=== PATIENT | male | born 1945 | race Hispanic/Latino ===

== ENCOUNTER → 2017-11-27 | Outpatient (CLI) | payer MEDICARE, BC ==
[~2017-11-27] MED LIST: CHOLECALCIFEROL PO; FIBER CHOICE C1.5 GM PO; VITAMIN B PO; Z.0.AMARYL4 MG; Z.0.ASPIR 8181 MG; Z.0.AVODART0.5 MG; Z.0.CELEBREX200 MG; Z.0.GLUCOPHAGE850 MG; Z.0.LOVAZA1 GM; Z.0.PROTONIX40 MG; Z.0.SIMVASTATIN10 MG; Z.0.SINGULAIR10 MG; Z.2.LOSARTAN-HCTZ1 E; [UNRECOGNIZED DRUG - OTHER]
--- NOTE | 2017-11-27 13:44 | Diagnostic Imaging Report ---
PROCEDURE:X-RAY RIGHT KNEE, ONE OR TWO VIEWS COMPARISON:None. INDICATIONS:RIGHT KNEE PAIN FOR A FEW DAYS FINDINGS: The bones are well-mineralized. There are no fractures, subluxations, lytic or blastic lesions. There is prominence of the tibial spines and a tiny osteophytic spur arising from the lateral tibial plateau. There is mild narrowing of the patellofemoral compartment. Small joint effusion is present. CONCLUSION: Mild degenerative changes of the knee with small joint effusion. Dictated by: Yousif Perea M.D. on 11/27/2017 at 13:46 Electronically approved by: Yousif Perea M.D. on 11/27/2017 at 13:46
== END ==
LOC: RAD 13:00
PROVIDERS: ATTEND Family Medicine
DX: M25.561 Pain in right knee (principal)

== ENCOUNTER → 2018-04-26 | Outpatient (CLI) | payer MEDICARE, BC ==
--- NOTE | 2018-04-26 20:01 | Diagnostic Imaging Report ---
Solid-phase gastric emptying study Reason for examination: Peterson's esophagus; dyspepsia. Food was found in stomach during EGD with 12 hours fasting. The protocol used for this study is based on the Consensus Recommendations for Gastric Scintigraphy by the [place] [employer] and the Society of Nuclear Medicine. Clinical information: The patient is diabetic; blood glucose this morning is 96 mg/dL. The patient has not had prior gastrointestinal surgery other than cholecystectomy in 2016. The patient is not on any medications expected to affect gastric motility. The patient has been fasting for at least 6 hours prior to this exam. Radiopharmaceutical: Tc-99m sulfur colloid 1 mCi Report: The radiopharmaceutical was added to 1/2 cup egg whites that were then prepared and served with 2 pieces of white bread toasted, 30 grams of jam and 4 ounces of water. The patient took the meal orally without difficulty. Images were obtained of the abdomen in the anterior and posterior projections at 10 minutes post the meal and at 1, 2, 3, and 4 hours. Uptake was determined from the geometric mean of the anterior and posterior counts and the counts were corrected for decay of the radiolabel. The percent gastric retention of the labeled meal at: 1 hour was 76% (normal 30-90%) 2 hours was 36% (normal <60%) 3 hours was 17% (normal <30%) 4 hours was 4% (normal <10%) Impression: Normal gastric emptying pattern. The findings do not support the clinical diagnosis of gastroparesis. Signed by: Dr. Marta Brasher M.D. on 04/26/2018 7:57 PM
== END ==
LOC: NM 08:11
PROVIDERS: ATTEND Internal Medicine
DX: R49.8 Other voice and resonance disorders (principal); K30 Functional dyspepsia
CPT/HCPCS: 78264; A9541

== ENCOUNTER 2018-08-18 09:08 | Emergency (ER) | payer MEDICARE, OTHER ==
[~2018-08-18] VITALS: Ht 177.8 cm; Wt 102.1 kg
--- OUTSIDE RECORDS SUMMARY | 2018-08-18 09:11 | XMS REPORT | Summary of Care ---
Author Organization Unknown Address Unknown Phone Unavailable Encounter Dates Location Diagnoses Discharge Providers Disposition 10/17/2013 [facility] Outpatient Imaging - Home Kanika Gonzaleze - [place] 10/17/2013 [address] [place], [place] [address] Reason for Visit 715.90 - OSTEOARTHROS NO Problem List Condition Effective Dates Status Health Status Informant Diabetes Active mellitus(Confirmed) Diarrhea(Confirmed) Active Enlarged Active prostate(Confirmed) GERD - Active Gastro-esophageal reflux disease(Confirmed) HTN - Active Hypertension(Confirm ed) Hyperlipidemia(Confi Active rmed) Allergies, Adverse Reactions, Alerts Status Substance Reaction Severity Active Cardizem Medications No data available for this section Medications Administered During Your Visit No data available for this section Immunizations No data available for this section
--- OUTSIDE RECORDS SUMMARY | 2018-08-18 09:11 | XMS REPORT | Continuity of Care Document ---
Author Author Angeline perrin Organization Interface Address Unknown Phone Unavailable Problems Problem Status Onset Date Classification Date Reported Comments Source DX: R74.0=NONSPECIFIC ELEVATION OF LEVEL Active 05/28/2018 [facility] CHOU'S DISEASE Active 05/23/2018 [facility] Other spondylosis with myelopathy, cervical region 09/15/2017 12/07/2017 [facility] CERVICAL SPONDYLOSIS, HNP, CERVICAL STEN [facility] OSTEO[facility]ROS NO Active 10/09/2013 [facility] [place] Concussion with loss of consciousness <=30 min Resolved 07/17/2005 Problem 12/31/2017 MARYAM Ma, [facility] Cervical spondylosis Active Problem 12/31/2017 [facility] [place], [facility] DDD , cervical(<span ID="[id number]">Confirmed</span>) Active Problem 12/31/2017 [facility] [place] Diabetes mellitus Active Problem 12/31/2017 [facility] [place], [facility] [place] Diabetic neuropathy Active Problem 12/31/2017 [facility] [place] Diarrhea Active Problem 12/31/2017 [facility] [place], [facility] [place] Diverticulosis Active Problem 12/31/2017 [facility] [place], [facility] Enlarged prostate Active Problem 12/31/2017 [facility] [place], [facility] [place] Gastric ulcer Resolved Problem 12/31/2017 [facility] [place] GERD - Gastro-esophageal reflux disease Active Problem 12/31/2017 [facility] [place], [facility] [place] [facility] [facility] [facility] [place] (<span ID="[id number]">Confirmed</span>)<sup>1</sup> Active Problem 12/31/2017 BILATERAL MARYAM Ma, [facility] HNP (<span ID="[id number]">Confirmed</span>) Active Problem 12/31/2017 MARYAM [facility] HTN - Hypertension Active Problem 12/31/2017 MARYAM [place], [facility] [place] Hyperlipidemia Active Problem 12/31/2017 MARYAM [place], [facility] [place] IBS (<span ID="[id number]">Confirmed</span>) Active Problem 12/31/2017 MARYAM Ma, [facility] JAMARCUS (<span ID="[id number]">Confirmed</span>) Active [facility]/31/2017 [facility] OA (<span ID="[id number]">Confirmed</span>) Active Problem 12/31/2017 MARYAM Ma, [facility] Paresthesias<sup>2</sup> Active Problem 12/31/2017 BILATERAL FINGERS MARYAM Ma, [facility] Radiculitis Active Problem 12/31/2017 MARYAM Ma, [facility] Cervical stenosis of spine Active Problem 12/31/2017 [facility] Traumatic iritis<sup>3</sup> Active Problem 12/31/2017 LEFT EYE MARYAM Ma, [facility] Vertigo Active Problem 12/31/2017 [facility] Cervical disc disorder at C5-C6 level with myelopathy 12/07/2017 [facility] Type 2 diabetes mellitus with diabetic neuropathy, unspecified 12/07/2017 [facility] Acute posthemorrhagic anemia 12/07/2017 [facility] Spinal stenosis, cervical region 12/07/2017 [facility] Hyperlipidemia, unspecified 12/07/2017 [facility] Obstructive sleep apnea (pediatric) 12/07/2017 [facility] FDC use of oral hypoglycemic drugs 12/07/2017 [facility] Gastro-esophageal reflux disease without esophagitis 12/07/2017 [facility] Essential hypertension 12/07/2017 [facility] Irritable bowel syndrome without diarrhea 12/07/2017 [facility] Elevated white blood cell count, unspecified 12/07/2017 [facility] Diabetes mellitus Active Problem 12/07/2017 [facility] [place] Diarrhea Active Problem 12/07/2017 [facility] [place], [facility] Enlarged prostate Active Problem 12/07/2017 [facility] [place] GERD - Gastro-esophageal reflux disease Active Problem 12/07/2017 [facility] [place], [facility] HTN - Hypertension Active Problem 12/07/2017 [facility] [place], [facility] Hyperlipidemia Active Problem 12/07/[address] 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.4)- Active [facility] IRRITABLE BOWEL SYNDROME WITHOUT DIARRHE Active [facility] Medications Medication Details Route Status Patient Instructions Ordering Provider Order Date Source Diazepam 10 MG Oral Tablet [Valium] 10 mg=1 tab, PO, Bedtime, PRN Anxiety, X 7 day, # 30 tab, 0 Refill(s), given to patient No Longer Active 09/01/2017 [facility] tramadol hydrochloride 50 MG Oral Tablet 50 mg=1 tab, PO, Q8H, PRN Pain, X 14 day, # 50 tab, 0 Refill(s) No Longer Active 09/01/2017 [facility] Docusate Sodium 100 MG Oral Capsule 100 mg=1 cap, PO, BID, # 28 cap, 0 Refill(s), Pharmacy: [facility] [id number] Active 08/31/2017 [facility] POLYETHYLENE GLYCOL 3350 142 MG/ML Oral Solution [Miralax] 17 gm, PO, Daily, X 15 day, # 255 gm, 0 Refill(s), Pharmacy: [facility] [place] [id number] No Longer Active 08/31/2017 [facility] Dexamethasone 4 mg, 1 tab, Route: PO, Drug form: TAB, QID, Dosing Weight 102.528, kg, Start date: 08/31/17 17:00:00 LENS POLISHER, Duration: 30 day, Stop date: 09/30/17 13:00:00 CDTNotes: Give with food. (Same As: Decadron) Inactive 08/31/2017 [facility] Cozaar 100 mg, 1 tab, Route: PO, Drug form: TAB, Daily, Start date: 08/31/17 9:00:00 LENS POLISHER, Duration: 30 day, Stop date: 09/29/17 9:00:00 CDTNotes: (Same as: Cozaar) Inactive 08/31/2017 [facility] Januvia 100 mg, 2 tab, Route: PO, Drug form: TAB, Daily, Dosing Weight 102.528, kg, Start date: 08/31/17 9:00:00 LENS POLISHER, Duration: 30 day, Stop date: 09/29/17 9:00:00 CDTNotes: Same as Januvia Inactive 08/31/2017 [facility] hydrochlorothiazide 25 mg oral tablet 12.5 mg, 0.5 tab, Route: PO, Drug form: TAB, Daily, Start date: 08/31/17 9:00:00 LENS POLISHER, Duration: 30 day, Stop date: 09/29/17 9:00:00 CDTNotes: (Same as: Hydrodiuril) With food. Inactive 08/31/2017 [facility] Hydrochlorothiazide 12.5 MG / Losartan Potassium 100 MG Oral Tablet 1 tab, Route: PO, Drug Form: TAB, Dosing Weight 102.528, kg, Daily, Start date: 08/31/17 9:00:00 LENS POLISHER, Duration: 30 day, Stop date: 09/29/17 9:00:00 CDT No Longer Active 08/31/2017 [facility] glimepiride 1 mg, 0.5 tab, Route: PO, Drug form: TAB, Breakfast, Dosing Weight 102.528, kg, Start date: 08/31/17 8:00:00 LENS POLISHER, Duration: 30 day, Stop date: 09/29/17 8:00:00 CDTNotes: Non-Formulary (Same as: Amaryl) Inactive 08/31/2017 [facility] Tums 500 mg, 1 tab, Route: CHEW, Drug form: CHEWTAB, TID, Dosing Weight 102.528, kg, PRN Indigestion, Start date: 08/31/17 3:08:00 LENS POLISHER, Duration: 30 day, Stop date: 09/30/17 3:07:00 CDTNotes: (Same As: Tums) Calcium Carbonate 500 ol=079 mg elemental calcium Dose= mg calcium carbonate ( mg elemental calcium) Inactive 08/31/2017 [facility] Benzocaine 15 MG / Menthol 3.6 MG Lozenge [Cepacol Sore Throat Pain Relief 15/3.6] 1 lozenge, Route: MUCOUS MEM, Drug Form: YAHAIRA, Dosing Weight 102.528, kg, Q2H, PRN Sore Throat, Start date: 08/30/17 23:18:00 LENS POLISHER, Duration: 30 day, Stop date: 09/29/17 23:17:00 CDTNotes: Cepacol lozenges Dispense 1 box=16 lozenges (Same As: Cepacol Lozenges) No Longer Active 08/31/2017 [facility] Simvastatin 20 mg, 1 tab, Route: PO, Drug form: TAB, Bedtime, Dosing Weight 102.528, kg, Start date: 08/30/17 21:00:00 LENS POLISHER, Duration: 30 day, Stop date: 09/28/17 21:00:00 CDTNotes: (Same as: Zocor) No Longer Active 08/31/2017 [facility] Dexamethasone 4 mg, 1 mL, Route: IV, Drug form: INJ, Q6H, Dosing Weight 102.528, kg, Start date: 08/30/17 18:00:00 LENS POLISHER, Duration: 4 doses or times, Stop date: 08/31/17 12:00:00 CSTNotes: Concentration: 4mg/ml No Longer Active 08/31/2017 [facility] Hydralazine Hydrochloride 50 MG Oral Tablet 50 mg, 2 tab, Route: PO, Drug form: TAB, BID, Dosing Weight 102.528, kg, Start date: 08/30/17 17:00:00 LENS POLISHER, Duration: 30 day, Stop date: 09/29/17 9:00:00 CDTNotes: (Same as: Apresoline) May interfere w/enteral feedings Take With Food. No Longer Active 08/30/2017 [facility] gabapentin 600 MG Oral Tablet 600 mg, 2 cap, Route: PO, Drug form: CAP, BID, Dosing Weight 102.528, kg, Start date: 08/30/17 17:00:00 LENS POLISHER, Duration: 30 day, Stop date: 09/29/17 9:00:00 CDTNotes: (Same as: Neurontin) No Longer Active 08/30/2017 [facility] Pepcid 20 mg, 1 tab, Route: PO, Drug form: TAB, BID, Dosing Weight 102.528, kg, Start date: 08/30/17 17:00:00 LENS POLISHER, Duration: 30 day, Stop date: 09/29/17 9:00:00 CDTNotes: (Same as: Pepcid) Inactive 08/30/2017 [facility] Docusate Sodium 100 MG Oral Capsule 100 mg, 1 cap, Route: PO, Drug form: CAP, BID, Dosing Weight 102.528, kg, Start date: 08/30/17 17:00:00 LENS POLISHER, Duration: 30 day, Stop date: 09/29/17 9:00:00 CDTNotes: (Same as: Colace) (Do Not Crush) No Longer Active 08/30/2017 [facility] Protonix 40 mg, 1 tab, Route: PO, Drug form: ECTAB, Before Dinner, Dosing Weight 102.528, kg, Start date: 08/30/17 16:30:00 LENS POLISHER, Duration: 30 day, Stop date: 09/28/17 16:30:00 CDTNotes: Tablet should not be chewed or crushed. (Same as: Protonix) No Longer Active 08/30/2017 [facility] Cefazolin 2 gm, 100 mL, Route: IVPB, Drug form: INJ, Q8H, Dosing Weight 102.528, kg, Start date: 08/30/17 16:00:00 LENS POLISHER, Duration: 3 doses or times, Stop date: 08/31/17 8:00:00 LENS POLISHER, ABX Indication: Surgical Pro phylaxisNotes: Same as: Ancef No Longer Active 08/30/2017 [facility] Dilaudid 0.5 mg, 0.25 mL, Route: IVP, Drug form: INJ, Q5Min, Dosing Weight 102.528, kg, PRN Pain Score 7-10, Start date: 08/30/17 14:08:00 LENS POLISHER, Duration: 3 doses or times, Stop date: 08/31/17 0:00:00 CSTNotes: Same as Dilaudid No Longer Active 08/30/2017 [facility] Robaxin 500 mg, 5 mL, Route: IV, Drug form: INJ, ONCE, Dosing Weight 102.528, kg, Start date: 08/30/17 13:56:00 LENS POLISHER, Stop date: 08/30/17 13:56:00 CSTNotes: (Same as:Robaxin) Inactive 08/30/2017 [facility] Labetalol 10 mg, 2 mL, Route: IV, Drug form: INJ, ONCE, Dosing Weight 102.528, kg, Start date: 08/30/17 13:21:00 LENS POLISHER, Stop date: 08/30/17 13:21:00 LENS POLISHER Inactive 08/30/2017 [facility] Naloxone 0.04 mg, 0.1 mL, Route: IVP, Drug form: INJ, Q2MIN, Dosing Weight 102.528, kg, PRN Narcotic Reversal, Start date: 08/30/17 12:58:00 LENS POLISHER, Duration: 30 day, Stop date: 09/29/17 13:57:00 CDTNotes: Same as Narcan No Longer Active 08/30/2017 [facility] Hydromorphone 15 mg, 30 mL, Route: IV, Initial Loading Dose: 0.4mg, PLANT PACKER Dose: 0.2 mg, PLANT PACKER Lockout: 10 minutes, Continuous Basal Rate: 0 mg, 4 Hour Limit (In MG): 6, Drug Form: INJ, Continuous, Start date: 08/30/17 12 :58:00 LENS POLISHER, Duration: 30 day, Stop date: 09/29/17...Notes: (Same as: Dilaudid) conc=0.5 mg/ml Hydromorphone PLANT PACKER Dose: ;Delay: ;Basal: No Longer Active 08/30/2017 [facility] Saline Flush 0.9% 10 ml, Route: IVP, Drug Form: INJ, Dosing Weight 102.528, kg, PRN, PRN Line Flush, Start date: 08/30/17 12:58:00 LENS POLISHER, Duration: 30 day, Stop date: 09/29/17 13:57:00 CDTNotes: Same as: BD Posiflush Sterile No Longer Active 08/30/2017 [facility] NS + KCL 20mEq/L 1000ml (Premix) 1,000 mL 1,000 mL, Rate: 75 ml/hr, Infuse over: 13.3 hr, Route: IV, Dosing Weight 102.528 kg, Total Volume: 1,000, Start date: 08/30/17 12:58:00 LENS POLISHER, Duration: 30 day, Stop date: 09/29/17 12:57:00 CDT, 2.27, [id number]: PREMIX IV - Do Not Alter WASTE: F/P - Sink; E - Municipal Trash Bin No Longer Active 08/30/2017 [facility] Acetaminophen 325 MG / Hydrocodone Bitartrate 10 MG Oral Tablet 1 tab, Route: PO, Drug Form: TAB, Dosing Weight 102.528, kg, Q4H, PRN Pain Score 4-6, Start date: 08/30/17 12:58:00 LENS POLISHER, Duration: 30 day, Stop date: 09/29/17 12:57:00 CDTNotes: Do not exceed 4gm/day of acetaminophen. (Same as: [place] 325/10) No Longer Active 08/30/2017 [facility] Morphine 2 mg, 0.2 mL, Route: IVP, Drug form: INJ, Q3H, Dosing Weight 102.528, kg, PRN Pain Score 6-10, Start date: 08/30/17 12:58:00 LENS POLISHER, Duration: 30 day, Stop date: 09/29/17 12:57:00 CDTNotes: (Same as:MORPhine Sulfate) No Longer Active 08/30/2017 [facility] Diphenhydramine 25 mg, 1 cap, Route: PO, Drug form: CAP, Bedtime, Dosing Weight 102.528, kg, PRN Insomnia, Start date: 08/30/17 12:58:00 LENS POLISHER, Duration: 30 day, Stop date: 09/29/17 12:57:00 CDTNotes: (Same as: Remedios chandler) No Longer Active 08/30/2017 [facility] Ondansetron 4 mg, 2 mL, Route: IVP, Drug form: INJ, Q6H, Dosing Weight 102.528, kg, PRN Nausea & Vomiting, Start date: 08/30/17 12:58:00 LENS POLISHER, Duration: 30 day, Stop date: 09/29/17 12:57:00 CDTNotes: (Same as: Andrea) MEDICATION WASTE Product Size: 4 mg Product Wasted: ___ mg No Longer Active 08/30/2017 [facility] Acetaminophen 650 mg, 2 tab, Route: PO, Drug form: TAB, Q4H, Dosing Weight 102.528, kg, PRN Pain 1-3/Temp > 100.4 F, Start date: 08/30/17 12:58:00 LENS POLISHER, Duration: 30 day, Stop date: 09/29/17 12:57:00 CDTNotes: Do not exceed 4 gm/day. (Same as: Tylenol) No Longer Active 08/30/2017 [facility] Trazodone 25 mg, 0.5 tab, Route: PO, Drug form: TAB, Bedtime, Dosing Weight 102.528, kg, PRN Sleep, Start date: 08/30/17 12:58:00 LENS POLISHER, Duration: 30 day, Stop date: 09/29/17 12:57:00 CDT, ..Notes: (Same As: Desyrel) No Longer Active 08/30/2017 [facility] Insulin Lispro 2 unit, 0.02 mL, Route: SUB-Q, Drug form: SOLN, Bedtime, Dosing Weight 102.528, kg, PRN Blood Glucose Results, Start date: 08/30/17 11:52:00 LENS POLISHER, Duration: 30 day, Stop date: 09/29/17 11:51:00 CDTNotes: (Same as: Humalog ) Roll in palms of hands gently; Do not shake `vigorously. "Single Patient Use Only " WASTE: F/P - Black; E - Municipal Trash Bin Stable for 28 days at room temperature. Expires in days from Date No Longer Active 08/30/2017 [facility] Glucagon 1 mg, Route: IM, Drug form: PDR/INJ, PRN, Dosing Weight 102.528, kg, PRN Blood Glucose Results, Start date: 08/30/17 11:52:00 LENS POLISHER, Duration: 30 day, Stop date: 09/29/17 12:51:00 CDT No Longer Active 08/30/2017 [facility] Dextrose 50% Syringe 25 gm, 50 mL, Route: IVP, Drug Form: INJ, Dosing Weight 102.528, kg, PRN, PRN Blood Glucose Results, Start date: 08/30/17 11:52:00 LENS POLISHER, Duration: 30 day, Stop date: 09/29/17 12:51:00 CDT No Longer Active 08/30/2017 [facility] Hydromorphone 0.5 mg, 0.25 mL, Route: IVP, Drug form: INJ, Q5Min, Dosing Weight 102.528, kg, PRN Pain Score 7-10, Start date: 08/30/17 7:48:00 LENS POLISHER, Duration: 4 doses or times, Stop date: 08/30/17 14:00:00 CSTNotes: Same as Dilaudid Inactive 08/30/2017 [facility] Morphine 2 mg, 0.2 mL, Route: IVP, Drug form: INJ, Q5Min, Dosing Weight 102.528, kg, PRN Pain Score 4-6, Start date: 08/30/17 7:48:00 LENS POLISHER, Duration: 5 doses or times, Stop date: 08/30/17 14:00:00 CSTNotes: (Same as:MORPhine Sulfate) Inactive 08/30/2017 [facility] Flumazenil 0.2 mg, 2 mL, Route: IVP, Drug form: INJ, PRN, Dosing Weight 102.528, kg, PRN Benzodiazepine Reversal, Initial dose, Start date: 08/30/17 7:48:00 LENS POLISHER, Stop date: 08/30/17 14:00:00 CSTNotes: (Same as: Romazicon) Inactive 08/30/2017 [facility] Naloxone 0.4 mg, 1 mL, Route: IVP, Drug form: INJ, Q2MIN, Dosing Weight 102.528, kg, PRN Narcotic Reversal, Start date: 08/30/17 7:48:00 LENS POLISHER, Duration: 8 doses or times, Stop date: Limited # of timesNotes: Same as Narcan Inactive 08/30/2017 [facility] Ondansetron 4 mg, 2 mL, Route: IVP, Drug form: INJ, ONCE, Dosing Weight 102.528, kg, PRN Nausea & Vomiting, Start date: 08/30/17 7:48:00 CSTNotes: (Same as: Zofran) MEDICATION WASTE Product Size: 4 mg Product Wasted: ___ mg Inactive 08/30/2017 [facility] Meperidine 12.5 mg, 0.5 mL, Route: IVP, Drug form: INJ, Q30Min, Dosing Weight 102.528, kg, PRN Other -See Comment, For shivering, Start date: 08/30/17 7:48:00 LENS POLISHER, Duration: 2 doses or times, Stop date: 08/30/17 1 4:00:00 CSTNotes: (Same as: Demerol) "Use Precaution in Elderly, Seizure disorders, and Renal impairment" Inactive 08/30/2017 [facility] Ancef 2 gm, 100 mL, Route: IVPB, Drug form: INJ, ONCE, Dosing Weight 102.528, kg, Start date: 08/30/17 6:28:00 LENS POLISHER, Stop date: 08/30/17 6:28:00 LENS POLISHER, Surgical Prophylaxis Only; For patients Notes: Same as: Ancef Inactive 08/30/2017 [facility] gabapentin 600 MG Oral Tablet 600 mg=1 tab, PO, BID, 0 Refill(s) Active 08/26/2017 [facility] Vitamin D3 1000 intl units oral capsule 1,000 IntlUnit=1 cap, PO, Daily, # 75 cap, 0 Refill(s) No Longer Active 08/26/2017 [facility] Hydrochlorothiazide 12.5 MG / Losartan Potassium 100 MG Oral Tablet 1 tab, PO, Daily, HOLD AM DOS, # 90 tab, 0 Refill(s) Active 08/26/2017 [facility] Hydralazine Hydrochloride 50 MG Oral Tablet 50 mg=1 tab, PO, BID, TAKE AM DOS, 0 Refill(s) Active 08/26/2017 [facility] Vitamin B12 1000 mcg oral tablet 1,000 microgram=1 tab, PO, Daily, # 100 tab, 0 Refill(s) No Longer Active 08/26/2017 [facility] sitagliptin 100 MG Oral Tablet [Januvia] 100 mg=1 tab, PO, Daily, # 90 tab, 1 Refill(s) Active 08/26/2017 [facility] [place]-3 Acid Ethyl Esters (DETENTION) 1000 MG Oral Capsule [Lovaza] 4,000 mg=4 cap, PO, Daily, 0 Refill(s) No Longer Active 08/26/2017 [facility] glimepiride 1 mg oral tablet 1 mg=1 tab, PO, Breakfast, # 90 tab, 0 Refill(s) Active 08/26/2017 [facility] omeprazole 40 mg oral delayed release capsule 40 mg=1 cap, PO, Daily, TAKE AM DOS, # 90 cap, 0 Refill(s) Active 08/26/2017 [facility] Allergies, Adverse Reactions, Alerts Substance Category Reaction Severity Reaction type Status Date Reported Comments Source Margie Assertion HIVES Drug allergy Active MARYAM Ma Immunizations Immunization Date Given Site Status Last Updated Comments Source Hx tetanus toxoid vaccine<sup>1</sup> 08/26/2017 completed [facility] Admin Note: STATES REC'D A TETANUS VACCINE WITHIN THE LAST 10YRS. MARYAM [place] Hx pneumococcal vaccine<sup>2</sup> 08/26/2017 completed [facility] Admin Note: STATES REC'D A PNEUMONIA VACCINE WITHIN THE LAST 5YRS. [facility] [place] Hx influenza vaccine-unspecified 06/25/2017 completed [facility] Results Order Name Results Value Reference Range Date Interpretation Comments Source Abdomen complete US Abdomen complete US Patient Name: DESIRE REYES : 1945; Age: 72 years Male MR: [id number] Study: Abdomen complete US 06/04/2018 7:00 AM LENS POLISHER Clinical Indication: - abnormal liver enzymes. COMPARISON: None TECHNIQUE: Grayscale and limited color sonographic evaluation of the abdomen was performed with standard technique. FINDINGS: LIVER: The visualized liver shows normal contour, size, and morphology. There is increased parenchymal echotexture. Left lobe liver cyst measures 1.3 cm. Right lobe liver cyst measures 1.9 cm. BILE DUCTS: The intrahepatic and extrahepatic bile ducts are not dilated. The common bile duct measures mm. The distal common bile duct is not well seen. GALLBLADDER: There are no gallstones, gallbladder sludge, pericholecystic fluid or wall thickening. PANCREAS: The pancreas body body is normal. The head and tail are obscured by bowel gas. SPLEEN: 10.0 x 3.7 x 4.0 cm. KIDNEY: The right kidney measures 12.1 x 5.3 x 5.5 cm. The renal cortical thickness measures 1.4 cm. The left kidney measures 11.2 x 5.1 x 5.3 cm. The renal cortical thickness measures 1.6 cm. There is normal renal contour and morphology, with normal parenchymal echotexture. There is no hydronephrosis. Right renal cyst measures 1.6 x 1.5 cm with low-level internal echoes. Left renal cyst measures 2.8 x 3.2 x 2.9 cm. AORTA AND INFERIOR VENA CAVA: Visualized portions appear normal. ASCITES: There is no abdominal ascites. IMPRESSION: 1. Hepatocellular disease most likely due to fatty infiltration. 2. Bilateral renal cysts and complex cysts. SL: [id number] 06/04/2018 - - Read by: Jaguar Quintero MD Dictated Date/time: 06/04/18 08:02 Electronically Signed by: Jaguar Quintero MD 06/04/18 08:05 FINAL REPORT [place] Knee 4+ views unilateral DX Knee 4+ views unilateral DX Exam: Right Knee 4+ views unilateral DX Clinical Indication: M25.561 Pain in right knee - pain and swelling. Comparison: 10/17/2013. FINDINGS: The AP, oblique, sunrise and lateral views of the right knee show normal alignment. No fractures or dislocations. There is mild degenerative arthritis. Hoffa's fat pad region is unremarkable. There is a small joint effusion. There are no joint bodies. There are no radiopaque foreign bodies. There is no knee region soft tissue swelling. If there is further concern, recommend follow-up radiographs or MRI for complete assessment. IMPRESSION: 1. 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 SL: [id number] 12/28/2017 - - Read by: Chirag Morales DO Dictated Date/time: 12/28/17 14:04 Electronically Signed by: Chirag Morales DO 12/28/17 14:07 FINAL REPORT [facility] [place] ELECTROLYTES AGAP 13.1 meq/L 10.0 - 20.0 08/31/2017 [facility] ELECTROLYTES eGFR 63 mL/min/1.73m2 08/31/2017 Result Comment: The eGFR is calculated using the CKD-EPI formula. In most young, healthy individuals the eGFR will be >90 mL/min/1.73m2. The eGFR declines with age. An eGFR of 60-89 may be normal in some populations, particularly the elderly, for whom the CKD-EPI formula has not been extensively validated. Use of the eGFR is not recommended in the following populations: Individuals with unstable creatinine concentrations, including patients and those with serious co-morbid conditions. Patients with extremes in muscle mass or diet. The data above are obtained from the National Kidney Disease Education Program (NKDEP) which additionally recommends that when the eGFR is used in patients with extremes of body mass index for purposes of drug dosing, the eGFR should be multiplied by the estimated BMI. [facility] ELECTROLYTES Creatinine Lvl 1.16 mg/dL 0.50 - 1.40 08/31/2017 [facility] ELECTROLYTES Sodium Lvl 137 meq/L 135 - 145 08/31/2017 [facility] ELECTROLYTES Potassium Lvl 4.1 meq/L 3.5 - 5.1 08/31/2017 [facility] ELECTROLYTES Calcium Lvl 7.7 mg/dL 8.5 - 10.5 08/31/2017 [facility] ELECTROLYTES Glucose Lvl 165 mg/dL 70 - 99 08/31/2017 [facility] ELECTROLYTES BUN 17 mg/dL 7 - 22 08/31/2017 [facility] ELECTROLYTES CO2 26 meq/L 24 - 32 08/31/2017 [facility] ELECTROLYTES Chloride Lvl 102 meq/L 95 - 109 08/31/2017 [facility] HEMATOLOGY Monocytes # 0.5 K/CMM 0.0 - 0.8 08/31/2017 [facility] HEMATOLOGY Lymphocytes # 0.7 K/CMM 1.0 - 5.5 08/31/2017 [facility] HEMATOLOGY Segs-Bands # 10.0 K/CMM 1.5 - 8.1 08/31/2017 [facility] HEMATOLOGY Basophils 0.1 % 0.0 - 1.0 08/31/2017 [facility] HEMATOLOGY Monocytes 4.1 % 2.0 - 12.0 08/31/2017 [facility] HEMATOLOGY Lymphocytes 6.3 % 20.0 - 40.0 08/31/2017 [facility] HEMATOLOGY Segs 89.5 % 45.0 - 75.0 08/31/2017 [facility] HEMATOLOGY MCHC 32.9 g/dL 32.0 - 36.0 08/31/2017 [facility] HEMATOLOGY MPV 9.3 fL 7.4 - 10.4 08/31/2017 [facility] HEMATOLOGY Platelet 138 K/CMM 133 - 450 08/31/2017 [facility] HEMATOLOGY RDW 14.9 % 11.5 - 14.5 08/31/2017 [facility] HEMATOLOGY MCH 26.0 pg 27.0 - 31.0 08/31/2017 [facility] HEMATOLOGY RBC 5.09 M/CMM 4.70 - 6.10 08/31/2017 [facility] HEMATOLOGY MCV 79.1 fL 80.0 - 94.0 08/31/2017 [facility] HEMATOLOGY Hct 40.3 % 42.0 - 54.0 08/31/2017 [facility] HEMATOLOGY Hgb 13.3 g/dL 14.0 - 18.0 08/31/2017 [facility] HEMATOLOGY WBC 11.2 K/CMM 3.7 - 10.4 08/31/2017 [facility] Spine cervical 2 or 3 view DX Spine cervical 2 or 3 view DX EXAM: XR CERVICAL SPINE 2 VIEWS DATE: 08/31/2017 8:00 AM LENS POLISHER INDICATION: - POST OP COMPARISON: Radiograph dated August 10, 2017 TECHNIQUE: AP and lateral views of the cervical spine FINDINGS: Status post anterior fusion of C5, C6 and C7 with hardware in good position. Alignment and vertebral body heights are normal. Remaining disc spaces are unremarkable. No prevertebral or paraspinous soft tissue abnormality is identified. IMPRESSION: Anterior fusion hardware 5 through C7 good alignment without complications. 08/31/2017 - - Read by: Eliot Hudson MD Dictated Date/time: 08/31/17 10:23 Electronically Signed by: Eliot Hudson MD 08/31/17 10:24 FINAL REPORT [facility] URINE AND STOOL UA Blood Trace *ABN* (08/28/17 9:30 AM) Negative 08/28/2017 [facility] URINE AND STOOL UA Urobilinogen 0.2 EU/dL 0.1 - 1.0 08/28/2017 [facility] URINE AND STOOL UA Nitrite Negative (08/28/17 9:30 AM) Negative 08/28/2017 [facility] URINE AND STOOL UA Ketones Negative *NA* (08/28/17 9:30 AM) Negative 08/28/2017 [facility] URINE AND STOOL UA Bili Negative *NA* (08/28/17 9:30 AM) Negative 08/28/2017 [facility] URINE AND STOOL UA Bacteria Occasional /HPF None Seen /HPF 08/28/2017 [facility] URINE AND STOOL UA RBC 0-2 /HPF 0 - 2 08/28/2017 [facility] URINE AND STOOL UA WBC 0-2 /HPF None Seen /HPF 08/28/2017 [facility] URINE AND STOOL UA Sq Epi Occasional /LPF Few /LPF 08/28/2017 [facility] URINE AND STOOL UA Glucose Negative (08/28/17 9:30 AM) Negative 08/28/2017 [facility] URINE AND STOOL UA Protein Negative (08/28/17 9:30 AM) Negative 08/28/2017 [facility] URINE AND STOOL UA Leuk Est Negative (08/28/17 9:30 AM) Negative 08/28/2017 [facility] URINE AND STOOL UA Spec Grav <=1.005
*NA*
(08/28/17 9:30 AM) <=1.030 08/28/2017 [facility] URINE AND STOOL UA pH 6.5 5.0 - 8.0 08/28/2017 [facility] URINE AND STOOL UA Turbidity Clear (08/28/17 9:30 AM) Clear 08/28/2017 [facility] URINE AND STOOL UA Color Yellow *NA* (08/28/17 9:30 AM) Yellow 08/28/2017 [facility] BLOOD BANK RESULTS Antibody Scrn Negative (08/28/17 9:10 AM) 08/28/2017 [facility] BLOOD BANK RESULTS ABO/Rh O POS 08/28/2017 [facility] ELECTROLYTES AGAP 12.8 meq/L 10.0 - 20.0 08/28/2017 [facility] ELECTROLYTES eGFR 64 mL/min/1.73m2 08/28/2017 Result Comment: The eGFR is calculated using the CKD-EPI formula. In most young, healthy individuals the eGFR will be >90 mL/min/1.73m2. The eGFR declines with age. An eGFR of 60-89 may be normal in some populations, particularly the elderly, for whom the CKD-EPI formula has not been extensively validated. Use of the eGFR is not recommended in the following populations: Individuals with unstable creatinine concentrations, including patients and those with serious co-morbid conditions. Patients with extremes in muscle mass or diet. The data above are obtained from the National Kidney Disease Education Program (NKDEP) which additionally recommends that when the eGFR is used in patients with extremes of body mass index for purposes of drug dosing, the eGFR should be multiplied by the estimated BMI. [facility] ELECTROLYTES Calcium Lvl 8.4 mg/dL 8.5 - 10.5 08/28/2017 [facility] ELECTROLYTES BUN 18 mg/dL 7 - 22 08/28/2017 [facility] ELECTROLYTES Creatinine Lvl 1.14 mg/dL 0.50 - 1.40 08/28/2017 [facility] ELECTROLYTES Glucose Lvl 118 mg/dL 70 - 99 08/28/2017 [facility] ELECTROLYTES CO2 29 meq/L 24 - 32 08/28/2017 [facility] ELECTROLYTES Chloride Lvl 101 meq/L 95 - 109 08/28/2017 [facility] ELECTROLYTES Sodium Lvl 139 meq/L 135 - 145 08/28/2017 [facility] ELECTROLYTES Potassium Lvl 3.8 meq/L 3.5 - 5.1 08/28/2017 [facility] HEMATOLOGY PROTIME 13.1 s 12.0 - 14.7 08/28/2017 [facility] HEMATOLOGY aPTT 27.2 s 22.9 - 35.8 08/28/2017 [facility] HEMATOLOGY INR 0.99 0.85 - 1.17 08/28/2017 [facility] HEMATOLOGY RBC 5.75 M/CMM 4.70 - 6.10 08/28/2017 [facility] HEMATOLOGY Hgb 15.2 g/dL 14.0 - 18.0 08/28/2017 [facility] HEMATOLOGY MCH 26.4 pg 27.0 - 31.0 08/28/2017 [facility] HEMATOLOGY MCV 79.7 fL 80.0 - 94.0 08/28/2017 [facility] HEMATOLOGY MCHC 33.1 g/dL 32.0 - 36.0 08/28/2017 [facility] HEMATOLOGY Hct 45.8 % 42.0 - 54.0 08/28/2017 [facility] HEMATOLOGY Platelet 145 K/CMM 133 - 450 08/28/2017 [facility] HEMATOLOGY RDW 14.8 % 11.5 - 14.5 08/28/2017 [facility] HEMATOLOGY MPV 9.6 fL 7.4 - 10.4 08/28/2017 [facility] HEMATOLOGY WBC 6.5 K/CMM 3.7 - 10.4 08/28/2017 [facility] HEMATOLOGY Monocytes 8.0 % 2.0 - 12.0 08/28/2017 [facility] HEMATOLOGY Segs-Bands # 4.0 K/CMM 1.5 - 8.1 08/28/2017 [facility] HEMATOLOGY Eosinophils 3.1 % 0.0 - 4.0 08/28/2017 [facility] HEMATOLOGY Lymphocytes 26.9 % 20.0 - 40.0 08/28/2017 [facility] HEMATOLOGY Eosinophils # 0.2 K/CMM 0.0 - 0.5 08/28/2017 [facility] HEMATOLOGY Lymphocytes # 1.7 K/CMM 1.0 - 5.5 08/28/2017 [facility] HEMATOLOGY Basophils # 0.1 K/CMM 0.0 - 0.2 08/28/2017 [facility] HEMATOLOGY Basophils 0.9 % 0.0 - 1.0 08/28/2017 [facility] HEMATOLOGY Monocytes # 0.5 K/CMM 0.0 - 0.8 08/28/2017 [facility] HEMATOLOGY Segs 61.1 % 45.0 - 75.0 08/28/2017 [facility] SPECIAL CHEMISTRY Hgb A1C 6.3 % <=5.6 % 08/28/2017 [facility] Hand AP lateral oblique Bilateral Hand AP lateral oblique Bilateral Exam: Right and left hand x-rays, 3 views each Reason for Exam: Polyarthropathy Comparison Exam: None Discussion: Right: No acute bony abnormalities seen within the right hand. Joint spaces are preserved. No suspicious osteoblastic or osteolytic lesions. Left: No acute bony abnormalities seen within the right hand. Joint spaces are preserved. No suspicious osteoblastic or osteolytic lesions. Impression: 1. Unremarkable x-rays of the right and left hands. 10/17/2013 - - Read by: Timmy Ac Dictated Date/time: 10/17/13 08:34 Electronically Signed by: Timmy Ac MD 10/17/13 08:37 FINAL REPORT [facility] Foot 3 views Bilateral Foot 3 views Bilateral Exam: Right and left foot x-rays, 3 views each Reason for Exam: Polyarthropathy Comparison Exam: None Discussion: Right: No acute bony abnormalities. Joint spaces are preserved. No suspicious osteoblastic or osteolytic lesions. Left: No acute bony abnormalities. Joint spaces are preserved. No suspicious osteoblastic or osteolytic lesions. Impression: 1. Unremarkable x-rays of the right and left feet. 10/17/2013 - - Read by: Timmy Ac Dictated Date/time: 10/17/13 08:38 Electronically Signed by: Timmy Ac MD 10/17/13 08:43 FINAL REPORT NIKA [facility] Knee 1-2 Views Bilateral Knee 1-2 Views Bilateral Exam: Right and left knee x-rays, 2 views each Reason for Exam: Polyarthropathy Comparison Exam: None Discussion: Right: No acute bony abnormalities. Joint spaces are preserved. No suspicious osteoblastic or osteolytic lesions. Left: No acute bony abnormalities. Mild joint space narrowing seen within the medial compartment. No suspicious osteoblastic or osteolytic lesions. Impression: 1. Mild joint space narrowing seen within the medial compartment of the left knee. 10/17/2013 - - Read by: Timmy Ac Dictated Date/time: 10/17/13 08:43 Electronically Signed by: Timmy Ac MD 10/17/13 08:45 FINAL REPORT NIK[facility] Spine lumbar 2 or 3 views Spine lumbar 2 or 3 views Exam: Lumbar Spine X-ray, 3 views Reason for Exam: Polyarthropathy Comparison Exam: None Discussion: 5 non rib-bearing lumbar vertebral bodies are seen. Vertebral body heights are maintained. No spondylolisthesis or scoliosis. 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 No suspicious osteoblastic or osteolytic lesions. Note that a lumbar spine x-ray cannot rule out ligamentous injuries or spinal cord abnormalities. No dilated loops of bowel within the visualized portions of the abdomen and pelvis. Impression: 1. 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 10/17/2013 - - Read by: Timmy Ac Dictated Date/time: 10/17/13 08:32 Electronically Signed by: Timmy Ac MD 10/17/13 08:33 FINAL REPORT NIKA [facility] Spine cervical 2 or 3 views Spine cervical 2 or 3 views Exam: Cervical spine x-ray, 2 views Reason for Exam: Polyarthropathy Comparison Exam: None Discussion: On lateral view, the cervical spine is seen from the C1 vertebral body level down through the C7/T1 junction. Vertebral body heights are maintained. Degenerative disc disease seen within the lower cervical spine. Mild grade 1 retrolisthesis is seen of C5 on C6. No suspicious osteoblastic or osteolytic lesions. Prevertebral soft tissue is within normal limits. Lateral masses of C1 and dens of C2 are intact. Please note that a cervical spine x-ray cannot rule out ligamentous injuries or spinal cord abnormalities. Visualized portions of the lung apices are unremarkable. Impression: 1. Degenerative disc disease seen within the lower cervical spine. Mild grade 1 retrolisthesis is seen of C5 on C6. 10/17/2013 - - Read by: Timmy Ac Dictated Date/time: 10/17/13 08:27 Electronically Signed by: Timmy Ac MD 10/17/13 08:32 FINAL REPORT [facility] Vital Signs Vital Sign Value Date Comments Source Temperature Oral (F) 98.6 F 08/31/2017 [facility] Heart Rate 67 08/31/2017 [facility] Systolic (mm Hg) 124 08/31/2017 [facility] Diastolic (mm Hg) 52 08/31/2017 [facility] Respitory Rate 17 08/31/2017 [facility] Systolic (mm Hg) 105 08/31/2017 [facility] Diastolic (mm Hg) 54 08/31/2017 [facility] Respitory Rate 17 08/31/2017 [facility] Heart Rate 65 08/31/2017 [facility] Temperature Oral (F) 98.5 F 08/31/2017 [facility] Heart Rate 72 08/31/2017 [facility] Respitory Rate 18 08/31/2017 [facility] Systolic (mm Hg) 134 08/31/2017 [facility] Diastolic (mm Hg) 60 08/31/2017 [facility] Temperature Oral (F) 98.3 F 08/31/2017 [facility] BMI Calculated 32.43 08/30/2017 [facility] Weight 102.528 08/30/2017 [facility] Height 177.8 cm 08/25/2017 [facility] Encounters Location Location Details Encounter Type Encounter Number Reason For Visit Attending Provider ADM Date DC Date Status Source [facility] [place] [facility] [id number] _[id number] Kanika Gonzalez 10/17/2013 [facility] [id number] Ruiz Edward 08/30/2017 09/01/2017 [facility] Outpatient Imaging [place] [facility] [id number] Ancelmo Montoya 12/28/2017 12/29/2017 [facility] [place] Procedures Procedure Code Date Perfomer Comments Source Cholecystectomy [id number] 07/17/2015 M[facility] [place] Cholecystectomy [id number] 07/17/2015 [facility] Eye repair [id number] 07/17/2013 [facility] Eye repair [id number] 07/17/2013 [id number] - Carpal tunnel release [id number] 07/17/1989 [facility] [place] [facility] - Carpal tunnel release [id number] 07/17/1989 [facility] Varicose vein operation [id number] 07/17/1979 [facility] [place] Varicose vein operation [id number] 07/17/1979 [facility]
--- OUTSIDE RECORDS SUMMARY | 2018-08-18 09:12 | XMS REPORT | Summary of Care ---
Author Author [facility] Organization [facility] Address Unknown Phone Unavailable Encounter ALISON Rich(ADAM) [id number] Date(s): 08/30/17 - 08/31/17 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) - Gastro-esophageal reflux disease without esophagitis (Final) - Essential (primary) hypertension (Final) - Irritable bowel syndrome without diarrhea (Final) - Elevated white blood cell count, unspecified (Final) - Discharge Disposition: Home or Self Care Attending Physician: Ruiz Edward MD Admitting Physician: Ruiz Edward MD Referring Physician: Ruiz Edward MD Vital Signs 1 2 3 Most recent to oldest [Reference Range]: 177.8 cm (08/25/17 4:31 PM) Height 98.6 DegF (08/31/17 3:30 PM) 98.5 DegF (08/31/17 7:16 AM) 98.3 DegF (08/31/17 3:13 AM) Temperature Oral [96.4-99.1 DegF] 124/52 mmHg (08/31/17 3:30 PM) 105/54 mmHg (08/31/17 11:28 AM) 134/60 mmHg (08/31/17 7:16 AM) Blood Pressure [90-140/60-90 mmHg] 17 BRMIN (08/31/17 3:30 PM) 17 BRMIN (08/31/17 11:28 AM) 18 BRMIN (08/31/17 7:16 AM) Respiratory Rate [14-20 BRMIN] 67 bpm (08/31/17 3:30 PM) 65 bpm (08/31/17 11:28 AM) 72 bpm (08/31/17 7:16 AM) Peripheral Pulse Rate [60-100 bpm] 102.528 kg (08/30/17 6:20 AM) Weight 32.43 m2 (08/30/17 6:20 AM) Body Mass Index Problem List Condition Effective Dates Status Health Status Informant Cervical Active spondylosis(Confirme d) Concussion with loss < 2006 Resolved of consciousness <=30 min(Confirmed) DDD (degenerative Active disc disease), cervical(Confirmed) Diabetes Active mellitus(Confirmed) Diabetic Active neuropathy(Confirmed ) Diarrhea(Confirmed) Active Diverticulosis(Confi Active rmed) Enlarged Active prostate(Confirmed) Gastric Resolved ulcer(Confirmed) GERD - Active Gastro-esophageal reflux disease(Confirmed) [place] (hard of Active hearing)(Confirmed)1 HNP (herniated Active nucleus pulposus)(Confirmed) HTN - Active Hypertension(Confirm ed) Hyperlipidemia(Confi Active rmed) IBS (irritable bowel Active syndrome)(Confirmed) JAMARCUS (obstructive Active sleep apnea)(Confirmed) OA Active (osteoarthritis)(Con firmed) Paresthesias(Confirm Active ed)2 Radiculitis(Confirme Active d) Cervical stenosis of Active spine(Confirmed) Traumatic Active iritis(Confirmed)3 Vertigo(Confirmed) Active 1BILATERAL 2BILATERAL FINGERS 3LEFT EYE Allergies, Adverse Reactions, Alerts Substance Reaction Severity Status Cardizem HIVES Active Medications acetaminophen 650 mg, 2 tab, Route: PO, Drug form: TAB, Q4H, Dosing Weight 102.528, kg, PRN Pa in 1-3/Temp > 100.4 F, Start date: 08/30/17 12:58:00 QUARRYING SPECIALIST, Duration: 30 day, Stop date: 09/29/17 12:57:00 CDT Notes: Do not exceed 4 gm/day. (Same as: Tylenol) Start Date: 08/30/17 Stop Date: 08/31/17 Status: Discontinued acetaminophen-hydrocodone 325 mg-10 mg oral tablet 1 tab, Route: PO, Drug Form: TAB, Dosing Weight 102.528, kg, Q4H, PRN Pain Score 4-6, Start date: 08/30/17 12:58:00 QUARRYING SPECIALIST, Duration: 30 day, Stop date: 09/29/17 1 2:57:00 CDT Notes: Do not exceed 4gm/day of acetaminophen. (Same as: [place] 325/10) Start Date: 08/30/17 Stop Date: 08/31/17 Status: Discontinued Ancef 2 gm, 100 mL, Route: IVPB, Drug form: INJ, ONCE, Dosing Weight 102.528, kg, Star t date: 08/30/17 6:28:00 QUARRYING SPECIALIST, Stop date: 08/30/17 6:28:00 QUARRYING SPECIALIST, Surgical Prophyla xis Only; For patients < 120 kg, ABX Indication: Surgical Prophylaxis Notes: Same as: Ancef Start Date: 08/30/17 Stop Date: 08/30/17 Status: Completed ANES flumazenil 0.2 mg, 2 mL, Route: IVP, Drug form: INJ, PRN, Dosing Weight 102.528, kg, PRN Be nzodiazepine Reversal, Initial dose, Start date: 08/30/17 7:48:00 QUARRYING SPECIALIST, Stop date : 08/30/17 14:00:00 QUARRYING SPECIALIST Notes: (Same as: Romazicon) Start Date: 08/30/17 Stop Date: 08/30/17 Status: Completed ANES HYDROmorphone 0.5 mg, 0.25 mL, Route: IVP, Drug form: INJ, Q5Min, Dosing Weight 102.528, kg, P RN Pain Score 7-10, Start date: 08/30/17 7:48:00 QUARRYING SPECIALIST, Duration: 4 doses or times , Stop date: 08/30/17 14:00:00 QUARRYING SPECIALIST Notes: Same as Dilaudid Start Date: 08/30/17 Stop Date: 08/30/17 Status: Completed ANES meperidine 12.5 mg, 0.5 mL, Route: IVP, Drug form: INJ, Q30Min, Dosing Weight 102.528, kg, PRN Other -See Comment, For shivering, Start date: 08/30/17 7:48:00 QUARRYING SPECIALIST, Duratio n: 2 doses or times, Stop date: 08/30/17 14:00:00 QUARRYING SPECIALIST Notes: (Same as: Demerol) "Use Precaution in Elderly, Seizure disorders, and Re nal impairment" Start Date: 08/30/17 Stop Date: 08/30/17 Status: Completed ANES morphine Sulfate 2 mg, 0.2 mL, Route: IVP, Drug form: INJ, Q5Min, Dosing Weight 102.528, kg, PRN Pain Score 4-6, Start date: 08/30/17 7:48:00 QUARRYING SPECIALIST, Duration: 5 doses or times, St op date: 08/30/17 14:00:00 QUARRYING SPECIALIST Notes: (Same as:MORPhine Sulfate) Start Date: 08/30/17 Stop Date: 08/30/17 Status: Completed ANES naloxone 0.4 mg, 1 mL, Route: IVP, Drug form: INJ, Q2MIN, Dosing Weight 102.528, kg, PRN Narcotic Reversal, Start date: 08/30/17 7:48:00 QUARRYING SPECIALIST, Duration: 8 doses or times, Stop date: Limited # of times Notes: Same as Narcan Start Date: 08/30/17 Stop Date: 08/30/17 Status: Discontinued ANES ondansetron 4 mg, 2 mL, Route: IVP, Drug form: INJ, ONCE, Dosing Weight 102.528, kg, PRN [place]ito sea & Vomiting, Start date: 08/30/17 7:48:00 QUARRYING SPECIALIST Notes: (Same as: Andrea) MEDICATION WASTE Product Size: 4 mgProduct Was iram: ___ mg Start Date: 08/30/17 Stop Date: 08/30/17 Status: Discontinued ceFAZolin (SCIP) 2 gm, 100 mL, Route: IVPB, Drug form: INJ, Q8H, Dosing Weight 102.528, kg, Start date: 08/30/17 16:00:00 QUARRYING SPECIALIST, Duration: 3 doses or times, Stop date: 08/31/17 8: 00:00 QUARRYING SPECIALIST, ABX Indication: Surgical Prophylaxis Notes: Same as: Ancef Start Date: 08/30/17 Stop Date: 08/31/17 Status: Completed Cepacol Sore Throat Valdivia Sugar Free 15 mg-3.6 mg mucous membrane lozenge 1 lozenge, Route: MUCOUS MEM, Drug Form: YAHAIRA, Dosing Weight 102.528, kg, Q2H, [place] N Sore Throat, Start date: 08/30/17 23:18:00 QUARRYING SPECIALIST, Duration: 30 day, Stop date: 0 09/29/17 23:17:00 CDT Notes: Cepacol lozengesDispense 1 box=16 lozenges (Same As: Cepacol Lozenges) Start Date: 08/30/17 Stop Date: 08/31/17 Status: Discontinued Cozaar 100 mg, 1 tab, Route: PO, Drug form: TAB, Daily, Start date: 08/31/17 9:00:00 CS T, Duration: 30 day, Stop date: 09/29/17 9:00:00 CDT Notes: (Same as: Cozaar) Start Date: 08/31/17 Stop Date: 08/31/17 Status: Discontinued dexamethasone 4 mg, 1 mL, Route: IV, Drug form: INJ, Q6H, Dosing Weight 102.528, kg, Start be e: 08/30/17 18:00:00 QUARRYING SPECIALIST, Duration: 4 doses or times, Stop date: 08/31/17 12:00: 00 QUARRYING SPECIALIST Notes: Concentration: 4mg/ml Start Date: 08/30/17 Stop Date: 08/31/17 Status: Completed dexamethasone 4 mg, 1 tab, Route: PO, Drug form: TAB, QID, Dosing Weight 102.528, kg, Start da te: 08/31/17 17:00:00 QUARRYING SPECIALIST, Duration: 30 day, Stop date: 09/30/17 13:00:00 CDT Notes: Give with food.(Same As: Decadron) Start Date: 08/31/17 Stop Date: 08/31/17 Status: Discontinued Dextrose 50% Syringe 25 gm, 50 mL, Route: IVP, Drug Form: INJ, Dosing Weight 102.528, kg, PRN, PRN Bl ood Glucose Results, Start date: 08/30/17 11:52:00 QUARRYING SPECIALIST, Duration: 30 day, Stop d ate: 09/29/17 12:51:00 CDT Start Date: 08/30/17 Stop Date: 08/31/17 Status: Discontinued Dextrose 50% Syringe 12.5 gm, 25 mL, Route: IVP, Drug Form: INJ, Dosing Weight 102.528, kg, PRN, PRN Blood Glucose Results, Start date: 08/30/17 11:52:00 QUARRYING SPECIALIST, Duration: 30 day, Stop date: 09/29/17 12:51:00 CDT Start Date: 08/30/17 Stop Date: 08/31/17 Status: Discontinued Dilaudid 0.5 mg, 0.25 mL, Route: IVP, Drug form: INJ, Q5Min, Dosing Weight 102.528, kg, P RN Pain Score 7-10, Start date: 08/30/17 14:08:00 QUARRYING SPECIALIST, Duration: 3 doses or time s, Stop date: 08/31/17 0:00:00 QUARRYING SPECIALIST Notes: Same as Dilaudid Start Date: 08/30/17 Stop Date: 08/31/17 Status: Completed diphenhydrAMINE 25 mg, 1 cap, Route: PO, Drug form: CAP, Bedtime, Dosing Weight 102.528, kg, PRN Insomnia, Start date: 08/30/17 12:58:00 QUARRYING SPECIALIST, Duration: 30 day, Stop date: 09/29 12:57:00 CDT Notes: (Same as: Benadryl) Start Date: 08/30/17 Stop Date: 08/31/17 Status: Discontinued docusate sodium 100 mg oral capsule 100 mg=1 cap, PO, BID, # 28 cap, 0 Refill(s), Pharmacy: [facility] [id number] Start Date: 08/31/17 Stop Date: 09/14/17 Status: Ordered docusate sodium 100 mg oral capsule 100 mg, 1 cap, Route: PO, Drug form: CAP, BID, Dosing Weight 102.528, kg, Start date: 08/30/17 17:00:00 QUARRYING SPECIALIST, Duration: 30 day, Stop date: 09/29/17 9:00:00 CDT Notes: (Same as: Colace) (Do Not Crush) Start Date: 08/30/17 Stop Date: 08/31/17 Status: Discontinued gabapentin 600 mg oral tablet 600 mg, 2 cap, Route: PO, Drug form: CAP, BID, Dosing Weight 102.528, kg, Start date: 08/30/17 17:00:00 QUARRYING SPECIALIST, Duration: 30 day, Stop date: 09/29/17 9:00:00 CDT Notes: (Same as: Neurontin) Start Date: 08/30/17 Stop Date: 08/31/17 Status: Discontinued gabapentin 600 mg oral tablet 600 mg=1 tab, PO, BID, 0 Refill(s) Start Date: 08/25/17 Status: Ordered glimepiride 1 mg, 0.5 tab, Route: PO, Drug form: TAB, Breakfast, Dosing Weight 102.528, kg, Start date: 08/31/17 8:00:00 QUARRYING SPECIALIST, Duration: 30 day, Stop date: 09/29/17 8:00:00 CDT Notes: Non-Formulary(Same as: Amaryl) Start Date: 08/31/17 Stop Date: 08/31/17 Status: Discontinued glimepiride 1 mg oral tablet 1 mg=1 tab, PO, Breakfast, # 90 tab, 0 Refill(s) Start Date: 08/25/17 Status: Ordered glucagon 1 mg, Route: IM, Drug form: PDR/INJ, PRN, Dosing Weight 102.528, kg, PRN Blood G lucose Results, Start date: 08/30/17 11:52:00 QUARRYING SPECIALIST, Duration: 30 day, Stop date: 09/29/17 12:51:00 CDT Start Date: 08/30/17 Stop Date: 08/31/17 Status: Discontinued hydrALAZINE 50 mg oral tablet 50 mg, 2 tab, Route: PO, Drug form: TAB, BID, Dosing Weight 102.528, kg, Start d ate: 08/30/17 17:00:00 QUARRYING SPECIALIST, Duration: 30 day, Stop date: 09/29/17 9:00:00 CDT Notes: (Same as: Apresoline) May interfere w/enteral feedings Take With Food. Start Date: 08/30/17 Stop Date: 08/31/17 Status: Discontinued hydrALAZINE 50 mg oral tablet 50 mg=1 tab, PO, BID, TAKE AM DOS, 0 Refill(s) Start Date: 08/25/17 Status: Ordered hydrochlorothiazide 25 mg oral tablet 12.5 mg, 0.5 tab, Route: PO, Drug form: TAB, Daily, Start date: 08/31/17 9:00:00 QUARRYING SPECIALIST, Duration: 30 day, Stop date: 09/29/17 9:00:00 CDT Notes: (Same as: Hydrodiuril) With food. Start Date: 08/31/17 Stop Date: 08/31/17 Status: Discontinued hydrochlorothiazide-losartan 12.5 mg-100 mg oral tablet 1 tab, PO, Daily, HOLD AM DOS, # 90 tab, 0 Refill(s) Start Date: 08/25/17 Status: Ordered hydrochlorothiazide-losartan 12.5 mg-100 mg oral tablet 1 tab, Route: PO, Drug Form: TAB, Dosing Weight 102.528, kg, Daily, Start date: 08/31/17 9:00:00 QUARRYING SPECIALIST, Duration: 30 day, Stop date: 09/29/17 9:00:00 CDT Start Date: 08/31/17 Stop Date: 08/30/17 Status: Deleted HYDROmorphone 0.5mg/mL LEGAL ADVISER (15mg/30 mL) 15 mg 15 mg, 30 mL, Route: IV, Initial Loading Dose: 0.4mg, LEGAL ADVISER Dose: 0.2 mg, LEGAL ADVISER Lock out: 10 minutes, Continuous Basal Rate: 0 mg, 4 Hour Limit (In MG): 6, Drug Form : INJ, Continuous, Start date: 08/30/17 12:58:00 QUARRYING SPECIALIST, Duration: 30 day, Stop be e: 09/29/17... Notes: (Same as: Dilaudid) conc=0.5 mg/mlHydromorphone LEGAL ADVISER Dose: ;Delay: ;Basal: Start Date: 08/30/17 Stop Date: 08/31/17 Status: Discontinued insulin lispro 2 unit, 0.02 mL, Route: SUB-Q, Drug form: SOLN, Bedtime, Dosing Weight 102.528, kg, PRN Blood Glucose Results, Start date: 08/30/17 11:52:00 QUARRYING SPECIALIST, Duration: 30 d ay, Stop date: 09/29/17 11:51:00 CDT Notes: (Same as: Humalog ) Roll in palms of hands gently; Do not shake `vigorou sly. "Single Patient Use Only " WASTE: F/P - Black; E - [facility] [address] able for 28 days at room temperature.Expires in days from Da te Start Date: 08/30/17 Stop Date: 08/31/17 Status: Discontinued insulin lispro 1 unit, 0.01 mL, Route: SUB-Q, Drug form: SOLN, Bedtime, Dosing Weight 102.528, kg, PRN Blood Glucose Results, Start date: 08/30/17 11:52:00 QUARRYING SPECIALIST, Duration: 30 d ay, Stop date: 09/29/17 11:51:00 CDT Notes: (Same as: Humalog ) Roll in palms of hands gently; Do not shake `vigorou sly. "Single Patient Use Only " WASTE: F/P - Black; E - [facility] [address] able for 28 days at room temperature.Expires in days from Da te Start Date: 08/30/17 Stop Date: 08/31/17 Status: Discontinued insulin lispro 4 unit, 0.04 mL, Route: SUB-Q, Drug form: SOLN, Bedtime, Dosing Weight 102.528, kg, PRN Blood Glucose Results, Start date: 08/30/17 11:52:00 QUARRYING SPECIALIST, Duration: 30 d ay, Stop date: 09/29/17 11:51:00 CDT Notes: (Same as: Humalog ) Roll in palms of hands gently; Do not shake `vigorou sly. "Single Patient Use Only " WASTE: F/P - Black; E - [facility] [address] [address] able for 28 days at room temperature.Expires in days from Da te Start Date: 08/30/17 Stop Date: 08/31/17 Status: Discontinued insulin lispro 3 unit, 0.03 mL, Route: SUB-Q, Drug form: SOLN, Bedtime, Dosing Weight 102.528, kg, PRN Blood Glucose Results, Start date: 08/30/17 11:52:00 QUARRYING SPECIALIST, Duration: 30 d ay, Stop date: 09/29/17 11:51:00 CDT Notes: (Same as: Humalog ) Roll in palms of hands gently; Do not shake `vigorou sly. "Single Patient Use Only " WASTE: F/P - Black; E - [facility] [address] able for 28 days at room temperature.Expires in days from Da te Start Date: 08/30/17 Stop Date: 08/31/17 Status: Discontinued insulin lispro 1 unit, 0.01 mL, Route: SUB-Q, Drug form: SOLN, TID-Before Meals, Dosing Weight 102.528, kg, PRN Blood Glucose Results, Start date: 08/30/17 11:52:00 QUARRYING SPECIALIST, Durat ion: 30 day, Stop date: 09/29/17 11:51:00 CDT Notes: (Same as: Humalog ) Roll in palms of hands gently; Do not shake `vigorou sly. "Single Patient Use Only " WASTE: F/P - Black; E - [facility] [address] [address] able for 28 days at room temperature.Expires in days from Da te Start Date: 08/30/17 Stop Date: 08/31/17 Status: Discontinued insulin lispro 5 unit, 0.05 mL, Route: SUB-Q, Drug form: SOLN, TID-Before Meals, Dosing Weight 102.528, kg, PRN Blood Glucose Results, Start date: 08/30/17 11:52:00 QUARRYING SPECIALIST, Durat ion: 30 day, Stop date: 09/29/17 11:51:00 CDT Notes: (Same as: Humalog ) Roll in palms of hands gently; Do not shake `vigorou sly. "Single Patient Use Only " WASTE: F/P - Black; E - [facility] [address] [address] able for 28 days at room temperature.Expires in days from Da te Start Date: 08/30/17 Stop Date: 08/31/17 Status: Discontinued insulin lispro 4 unit, 0.04 mL, Route: SUB-Q, Drug form: SOLN, TID-Before Meals, Dosing Weight 102.528, kg, PRN Blood Glucose Results, Start date: 08/30/17 11:52:00 QUARRYING SPECIALIST, Durat ion: 30 day, Stop date: 09/29/17 11:51:00 CDT Notes: (Same as: Humalog ) Roll in palms of hands gently; Do not shake `vigorou sly. "Single Patient Use Only " WASTE: F/P - Black; E - [facility] [address] able for 28 days at room temperature.Expires in days from Da te Start Date: 08/30/17 Stop Date: 08/31/17 Status: Discontinued insulin lispro 3 unit, 0.03 mL, Route: SUB-Q, Drug form: SOLN, TID-Before Meals, Dosing Weight 102.528, kg, PRN Blood Glucose Results, Start date: 08/30/17 11:52:00 QUARRYING SPECIALIST, Durat ion: 30 day, Stop date: 09/29/17 11:51:00 CDT Notes: (Same as: Humalog ) Roll in palms of hands gently; Do not shake `vigorou sly. "Single Patient Use Only " WASTE: F/P - Black; E - [facility] [address] able for 28 days at room temperature.Expires in days from Da te Start Date: 08/30/17 Stop Date: 08/31/17 Status: Discontinued insulin lispro 2 unit, 0.02 mL, Route: SUB-Q, Drug form: SOLN, TID-Before Meals, Dosing Weight 102.528, kg, PRN Blood Glucose Results, Start date: 08/30/17 11:52:00 QUARRYING SPECIALIST, Durat ion: 30 day, Stop date: 09/29/17 11:51:00 CDT Notes: (Same as: Humalog ) Roll in palms of hands gently; Do not shake `vigorou sly. "Single Patient Use Only " WASTE: F/P - Black; E - [facility] [address] able for 28 days at room temperature.Expires in days from Da te Start Date: 08/30/17 Stop Date: 08/31/17 Status: Discontinued Januvia 100 mg, 2 tab, Route: PO, Drug form: TAB, Daily, Dosing Weight 102.528, kg, Star t date: 08/31/17 9:00:00 QUARRYING SPECIALIST, Duration: 30 day, Stop date: 09/29/17 9:00:00 CDT Notes: Same as Januvia Start Date: 08/31/17 Stop Date: 08/31/17 Status: Discontinued Januvia 100 mg oral tablet 100 mg=1 tab, PO, Daily, # 90 tab, 1 Refill(s) Start Date: 08/25/17 Status: Ordered labetalol 10 mg, 2 mL, Route: IV, Drug form: INJ, ONCE, Dosing Weight 102.528, kg, Start d ate: 08/30/17 13:21:00 QUARRYING SPECIALIST, Stop date: 08/30/17 13:21:00 QUARRYING SPECIALIST Start Date: 08/30/17 Stop Date: 08/30/17 Status: Completed Lovaza oral capsule 4,000 mg=4 cap, PO, Daily, 0 Refill(s) Start Date: 08/25/17 Stop Date: 08/31/17 Status: Discontinued MiraLax oral powder for reconstitution 17 gm, PO, Daily, X 15 day, # 255 gm, 0 Refill(s), Pharmacy: [facility] [id number] Start Date: 08/31/17 Stop Date: 09/15/17 Status: Completed morphine Sulfate 2 mg, 0.2 mL, Route: IVP, Drug form: INJ, Q3H, Dosing Weight 102.528, kg, PRN Pa in Score 6-10, Start date: 08/30/17 12:58:00 QUARRYING SPECIALIST, Duration: 30 day, Stop date: 0 09/29/17 12:57:00 CDT Notes: (Same as:MORPhine Sulfate) Start Date: 08/30/17 Stop Date: 08/31/17 Status: Discontinued naloxone 0.04 mg, 0.1 mL, Route: IVP, Drug form: INJ, Q2MIN, Dosing Weight 102.528, kg, P RN Narcotic Reversal, Start date: 08/30/17 12:58:00 QUARRYING SPECIALIST, Duration: 30 day, Stop date: 09/29/17 13:57:00 CDT Notes: Same as Narcan Start Date: 08/30/17 Stop Date: 08/31/17 Status: Discontinued NS + KCL 20mEq/L 1000ml (Premix) 1,000 mL 1,000 mL, Rate: 75 ml/hr, Infuse over: 13.3 hr, Route: IV, Dosing Weight 102.528 kg, Total Volume: 1,000, Start date: 08/30/17 12:58:00 QUARRYING SPECIALIST, Duration: 30 day, S top date: 09/29/17 12:57:00 CDT, 2.27, m2 Notes: PREMIX IV - Do Not AlterWASTE: F/P - Sink; E - [employer] Trash Bin Start Date: 08/30/17 Stop Date: 08/31/17 Status: Discontinued omeprazole 40 mg oral delayed release capsule 40 mg=1 cap, PO, Daily, TAKE AM DOS, # 90 cap, 0 Refill(s) Start Date: 08/25/17 Status: Ordered ondansetron 4 mg, 2 mL, Route: IVP, Drug form: INJ, Q6H, Dosing Weight 102.528, kg, PRN Naus ea & Vomiting, Start date: 08/30/17 12:58:00 QUARRYING SPECIALIST, Duration: 30 day, Stop date: 09/29/17 12:57:00 CDT Notes: (Same as: Zofran) MEDICATION WASTE Product Size: 4 mgProduct Was iram: ___ mg Start Date: 08/30/17 Stop Date: 08/31/17 Status: Discontinued ondansetron 4 mg, 2 mL, Route: IVP, Drug form: INJ, Q8H, Dosing Weight 102.528, kg, PRN Naus ea & Vomiting, Start date: 08/30/17 12:58:00 QUARRYING SPECIALIST, Duration: 30 day, Stop date: 09/29/17 12:57:00 CDT, .. Notes: (Same as: Zofran) MEDICATION WASTE Product Size: 4 mgProduct Was iram: ___ mg Start Date: 08/30/17 Stop Date: 08/31/17 Status: Discontinued Pepcid 20 mg, 1 tab, Route: PO, Drug form: TAB, BID, Dosing Weight 102.528, kg, Start d ate: 08/30/17 17:00:00 QUARRYING SPECIALIST, Duration: 30 day, Stop date: 09/29/17 9:00:00 CDT Notes: (Same as: Pepcid) Start Date: 08/30/17 Stop Date: 08/30/17 Status: Discontinued Protonix 40 mg, 1 tab, Route: PO, Drug form: ECTAB, Before Dinner, Dosing Weight 102.528, kg, Start date: 08/30/17 16:30:00 QUARRYING SPECIALIST, Duration: 30 day, Stop date: 09/28/17 16 :30:00 CDT Notes: Tablet should not be chewed or crushed.(Same as: Protonix) Start Date: 08/30/17 Stop Date: 08/31/17 Status: Discontinued Robaxin 500 mg, 5 mL, Route: IV, Drug form: INJ, ONCE, Dosing Weight 102.528, kg, Start date: 08/30/17 13:56:00 QUARRYING SPECIALIST, Stop date: 08/30/17 13:56:00 QUARRYING SPECIALIST Notes: (Same as:Robaxin) Start Date: 08/30/17 Stop Date: 08/30/17 Status: Completed Saline Flush 0.9% 10 ml, Route: IVP, Drug Form: INJ, Dosing Weight 102.528, kg, PRN, PRN Line Flus h, Start date: 08/30/17 12:58:00 QUARRYING SPECIALIST, Duration: 30 day, Stop date: 09/29/17 13:5 7:00 CDT Notes: Same as: BD Posiflush Sterile Start Date: 08/30/17 Stop Date: 08/31/17 Status: Discontinued simvastatin 20 mg, 1 tab, Route: PO, Drug form: TAB, Bedtime, Dosing Weight 102.528, kg, Sta rt date: 08/30/17 21:00:00 QUARRYING SPECIALIST, Duration: 30 day, Stop date: 09/28/17 21:00:00 C DT Notes: (Same as: Zocor) Start Date: 08/30/17 Stop Date: 08/31/17 Status: Discontinued tramadol 50 mg oral tablet 50 mg=1 tab, PO, Q8H, PRN Pain, X 14 day, # 50 tab, 0 Refill(s) Start Date: 08/31/17 Stop Date: 09/14/17 Status: Completed trazodone 25 mg, 0.5 tab, Route: PO, Drug form: TAB, Bedtime, Dosing Weight 102.528, kg, P RN Sleep, Start date: 08/30/17 12:58:00 QUARRYING SPECIALIST, Duration: 30 day, Stop date: 12:57:00 CDT, .. Notes: (Same As: Jaylyn) Start Date: 08/30/17 Stop Date: 08/31/17 Status: Discontinued Tums 500 mg, 1 tab, Route: CHEW, Drug form: CHEWTAB, TID, Dosing Weight 102.528, kg, PRN Indigestion, Start date: 08/31/17 3:08:00 QUARRYING SPECIALIST, Duration: 30 day, Stop date: 09/30/17 3:07:00 CDT Notes: (Same As: Tums)Calcium Carbonate 500 em=099 mg elemental calcium Dose=_ mg calcium carbonate ( mg elemental calcium) Start Date: 08/31/17 Stop Date: 08/31/17 Status: Discontinued Valium 10 mg oral tablet 10 mg=1 tab, PO, Bedtime, PRN Anxiety, X 7 day, # 30 tab, 0 Refill(s), given to patient Start Date: 08/31/17 Stop Date: 09/07/17 Status: Completed Vitamin B12 1000 mcg oral tablet 1,000 microgram=1 tab, PO, Daily, # 100 tab, 0 Refill(s) Start Date: 08/25/17 Stop Date: 08/31/17 Status: Discontinued Vitamin D3 1000 intl units oral capsule 1,000 IntlUnit=1 cap, PO, Daily, # 75 cap, 0 Refill(s) Start Date: 08/25/17 Stop Date: 08/31/17 Status: Discontinued Results BLOOD BANK RESULTS Most recent to 1 2 oldest [Reference Range]: ABO/Rh O POS *Unknown* (08/28/17 9:10 AM) Antibody Scrn Negative (08/28/17 9:10 AM) ELECTROLYTES Most recent to 1 2 oldest [Reference Range]: Sodium Lvl [135-145 137 mEq/L 139 mEq/L mEq/L] (08/31/17 4:38 AM) (08/28/17 9:10 AM) Potassium Lvl 4.1 mEq/L 3.8 mEq/L [3.5-5.1 mEq/L] (08/31/17 4:38 AM) (08/28/17 9:10 AM) Chloride Lvl [95-109 102 mEq/L 101 mEq/L mEq/L] (08/31/17 4:38 AM) (08/28/17 9:10 AM) CO2 [24-32 mEq/L] 26 mEq/L 29 mEq/L (08/31/17 4:38 AM) (08/28/17 9:10 AM) AGAP [10.0-20.0 13.1 mEq/L 12.8 mEq/L mEq/L] (08/31/17 4:38 AM) (08/28/17 9:10 AM) CHEM PANEL Most recent to 1 2 oldest [Reference Range]: Creatinine Lvl 1.16 mg/dL 1.14 mg/dL [0.50-1.40 mg/dL] (08/31/17 4:38 AM) (08/28/17 9:10 AM) eGFR 63 mL/min/1.73m2 1 64 mL/min/1.73m2 2 *NA* *NA* (08/31/17 4:38 AM) (08/28/17 9:10 AM) BUN [7-22 mg/dL] 17 mg/dL 18 mg/dL (08/31/17 4:38 AM) (08/28/17 9:10 AM) Glucose Lvl [70-99 165 mg/dL 118 mg/dL mg/dL] *HI* *HI* (08/31/17 4:38 AM) (08/28/17 9:10 AM) Calcium Lvl 7.7 mg/dL 8.4 mg/dL [8.5-10.5 mg/dL] *LOW* *LOW* (08/31/17 4:38 AM) (08/28/17 9:10 AM) 1Result Comment: The eGFR is calculated using the [...] from the [employer] ( NKDEP) which additionally recommends that when the eGFR is used in patients with extremes of body mass index for purposes of drug dosing, the eGFR should be mul tiplied by the estimated BMI. 2Result Comment: The eGFR is calculated using the [...] from the National Kidney Disease Education Program ( NKDEP) which additionally recommends that when the eGFR is used in patients with extremes of body mass index for purposes of drug dosing, the eGFR should be mul tiplied by the estimated BMI. SPECIAL CHEMISTRY Most recent to 1 2 oldest [Reference Range]: Hgb A1C [<=5.6 %] 6.3 % *HI* (08/28/17 9:10 AM) URINE AND STOOL Most recent to 1 2 oldest [Reference Range]: UA Turbidity [Clear] Clear (08/28/17 9:30 AM) UA Color [Yellow] Yellow *NA* (08/28/17 9:30 AM) UA pH [5.0-8.0] 6.5 (08/28/17 9:30 AM) UA Spec Grav <=1.005 [<=1.030] *NA* (08/28/17 9:30 AM) UA Glucose Negative [Negative] (08/28/17 9:30 AM) UA Blood [Negative] Trace *ABN* (08/28/17 9:30 AM) UA Ketones Negative [Negative] *NA* (08/28/17 9:30 AM) UA Protein Negative [Negative] (08/28/17 9:30 AM) UA Urobilinogen 0.2 EU/dL [0.1-1.0 EU/dL] (08/28/17 9:30 AM) UA Bili [Negative] Negative *NA* (08/28/17 9:30 AM) UA Leuk Est Negative [Negative] (08/28/17 9:30 AM) UA Nitrite Negative [Negative] (08/28/17 9:30 AM) UA WBC [None Seen 0-2 /HPF /HPF] (08/28/17 9:30 AM) UA RBC [0-2 /HPF] 0-2 /HPF (08/28/17 9:30 AM) UA Bacteria [None Occasional /HPF Seen /HPF] (08/28/17 9:30 AM) UA Sq Epi [Few /LPF] Occasional /LPF (08/28/17 9:30 AM) HEMATOLOGY Most recent to 1 2 oldest [Reference Range]: WBC [3.7-10.4 K/CMM] 11.2 K/CMM 6.5 K/CMM *HI* (08/28/17 9:10 AM) (08/31/17 4:38 AM) RBC [4.70-6.10 5.09 M/CMM 5.75 M/CMM M/CMM] (08/31/17 4:38 AM) (08/28/17 9:10 AM) Hgb [14.0-18.0 g/dL] 13.3 g/dL 15.2 g/dL *LOW* (08/28/17 9:10 AM) (08/31/17 4:38 AM) Hct [42.0-54.0 %] 40.3 % 45.8 % *LOW* (08/28/17 9:10 AM) (08/31/17 4:38 AM) MCV [80.0-94.0 fL] 79.1 fL 79.7 fL *LOW* *LOW* (08/31/17 4:38 AM) (08/28/17 9:10 AM) MCH [27.0-31.0 pg] 26.0 pg 26.4 pg *LOW* *LOW* (08/31/17 4:38 AM) (08/28/17 9:10 AM) MCHC [32.0-36.0 32.9 g/dL 33.1 g/dL g/dL] (08/31/17 4:38 AM) (08/28/17 9:10 AM) RDW [11.5-14.5 %] 14.9 % 14.8 % *HI* *HI* (08/31/17 4:38 AM) (08/28/17 9:10 AM) MPV [7.4-10.4 fL] 9.3 fL 9.6 fL (08/31/17 4:38 AM) (08/28/17 9:10 AM) Platelet [133-450 138 K/CMM 145 K/CMM K/CMM] (08/31/17 4:38 AM) (08/28/17 9:10 AM) Segs [45.0-75.0 %] 89.5 % 61.1 % *HI* (08/28/17 9:10 AM) (08/31/17 4:38 AM) Lymphocytes 6.3 % 26.9 % [20.0-40.0 %] *LOW* (08/28/17 9:10 AM) (08/31/17 4:38 AM) Monocytes [2.0-12.0 4.1 % 8.0 % %] (08/31/17 4:38 AM) (08/28/17 9:10 AM) Eosinophils [0.0-4.0 3.1 % %] (08/28/17 9:10 AM) Basophils [0.0-1.0 0.1 % 0.9 % %] (08/31/17 4:38 AM) (08/28/17 9:10 AM) Segs-Bands # 10.0 K/CMM 4.0 K/CMM [1.5-8.1 K/CMM] *HI* (08/28/17 9:10 AM) (08/31/17 4:38 AM) Lymphocytes # 0.7 K/CMM 1.7 K/CMM [1.0-5.5 K/CMM] *LOW* (08/28/17 9:10 AM) (08/31/17 4:38 AM) Monocytes # [0.0-0.8 0.5 K/CMM 0.5 K/CMM K/CMM] (08/31/17 4:38 AM) (08/28/17 9:10 AM) Eosinophils # 0.2 K/CMM [0.0-0.5 K/CMM] (08/28/17 9:10 AM) Basophils # [0.0-0.2 0.1 K/CMM K/CMM] (08/28/17 9:10 AM) PT [12.0-14.7 13.1 seconds seconds] (08/28/17 9:10 AM) INR [0.85-1.17] 0.99 (08/28/17 9:10 AM) PTT [22.9-35.8 27.2 seconds seconds] (08/28/17 9:10 AM) Immunizations Given and Recorded Vaccine Date Status Refusal Reason Hx tetanus toxoid vaccine1 08/25/17 Given Hx pneumococcal vaccine2 08/25/17 Given Hx influenza vaccine-unspecified 06/24/17 Given 1Admin Note: STATES REC'D A TETANUS VACCINE WITHIN THE LAST 10YRS. 2Admin Note: STATES REC'D A PNEUMONIA VACCINE WITHIN THE LAST 5YRS. Procedures Procedure Date Related Diagnosis Body Site Status Cholecystectomy 2015 Completed Eye repair 2013 Completed Excision of cyst 2005 Completed CTR - Carpal tunnel release 1989 Completed Varicose vein operation 1979 Completed Social History Social History Type Response Substance Abuse Use: None. Exercise Exercise frequency: 1-2 times/week. Exercise type: Walking, ALSO DOES YARDWORK. Alcohol Past Smoking Status Current some day smoker; Type: Cigars; Exposure to Tobacco Smoke None; Cigarette Smoking Last 365 Days No; Reg Smoking Cessation Counseling No; Number of years: 52; Other Tobacco Frequency STATES SMOKES 1-2 CIGARS/QWK; entered on: 08/30/17 Assessment and Plan Extracted from: Title: Progress Note Author: Abhijit Lowry Date: 08/31/17 1.Cervical spinal stenosis Postop day #1status postC5 through C6, and [id number] general anesthesia Management as per primary team Continue withPT/OT Continue pain and bowel regimen SCDs for DVT prophylaxis 2.Diabetes mellitus type 2 - with neuropathy Hemoglobin A1c6.3 Continue home doses of glimepiride and Januviaalong with insulin sliding scale coverage Also maintained on gabapentin for neuropathy 3.JAMARCUS (obstructive sleep apnea) Continue home CPAPmachineusewhile in the hospital 4.HTN - Hypertension Controlled Continue hydralazine and hydrochlorothiazide/losartan 5.GERD - Gastro-esophageal reflux disease Complained of some dyspepsia overnight and was given tums Maintained on PPI 6.Hyperlipidemia Continue simvastatin 7.IBS (irritable bowel syndrome) Not routinely maintained any medications Continue supportive care 8.Acute blood loss anemia secondary to recent repair hgb 15-->13.3 remains asymptomatic monitor for now and transfuse if <7 9.Leukocytosis likely reactive to recent surgery and acute blood loss, and less likely infectious etiology monitor off abx for now SCDs home once cleared by surgical team MHUT is consult. If any questions, please call [phone] Extracted from: Title: Consult Note Author: Bozena Chew DO Date: 08/28/17 1.Preop examination -Type of surgery:C5-6, C6-7 and possible C4-5anterior cervical discectomy and fusion, intermediate risk -Surgery specific medical issues:Diabetes mellitustype 2, hypertension -Physical exam concerns:Heart murmur -Patient is able to complete greater than 4 METs without cardiovascular symptoms(stairs) -Baseline EKG reveals sinus rhythm with first-degree AV block, no ST or T-wave abnormalities and no Q waves were noted -Outpatient fleet director:Dr. Terrance Ortega -Revised cardiac index score is 0 thus putting the patient on a 0.4% risk of major perioperative cardiac event -Patient is considered a low perioperative cardiovascular risk for this intermediate risk procedure and may proceed with no further preoperative workup -The risks and benefitsof surgery were discussed with the patient 2.Cervical spinal stenosis Patient undergo C5-C6, C6-7 and possible C4-5 anterior cervical discectomy and fusionby Dr. Solorio August 30, 2017 3.Diabetes mellitus Patient is to continueglimepiride and Januvia, he was instructed to hold these on the morning of surgery, the hemoglobin A1c is---- 4.Diabetic neuropathy Continue with gabapentin 600 mg twice daily 5.GERD - Gastro-esophageal reflux disease Continue with omeprazole, the patient also takes Carafate he was instructed to hold this on the morning of surgery 6.HTN - Hypertension Blood pressure is controlled continue with hydralazine and hydrochlorothiazide losartan, hold the hydrochlorothiazide losartan on the morning of surgery 7.Hyperlipidemia Continue his simvastatin 8.JAMARCUS (obstructive sleep apnea) Patient was encouraged to bring his CPAP machine with him on the day of surgery 9.Heart murmur Patient noted to have a2 out of 6 diastolic murmurbest heard over the right sternal border on exam, of note he was seen to have mild aortic regurgitation on the echocardiogramwith a sclerotic aortic valve, he does not report chest pain or orthopnea, he does suffer from chronic dizziness, this should be monitored by his fleet director as an outpatient [facility] is a enterprise resource planning consultant, please call [phone] with questions or concerns.
--- OUTSIDE RECORDS SUMMARY | 2018-08-18 09:12 | XMS REPORT ---
[facility] Address Unknown Phone Unavailable Care Team Providers Care Burner Tender Name Role Phone ESPERANZA SCRUGGS Unavailable Unavailable Tonya WATT Unavailable Unavailable Problems This patient has no known problems. Allergies, Adverse Reactions, Alerts This patient has no known allergies or adverse reactions. Medications This patient has no known medications. Results Test Description Test Time Test Comments Text Results Atomic Results Result Comments GASTRIC EMPTYING 2018-04-26 19:55:00 [place] [address] Patient Name: DESIRE REYES MR #: [id number] : 1945 Age/Sex: 72/M Req #: [id number] [facility] Physician: Ordered by: ESPERANZA SCRUGGS MD Report #: [id number] Location: [place] Room/Bed: Procedure: [id number] NM/GASTRIC EMPTYING Exam Date: 04/26/18 Exam Time: 0831 REPORT STATUS: Signed Solid-phase gastric emptying study Reason for examination: Peterson's esophagus; dyspepsia. Food was found in stomach during EGD with 12 hours fasting. The protocol used for this study is based on the Consensus Recommendations for Gastric Scintigraphy by the [place] [employer]gastro[employer] Society and the Society of Nuclear Medicine. Clinical information: The patient is diabetic; blood glucose this morning is 96 mg/dL. The patient has not had prior gastrointestinal surgery other than cholecystectomy in 2016. The patient is not on any medications expected to affect gastric motility. The patient has been fasting for at least 6 hours prior to this exam. Radiopharmaceutical: Tc-99m sulfur colloid 1 mCi Report: The radiopharmaceutical was added to 1/2 cup egg whites that were then prepared and served with 2 pieces of white bread toasted, 30 grams of jam and 4 ounces of water. The patient took the meal orally without difficulty. Images were obtained of the abdomen in the anterior and posterior projections at 10 minutes post the meal and at 1, 2, 3, and 4 hours. Uptake was determined from the geometric mean of the anterior and posterior counts and the counts were corrected for decay of the radiolabel. The percent gastric retention of the labeled meal at: 1 hour was 76% (normal 30-90%) 2 hours was 36% (normal <60%) 3 hours was 17% (normal <30%) 4 hours was 4% (normal <10%) Impression: Normal gastric emptying pattern. The findings do not support the clinical diagnosis of gastroparesis. Signed by: Dr. Marta Brasher M.D. on 04/26/2018 7:57 PM Dictated By: MARTA BRASHER MD 56 Transcribed By: GLO on 04/26/181956 COPY TO: ESPERANZA SCRUGGS MD KNEE RIGHT 1-2 VIEWS [place] [address] Patient Name: DESIRE REYES MR #: [id number] : 1945 Age/Sex: 72/M Req #: [id number] [facility] Physician: Ordered by: ARTHUR WATT MD Report #: [id number] Location: RAD Room/Bed: Procedure: [id number] DX/KNEE RIGHT 1-2 VIEWS Exam Date: 11/27/17 Exam Time: 1320 REPORT STATUS: Signed PROCEDURE: X-RAY RIGHT KNEE, ONE OR TWO VIEWS COMPARISON: None. INDICATIONS: RIGHT KNEE PAIN FOR A FEW DAYS FINDINGS: The bones are well-mineralized. There are no fractures, subluxations, lytic or blastic lesions. There is prominence of the tibial spines and a tiny osteophytic spur arising from the lateral tibial plateau. There is mild narrowing of the patellofemoral compartment. Small joint effusion is present. CONCLUSION: Mild degenerative changes of the knee with small joint effusion. Dictated by: Joni Perea M.D. on 11/27/2017 at 13:46 Electronically approved by: Joni Perea M.D. on 11/27/2017 at 13:46 Dictated By: JONI PEREA MD [id number] Transcribed By: SHANTELL on 11/27/17 1346 COPY TO: ARTHUR WATT MD
--- OUTSIDE RECORDS SUMMARY | 2018-08-18 09:12 | XMS REPORT | Summary of Care ---
Author Author [facility] [place] Address Unknown Phone Unavailable Encounter ALISON Rich(ADAM) [id number] Date(s): 12/28/17 - 12/28/17 [facility] [place] [address] [place], [place] [address]- [phone] Discharge Disposition: Home or Self Care Attending Physician: Ancelmo Montoya MD Vital Signs No data available for this section Problem List Condition Effective Dates Status Health Status Informant Cervical Active spondylosis(Confirme d) Concussion with loss < 2006 Resolved of consciousness <=30 min(Confirmed) DDD (degenerative Active disc disease), cervical(Confirmed) Diabetes Active mellitus(Confirmed) Diabetic Active neuropathy(Confirmed ) Diarrhea(Confirmed) Active Diverticulosis(Confi Active rmed) Enlarged Active prostate(Confirmed) Gastric Resolved ulcer(Confirmed) GERD - Active Gastro-esophageal reflux disease(Confirmed) [place] (hard of Active hearing)(Confirmed)1 HNP (herniated Active [...] Reaction Severity Status Cardizem HIVES Active Medications No data available for this section Results No data available for this section Immunizations Given and Recorded Vaccine Date Status [...] CIGARS/QWK; entered on: 08/30/17 Assessment and Plan No data available for this section
== END 2018-08-18 09:39 | disposition home or self-care (01) ==
LOC: FSED 09:08
DX: K08.89 Other specified disorders of teeth and supporting structures (principal)
CPT/HCPCS: 99282

== ENCOUNTER → 2019-01-28 | Outpatient (CLI) | payer MEDICARE, OTHER ==
[~2019-01-28] MED LIST changes: +AUGMENTIN 875-1 EACH PO; +HYDRALAZINE HCL25 MG PO; +IOPAMIDOL 370 MG/ML 200 ML INFUS..BTL INJ ONE; +PROBIOTIC & AC1 EACH PO; +SODIUM CHLORIDE 0.9% 50ML 50 ML ONE; -Z.0.SIMVASTATIN10 MG; +Z.0.SIMVASTATIN10 MG PO
[2019-01-28 15:42] LABS: BLOOD UREA NITROGEN 19 mg/dL (7-26); BUN/CREATININE RATIO 19 (6-25); CREATININE, SERUM 1.01 mg/dL (0.72-1.25); EST GLOMERULAR FILTRATION RATE > 60 ML/MIN (60-)
--- NOTE | 2019-01-28 16:44 | Diagnostic Imaging Report ---
EXAM: CT Chest WITH intravenous contrast 01/28/2019 3:12 PM INDICATION: Shortness of breath COMPARISON: None TECHNIQUE: Chest was scanned utilizing a multidetector helical scanner from the lung apex through the level of the adrenal glands following administration of IV contrast. Coronal and sagittal reformations were obtained. Routine protocol was performed. IV CONTRAST: 100mL Isovue 370 RADIATION DOSE: Total DLP: 575.63 mGy*cm. Dose modulation, iterative reconstruction, and/or weight based adjustment of the mA/kV was utilized to reduce the radiation dose to as low as reasonably achievable. COMPLICATIONS: None FINDINGS: LINES/ TUBES: None. LUNGS AND AIRWAYS: The central airways are patent. At the bilateral dependent lower lobes, there are multifocal areas of consolidative and groundglass opacity and peripheral tree-in-bud nodularity. No pulmonary edema. PLEURA: No pleural effusion. No pneumothorax. HEART AND MEDIASTINUM: The thyroid gland is normal. No mediastinal, hilar or axillary lymphadenopathy. The heart is normal in size.. There is no pericardial effusion. Atherosclerotic calcifications involve the coronary arteries and thoracic aorta. UPPER ABDOMEN: Limited images of the upper abdomen demonstrate multiple hepatic simple cysts, the largest of which measures up to 2.4 cm (series 2 image 104). No abnormality of the partially visualized spleen, pancreas, or adrenal glands. Bilateral renal cysts, subcentimeter on the left and measuring up to 1.4 cm on the right. Replaced right hepatic artery from the superior mesenteric artery. BONES: No acute fracture. Degenerative changes of the visualized spine. Partially visualized anterior cervical fusion hardware. SOFT TISSUES: Unremarkable. IMPRESSION: Bilateral dependent lower lobe multifocal consolidative and groundglass opacities and tree-in-bud nodularity most likely representing aspiration pneumonia. Coronary artery atherosclerosis. Signed by: William Mccoy MD on 01/28/2019 4:41 PM
== END ==
LOC: CT 15:02
PROVIDERS: ATTEND Family Medicine
DX: J98.01 Acute bronchospasm (principal)
CPT/HCPCS: 36415; 71260; 82565; 84520; Q9967

== ENCOUNTER 2019-01-29 10:38 | Inpatient (IN) | payer MEDICARE, OTHER ==
[~2019-01-29] VITALS: Ht 177.8 cm; Wt 93.4 kg
[~2019-01-29 10:38] MED LIST changes: -AUGMENTIN 875-1 EACH PO; -HYDRALAZINE HCL25 MG PO; -IOPAMIDOL 370 MG/ML 200 ML INFUS..BTL INJ ONE; -PROBIOTIC & AC1 EACH PO; -SODIUM CHLORIDE 0.9% 50ML 50 ML ONE
--- OUTSIDE RECORDS SUMMARY | 2019-02-01 12:16 | XMS REPORT | Summary of Care ---
Author Author [facility] Organization [facility] Address Unknown Phone Unavailable Encounter ALISON Rich(ADAM) [id number] Date(s): 06/04/18 - 06/04/18 [facility] [address] [place] [address]- Encounter Diagnosis Abnormal levels of other serum enzymes (Final) - 06/08/18 Nonspecific elevation of levels of transaminase and lactic acid dehydrogenase [L DH] (Final) - Irritable bowel syndrome without diarrhea (Final) - Fatty (change of) liver, not elsewhere classified (Final) - Type 2 diabetes mellitus without complications (Final) - Essential (primary) hypertension (Final) - Other specified diseases of liver (Final) - Cyst of kidney, acquired (Final) - Liver disease, unspecified (Final) - Dietary counseling and surveillance (Final) - Family history of malignant neoplasm of digestive organs (Final) - Discharge Disposition: Home or Self Care Attending Physician: Ellis Ortega MD Referring Physician: Ellis Ortega MD Vital Signs No data available for this section Problem List Condition Effective Dates Status Health Status Informant Cervical Active spondylosis(Confirme d) Concussion with loss < 2006 Resolved of consciousness <=30 min(Confirmed) DDD (degenerative Active disc disease), cervical(Confirmed) Diabetes Active mellitus(Confirmed) Diabetic Active neuropathy(Confirmed ) Diarrhea(Confirmed) Active Diverticulosis(Confi Active rmed) Enlarged Active prostate(Confirmed) Gastric Resolved ulcer(Confirmed) GERD - Active Gastro-esophageal reflux disease(Confirmed) [place] (hard of Active hearing)(Confirmed)1 HNP (herniated Active [...]
--- OUTSIDE RECORDS SUMMARY | 2019-02-01 12:16 | XMS REPORT | Summary of Care ---
Author Author [facility] Organization [facility] Address Unknown Phone Unavailable Encounter ALISON Rich(ADAM) [id number] Date(s): 07/23/18 - 08/21/18 [facility] [address] [place] [address]- [phone] Discharge Disposition: Home or Self Care Attending [...] ulcer(Confirmed) GERD - Active Gastro-esophageal reflux disease(Confirmed) [place] (hard of Active hearing)(Confirmed)1 HNP (herniated Active [...]
[2019-02-01 12:29] VITALS: BP 127/59
--- NOTE | 2019-02-01 12:30 | NUR ---
Pt was a direct admit from Dr. Sy's office at this time. Pt is being admitted for aspiration pneumonia. Pt is aox4 and able to verbalize needs. Pt is able to ambulate and skin is intact. Peripheral IV started on left forearm and all ordered labs drawn at this time. Pt denies SOB and is O2 97% on room air. Family is at the bedside. Pt denies any pain at this time.
[2019-02-01 12:41] VITALS: BP 127/59
[2019-02-01] MEDS ORDERED: DEXTROSE 50% SYRINGE 50 ML IV PRN (12:45)
--- NOTE | 2019-02-01 13:30 | NUR ---
Notified Dr. Sy of pt arrival and received orders to restart home medications.
[2019-02-01] MEDS: ALBUTEROL/IPRATROPIUM 3 ML NEB NEB SCH ×2 (13:48→19:35)
[2019-02-01] MEDS: METHYLPREDNISOLONE SOD SUCC 40 MG/ML VIAL 1ML IV SCH ×2 (13:51→17:51)
[2019-02-01] MEDS: SODIUM CHLORIDE 0.9% 1000ML 1,000 ML IV SCH (13:51)
[2019-02-01] MEDS: PIPER-TAZ 3.375 GM 50 ML IV SCH ×2 (13:52→17:51)
[2019-02-01 13:55] LABS: BASOPHILS % 0.4 % (0.0-1.0); EOSINOPHILS # (AUTO) 0.1 (0.0-0.4); EOSINOPHILS % 1.3 % (0.0-6.0); HEMATOCRIT 37.4 % (38.2-49.6); HEMOGLOBIN 12.5 g/dL (14.0-18.0); LYMPHOCYTES # (AUTO) 1.8 (1.0-3.2); LYMPHOCYTES % 18.5 % (18.0-39.1); MEAN CORPUSCULAR HEMOGLOBIN 28.2 pg (28-32); MEAN CORPUSCULAR HGB CONC 33.4 g/dL (31-35); MEAN CORPUSCULAR VOLUME 84.4 fL (81-99); MONOCYTES # (AUTO) 0.6 (0.2-0.8); MONOCYTES % 6.7 % (4.4-11.3); NEUTROPHILS # (AUTO) 6.9 (2.1-6.9); NEUTROPHILS % 72.5 % (38.7-80.0); PLATELET COUNT 259 x10e3/uL (140-360); RED BLOOD COUNT 4.43 x10e6/uL (4.3-5.7); RED CELL DISTRIBUTION WIDTH 13.4 % (11.7-14.4)
[2019-02-01] MEDS ORDERED: ACETAMINOPHEN 325 MG TAB PO PRN (14:00)
[2019-02-01] MEDS ORDERED: HYDRALAZINE HCL25 MG PO (14:07)
[2019-02-01] MEDS ORDERED: PROBIOTIC & AC1 EACH PO (14:07)
[2019-02-01 14:19] LABS: ALANINE AMINOTRANSFERASE 29 IU/L (0-55); ALBUMIN 3.1 g/dL (3.5-5.0); ALBUMIN/GLOBULIN RATIO 0.7 (0.8-2.0); ALKALINE PHOSPHATASE 59 IU/L (40-150); ANION GAP 11.7 mmol/L (8-16); BLOOD UREA NITROGEN 14 mg/dL (7-26); BUN/CREATININE RATIO 16 (6-25); CALCIUM 9.3 mg/dL (8.4-10.2); CARBON DIOXIDE 28 mmol/L (22-29); CHLORIDE 102 mmol/L (98-107); CREATININE, SERUM 0.86 mg/dL (0.72-1.25); EST GLOMERULAR FILTRATION RATE > 60 ML/MIN (60-); GLUCOSE 124 mg/dL (74-118); POTASSIUM 3.7 mmol/L (3.5-5.1); SODIUM 138 mmol/L (136-145)
[2019-02-01 16:04] VITALS: BP 121/56
[2019-02-01] MEDS ORDERED: HYDRALAZINE HCL 25 MG TAB PO SCH (17:00)
[2019-02-01] MEDS: INSULIN LISPRO 100 UNIT/1 ML 3ML VIAL SQ SCH ×2 (17:44→21:00)
[2019-02-01] MEDS: HYDRALAZINE HCL 25 MG TAB PO SCH (18:08)
--- NOTE | 2019-02-01 19:34 | History and Physical ---
REASON FOR ADMISSION: The patient is a 73-year-old gentleman with a history of chronic cough and has been treated repeatedly as an outpatient for bronchitis, comes in for possible pneumonia. HISTORY OF PRESENT ILLNESS: Mr. Caden Shaw with multiple treatments as an outpatient for bronchitis and with fever and also with chronic cough, which is relentless. The patient had an x-ray, which showed questionable patchy infiltrates in the lower extremities. A CT scan was done at the hospital here, was found to have questionable aspiration pneumonia with consolidative features in the lower bilateral lung wynn. The patient admitted for albuterol and Atrovent treatments, also for steroid and for antibiotic treatments. PAST MEDICAL HISTORY: History of hypertension, history of hyperlipidemia, history of reflux esophagitis, history of chronic low back pain and also history of lower extremity venous stasis. MEDICATIONS: 1. Hydralazine 50 mg twice a day. 2. Takes probiotics every day. 3. Losartan-hydrochlorothiazide 50/12.5 daily. 4. Pantoprazole 40 mg daily. 5. Simvastatin 10 mg daily. 6. Also takes vitamin D. 7. Also Januvia for blood sugars. SOCIAL HISTORY: No EtOH. No IV drug abuse. Lives by himself. REVIEW OF SYSTEMS: Negative for chest pain. No shortness of breath. Positive for cough. Positive for congestion. Positive for dyspnea on exertion. No orthopnea. No PND. The patient has chronic cough, which is relentless and continues. ALLERGIES: THE PATIENT IS ALLERGIC TO DILTIAZEM. PHYSICAL EXAMINATION: VITAL SIGNS: Temperature is 98.8, and T-max is 99 at 12:29. The patient's respirations of 20, blood pressure is 121/56, pulse oximetry of 97%. HEENT: Normocephalic, atraumatic. Pupils are reactive to light and accommodation. CVS: S1, S2 normal. ABDOMEN: Nontender, nondistended. EXTREMITIES: No clubbing, no cyanosis, no edema. LUNGS: Rhonchi in bilateral lower lung wynn. LABORATORY VALUES: Initial white count is 9.4 thousand, hemoglobin 12.5, hematocrit 37.4. Chemistries; 138 sodium, potassium is 3.7, chloride of 102, BUN of 15, creatinine 0.86, CO2 was 28, glucose 124, and albumin and globulin normal. IMAGING STUDIES: Chest CT report shows bilateral dependent lower lobe multifocal consolidation and ground-glass opacities and tree-in-bud nodularities, most likely worsening aspiration pneumonia. PLAN: Start the patient on Zosyn 3.275 mg q.6 hours. Blood cultures have been ordered. Sputum cultures and C and S have been ordered. The patient has been on fluids. Sliding scale for diabetes has been done. The patient is also put on Solu-Medrol 40 mg q.6 hours, albuterol, Atrovent treatments q.6 hours and also O2 by protocol. The patient has also been started on Robitussin with codeine for cough. Restart all his home medications for hyperlipidemia, hypertension, and diabetes. Also, the patient will be put on DVT prophylaxis with heparin. Further recommendation per clinical course. We will continue to monitor the patient. MD OSCAR Madrigal/ZAHRAL /[id number]
--- NOTE | 2019-02-01 19:40 | NUR ---
RECEIVED PT SITTING ON THE BED RESPIRATIONS ARE EVEN AND UNLABORED.C/O OF COUGH .CALL LIGHT WITH IN REACH
[2019-02-01 20:00] VITALS: BP 115/58
[2019-02-01 20:14] VITALS: BP 121/56
[2019-02-01] MEDS: SIMVASTATIN 20 MG TAB PO SCH (20:25)
[2019-02-01] MEDS: LACTOBACILLUS ACIDOPHILUS CAPSULE PO SCH (20:25)
[2019-02-01] MEDS: GUAIFENESIN/CODEINE 10 ML CUP PO PRN (21:00)
[2019-02-01] MEDS: INSULIN GLARGINE 100 UNITS/ML VIAL SQ SCH (21:00)
[2019-02-01] MEDS: HEPARIN SOD (PORCINE) 5,000 UNIT/ML VIAL SC SCH (21:00)
[2019-02-02] VITALS (8 sets, daily range): BP systolic 126–144; BP diastolic 56–65
[2019-02-02] MEDS: METHYLPREDNISOLONE SOD SUCC 40 MG/ML VIAL 1ML IV SCH ×5 (00:12→23:20)
[2019-02-02] MEDS: PIPER-TAZ 3.375 GM 50 ML IV SCH ×5 (00:18→23:20)
[2019-02-02] MEDS: ALBUTEROL/IPRATROPIUM 3 ML NEB NEB SCH ×5 (00:47→19:40)
[2019-02-02 05:34] LABS: BASOPHILS % 0.1 % (0.0-1.0); HEMATOCRIT 36.6 % (38.2-49.6); HEMOGLOBIN 12.1 g/dL (14.0-18.0); LYMPHOCYTES # (AUTO) 0.7 (1.0-3.2); LYMPHOCYTES % 7.9 % (18.0-39.1); MEAN CORPUSCULAR HEMOGLOBIN 28.1 pg (28-32); MEAN CORPUSCULAR HGB CONC 33.1 g/dL (31-35); MEAN CORPUSCULAR VOLUME 84.9 fL (81-99); MONOCYTES # (AUTO) 0.1 (0.2-0.8); MONOCYTES % 1.1 % (4.4-11.3); NEUTROPHILS # (AUTO) 7.5 (2.1-6.9); NEUTROPHILS % 89.8 % (38.7-80.0); PLATELET COUNT 233 x10e3/uL (140-360); RED BLOOD COUNT 4.31 x10e6/uL (4.3-5.7); RED CELL DISTRIBUTION WIDTH 13.5 % (11.7-14.4)
[2019-02-02 05:58] LABS: ALANINE AMINOTRANSFERASE 26 IU/L (0-55); ALBUMIN/GLOBULIN RATIO 0.7 (0.8-2.0); ALKALINE PHOSPHATASE 48 IU/L (40-150); ANION GAP 15.1 mmol/L (8-16); BLOOD UREA NITROGEN 17 mg/dL (7-26); BUN/CREATININE RATIO 15 (6-25); CALCIUM 8.8 mg/dL (8.4-10.2); CARBON DIOXIDE 25 mmol/L (22-29); CHLORIDE 104 mmol/L (98-107); CREATININE, SERUM 1.15 mg/dL (0.72-1.25); EST GLOMERULAR FILTRATION RATE > 60 ML/MIN (60-); GLUCOSE 176 mg/dL (74-118); POTASSIUM 4.1 mmol/L (3.5-5.1); SODIUM 140 mmol/L (136-145)
[2019-02-02] MEDS: GUAIFENESIN/CODEINE 10 ML CUP PO PRN ×3 (06:15→20:20)
[2019-02-02] MEDS: SODIUM CHLORIDE 0.9% 1000ML 1,000 ML IV SCH (06:19)
--- NOTE | 2019-02-02 07:08 | NUR ---
C/O OF COUGH .MEDICATED WITH ROBITUSSIN.PT RESTING .BEDSIDE REPORT GIVEN TO THE ONCOMING NURSE
--- NOTE | 2019-02-02 08:13 | NUR ---
Pt in bed with eyes open and able to verbalize needs. Pt denies SOB on room air. Continues on IVF and well tolerated.
[2019-02-02] MEDS: INSULIN LISPRO 100 UNIT/1 ML 3ML VIAL SQ SCH ×4 (08:32→19:56)
[2019-02-02] MEDS: HYDRALAZINE HCL 25 MG TAB PO SCH ×2 (08:32→17:09)
[2019-02-02] MEDS: LOSARTAN POTASSIUM 100 MG TAB PO SCH (08:33)
[2019-02-02] MEDS: CHOLECALCIFEROL 1,000 UNIT TAB PO SCH (08:34)
[2019-02-02] MEDS: CYANOCOBALAMIN 1,000 MCG TAB PO SCH (08:34)
[2019-02-02] MEDS: HYDROCHLOROTHIAZIDE 25 MG TAB PO SCH (08:34)
[2019-02-02] MEDS: HEPARIN SOD (PORCINE) 5,000 UNIT/ML VIAL SC SCH ×2 (08:37→19:59)
--- NOTE | 2019-02-02 15:37 | NUR ---
Nutrition Screen Note RD Recommendation for Physician: 1.Recommend continue with ADA diet Plan of Care: RD following, monitoring for tolerance and adequacy Nutrition reason for involvement: Diagnosis Primary Diagnose(s): Pneumonia aspiration PMH: HTN, HLD, reflux esophagitis, history of chronic low back pain and also history of lower extremity venous stasis Ht: 70 in Wt: 206 lbs BMI: 29.55 kg/m2 IBW: 166lbs +/- 10% RD Assessment: (02/02) Chart reviewed. Labs and meds reviewed. 73 y/o M with history of chronic cough. Per pt chart, CT scan was done and found to have questionable aspiration pneumonia. Pt has a history of good PO intake, no changes in appetite or weight with UBW of 201 lbs. Pt denied any N/V/D/C or any difficulties chewing/swallowing. Will continue to monitor and follow. Current Diet: ADA diet Malnutrition Evaluation (02/02) The patient does not meet criteria for a specified degree of malnutrition at this time. Will re-evaluate at follow-up as appropriate. Diet Education Needs Assessment: Diet education not indicated Nutrition Care Level: LOW Signed: Nimisha Ely MS, RD, LD
--- NOTE | 2019-02-02 18:00 | NUR ---
Pt up in bed. Aox4 and able to verbalize needs. Pt denies any pain at this time. Pt continues on room air at this time and denies SOB. Pt has been afebrile today.
--- NOTE | 2019-02-02 18:45 | NUR ---
Received beside report from the day shift RN. The patient is sitting up on the reading his books, not in distress except for the cough. Call light within reach, bed height low, side rails up x2, and wheels lock.
[2019-02-02] MEDS: LACTOBACILLUS ACIDOPHILUS CAPSULE PO SCH (19:57)
[2019-02-02] MEDS: SIMVASTATIN 20 MG TAB PO SCH (19:58)
[2019-02-02] MEDS: INSULIN GLARGINE 100 UNITS/ML VIAL SQ SCH (20:02)
[2019-02-03] VITALS (8 sets, daily range): BP systolic 118–145; BP diastolic 58–66
[2019-02-03] MEDS: ALBUTEROL/IPRATROPIUM 3 ML NEB NEB SCH ×4 (01:16→19:23)
[2019-02-03] MEDS: METHYLPREDNISOLONE SOD SUCC 40 MG/ML VIAL 1ML IV SCH ×2 (04:38→17:00)
[2019-02-03] MEDS: PIPER-TAZ 3.375 GM 50 ML IV SCH ×4 (04:38→22:58)
[2019-02-03] MEDS: LOSARTAN POTASSIUM 100 MG TAB PO SCH (10:01)
[2019-02-03] MEDS: HYDRALAZINE HCL 25 MG TAB PO SCH ×2 (10:01→17:00)
[2019-02-03] MEDS: CHOLECALCIFEROL 1,000 UNIT TAB PO SCH (10:02)
[2019-02-03] MEDS: CYANOCOBALAMIN 1,000 MCG TAB PO SCH (10:02)
[2019-02-03] MEDS: HYDROCHLOROTHIAZIDE 25 MG TAB PO SCH (10:02)
[2019-02-03] MEDS: HEPARIN SOD (PORCINE) 5,000 UNIT/ML VIAL SC SCH ×2 (10:13→19:50)
[2019-02-03] MEDS: INSULIN LISPRO 100 UNIT/1 ML 3ML VIAL SQ SCH ×4 (10:13→19:49)
--- NOTE | 2019-02-03 18:45 | NUR ---
Received bedside report from day shift RN. The patient is sitting up on the bed, not in distress but continues to have a cough. The patient reported no chest pain nor throat. Call light within reach, bed height low, wheels lock, and side rails up x2.
--- NOTE | 2019-02-03 19:09 | NUR ---
SHIFT CHANGE REPORT GIVEN TO MANSI Delgadillo RN.
--- NOTE | 2019-02-03 19:10 | NUR ---
SHIFT CHANGE REPORT GIVEN TO TOÑITO Alejandra RN.
[2019-02-03] MEDS: BENZONATATE 100 MG CAP PO SCH (19:50)
[2019-02-03] MEDS: INSULIN GLARGINE 100 UNITS/ML VIAL SQ SCH (19:50)
[2019-02-03] MEDS: LACTOBACILLUS ACIDOPHILUS CAPSULE PO SCH (19:50)
[2019-02-03] MEDS: SIMVASTATIN 20 MG TAB PO SCH (19:50)
[2019-02-03] MEDS ORDERED: AZITHROMYCIN 250MG/NS 100 ML 100 ML IV SCH (20:15)
--- NOTE | 2019-02-03 20:30 | NUR ---
Dr. Urbina visited the patient to address the ongoing pneumonia and coughing. MD stated he will look over the medications to see if any new antibiotic can be added and something better to manage the coughing. Patient verbalized understanding. All questions answered by .
[2019-02-03] MEDS ORDERED: AZITHROMYCIN 500MG/NS 250 ML 125 ML IV ONE (21:30)
[2019-02-03] MEDS: FAMOTIDINE 20 MG/2 ML VIAL IV SCH (21:37)
[2019-02-04] VITALS (8 sets, daily range): BP systolic 128–148; BP diastolic 59–74
[2019-02-04] MEDS: BUDESONIDE 0.5MG/2 ML NEB INH SCH ×3 (00:40→19:13)
[2019-02-04] MEDS: ALBUTEROL/IPRATROPIUM 3 ML NEB NEB SCH ×4 (00:40→19:13)
--- NOTE | 2019-02-04 02:24 | Consultation ---
DATE OF CONSULTATION: Pulmonary Consultation REASON FOR THE CONSULT: Cough, shortness of breath, pneumonia. HISTORY OF PRESENT ILLNESS: Mr. Shaw is a 73-year-old male, who smoked cigar for 40+ years, quit 3 years ago, presented with intractable cough, shortness of breath, going on for the last 1-2 weeks, progressively getting worse. The patient failed outpatient treatment for pneumonia and also is on nebulizer treatment. He does not have any pets at home. He denies any chest pain, nausea, vomiting, or any history of acid reflux. He has intractable cough and it is occasionally productive of green phlegm. His CT of the chest is showing multilobar infiltrates consistent with pneumonia. He denies any choking on food. REVIEW OF SYSTEMS: GENERAL: Denies any fever or chills. HEAD: Denies any head trauma. ENT: Denies any earaches. CVS: Denies any chest pain. RESPIRATORY: Shortness of breath and cough. GI: Denies any nausea, vomiting. The rest of the review of systems are negative except as in HPI. PAST MEDICAL HISTORY: Hypertension, hyperlipidemia, history of reflux esophagitis. FAMILY AND SOCIAL HISTORY: He smokes cigar for quite some time and quit few years ago somewhere around 40 years. He denies any alcohol use. 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 PHYSICAL EXAMINATION: VITAL SIGNS: Temperature 98.4, pulse of 57, blood pressure 118/50, respiratory rate of 18, and O2 saturation 94%. HEENT: Head atraumatic, normocephalic. NECK: Supple. CHEST: Occasional rhonchi, but crackles on the bases. HEART: S1 and S2 audible. ABDOMEN: Soft, nontender. EXTREMITIES: No pedal edema. NEUROLOGIC: Awake and alert. LABORATORY DATA: White count of 8.35, hemoglobin 12.1, platelets 233. Chemistry is within normal limits. Chest CT are reviewed showing multifocal infiltrates and areas of consolidation. ASSESSMENT: Mr. Shaw is a 73-year-old male with multilobar pneumonia and intractable cough. PLAN: Agree with the excellent management with IV antibiotics, nebulizer treatment. The patient is on symptomatic cough treatment with Tessalon Perles and guaifenesin with codeine. I will add Pulmicort nebs. The patient is already on IV steroids. The patient has a history of acid reflux and reflux esophagitis. I will start the patient on Pepcid hopefully that will help in acid reflux and may help in cough. If the symptoms are not improved, then we will consider doing bronchoscopy. MD FRAN Hoang/JOSE /[id number]
[2019-02-04] MEDS: METHYLPREDNISOLONE SOD SUCC 40 MG/ML VIAL 1ML IV SCH ×2 (04:49→17:11)
[2019-02-04] MEDS: PIPER-TAZ 3.375 GM 50 ML IV SCH ×3 (04:49→17:11)
[2019-02-04] MEDS: INSULIN LISPRO 100 UNIT/1 ML 3ML VIAL SQ SCH ×4 (07:30→21:00)
--- NOTE | 2019-02-04 07:30 | NUR ---
PATIENT IS AWAKE, ALERT, AND IN STABLE CONDITION WITH NO S/S OF RESPIRATORY DISTRESS. NO PAIN VOICED. PATIENT AWARE OF NEED FOR SPUTUM SAMPLE- COLLECTION CUP AVAILABLE FOR PATIENT AT BEDSIDE. CALL LIGHT IS WITHIN REACH, PATIENT INSTRUCTED TO CALL FOR ASSISTANCE NEEDED.
[2019-02-04] MEDS: LOSARTAN POTASSIUM 100 MG TAB PO SCH (08:23)
[2019-02-04] MEDS: HYDROCHLOROTHIAZIDE 25 MG TAB PO SCH (08:23)
[2019-02-04] MEDS: CYANOCOBALAMIN 1,000 MCG TAB PO SCH (08:23)
[2019-02-04] MEDS: CHOLECALCIFEROL 1,000 UNIT TAB PO SCH (08:23)
[2019-02-04] MEDS: HYDRALAZINE HCL 25 MG TAB PO SCH ×2 (08:23→16:32)
[2019-02-04] MEDS: BENZONATATE 100 MG CAP PO SCH ×3 (08:23→20:51)
[2019-02-04] MEDS: HEPARIN SOD (PORCINE) 5,000 UNIT/ML VIAL SC SCH ×2 (08:23→21:38)
[2019-02-04] MEDS: FAMOTIDINE 20 MG/2 ML VIAL IV SCH ×2 (08:23→16:32)
[2019-02-04] MEDS: GUAIFENESIN/CODEINE 10 ML CUP PO PRN ×2 (12:16→21:30)
--- NOTE | 2019-02-04 19:24 | NUR ---
PATIENT SITTING UP IN THE RECLINER- IN STABLE CONDITION WITH NO S/S OF RESPIRATORY DISTRESS. NO PAIN VOICED. CALL LIGHT IS WITHIN REACH, PATIENT INSTRUCTED TO CALL FOR ASSISTANCE NEEDED. BEDSIDE REPORT GIVEN TO ONCOMING NURSE.
--- NOTE | 2019-02-04 19:37 | NUR ---
RECEIVED PT WALKING IN THE ROOM C/O OF COUGH AND DENIES PAIN .NPO AFTER MIDNIGHT FOR BRONCHOSCOPY .CALL LIGHT WITH IN REACH .CONTINUE TO MONITOR
--- NOTE | 2019-02-04 19:47 | Progress Note ---
DATE: SUBJECTIVE: This patient is here for aspiration pneumonia, bronchospasms. The patient continues to have cough and congestion. He is on Solu-Medrol and also Zosyn. Fever is down. No chest pain. Positive for cough. Positive for congestion. Positive for nonproductive sputum. PHYSICAL EXAMINATION: VITAL SIGNS: Temperature is 97.0, respirations of 18, blood pressure is 128/74, and pulse oximeter of 96%. HEENT: Normocephalic, atraumatic. Pupils are reactive to light and accommodation. CVS: S1 and S2 normal. Regular rate and rhythm. ABDOMEN: Nontender, nondistended. LUNGS: Positive for rhonchi bilaterally EXTREMITIES: No clubbing. No cyanosis. No edema. LABORATORY DATA: The patient's laboratory values none done today. Chemistries; running blood sugars are in the 140s to 260s. MEDICATIONS: The patient is on Solu-Medrol q.6 hours, Zosyn q.6 hours. The patient is also on albuterol, Atrovent treatment, heparin for DVT prophylaxis and insulin glargine for diabetes control. ASSESSMENT: 1. A 73-year-old male with multilobar pneumonia. 2. Possibly aspiration. 3. Bronchospasm. 4. History of diabetes mellitus. 5. Hypertension. 6. Hyperlipidemia. PLAN: Antibiotic continue as documented, nebulized treatment. The patient is on guaifenesin. Dr. Urbina has seen the patient, added Pulmicort nebulization to the regimen. IV steroid was continued. The patient is on Pepcid prophylactically for GI prophylaxis and also on heparin for control of DVT prophylaxis. Further recommendation per clinical course. We will continue to monitor the patient along with consultants. MD JULY MadrigalJ/MODL /[id number]
[2019-02-04] MEDS: SIMVASTATIN 20 MG TAB PO SCH (20:51)
[2019-02-04] MEDS: LACTOBACILLUS ACIDOPHILUS CAPSULE PO SCH (20:51)
[2019-02-04] MEDS: INSULIN GLARGINE 100 UNITS/ML VIAL SQ SCH (21:00)
[2019-02-04] MEDS: AZITHROMYCIN 250MG/NS 100 ML 100 ML IV SCH ×2 (21:07→21:23)
[2019-02-05] VITALS: BP 169/74
[2019-02-05] MEDS: ALBUTEROL/IPRATROPIUM 3 ML NEB NEB SCH ×4 (01:30→19:12)
[2019-02-05 04:00] VITALS: BP 143/65
[2019-02-05] MEDS: PIPER-TAZ 3.375 GM 50 ML IV SCH ×4 (06:00→17:40)
[2019-02-05] MEDS: METHYLPREDNISOLONE SOD SUCC 40 MG/ML VIAL 1ML IV SCH ×2 (06:00→17:40)
--- NOTE | 2019-02-05 06:30 | NUR ---
PT IS NPO FOR BRONCHOSCOPY ..DENIES PAIN .NO ACUTE DISTRESS NOTED .CALL LIGHT WITH IN REACH .CONTINUE TO MONITOR
[2019-02-05] MEDS: BUDESONIDE 0.5MG/2 ML NEB INH SCH ×2 (07:07→19:12)
--- NOTE | 2019-02-05 07:10 | NUR ---
PATIENT IS IN STABLE CONDITION WITH NO S/S OF RESPIRATORY DISTRESS- NO PAIN VOICED. PATIENT IS NPO FOR PROCEDURE TODAY. CALL LIGHT IS WITHIN REACH, PATIENT INSTRUCTED TO CALL FOR ASSISTANCE NEEDED.
--- NOTE | 2019-02-05 07:24 | NUR ---
BEDSIDE REPORT GIVEN TO THE ONCOMING NURSE
[2019-02-05] MEDS: INSULIN LISPRO 100 UNIT/1 ML 3ML VIAL SQ SCH ×4 (07:30→21:00)
--- NOTE | 2019-02-05 07:34 | Progress Note ---
DATE: SUBJECTIVE: This is a 73-year-old gentleman with a history of diabetes, hypertension, and hyperlipidemia, comes in with multifocal pneumonia. The patient continues to have continues relentless cough despite being on Robitussin with codeine. Currently on azithromycin and also on Zosyn. The patient is also getting Solu-Medrol 40 mg twice a day. The patient is also getting Pulmicort 3 nebulization and nebulizer, albuterol and Atrovent treatment. Cough continues. No chest pain. No shortness of breath. Positive for nonproductive cough. OBJECTIVE: VITAL SIGNS: Today temperature is 97.6, afebrile for the last 48 hours, pulse of 74, respirations of 20, blood pressure is 143/65, and pulse oximetry of 97%. HEENT: Normocephalic and atraumatic. Pupils are reactive to light and accommodation. CVS: S1 and S2 normal. Regular rate and rhythm. ABDOMEN: Nontender and nondistended. LUNGS: Positive for rhonchi bilaterally in the lower quadrants. LABORATORY DATA: The patient's last neutrophil count was elevated. Chemistries show glucose of 130 to 160, on Solu-Medrol. ASSESSMENT: 1. Multilobular pneumonia with intractable cough. The patient is scheduled for bronchoscopy today to determine the etiology and also to get a deep sputum sample. 2. Possible aspiration. 3. Bronchospasm. 4. Diabetes mellitus. 5. History of coronary artery disease. 6. History of hypertension. 7. Hyperlipidemia. 8. Anemia of chronic disease. PLAN: 1. Continue antibiotics. 2. Bronchoscopy scheduled for today. 3. Continue with Pulmicort nebulization and albuterol and Atrovent nebulization. 4. Continue with GI prophylaxis and also DVT prophylaxis. Further recommendation per clinical course. If the bronchoscopy is therapeutic and patient's cough has reduced, the patient to be discharged home on p.o. antibiotics. If the patient has continues cough and needs continuous antibiotic, an LTAC evaluation will be ordered. Further recommendation per clinical course. We will monitor the patient along with the medical consultant. MD OSCAR Madrigal/JOSE /[id number]
[2019-02-05] MEDS: BENZONATATE 100 MG CAP PO SCH ×3 (07:50→21:39)
[2019-02-05] MEDS: HYDRALAZINE HCL 25 MG TAB PO SCH ×2 (07:50→17:40)
[2019-02-05 08:29] VITALS: BP 134/63
[2019-02-05] MEDS: FAMOTIDINE 20 MG/2 ML VIAL IV SCH ×2 (08:58→17:39)
[2019-02-05] MEDS: HEPARIN SOD (PORCINE) 5,000 UNIT/ML VIAL SC SCH ×2 (09:04→21:00)
--- NOTE | 2019-02-05 09:04 | NUR ---
ST NOTE: Pt NPO for bronchoscopy, scheduled for 1130, will follow up for pt readiness for BSE, may have to defer to 02-06-19 if pt is too lethargic. Handoff to SANTOS Lowery for SANTOS Gruber
[2019-02-05] MEDS ORDERED: LIDOCAINE HCL 4% 50 ML BTL ONE (10:17)
[2019-02-05] MEDS ORDERED: LIDOCAINE HCL 2% 30 ML TUBE ONE (10:18)
--- NOTE | 2019-02-05 10:29 | NUR ---
PATIENT OFF THE UNIT PER BED TO THE OR FOR PROCEDURE. PATIENT IS IN STABLE CONDITION WITH NO S/S OF RESPIRATORY DISTRESS.
[2019-02-05] MEDS ORDERED: LIDOCAINE HCL 2% LOCAL INJ 5 ML SDV VIAL INJ ONE (11:01)
[2019-02-05] MEDS ORDERED: ONDANSETRON HCL INJ 2MG/ML 2ML 2 MG/ML VIAL ONE (11:01)
[2019-02-05] MEDS ORDERED: METOCLOPRAMIDE HCL 10 MG/2ML VIAL ONE (11:01)
[2019-02-05] MEDS ORDERED: PROPOFOL IV EMULSION 10 MG/ML 20 ML VIAL ONE (11:01)
[2019-02-05] MEDS ORDERED: SEVOFLURANE INHAL SOLN 250 ML PEN BTL ONE (11:01)
[2019-02-05] MEDS ORDERED: GLYCOPYRROLATE INJ 1MG/ 5 ML SYR ONE (11:01)
[2019-02-05] MEDS ORDERED: FENTANYL CITRATE/PF 100MCG/2 ML INJ ONE (11:03)
[2019-02-05] MEDS ORDERED: MIDAZOLAM HCL 2 MG/2 ML VIAL ONE (11:03)
--- NOTE | 2019-02-05 12:51 | NUR ---
PATIENT BACK ON THE UNIT FROM OR. PATIENT IS IN STABLE CONDITION WITH NO S/S OF RESPIRATORY DISTRESS. NO PAIN VOICED. CHILDREN PRESENT IN ROOM. CALL LIGHT IS WITHIN REACH, PATIENT INSTRUCTED TO CALL FOR ASSISTANCE NEEDED.
[2019-02-05] MEDS: HYDROCHLOROTHIAZIDE 25 MG TAB PO SCH (14:41)
[2019-02-05] MEDS: CHOLECALCIFEROL 1,000 UNIT TAB PO SCH (14:41)
[2019-02-05] MEDS: CYANOCOBALAMIN 1,000 MCG TAB PO SCH (14:41)
[2019-02-05] MEDS: LOSARTAN POTASSIUM 100 MG TAB PO SCH (14:41)
--- NOTE | 2019-02-05 15:42 | NUR ---
PT DISCUSSED IN BARRIER ROUNDS; SPUTUM CULTURE, BEDSIDE SPEECH EVAL, ABX AND STEROIDS, BRONCHO TODAY. DR NOTE STATES IF BETTER POSSIBLE DISCHARGE HOME AND IF NOT THEN LTAC REVIEW.
[2019-02-05 16:30] VITALS: BP 124/57
[2019-02-05] MEDS: GUAIFENESIN/CODEINE 10 ML CUP PO PRN (17:52)
--- NOTE | 2019-02-05 19:30 | NUR ---
PATIENT IN STABLE CONDITION WITH NO S/S OF RESPIRATORY DISTRESS. NO PAIN VOICED. PATIENT HAD BRONCHOSCOPY TODAY WELL BEDSIDE SPEECH SWALLOW. CALL LIGHT IS WITHIN REACH, PATIENT INSTRUCTED TO CALL FOR ASSISTANCE NEEDED. BEDSIDE REPORT GIVEN TO ONCOMING NURSE.
[2019-02-05 19:42] VITALS: BP 124/57
--- NOTE | 2019-02-05 19:51 | NUR ---
RECEIVED PT SITTING ON THE CHAIR .PT HAD BRONCHOSCOPY .PT HAS COUGH AND CONGESTION.DENIES PAIN CALL LIGHT WITH IN REACH .CONTINUE TO MONITOR
[2019-02-05 20:00] VITALS: BP 177/77
[2019-02-05] MEDS: INSULIN GLARGINE 100 UNITS/ML VIAL SQ SCH (21:00)
[2019-02-05] MEDS: AZITHROMYCIN 250MG/NS 100 ML 100 ML IV SCH (21:00)
[2019-02-05] MEDS: LACTOBACILLUS ACIDOPHILUS CAPSULE PO SCH (21:39)
[2019-02-05] MEDS: SIMVASTATIN 20 MG TAB PO SCH (21:40)
[2019-02-06] VITALS (7 sets, daily range): BP systolic 113–179; BP diastolic 58–77
[2019-02-06] MEDS: ALBUTEROL/IPRATROPIUM 3 ML NEB NEB SCH ×3 (00:47→11:25)
[2019-02-06] MEDS: PIPER-TAZ 3.375 GM 50 ML IV SCH ×4 (06:00→17:50)
[2019-02-06] MEDS: METHYLPREDNISOLONE SOD SUCC 40 MG/ML VIAL 1ML IV SCH ×2 (06:00→17:50)
[2019-02-06 06:05] LABS: BASOPHILS % 0.1 % (0.0-1.0); HEMOGLOBIN 12.3 g/dL (14.0-18.0); LYMPHOCYTES # (AUTO) 1.4 (1.0-3.2); LYMPHOCYTES % 13.4 % (18.0-39.1); MEAN CORPUSCULAR HEMOGLOBIN 27.7 pg (28-32); MEAN CORPUSCULAR HGB CONC 32.4 g/dL (31-35); MEAN CORPUSCULAR VOLUME 85.6 fL (81-99); MONOCYTES # (AUTO) 0.6 (0.2-0.8); MONOCYTES % 5.6 % (4.4-11.3); NEUTROPHILS # (AUTO) 8.1 (2.1-6.9); NEUTROPHILS % 79.5 % (38.7-80.0); PLATELET COUNT 206 x10e3/uL (140-360); RED BLOOD COUNT 4.44 x10e6/uL (4.3-5.7); RED CELL DISTRIBUTION WIDTH 13.9 % (11.7-14.4)
[2019-02-06 06:29] LABS: ANION GAP 12.8 mmol/L (8-16); BLOOD UREA NITROGEN 20 mg/dL (7-26); BUN/CREATININE RATIO 19 (6-25); CALCIUM 9.2 mg/dL (8.4-10.2); CARBON DIOXIDE 28 mmol/L (22-29); CHLORIDE 102 mmol/L (98-107); CREATININE, SERUM 1.06 mg/dL (0.72-1.25); EST GLOMERULAR FILTRATION RATE > 60 ML/MIN (60-); GLUCOSE 133 mg/dL (74-118); POTASSIUM 3.8 mmol/L (3.5-5.1); SODIUM 139 mmol/L (136-145)
[2019-02-06] MEDS: BUDESONIDE 0.5MG/2 ML NEB INH SCH (07:00)
--- NOTE | 2019-02-06 07:24 | NUR ---
PT RESTED DURING THE NIGHT DENIES PAIN CALL LIGHT WITH IN REACH .CONTINUE TO MONITOR .REPOT GIVEN TO THE ONCOMING NURSE
--- NOTE | 2019-02-06 07:35 | NUR ---
PT UP AMBULATING IN ROOM,DENIES PAIN,,
[2019-02-06] MEDS: INSULIN LISPRO 100 UNIT/1 ML 3ML VIAL SQ SCH ×4 (08:00→21:00)
--- NOTE | 2019-02-06 08:00 | NUR ---
PT C/O COUGH MEDICATED
[2019-02-06] MEDS: GUAIFENESIN/CODEINE 10 ML CUP PO PRN (08:30)
[2019-02-06] MEDS: HEPARIN SOD (PORCINE) 5,000 UNIT/ML VIAL SC SCH ×2 (09:00→21:00)
[2019-02-06] MEDS: HYDROCHLOROTHIAZIDE 25 MG TAB PO SCH (09:00)
[2019-02-06] MEDS: CYANOCOBALAMIN 1,000 MCG TAB PO SCH (09:00)
[2019-02-06] MEDS: CHOLECALCIFEROL 1,000 UNIT TAB PO SCH (09:00)
[2019-02-06] MEDS: BENZONATATE 100 MG CAP PO SCH ×3 (09:00→21:00)
[2019-02-06] MEDS: HYDRALAZINE HCL 25 MG TAB PO SCH ×2 (09:00→17:01)
[2019-02-06] MEDS: FAMOTIDINE 20 MG/2 ML VIAL IV SCH ×2 (09:00→17:02)
[2019-02-06] MEDS: LOSARTAN POTASSIUM 100 MG TAB PO SCH (09:00)
--- NOTE | 2019-02-06 09:16 | Progress Note ---
DATE: SUBJECTIVE: The patient is a 73-year-old gentleman, who comes in with multi-lobe focal pneumonia. The patient had a bronchoscopy done yesterday, discussed with Dr. Urbina. The patient had thick mucopurulent secretions in the lung, aspirated and sent for laboratory values, looked like aspiration pneumonia and pneumonitis. Currently, the patient continues to have chronic cough and shortness of breath on exertion. OBJECTIVE: VITAL SIGNS: Today, temperature is 97.2, pulse of 60, respirations of 20, blood pressure is 141/66, and pulse oximeter 100%. HEENT: Normocephalic and atraumatic. Pupils are reactive to light and accommodation. CVS: S1 and S2 normal. Regular rate and rhythm. LUNGS: Positive rhonchi bilaterally. EXTREMITIES: No clubbing, no cyanosis, no edema. LABORATORY VALUES: Yesterday's white count is 10.23, hemoglobin of 12, and hematocrit 38. Chemistry; sodium of 139, potassium , BUN of 20, and creatinine of 1.06. The patient's glucose is 142, ranging to 160s. ASSESSMENT: 1. Multilobar pneumonia with intractable cough. 2. Possible aspiration. 3. Bronchospasm. 4. Diabetes mellitus. 5. Anemia of chronic disease. 6. Hyperlipidemia. PLAN: 1. Continue antibiotics. The patient underwent bronchoscopy. 2. We will go ahead and do an MBS to see for aspiration. 3. Possible GI consult with GI for evaluating his hiatal hernia to see if this is the reason for aspiration. 4. Continue with GI prophylaxis and DVT prophylaxis. Further recommendation and clinical course. Once the evaluation has been done, disposition is to either discharge home or LTAC depending on the patient's condition and prognosis. MD OSCAR Madrigal/JOSE /[id number]
--- NOTE | 2019-02-06 15:14 | Diagnostic Imaging Report ---
PROCEDURE: X-RAY MODIFIED BARIUM SWALLOW COMPARISON: None. INDICATION: Aspiration Radiation Details: Fluoroscopy time: 0.9 minutes Cumulative dose: 1.81 mGy, 0.589 Gy.cm2 DISCUSSION: Fluoroscopic examination was performed in conjunction with speech pathology during swallowing a variety of thin and thick liquid consistencies. Provided images demonstrate no laryngeal penetration or aspiration. CONCLUSION: Modified barium swallow demonstrating no laryngeal penetration or aspiration. Please refer to the speech pathology report for further details. Signed by: William Mccoy MD on 02/06/2019 3:10 PM
[2019-02-06] MEDS ORDERED: PANTOPRAZOLE 40 MG 10ML VIAL IV ONE (17:00)
--- NOTE | 2019-02-06 17:49 | NUR ---
PT UP AMBULating in [place] no distress ntoed denies pain.
--- NOTE | 2019-02-06 19:02 | Diagnostic Imaging Report ---
EXAMINATION: CHEST 2 VIEWS INDICATION: ^PNEUMONIA ^[id number] ^1830 ^Y COMPARISON: CT chest 01/28/2019 FINDINGS: PA and lateral views TUBES and LINES: None. LUNGS: Lungs are well inflated. Bilateral lower lobes, left greater than right reticular nodular consolidation have decreased since 01/28/2019. No new consolidations. PLEURA: No pleural effusion or pneumothorax. HEART AND MEDIASTINUM: The cardiomediastinal silhouette is unremarkable. Mild atherosclerotic calcifications of the aortic arch. BONES AND SOFT TISSUES: Anterior fusion of the cervical spine. No acute osseous lesion. Soft tissues are unremarkable. UPPER ABDOMEN: No free air under the diaphragm. IMPRESSION: Resolving bilateral lower lobe pneumonia. Continue to follow-up. Signed by: Dr. Shante Gaffney M.D. on 02/06/2019 6:58 PM
--- NOTE | 2019-02-06 20:51 | NUR ---
RECEIVED PT IN BED AOX3 SITTING ON THE CHAIR .DENIES PAIN CHEST CONGESTED .BELIA LIGHT WITH IN REACH .CONTINUE TO MONITOR
[2019-02-06] MEDS: SIMVASTATIN 20 MG TAB PO SCH (21:00)
[2019-02-06] MEDS: INSULIN GLARGINE 100 UNITS/ML VIAL SQ SCH (21:00)
[2019-02-06] MEDS: AZITHROMYCIN 250MG/NS 100 ML 100 ML IV SCH (21:00)
[2019-02-06] MEDS: LACTOBACILLUS ACIDOPHILUS CAPSULE PO SCH (22:16)
--- NOTE | 2019-02-06 22:50 | Operative Report ---
DATE OF PROCEDURE: 02/05/2019 SURGEON: Martell Urbina MD PREPROCEDURE DIAGNOSIS: Chronic cough. POSTPROCEDURE DIAGNOSIS: Chronic cough. PROCEDURE PERFORMED: Bronchoscopy with BAL. HOUSE WIRER HELPER: None. ANESTHESIA: General. PROCEDURE IN DETAIL: Bronchoscope was advanced through the LMA. Trachea was entered. Thick purulent green phlegm was seen on the charanjit. Both the right and left lungs, thick green phlegm and mucus plugs were seen which were suctioned clean. BAL was done from right middle lobe. The patient tolerated the procedure well. There was no endobronchial lesion was seen in either of the lungs. COMPLICATIONS: None. BLOOD LOSS: None. MD FRAN Hoang/JOSE /[id number]
[2019-02-07] VITALS (9 sets, daily range): BP systolic 113–152; BP diastolic 56–67
[2019-02-07] MEDS: METHYLPREDNISOLONE SOD SUCC 40 MG/ML VIAL 1ML IV SCH (05:35)
[2019-02-07] MEDS: PIPER-TAZ 3.375 GM 50 ML IV SCH ×4 (05:35→17:54)
--- NOTE | 2019-02-07 06:37 | NUR ---
PT RESTED DURING THE NIGHT .PT IS NPO FOR EGD .NO ACUTE DISTRESS NOTED .CALL LIGHT WITH IN REACH
[2019-02-07 06:54] LABS: FERRITIN 130.02 ng/mL (21.81-274.66)
[2019-02-07] MEDS: ALBUTEROL/IPRATROPIUM 3 ML NEB NEB SCH ×3 (07:04→20:31)
[2019-02-07] MEDS: BUDESONIDE 0.5MG/2 ML NEB INH SCH ×2 (07:10→20:31)
[2019-02-07] MEDS: INSULIN LISPRO 100 UNIT/1 ML 3ML VIAL SQ SCH ×4 (07:30→22:04)
--- NOTE | 2019-02-07 07:30 | NUR ---
PT IN BED RESTING NO DISTRESS NOTED,
--- NOTE | 2019-02-07 07:36 | Progress Note ---
DATE: SUBJECTIVE: The patient is a 73-year-old male, who comes in with aspiration pneumonia. Had bronchoscopy done showed thick purulent sputum consistent with aspiration. Had a barium swallow done, which was negative. Modified barium swallow showed no aspiration. The patient is going to have EGD today to see further hiatal hernia and the size of the hiatal hernia. The patient currently still symptomatic, coughing, congested, and continues to have bouts of coughing. OBJECTIVE: VITAL SIGNS: Temperature is 98.6, pulse of 60, respirations of 20, blood pressure is 131/61. HEENT: Normocephalic, atraumatic. Pupils are reactive to light and accommodation. CVS: S1, S2 normal. Regular rate and rhythm. LUNGS: Positive for rhonchi bilaterally. EXTREMITIES: No clubbing, no cyanosis, no edema. LABORATORY DATA: None done today. MICROBIOLOGY: No growth in 5 days for blood culture. Pending fungal cultures on the preliminary bronchial washings. Reports from the imaging study, modified barium swallow shows no laryngeal penetration or aspiration. ASSESSMENT: 1. Multifocal pneumonia with intractable cough. 2. Possible aspiration. 3. Diabetes mellitus. 4. Anemia of chronic disease. Continue with antibiotics. The patient is on steroids for cough and congestion, IV. The patient also is going to have EGD for upper GI recommendation and continue GI prophylaxis and deep vein thrombosis prophylaxis. The patient is getting better. We will continue to monitor the patient. Possible discharge in 1 to 2 days. MD OSCAR Madrigal/MODL /[id number]
[2019-02-07 07:41] LABS: FOLATE 15.2 ng/mL (7.0-15.4)
[2019-02-07] MEDS: FAMOTIDINE 20 MG/2 ML VIAL IV SCH (09:00)
[2019-02-07] MEDS: BENZONATATE 100 MG CAP PO SCH ×3 (09:00→22:01)
[2019-02-07] MEDS: HYDROCHLOROTHIAZIDE 25 MG TAB PO SCH (09:00)
[2019-02-07] MEDS ORDERED: PANTOPRAZOLE 40 MG 10ML VIAL IV SCH (09:00)
[2019-02-07] MEDS: CHOLECALCIFEROL 1,000 UNIT TAB PO SCH (09:00)
[2019-02-07] MEDS: HYDRALAZINE HCL 25 MG TAB PO SCH ×2 (09:00→17:54)
[2019-02-07] MEDS: CYANOCOBALAMIN 1,000 MCG TAB PO SCH (09:00)
[2019-02-07] MEDS: LOSARTAN POTASSIUM 100 MG TAB PO SCH (09:00)
[2019-02-07] MEDS: HEPARIN SOD (PORCINE) 5,000 UNIT/ML VIAL SC SCH ×2 (09:00→22:04)
--- NOTE | 2019-02-07 13:45 | NUR ---
PT TRANSPORTED TO EGD VIA BED
[2019-02-07] MEDS ORDERED: FENTANYL CITRATE/PF 100MCG/2 ML INJ ONE ×2 (13:48→18:53)
[2019-02-07] MEDS ORDERED: MIDAZOLAM HCL 2 MG/2 ML VIAL ONE ×2 (13:48→18:53)
--- NOTE | 2019-02-07 14:08 | NUR ---
PT DISCUSSED IN BARRIER ROUNDS; PT TO GET EGD TO DETERMINE IF ACID REFLUX, POSSIBLE DISCHARGE TOMORROW
--- NOTE | 2019-02-07 15:28 | NUR ---
Nutrition Follow-up Note RD Recommendation for Physician: Continue diet as ordered Plan of Care: RD following, monitoring for tolerance and adequacy Nutrition reason for involvement: Follow up Primary Diagnose(s): Pneumonia aspiration PMH: HTN, HLD, reflux esophagitis, history of chronic low back pain and also history of lower extremity venous stasis Ht: 70 in Wt: 206 lbs BMI: 29.55 kg/m2 IBW: 166lbs +/- 10% RD Assessment: (02/07) RETAIL OPERATIONS SPECIALIST rec regular texture with thin liquids. Visited pt in the room. Pt reported good appetite. Pt tolerated current diet texture without any chewing or swallowing difficulty. No complains of nausea or vomiting. LBM diarrhea today, was given probiotics. Current diet is adequate and appropriate. (02/02) Chart reviewed. Labs and meds reviewed. 73 y/o M with history of chronic cough. Per pt chart, CT scan was done and found to have questionable aspiration pneumonia. Pt has a history of good PO intake, no changes in appetite or weight with UBW of 201 lbs. Pt denied any N/V/D/C or any difficulties chewing/swallowing. Will continue to monitor and follow. Current Diet: ADA diet Malnutrition Evaluation (02/02) The patient does not meet criteria for a specified degree of malnutrition at this time. Will re-evaluate at follow-up as appropriate. Diet Education Needs Assessment: Diet education not indicated Nutrition Care Level: LOW Signed: Jeanette Olivas, MS, RD, LD
--- NOTE | 2019-02-07 15:30 | NUR ---
PT RETURNED TO ROOM VIA BED AWAKE DENIES PAIN
[2019-02-07] MEDS: FAMOTIDINE 20 MG TAB PO SCH (17:53)
--- NOTE | 2019-02-07 18:35 | NUR ---
PT UP AMBULATED IN [place] DENIES PAIN
[2019-02-07] MEDS: GUAIFENESIN/CODEINE 10 ML CUP PO PRN (19:00)
--- NOTE | 2019-02-07 21:00 | Operative Report ---
DATE OF PROCEDURE: 02/07/2019 SURGEON: Richard Mosquera MD PROCEDURE PERFORMED: EGD with biopsies. INDICATIONS FOR EGD: Acid reflux. MEDICATIONS: The patient was done under MAC. Please see anesthesiologist's note. PROCEDURE IN DETAIL: With the patient in left lateral decubitus position, flexible fiberoptic Olympus gastroscope was introduced into the esophagus under direct visualization without any difficulty. There was some patchy erythema noted in distal esophagus. A minute nodule was noted at the GE junction that was biopsied. The scope was then advanced with ease into the stomach. Mucosa overlying the antrum and the body revealed some patchy intense erythema, low-grade to moderate edema and biopsies were obtained and sent to stain for H pylori. The pylorus was of normal contour and shape, was intubated with ease and the scope was advanced all the way to the second portion of the duodenum. The scope was then withdrawn slowly. Mucosa overlying the second portion as well as the duodenal bulb grossly appeared to be within normal limits. The scope was then withdrawn back into the stomach and retroflexed, and mucosa overlying the fundus and cardia appeared to be within normal limits. The scope was then straightened out and was subsequently withdrawn. The patient tolerated procedure well. IMPRESSION: 1. Distal esophagitis, mild. 2. Nodule, GE junction, biopsied. 3. Gastritis, biopsied. Biopsies sent to stain for H pylori. PLAN: Follow up histology. Initiate Protonix 40 mg one p.o. a.c. b.i.d. Richard Mosquera MD [facility] /[id number] cc: MD Martell Madrigal MD Maurice S Haddad, MD
[2019-02-07] MEDS: SIMVASTATIN 20 MG TAB PO SCH (22:01)
[2019-02-07] MEDS: AZITHROMYCIN 250MG/NS 100 ML 100 ML IV SCH (22:01)
[2019-02-07] MEDS: PANTOPRAZOLE 40 MG 10ML VIAL IV SCH (22:01)
[2019-02-07] MEDS: LACTOBACILLUS ACIDOPHILUS CAPSULE PO SCH (22:01)
[2019-02-07] MEDS: INSULIN GLARGINE 100 UNITS/ML VIAL SQ SCH (22:05)
[2019-02-08] VITALS (8 sets, daily range): BP systolic 110–136; BP diastolic 53–62
[2019-02-08] MEDS: ALBUTEROL/IPRATROPIUM 3 ML NEB NEB SCH ×4 (00:09→19:50)
[2019-02-08] MEDS: PIPER-TAZ 3.375 GM 50 ML IV SCH ×5 (00:34→23:10)
[2019-02-08] MEDS: GUAIFENESIN/CODEINE 10 ML CUP PO PRN (05:26)
[2019-02-08] MEDS: BUDESONIDE 0.5MG/2 ML NEB INH SCH ×2 (07:00→19:50)
[2019-02-08] MEDS: INSULIN LISPRO 100 UNIT/1 ML 3ML VIAL SQ SCH ×4 (07:30→21:49)
--- NOTE | 2019-02-08 07:40 | NUR ---
PATIENT IS AWAKE, ALERT, AND IN STABLE CONDITION WITH NO S/S OF RESPIRATORY DISTRESS. NO PAIN VOICED. CALL LIGHT IS WITHIN REACH, PATIENT INSTRUCTED TO CALL FOR ASSISTANCE NEEDED.
[2019-02-08] MEDS: FAMOTIDINE 20 MG TAB PO SCH ×3 (08:32→21:44)
[2019-02-08] MEDS: CHOLECALCIFEROL 1,000 UNIT TAB PO SCH (08:36)
[2019-02-08] MEDS: BENZONATATE 100 MG CAP PO SCH ×3 (08:36→21:45)
[2019-02-08] MEDS: CYANOCOBALAMIN 1,000 MCG TAB PO SCH (08:36)
[2019-02-08] MEDS: HYDROCHLOROTHIAZIDE 25 MG TAB PO SCH (08:36)
[2019-02-08] MEDS: LOSARTAN POTASSIUM 100 MG TAB PO SCH (08:37)
[2019-02-08] MEDS: METHYLPREDNISOLONE SOD SUCC 40 MG/ML VIAL 1ML IV SCH (08:37)
[2019-02-08] MEDS: HEPARIN SOD (PORCINE) 5,000 UNIT/ML VIAL SC SCH ×2 (08:37→21:45)
[2019-02-08] MEDS: PANTOPRAZOLE 40 MG 10ML VIAL IV SCH ×2 (08:37→21:44)
[2019-02-08] MEDS: HYDRALAZINE HCL 25 MG TAB PO SCH ×2 (08:37→17:34)
[2019-02-08] MEDS: SALINE 0.65% NAS SOLN 1 SPRAY BTL SCH ×2 (18:00→22:00)
--- NOTE | 2019-02-08 19:14 | NUR ---
PATIENT IN STABLE CONDITION WITH NO S/S OF RESPIRATORY DISTRESS. NO PAIN VOICED. CALL LIGHT IS WITHIN REACH, PATIENT INSTRUCTED TO CALL FOR ASSISTANCE NEEDED. BEDSIDE REPORT GIVEN TO ONCOMING NURSE.
--- NOTE | 2019-02-08 19:15 | NUR ---
RECEIVED PATIENT AAOX3, RESTING IN CHAIR. DENIES NEEDS AT THIS TIME. CALL LIGHT WITHIN REACH.
--- NOTE | 2019-02-08 19:16 | Progress Note ---
DATE: SUBJECTIVE: This is a 73-year-old gentleman with a history of multifocal pneumonia, currently getting better. No chest pain. No shortness of breath. Cough continues. OBJECTIVE: VITAL SIGNS: Temperature is 98.1, pulse of 68, respirations of 18, and blood pressure is 128/56. HEENT: Normocephalic and atraumatic. Pupils reactive to light and accommodation. CVS: S1 and S2 normal. Regular rate and rhythm. ABDOMEN: Nontender and nondistended. LUNGS: Positive for crackles and rhonchi in the lung bases. EXTREMITIES: No clubbing and no edema. LABORATORY VALUES: None done. IMAGING STUDIES: None done from the . ASSESSMENT: 1. Multifocal pneumonia with intractable cough. 2. Possible aspiration. 3. Diabetes. 4. Anemia of chronic disease. PLAN: Continue antibiotics. Continue on steroids. Continue on decongestant. EGD did not show aspiration. Plan is to continue the same medication. Possible discharge in 1 to 2 days. MD OSCAR Madrigal/MODL /[id number]
[2019-02-08] MEDS ORDERED: GUAIFENESIN/CODEINE 10 ML CUP PO PRN (19:45)
[2019-02-08] MEDS: AZITHROMYCIN 250MG/NS 100 ML 100 ML IV SCH (21:44)
[2019-02-08] MEDS: LACTOBACILLUS ACIDOPHILUS CAPSULE PO SCH (21:44)
[2019-02-08] MEDS: SIMVASTATIN 20 MG TAB PO SCH (21:45)
[2019-02-08] MEDS: INSULIN GLARGINE 100 UNITS/ML VIAL SQ SCH (21:48)
[2019-02-08] MEDS: IPRATROPIUM BROMIDE 0.06% 42 MCG NASPR NS SCH (22:00)
--- NOTE | 2019-02-08 22:26 | Consultation ---
DATE OF CONSULTATION: 02/08/2019 HISTORY OF PRESENT ILLNESS: I was kindly asked to see this 73-year-old man for chronic cough. The patient reports a one month history of severe and unrelenting cough, which he describes as coming from his bronchial tubes. He has been treated for bronchitis by his primary care physician with only modest improvement. He has a long history of chronic allergic rhinosinusitis and has undergone allergy testing in the past. He was found to have clinically significant inhalant allergies and was begun on immunotherapy. However, the patient declined to continue the immunotherapy due to difficulty going to the physician's office for injections. He also has a history of reflux disease, currently being evaluated and treated by Dr. Richard Mosquera. He has a history of previous nasal airway obstruction, which required surgical intervention approximately five years ago. He reports he is now able to breath well through his nose. He reports drainage down the back of his throat and believes that the drainage down the back of his throat may be contributing to his cough as he feels the drainage is getting into his lungs. 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 His history of present illness, past medical history, and past surgical history were reviewed in detail in the chart and is pertinent as above. REVIEW OF SYSTEMS: Pertinent for hoarseness. He specifically denies foreign body sensation in his throat and denies frequent throat clearing. PHYSICAL EXAMINATION: The left tympanic membrane is moderately retracted and hypomobile. The right tympanic membrane has a monomeric portion with a perforation in the middle of the monomeric portion roughly 2 mm in size. There is no active otorrhea identified. The external auditory canal is normal. Intranasal examination shows a mild nasal septal deviation to the left. There is edema to the nasal mucosa. Has excess clear nasal secretions. Oral cavity examination is unremarkable. He has a mild postnasal drainage. There is no palpable cervical adenopathy. On fiberoptic diagnostic rhinoscopy, has thick mucus in the ostiomeatal complex, but the remainder of the paranasal sinuses are unremarkable. A sticky mucus in the nasopharynx. He has a normal base of tongue. He has normal vocal cord motion. There are no masses. He has minimal posterior commissure hypertrophy. There is no posterior commissure erythema. ASSESSMENT: 1. Chronic allergic rhinosinusitis. 2. Possible laryngopharyngeal reflux. 3. Vasomotor rhinitis. 4. Hoarseness. 5. Chronic cough. PLAN: 1. Addition of H2 blockers at bedtime for more complete aphthous acid suppression. 2. [place] nasal spray two puffs each side of the nose q.4 hours, while awake. 3. Flonase 2 puffs each side of the nose daily. 4. Ipratropium nasal spray 0.06% one puff each side of the nose t.i.d. Thank you very much. MD CHRIS Torres/MODL /[id number]
[2019-02-09] VITALS (8 sets, daily range): BP systolic 108–125; BP diastolic 53–61
[2019-02-09] MEDS: METOCLOPRAMIDE HCL 10 MG/2ML VIAL IV SCH ×2 (00:27→20:48)
[2019-02-09] MEDS: ALBUTEROL/IPRATROPIUM 3 ML NEB NEB SCH ×4 (02:30→19:27)
[2019-02-09] MEDS: SALINE 0.65% NAS SOLN 1 SPRAY BTL SCH ×5 (05:59→22:08)
[2019-02-09] MEDS: PIPER-TAZ 3.375 GM 50 ML IV SCH ×3 (05:59→17:31)
[2019-02-09 06:34] LABS: BASOPHILS % 0.2 % (0.0-1.0); EOSINOPHILS # (AUTO) 0.1 (0.0-0.4); EOSINOPHILS % 1.4 % (0.0-6.0); HEMATOCRIT 36.7 % (38.2-49.6); HEMOGLOBIN 12.4 g/dL (14.0-18.0); LYMPHOCYTES # (AUTO) 2.2 (1.0-3.2); LYMPHOCYTES % 23.4 % (18.0-39.1); MEAN CORPUSCULAR HEMOGLOBIN 28.8 pg (28-32); MEAN CORPUSCULAR HGB CONC 33.8 g/dL (31-35); MEAN CORPUSCULAR VOLUME 85.3 fL (81-99); MONOCYTES # (AUTO) 0.9 (0.2-0.8); MONOCYTES % 9.3 % (4.4-11.3); NEUTROPHILS % 62.7 % (38.7-80.0); PLATELET COUNT 184 x10e3/uL (140-360); RED CELL DISTRIBUTION WIDTH 14.4 % (11.7-14.4)
--- NOTE | 2019-02-09 06:54 | NUR ---
REPORT GIVEN TO ONCOMING NURSE, PATIENT AAOX3 AMBULATING IN ROOM. DENIES NEEDS AT THIS TIME. BED LOCKED AND IN LOWEST POSITION, CALL LIGHT WITHIN.
[2019-02-09 07:00] LABS: ANION GAP 12.4 mmol/L (8-16); BLOOD UREA NITROGEN 21 mg/dL (7-26); BUN/CREATININE RATIO 20 (6-25); CALCIUM 8.6 mg/dL (8.4-10.2); CARBON DIOXIDE 28 mmol/L (22-29); CHLORIDE 102 mmol/L (98-107); CREATININE, SERUM 1.06 mg/dL (0.72-1.25); EST GLOMERULAR FILTRATION RATE > 60 ML/MIN (60-); GLUCOSE 112 mg/dL (74-118); POTASSIUM 3.4 mmol/L (3.5-5.1); SODIUM 139 mmol/L (136-145)
--- NOTE | 2019-02-09 07:05 | NUR ---
PATIENT IS AWAKE, ALERT, AND IN STABLE CONDITION WITH NO S/S OF RESPIRATORY DISTRESS. PATIENT DENIES PAIN. PATIENT AMBULATING IN HIS ROOM. CALL LIGHT IS WITHIN REACH, PATIENT INSTRUCTED TO CALL FOR ASSISTANCE NEEDED.
[2019-02-09] MEDS: INSULIN LISPRO 100 UNIT/1 ML 3ML VIAL SQ SCH ×4 (07:29→20:48)
[2019-02-09] MEDS ORDERED: POTASSIUM CHLORIDE 10MEQ EA PO ONE (07:30)
[2019-02-09] MEDS: BUDESONIDE 0.5MG/2 ML NEB INH SCH ×2 (07:59→19:27)
[2019-02-09 08:08] LABS: BAND NEUTROPHILS % (MANUAL) 1 %; EOSINOPHILS % (MANUAL) 3 % (0-7); LYMPHOCYTES % (MANUAL) 29 % (19-48); MONOCYTES % (MANUAL) 7 % (3.4-9.0); MYELOCYTES % (MANUAL) 1 % (0-0); NEUTROPHILS % (MANUAL) 59 % (40-74)
[2019-02-09 08:09] LABS: PLATELET ESTIMATE ADEQUATE; PLATELET MORPHOLOGY COMMENT NORMAL; RBC MORPHOLOGY COMMENT NORMAL
[2019-02-09] MEDS: IPRATROPIUM BROMIDE 0.06% 42 MCG NASPR NS SCH ×2 (08:14→14:29)
[2019-02-09] MEDS: PANTOPRAZOLE 40 MG 10ML VIAL IV SCH ×2 (08:14→20:47)
[2019-02-09] MEDS: METHYLPREDNISOLONE SOD SUCC 40 MG/ML VIAL 1ML IV SCH (08:14)
[2019-02-09] MEDS: CHOLECALCIFEROL 1,000 UNIT TAB PO SCH (08:15)
[2019-02-09] MEDS: HYDRALAZINE HCL 25 MG TAB PO SCH ×2 (08:15→16:42)
[2019-02-09] MEDS: BENZONATATE 100 MG CAP PO SCH ×3 (08:15→20:48)
[2019-02-09] MEDS: FLUTICASONE PROPIONATE NASAL SPRAY NS SCH (08:15)
[2019-02-09] MEDS: HEPARIN SOD (PORCINE) 5,000 UNIT/ML VIAL SC SCH ×2 (08:15→20:48)
[2019-02-09] MEDS: LOSARTAN POTASSIUM 100 MG TAB PO SCH (08:15)
[2019-02-09] MEDS: HYDROCHLOROTHIAZIDE 25 MG TAB PO SCH (08:15)
[2019-02-09] MEDS: CYANOCOBALAMIN 1,000 MCG TAB PO SCH (08:15)
--- NOTE | 2019-02-09 09:29 | Progress Note ---
DATE: SUBJECTIVE: The patient is here for multifocal pneumonia with questionable aspiration. GI evaluation and ENT evaluation reveals no signs of aspiration. Barium swallow was also negative. The patient is still continued to have pain in the chest wall and also coughing relentlessly. The patient is currently on heparin for DVT prophylaxis. Continued on antibiotics for multifocal pneumonia, which includes Zosyn and Zithromax. The patient is continued on other medications for diabetes and CV medications. OBJECTIVE: VITAL SIGNS: Temperature is 96.5, pulse of 67, respiration of 20, blood pressure is 110/56, pulse oximetry of 95%. HEENT: Normocephalic, atraumatic. Pupils are reactive to light and accommodation. CVS: S1 and S2 normal. Regular rate and rhythm. ABDOMEN: Nontender, nondistended. EXTREMITIES: No clubbing, no cyanosis, no edema. LUNGS: Positive for rhonchi bilaterally. LABORATORY VALUES: Today's white count is 9.53, hemoglobin and hematocrit 12.4 and 36.7. Chemistry shows potassium 3.4, sodium is 139. BUN, creatinine, and GFR was normal. The patient's glucose has been running normal. ASSESSMENT: 1. Multifocal pneumonia with intractable cough. 2. Possible aspiration. 3. Diabetes mellitus. 4. Anemia of chronic disease. 5. Hypokalemia. PLAN: Continue with the antibiotic. Chronic allergic rhinosinusitis, started on Flonase. Hoarseness and chronic cough, possibly secondary to GERD, but the plan is to continue with antibiotics and possible discharge on Monday. Further recommendation per clinical course. We will continue to monitor the patient. MD OSCAR Madrigal/MODL /[id number]
--- NOTE | 2019-02-09 13:04 | NUR ---
PATIENT AMBULATING IN THE HALLWAY- PATIENT IN STABLE CONDITION WITH NO S/S OF RESPIRATORY DISTRESS.
--- NOTE | 2019-02-09 19:15 | NUR ---
PATIENT SITTING IN CHAIR- IN STABLE CONDITION WITH NO S/S OF RESPIRATORY DISTRESS. NO PAIN VOICED. CALL LIGHT IS WITHIN REACH, PATIENT INSTRUCTED TO CALL FOR ASSISTANCE NEEDED. BEDSIDE REPORT GIVEN TO ONCOMING NURSE.
--- NOTE | 2019-02-09 19:28 | NUR ---
PT IS SITTING IN THE CHAIR. RESPIRATION IS EVEN AND UNLABORED, NO DISTRESS NOTED. BED IN THE LOWEST POSITION, LOCKED, AND CALL LIGHT WITHIN REACH. WILL CONTINUE TO MONITOR.
[2019-02-09] MEDS: LACTOBACILLUS ACIDOPHILUS CAPSULE PO SCH (20:48)
[2019-02-09] MEDS: INSULIN GLARGINE 100 UNITS/ML VIAL SQ SCH (20:48)
[2019-02-09] MEDS: SIMVASTATIN 20 MG TAB PO SCH (20:48)
[2019-02-09] MEDS: FAMOTIDINE 20 MG TAB PO SCH (20:48)
[2019-02-09] MEDS: AZITHROMYCIN 250MG/NS 100 ML 100 ML IV SCH (20:48)
[2019-02-10] VITALS (7 sets, daily range): BP systolic 105–149; BP diastolic 52–70
[2019-02-10] MEDS ORDERED: SODIUM CHLORIDE 0.9% 250ML 250 ML ONE (00:11)
[2019-02-10] MEDS: PIPER-TAZ 3.375 GM 50 ML IV SCH ×5 (00:14→23:44)
[2019-02-10] MEDS: ALBUTEROL/IPRATROPIUM 3 ML NEB NEB SCH ×4 (00:55→19:30)
[2019-02-10] MEDS: METOCLOPRAMIDE HCL 10 MG/2ML VIAL IV SCH ×4 (05:52→23:44)
[2019-02-10] MEDS: SALINE 0.65% NAS SOLN 1 SPRAY BTL SCH ×5 (05:53→21:46)
[2019-02-10] MEDS: BUDESONIDE 0.5MG/2 ML NEB INH SCH ×2 (07:27→19:30)
[2019-02-10] MEDS: INSULIN LISPRO 100 UNIT/1 ML 3ML VIAL SQ SCH ×4 (07:30→20:19)
--- NOTE | 2019-02-10 07:30 | NUR ---
PATIENT IS SITTING IN THE RECLINER- ALERT AND IN STABLE CONDITION WITH NO S/S OF RESPIRATORY DISTRESS. PATIENT DENIES PAIN. CALL LIGHT IS WITHIN REACH, PATIENT INSTRUCTED TO CALL FOR ASSISTANCE NEEDED.
[2019-02-10] MEDS: IPRATROPIUM BROMIDE 0.06% 42 MCG NASPR NS SCH ×3 (08:23→20:18)
[2019-02-10] MEDS: FLUTICASONE PROPIONATE NASAL SPRAY NS SCH (08:23)
[2019-02-10] MEDS: PANTOPRAZOLE 40 MG 10ML VIAL IV SCH ×2 (08:23→20:18)
[2019-02-10] MEDS: METHYLPREDNISOLONE SOD SUCC 40 MG/ML VIAL 1ML IV SCH (08:23)
[2019-02-10] MEDS: LOSARTAN POTASSIUM 100 MG TAB PO SCH (08:28)
[2019-02-10] MEDS: CHOLECALCIFEROL 1,000 UNIT TAB PO SCH (08:28)
[2019-02-10] MEDS: HYDRALAZINE HCL 25 MG TAB PO SCH ×2 (08:28→17:04)
[2019-02-10] MEDS: HEPARIN SOD (PORCINE) 5,000 UNIT/ML VIAL SC SCH ×2 (08:28→20:19)
[2019-02-10] MEDS: CYANOCOBALAMIN 1,000 MCG TAB PO SCH (08:28)
[2019-02-10] MEDS: HYDROCHLOROTHIAZIDE 25 MG TAB PO SCH (08:28)
[2019-02-10] MEDS: BENZONATATE 100 MG CAP PO SCH ×3 (08:28→20:18)
--- NOTE | 2019-02-10 09:43 | Progress Note ---
DATE: SUBJECTIVE: A 73-year-old male comes in with pneumonia, multifocal. Continues to cough, but much better. Chest pain is better. Shortness of breath is better and no nausea, vomiting, or diarrhea. No rectal bleeding. OBJECTIVE: GENERAL: The patient is alert and oriented x3. VITAL SIGNS: Temperature is 97.4, pulse of 58, respirations of 16, blood pressure is 105/55 with a pulse ox of 95% on room air. HEENT: Normocephalic and atraumatic. Pupils are reactive to light and accommodation. CVS: S1, S2 normal. Regular rate and rhythm. ABDOMEN: Nontender and nondistended. LUNGS: Positive for rhonchi. EXTREMITIES: No clubbing, no cyanosis, no edema. LABORATORY DATA: Laboratory values done today, white count has been normal. Glucoses have been running in the 120s to 150s. The patient is currently on steroids and antibiotics. ASSESSMENT: 1. Multifocal pneumonia with intractable cough. 2. Aspiration. 3. Diabetes mellitus. 4. Anemia of chronic disease. 5. Hyperkalemia. PLAN: Continue with antibiotic. Continue with medicines for reflux esophagitis. Possible discharge tomorrow. Further recommendation per clinical course. MD OSCAR Madrigal/MODL /[id number]
--- NOTE | 2019-02-10 19:10 | NUR ---
PATIENT IS SITTING IN THE RECLINER- IN STABLE CONDITION WITH NO S/S OF RESPIRATORY DISTRESS. NO PAIN VOICED. CALL LIGHT IS WITHIN REACH, PATIENT INSTRUCTED TO CALL FOR ASSISTANCE NEEDED. BEDSIDE SHIFT REPORT GIVEN TO ONCOMING NURSE.
--- NOTE | 2019-02-10 19:34 | NUR ---
PT IS SITTING IN THE RECLINER. RESPIRATION IS EVEN AND UNLABORED, NO DISTRESS NOTED. BED IN THE LOWEST POSITION, LOCKED, AND CALL LIGHT WITHIN REACH. WILL CONTINUE TO MONITOR.
[2019-02-10] MEDS: AZITHROMYCIN 250MG/NS 100 ML 100 ML IV SCH (20:18)
[2019-02-10] MEDS: FAMOTIDINE 20 MG TAB PO SCH (20:18)
[2019-02-10] MEDS: SIMVASTATIN 20 MG TAB PO SCH (20:18)
[2019-02-10] MEDS: LACTOBACILLUS ACIDOPHILUS CAPSULE PO SCH (20:18)
[2019-02-10] MEDS: INSULIN GLARGINE 100 UNITS/ML VIAL SQ SCH (20:20)
[2019-02-11] MEDS: ALBUTEROL/IPRATROPIUM 3 ML NEB NEB SCH ×2 (00:30→07:00)
[2019-02-11 03:50] VITALS: BP 109/58
[2019-02-11] MEDS: METOCLOPRAMIDE HCL 10 MG/2ML VIAL IV SCH (05:47)
[2019-02-11] MEDS: SALINE 0.65% NAS SOLN 1 SPRAY BTL SCH ×2 (05:47→10:09)
[2019-02-11] MEDS: PIPER-TAZ 3.375 GM 50 ML IV SCH (05:47)
[2019-02-11 06:01] LABS: BASOPHILS % 0.3 % (0.0-1.0); EOSINOPHILS # (AUTO) 0.2 (0.0-0.4); EOSINOPHILS % 1.7 % (0.0-6.0); HEMATOCRIT 37.6 % (38.2-49.6); HEMOGLOBIN 12.4 g/dL (14.0-18.0); LYMPHOCYTES # (AUTO) 2.7 (1.0-3.2); LYMPHOCYTES % 26.5 % (18.0-39.1); MEAN CORPUSCULAR HEMOGLOBIN 28.3 pg (28-32); MEAN CORPUSCULAR VOLUME 85.8 fL (81-99); MONOCYTES # (AUTO) 0.9 (0.2-0.8); MONOCYTES % 8.7 % (4.4-11.3); NEUTROPHILS # (AUTO) 6.2 (2.1-6.9); NEUTROPHILS % 60.1 % (38.7-80.0); PLATELET COUNT 190 x10e3/uL (140-360); RED BLOOD COUNT 4.38 x10e6/uL (4.3-5.7); RED CELL DISTRIBUTION WIDTH 14.6 % (11.7-14.4)
[2019-02-11 06:25] LABS: ALANINE AMINOTRANSFERASE 32 IU/L (0-55); ALBUMIN 2.9 g/dL (3.5-5.0); ALBUMIN/GLOBULIN RATIO 0.8 (0.8-2.0); ALKALINE PHOSPHATASE 47 IU/L (40-150); ANION GAP 13.4 mmol/L (8-16); BLOOD UREA NITROGEN 18 mg/dL (7-26); BUN/CREATININE RATIO 19 (6-25); CALCIUM 8.6 mg/dL (8.4-10.2); CARBON DIOXIDE 27 mmol/L (22-29); CHLORIDE 101 mmol/L (98-107); CREATININE, SERUM 0.96 mg/dL (0.72-1.25); EST GLOMERULAR FILTRATION RATE > 60 ML/MIN (60-); GLUCOSE 110 mg/dL (74-118); POTASSIUM 3.4 mmol/L (3.5-5.1); SODIUM 138 mmol/L (136-145)
[2019-02-11] MEDS: BUDESONIDE 0.5MG/2 ML NEB INH SCH (07:00)
[2019-02-11] MEDS: INSULIN LISPRO 100 UNIT/1 ML 3ML VIAL SQ SCH (07:30)
[2019-02-11] MEDS ORDERED: POTASSIUM CHLORIDE 20 MEQ TAB CR PO ONE (07:30)
[2019-02-11 07:35] LABS: LYMPHOCYTES % (MANUAL) 21 % (19-48); MONOCYTES % (MANUAL) 13 % (3.4-9.0); NEUTROPHILS % (MANUAL) 66 % (40-74)
[2019-02-11 07:36] LABS: PLATELET ESTIMATE ADEQUATE; PLATELET MORPHOLOGY COMMENT NORMAL
[2019-02-11 07:37] LABS: RBC MORPHOLOGY COMMENT NORMAL
[2019-02-11 07:40] VITALS: BP 124/80
--- NOTE | 2019-02-11 07:40 | NUR ---
PATIENT SITTING AT BED SIDE WATCHING TV WITH NO S/S OF DISTRESS. DENIED PAIN AT THIS TIME. BED IN LOWER POSITION, CALL LIGHT AT REACH.
[2019-02-11 08:42] VITALS: BP 124/80
[2019-02-11] MEDS: FLUTICASONE PROPIONATE NASAL SPRAY NS SCH (09:20)
[2019-02-11] MEDS: PANTOPRAZOLE 40 MG 10ML VIAL IV SCH (09:20)
[2019-02-11] MEDS: CYANOCOBALAMIN 1,000 MCG TAB PO SCH (09:21)
[2019-02-11] MEDS: LOSARTAN POTASSIUM 100 MG TAB PO SCH (09:21)
[2019-02-11] MEDS: CHOLECALCIFEROL 1,000 UNIT TAB PO SCH (09:21)
[2019-02-11] MEDS: HYDRALAZINE HCL 25 MG TAB PO SCH (09:21)
[2019-02-11] MEDS: BENZONATATE 100 MG CAP PO SCH (09:21)
[2019-02-11] MEDS: HYDROCHLOROTHIAZIDE 25 MG TAB PO SCH (09:21)
--- NOTE | 2019-02-11 09:29 | Progress Note ---
DATE: Progress and Discharge Note SUBJECTIVE: The patient is a 73-year-old male with multifocal pneumonia, status post antibiotics, status post bronchoscopy, status post endoscopy for chronic purulent sputum and also for reflux esophagitis. The patient is currently feeling better. The patient has less cough, decreased expectoration. Acapella machine has helped a lot. The patient is feeling enough and will be discharged today. OBJECTIVE: VITAL SIGNS: Today temperature is 98.1, pulse 57, respirations 16, blood pressure is 109/50, pulse oximetry of 98% on room air. HEENT: Normocephalic, atraumatic. Pupils are reactive to light and accommodation. CVS: S1, S2, normal. Regular rate and rhythm. ABDOMEN: Nontender and nondistended. EXTREMITIES: No clubbing. No cyanosis. No edema. LUNGS: Clear to auscultation bilaterally. LABORATORY VALUES: Today's white count is 10.33, hemoglobin of 12.4, hematocrit of 37.6. Sodium of 138, potassium of 3.4. Rest of the labs have been normal. Glucoses have been trending normal. ASSESSMENT: A 73-year-old male with, 1. Multifocal pneumonia with intractable cough, status post bronchoscopy, doing well. 2. Aspiration. The patient has been asked to sleep in a 35-degree angle or up. 3. Diabetes mellitus, well trending and continue same medication. 4. Anemia of chronic disease. We will continue monitoring as an outpatient basis. 5. Hyperkalemia. We will go ahead and replace potassium today before he leaves. PLAN: Plan will be to see the patient back in the clinic in about one week. The patient also will be discharged on long-term antibiotic, Augmentin 875 mg twice a day for 10 days and tapering dose of steroids. The patient has been advised to watch his blood sugars and also intake of carbohydrate for diabetes since he is going to be on steroid for a long time. Further recommendations per clinical course. We will continue to monitor this patient. The patient will also follow up with the consultants. MD JULY MadrigalJ/MODL /[id number]
[2019-02-11] MEDS ORDERED: POTASSIUM CHLORIDE 20MEQ/15ML UDC NG ONE (09:30)
[2019-02-11] MEDS ORDERED: AUGMENTIN 875-1 EACH PO (10:16)
--- NOTE | 2019-02-11 10:45 | NUR ---
PATIENT DISCHARGED HOME. DISCHARGE INSTRUCTIONS, PRESCRIPTIONS, AND FOLLOW UP GIVEN TO PATIENT, HE VERBALIZED UNDERSTANDING. IV TO LEFT FOREARM REMOVED WITH TIP INTACT. ALL PERSONAL ITEMS TAKEN WITH PATIENT. REFUSED WHEEL CHAIR, BUT WAS ACCOMPANIED BY HOSPITAL STAFF TO FRONT LOBBY IN STABLE CONDITION.
== END 2019-02-11 10:44 | disposition home or self-care (01) | DRG 177 ==
LOC: MED/SURG3 02-01 12:13
PROVIDERS: ADMIT Family Medicine; ATTEND Family Medicine
PROC: 0BC28ZZ Extirpation of Matter from Carina, Via Natural or Artificial Opening Endoscopic (ICD-10-PCS; 2019-02-05)
PROC: 0B9D8ZX Drainage of Right Middle Lung Lobe, Via Natural or Artificial Opening Endoscopic, Diagnostic (ICD-10-PCS; principal; 2019-02-05 11:06)
PROC: 0DB68ZX Excision of Stomach, Via Natural or Artificial Opening Endoscopic, Diagnostic (ICD-10-PCS; 2019-02-07)
PROC: 0DB78ZX Excision of Stomach, Pylorus, Via Natural or Artificial Opening Endoscopic, Diagnostic (ICD-10-PCS; 2019-02-07)
DX: J69.0 Pneumonitis due to inhalation of food and vomit (principal); J96.00 Acute respiratory failure, unspecified whether with hypoxia or hypercapnia; T17.490A Other foreign object in trachea causing asphyxiation, initial encounter; J30.9 Allergic rhinitis, unspecified; K29.70 Gastritis, unspecified, without bleeding; K92.89 Other specified diseases of the digestive system; I10 Essential (primary) hypertension; E78.5 Hyperlipidemia, unspecified; I25.10 Atherosclerotic heart disease of native coronary artery without angina pectoris; E11.9 Type 2 diabetes mellitus without complications; K44.9 Diaphragmatic hernia without obstruction or gangrene; D63.8 Anemia in other chronic diseases classified elsewhere; K21.0 Gastro-esophageal reflux disease with esophagitis; I87.8 Other specified disorders of veins; J98.01 Acute bronchospasm
CPT/HCPCS: 31622; 36415; 43239; 71046; 74230; 80048; 80053; 82607; 82728; 82746; 82948; 83540; 84466; 85025; 85045; 87040; 87070; 87102; 87109; 87116; 87205; 87206; 87335; 88305; 88312; 94640; 94667; 94668; 96372; J0456; J1644; J1815; J2001; J2250; J2405; J2543; J2765; J2920; J3010; J7030; J7050

== ENCOUNTER 2020-01-20 06:17 | Emergency (ER) | payer MEDICARE, OTHER ==
[~2020-01-20] VITALS: Ht 177.8 cm; Wt 98.0 kg
[~2020-01-20 06:17] MED LIST changes: +AUGMENTIN 875-1 EACH PO; +HYDRALAZINE HCL25 MG PO; +PROBIOTIC & AC1 EACH PO
[2020-01-20] MEDS ORDERED: ONDANSETRON HCL INJ 2MG/ML 2ML 2 MG/ML VIAL IV STA (06:28)
[2020-01-20] MEDS ORDERED: MORPHINE SULFATE INJ 4 MG/ML INJ 1ML IV STA (06:28)
[2020-01-20] MEDS ORDERED: ASPIRIN 81 MG CHEW TAB PO ONE (06:30)
--- NOTE | 2020-01-20 06:33 | Emergency Department Note ---
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 Historian: Patient Arrival Mode: Car Onset (how long ago): hour(s) (2) Radiation: Reports non-radiation Severity: moderate Duration (how long): hour(s) (2) Timing of current episode: constant Progression: worsening Context: Denies recent illness, Denies recent surgery, Denies recent im mobilization, Denies recent travel, Denies trauma/injury, Denies new medications, Denies hx of DVT/PE, Denies non-compliance w/ medications, Denies other Relieving factors: none Exacerbating factors: none Associated symptoms: Reports chest pain, Reports shortness of breath; Denies fever/chills Treatments prior to arrival: none Risk factors: HTN , DM, former smoker (YANIQUE NGUYEN DO) Past Medical/Family History Physician Review I have reviewed the patient's past medical and family history. Any updates have been documented here. (YANIQUE NGUYEN DO) Past Medical History Recent Fever: No Clinical Suspicion of Infectio: No New/Unexplained Change in Ment: No Past Medical History: Hypertension, Diabetes Other Medical History: Barrets esophagus Past Surgical History: Cholecysctectomy Other Surgery: CARPAL TUNNEL, VERICOSE VEIN (YANIQUE NGUYEN DO) Social History Smoking Cessation: Former smoker Alcohol Use: Occasional Any Illegal Drug Use: No (YANIQUE NGUYEN DO) Other Last Tetanus: UTD (YANIQUE NGUYEN DO) Review of Systems Review of Systems Constitutional: Reports no symptoms EENTM: Reports no symptoms Cardiovascular: Reports chest pain Respiratory: Reports dyspnea Gastrointestinal: Reports no symptoms Genitourinary: Reports no symptoms Musculoskeletal: Reports no symptoms Integumentary: Reports no symptoms Neurological: Reports no symptoms Psychological: Reports no symptoms Endocrine: Reports no symptoms Hematological/Lymphatic: Reports no symptoms (YANIQUE NGUYEN DO) Physical Exam Related Data Allergies: Coded Allergies: diltiazem (Verified Allergy, Unknown, 08/04/09) Vital signs reviewed: Yes (YANIQUE NGUYEN DO) Physical Exam CONSTITUTIONAL Constitutional: Present well-developed, Present well-nourished HENT HENT: Present normocephalic, Present atraumatic, Present oropharynx clear/moist, Present nose normal HENT L/R: Present left ext ear normal, Present right ext ear normal EYES Eyes: Reports PERRL, Reports conjunctivae normal NECK Neck: Present ROM normal PULMONARY Pulmonary: Present effort normal, Present breath sounds normal CARDIOVASCULAR Cardiovascular: Present regular rhythm, Present heart sounds normal, Present capillary refill normal, Present normal rate GASTROINTESTINAL Abdominal: Present soft, Present nontender, Present bowel sounds normal GENITOURINARY Genitourinary: Present exam deferred SKIN Skin: Present warm, Present dry MUSCULOSKELETAL Musculoskeletal: Present ROM normal NEUROLOGICAL Neurological: Present alert, Present oriented x 3, Present no gross motor or sensory deficits PSYCHOLOGICAL Psychological: Present mood/affect normal, Present judgement normal (YANIQUE NGUYEN DO) Results Laboratory Lab results reviewed: Yes (ISABELLA CHAMPAGNE DO) Imaging Imaging results reviewed: Yes (YANIQUE NGUYEN DO) Imaging results reviewed: Yes Impressions IMPRESSION: No pulmonary embolism. Mild groundglass opacities at the dependent lower lobes is nonspecific. Viral pneumonia should be clinically excluded. (ISABELLA CHAMPAGNE DO) Procedures 12 Lead ECG Interpretation ECG Interpretation : ECG: ECG 1 Painter Hand: Interpreted by ED physician Date: Jan 20, 2020 Time: 06:31 Prior ECG tracings: reviewed Rhythm: sinus bradycardia Rate: bradycardia BPM: 56 QRS axis: normal Conduction: incomplete RBBB ST segments normal: Yes T waves normal: Yes Clinical Impression: non-specific ECG (YANIQUE NGUYEN DO) Assessment & Plan Medical Decision Making MDM 74 yom presents with CP . Diff Dx : ACS, PE, costocondritis, Chest wall pain, and pneumothorax considered. labs, imaging and EKG reviewed . (YANIQUE NGUYEN DO) MDM Signout received from Dr. Nguyen, follow-up CT chest. CT chest concerning for groundglass opacities, patient not hypoxic not requiring supplemental oxygen, there is a concern of possible Covid 19 infection. Patient stable for discharge and outpatient pulmonary follow-up. (ISABELLA CHAMPAGNE DO) Reassessment Reassessment patient signed out to Dr Isabella Champagne at 0700 on 01/20/2020 (YANIQUE NGUYEN DO) Assessment & Plan Final Impression: (1) COVID-19 (ISABELLA CHAMPAGNE DO) Depart Disposition: HOME, SELF-custodial Meds Active Scripts Dexamethasone (Decadron) 6 Mg Tablet, 6 MG PO DAILY, #5 Prov:ISABELLA CHAMPAGNE DO 01/20/20 Azithromycin (Z-NALLELY) 250 Mg Tablet, 1 PKG PO DIRECTED, #1 PKG 0 Refills Prov:ISABELLA CHAMPAGNE DO 01/20/20 Reported Medications Amoxicillin/Potassium Clav (AUGMENTIN 875-125 TABLET) 1 Each Tablet, 875 MG PO BID for 10 Days, #20 TAB 02/11/19 Lactobac Cmb #3/Fos/Pantethine (PROBIOTIC & ACIDOPHILUS CAP) 1 Each Capsule, TAB PO HS 02/01/19 Hydralazine Hcl (HYDRALAZINE HCL) 25 Mg Tab, 50 MG PO BID, TAB 02/01/19 [Vgitamin D] No Conflict Check, 1000 UNITS PO DAILY 10/04/12 [Vitamin B] No Conflict Check, 1000 MCG PO DAILY 10/04/12 Simvastatin (Simvastatin) 10 Mg Tablet, 20 MG PO HS 01/09/11 Pantoprazole Sodium (Protonix) 40 Mg Tablet. 01/09/11 Losartan/Hydrochlorothiazide (Losartan-Hctz 50-12.5 Mg Tab) 1 Each Tablet 01/09/11 YANIQUE NGUYEN DO Jan 20, 2020 06:33 ISABELLA CHAMPAGNE DO Jan 24, 2020 11:01
[2020-01-20 06:46] LABS: BASOPHILS # (AUTO) 0.1 (0.0-0.1); BASOPHILS % 1.1 % (0.0-1.0); EOSINOPHILS # (AUTO) 0.3 (0.0-0.4); EOSINOPHILS % 3.7 % (0.0-6.0); HEMATOCRIT 39.6 % (38.2-49.6); HEMOGLOBIN 12.4 g/dL (14.0-18.0); LYMPHOCYTES # (AUTO) 2.3 (1.0-3.2); LYMPHOCYTES % 30.6 % (18.0-39.1); MEAN CORPUSCULAR HEMOGLOBIN 27.6 pg (28-32); MEAN CORPUSCULAR HGB CONC 31.3 g/dL (31-35); MEAN CORPUSCULAR VOLUME 88.2 fL (81-99); MONOCYTES # (AUTO) 0.8 (0.2-0.8); MONOCYTES % 10.6 % (4.4-11.3); NEUTROPHILS % 53.7 % (38.7-80.0); PLATELET COUNT 168 x10e3/uL (140-360); RED BLOOD COUNT 4.49 x10e6/uL (4.3-5.7); RED CELL DISTRIBUTION WIDTH 13.5 % (11.7-14.4)
[2020-01-20 07:08] LABS: ALBUMIN 3.7 g/dL (3.5-5.0); CREATININE, SERUM 1.22 mg/dL (0.72-1.25)
[2020-01-20 07:16] LABS: CREATINE KINASE MB 4.6 ng/mL (0-5.0)
--- NOTE | 2020-01-20 08:20 | NUR ---
DAUGHTER CALLED FOR UPDATE. PER PT, OKAY TO RELEASE ALL INFORMATION. UPDATED DAUGHTER AND WILL CALL BACK IN 2 HOURS FOR MORE UPDATES PER DAUGHTER
--- NOTE | 2020-01-20 08:36 | Diagnostic Imaging Report ---
EXAMINATION: CHEST SINGLE (PORTABLE) INDICATION: Chest pain COMPARISON: Chest radiograph 02/06/2019 FINDINGS: LINES/TUBES:EKG leads overlie the chest. LUNGS:The lungs are moderately inflated. No focal consolidation or pulmonary edema. PLEURA:No pleural effusion or pneumothorax. MEDIASTINUM:The cardiomediastinal silhouette appears normal in size and shape. Atherosclerotic calcifications of the thoracic aorta. BONES/SOFT TISSUES:No acute osseous injury. Partially visualized cervical spine fusion hardware. ABDOMEN:No free air under the diaphragm. IMPRESSION: No focal pneumonia or pulmonary edema. Signed by: William Mccoy MD on 01/20/2020 8:32 AM
[2020-01-20] MEDS ORDERED: SODIUM CHLORIDE 0.9% 500ML 500 ML IV STA (09:26)
[2020-01-20] MEDS ORDERED: ASPIRIN 325 MG TAB ONE (09:33)
[2020-01-20] MEDS ORDERED: SODIUM CHLORIDE 0.9% 250ML 500 ML ONE (09:34)
--- NOTE | 2020-01-20 09:47 | NUR ---
UPDATED PLAN OF CARE.
[2020-01-20] MEDS ORDERED: SODIUM CHLORIDE 0.9% 50ML 50 ML ONE ×2 (09:51→14:22)
[2020-01-20] MEDS ORDERED: IOPAMIDOL 370 MG/ML 200 ML INFUS..BTL INJ ONE ×2 (09:51→14:22)
--- NOTE | 2020-01-20 11:14 | Diagnostic Imaging Report ---
EXAM: CT Chest WITH contrast- Pulmonary Embolism Protocol INDICATION: Shortness of breath, elevated d-dimer COMPARISON: None TECHNIQUE: Chest was scanned utilizing a multidetector helical scanner from the lung apex through the level of the diaphragm after administration of IV contrast. Thin section reconstructions were obtained with special concentration on the pulmonary arteries. Coronal and sagittal reformations were obtained. Pulmonary embolism protocol was performed. IV CONTRAST: 100 cc of Isovue 370 RADIATION DOSE: Total DLP: 494 mGy*cm Dose modulation, iterative reconstruction, and/or weight based adjustment of the mA/kV was utilized to reduce the radiation dose to as low as reasonably achievable. COMPLICATIONS: None FINDINGS: LINES/ TUBES: None. PULMONARY ARTERIES: No filling defect is identified within the pulmonary arteries to the segmental level. The subsegmental pulmonary arteries are not well opacified. Main pulmonary artery measures 2.7 cm in diameter. No right heart strain. LUNGS AND AIRWAYS: The central airways are patent. No focal consolidation. Mild ground glass opacities at the dependent lower lobes. PLEURA: The pleural spaces are clear. HEART AND MEDIASTINUM: The thyroid gland is normal. No mediastinal, hilar or axillary lymphadenopathy. The heart is normal in size.. There is no pericardial effusion. Minimal scattered atherosclerotic calcifications of the aorta and coronary arteries.. UPPER ABDOMEN: Small hypodensities in the right liver, likely cysts but too small to adequately characterize. BONES: No acute osseous injury. SOFT TISSUES: Unremarkable. IMPRESSION: No pulmonary embolism. Mild groundglass opacities at the dependent lower lobes is nonspecific. Viral pneumonia should be clinically excluded. Signed by: William Mccoy MD on 01/20/2020 11:10 AM
[2020-01-20] MEDS ORDERED: AZITHROMYCIN250 MG PO (11:58)
[2020-01-20] MEDS ORDERED: DECADRON6 MG PO (11:58)
== END 2020-01-20 12:25 | disposition home or self-care (01) ==
LOC: ER 06:30
DX: U07.1 COVID-19 (principal); R07.9 Chest pain, unspecified; R06.02 Shortness of breath; I10 Essential (primary) hypertension; E11.9 Type 2 diabetes mellitus without complications; Z87.891 Personal history of nicotine dependence
CPT/HCPCS: 36415; 71045; 71260; 80053; 82550; 82553; 83880; 84484; 85025; 85379; 93005; 99284; J7050; Q9967

== ENCOUNTER 2020-02-24 07:33 | Observation (INO) | payer MEDICARE, OTHER ==
[~2020-02-24] VITALS: Ht 177.8 cm; Wt 104.3 kg
[~2020-02-24 07:33] MED LIST changes: +AZITHROMYCIN250 MG PO; +BACITRACIN 50,000 UNIT VIAL ONE; +DECADRON6 MG PO; +FUROSEMIDE40 MG PO; +GABAPENTIN100 MG PO; +OMEGA 3 1,0001 EACH PO; +OMEPRAZOLE40 MG PO; +SODIUM CHLORIDE 0.9% 500ML 500 ML ONE; +TRANEXAMIC ACID 1,000 MG/10 ML ML ONE; +VANCOMYCIN HCL 1,000 MG ONE; +VITAMIN B-121000 MC2 PO; +VITAMIN D PO; -Z.0.PROTONIX40 MG; +Z.0.PROTONIX40 MG PO; -Z.2.LOSARTAN-HCTZ1 E; +Z.2.LOSARTAN-HCTZ1 E PO
[2020-02-24] MEDS ORDERED: CELECOXIB 200 MG CAP ONE (08:00)
[2020-02-24] MEDS ORDERED: CEFAZOLIN SOD 1 GM/NS 50ML 100 ML IV ONE (08:00)
[2020-02-24] MEDS ORDERED: ROPIVACAINE 246.25 MG, EPINEPHRINE HCL 1:1000 1ML 0.5 MG, CLONIDINE HCL 0.08 MG, KETORO... INJ ONE ×5 (08:00)
[2020-02-24] MEDS ORDERED: GABAPENTIN 300 MG CAP ONE (08:01)
[2020-02-24] MEDS ORDERED: DEXAMETHASONE SOD PHOS 10 MG/1 ML VIAL ONE (08:03)
[2020-02-24] MEDS ORDERED: KETOROLAC TROMETHAMINE 30 MG/ML VIAL IV PRN (11:15)
[2020-02-24] MEDS ORDERED: DIPHENHYDRAMINE HCL INJ 50 MG/ML VIAL IV PRN (11:15)
[2020-02-24] MEDS ORDERED: HYDROCODONE/APAP 5MG-325MG TAB PO PRN (11:15)
[2020-02-24] MEDS ORDERED: ACETAMINOPHEN 650 MG SUPP PR PRN (11:15)
[2020-02-24] MEDS ORDERED: ONDANSETRON HCL INJ 2MG/ML 2ML 2 MG/ML VIAL IV PRN (11:15)
[2020-02-24] MEDS ORDERED: DOCUSATE SODIUM 100 MG CAP PO PRN (11:15)
[2020-02-24] MEDS ORDERED: HYDROMORPHONE 1MG/1ML INJ ONE (11:31)
[2020-02-24] MEDS ORDERED: FENTANYL CITRATE/PF 100MCG/2 ML INJ ONE (11:47)
--- OUTSIDE RECORDS SUMMARY | 2020-02-24 12:06 | XMS REPORT | Clinical Summary ---
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 Last Filed Vital Signs Not on file Plan of Treatment Health Maintenance Due Date Last Done Comments COLONOSCOPY SCREENING 1995 SHINGLES VACCINES (#1) 1995 65+ PNEUMOCOCCAL VACCINE 2010 (1 of 2 - PCV13) INFLUENZA VACCINE 02/15/2020 Results Not on fileafter 02/23/2019 Insurance Type Payer Benefit Subscriber ID Effective Phone Address Plan / Dates Group Medicare MEDICARE MEDICARE xxxxxxxxxxx 2010-P PRICE, PART A AND resent [place] B HMO AETNA AETNA xxxxxxxxxx 2018-P HMO,POS,EP resent O, [employer] [address] [place] (Home) [place] [id number] Advance Directives For more information, please contact: [phone] 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
--- OUTSIDE RECORDS SUMMARY | 2020-02-24 12:06 | XMS REPORT | Continuity of Care Document ---
Author Author [facility] Organization [facility] Address Unknown Phone Unavailable Care Team Providers Care Freight Manager Name Role Phone [employer] Reelio Unavailable Un available Problems Problem Status Onset Date Classification Date Reported Comments Source SI DYSFUNCTION Active 04/05/2019 [facility] [employer] Irritable bowel syndrome without diarrhea 08/26/2018 03/11/2019 [facility] Abnormal levels of other serum enzymes 06/09/2018 12/23/2018 [facility] DX: R74.0=NONSPECIFIC ELEVATION OF LEVEL Active 05/28/2018 [facility] CHOU'S DISEASE Active 05/23/2018 [facility] Other spondylosis with myelopathy, cervical region 09/15/2017 12/07/2017 [facility] CERVICAL SPONDYLOSIS, HNP, CERVICAL STEN Active 08/25/2017 [facility] [employer] 715.90 - OSTEOARTHROS NO Active 10/09/2013 MARYAM Andrade Concussion with less than 1 hour loss of consciousness (disorder) Resolved 07/17/2005 Problem 07/07/2019 [facility], MARYAM Small Nonspecific elevation of levels of trans aminase and lactic acid dehydrogenase [LDH] 12/23/2018 [facility] Fatty (change of) liver, not elsewhere classified 12/23/2018 [facility] Type 2 diabetes mellitus without complications 12/23/2018 [facility] Essential (primary) hypertension 12/23/2018 [facility] Other specified diseases of liver 12/23/2018 [facility] Cyst of kidney, acquired 12/23/2018 [facility] Liver disease, unspecified 12/23/2018 [facility] Dietary counseling and surveillance 12/23/2018 [facility] Family history of malignant neoplasm of digestive organs 12/23/2018 [facility] Cervical disc disorder at C5-C6 level with myelopathy 12/07/2017 [facility] Type 2 diabetes mellitus with diabetic n europathy, unspecified 12/07/2017 [facility] Acute posthemorrhagic anemia 12/07/2017 [facility] Spinal stenosis, cervical region 12/07/2017 [facility] Hyperlipidemia, unspecified 12/07/2017 [facility] Obstructive sleep apnea (adult) (pediatric) 12/07/2017 [facility] 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 12/07/2017 [facility] Gastro-esophageal reflux disease without esophagitis 12/07/2017 [facility] Elevated white blood cell count, unspecified 12/07/2017 [facility] Cervical spondylosis (disorder) Active Problem [facility] [place], [facility] [place] Degeneration of cervical intervertebral disc (disorder ) Active Problem 07/07/2019 [facility] [place],[facility], [facility] [place] Diabetes mellitus (disorder) A ctive Problem [facility] [place], [facility] [place],[facility], [facility] [place] Diabetic neuropathy (disorder) Active Problem [facility] [place],[facility], [facility] [place] Diarrhea (finding) Active Problem 07/07/2019 [facility] [place], [facility] [place],[facility], [facility] [place] Diverticular disease (disorder) Active Problem [facility], [facility] [place],[facility], [facility] [place] Large prostate (finding) Active Problem 07/07/2019 [facility] [place], [facility] [place],[facility], [facility] [place] Gastric ulcer (disorder) Resol noelle Problem [facility], [facility] [place], [facility] [place] Gastroesophageal reflux disease (disorder) Active Problem 07/07/2019 [facility] [place], [facility] [place],[facility], [facility] [place] Hearing loss (finding) Active Problem 07/07/2019 [facility] [place],[facility], [facility] [place] Herniation of nucleus pulposus (disorder) Active Problem 07/07/2019 [facility] [place], [facility] [place] Hypertensive disorder, systemic arterial (disorder) Active Problem 07/07/2019 [facility], [facility] [place], [facility] [place] [place], [facility] [place] Hyperlipidemia (disorder) Acti ve Problem [facility] [place], [facility] [place], [place], [facility] [place] Irritable colon (disorder) Act haritha Problem [facility], [facility] [place], [place], [facility] [place] Obstructive sleep apnea syndrome (disorder) Active Problem 07/07/2019 [facility] [place], [place], [facility] [place] Osteoarthritis (disorder) Acti ve Problem [facility], [facility] [place], [place], [facility] [place] Paresthesia (finding) Active Problem 07/07/2019 [facility] [place], [place], [facility] [place] Radiculitis (disorder) Active Problem 07/07/2019 [facility], [facility] [place], [facility] [place] Spinal stenosis in cervical region (disorder) Active Problem 07/07/2019 [facility], [facility] [place],[facility], [facility] [place] Traumatic iritis (disorder) Ac tive Problem LEFT EYE [facility], [facility] [place],[facility], [facility] [place] Vertigo (finding) Active Problem 07/07/2019 [facility], [facility] [place], [facility] [place] Diabetic Polyneuropathy Active 11/06/2013 [facility] Diabetes With Neurological Complications Active 11/06/2013 [facility] Diabetes Mellitus Active 11/06/2013 [facility] Hypertension Active 11/06/2013 [facility] Mixed Hyperlipoproteinemia Act haritha 11/06/2013 [facility] Hypogonadism Active 11/06/2013 [facility] Fatty Liver Active 11/06/2013 [facility] Fatigue Active 11/06/2013 [facility] Osteoarthritis Active 11/06/2013 [facility] Datatype(DG1.4)- Active [facility] IRRITABLE BOWEL SYNDROME WITHOUT DIARRHE Active [facility] Medications Medication Details Route Status Patient Instructions Ordering Provider Order Date Source Cefazolin Notes: Same as: Maria D Inactive 04/10/2019 [facility] Lactated Ringers IV 1,000 mL 1 ,000 mL, Rate: 40 ml/hr, Infuse over: 25 hr, Route: IV, Dosing Weight 93.182 kg, Total Volume: 1,000, Start date: 04/10/19 13:18:00 CDT, Duration: 30 day, Stop date: 05/10/19 13:17:00 CDT, 2.16, m2, 0 No Longer Active 04/10/2019 [facility] Vitamin B-50 oral tablet 1, PO , Daily, 0 Refill(s) Active 04/10/2019 [facility] Diazepam 10 MG Oral Tablet [Valium] 10 mg = 1 tab, PO, Bedtime, PRN Anxiety, X 7 day, # 30 tab, 0 Refill(s), given to patient No Longer Active 09/01/2017 [facility] tramadol hydrochloride 50 MG Oral Tablet 50 mg = 1 tab, PO, Q8H, PRN Pain, X 14 day, # 50 tab, 0 Refill(s) No Longer Active 09/01/2017 [facility] Docusate Sodium 100 MG Oral Capsule 100 mg = 1 cap, PO, BID, # 28 cap, 0 Refill(s), Pharmacy: [place] [id number] Active 08/31/2017 [facility] POLYETHYLENE GLYCOL 3350 142 MG/ML Oral Solution [Miralax] 17 gm, PO, Daily, X 15 day, # 255 gm, 0 Refill(s), Pharmacy: [place] [id number] No Longer Active 08/31/2017 [facility] Dexamethasone Notes: Give with food. (Same As: Decadron) Inactive 08/31/2017 [facility] Cozaar Notes: (Same as: Cozaar) Inactive 08/31/2017 [facility] Januvia Notes: Same as Januvia Inactive 08/31/2017 [facility] hydrochlorothiazide 25 mg oral tablet Notes: (Same as: Hydrodiuril) With food. Inactive 08/31/2017 [facility] Hydrochlorothiazide 12.5 MG / Losartan P otassium 100 MG Oral Tablet 1 tab, Route: PO, Drug Form: TAB, Dosing Weight 102.528, kg, Daily, Start date: 08/31/17 9:00:00 CUSTOMER SERVICE REPRESENTATIVE TELLER, Duration: 30 day, Stop date: 09/29/17 9:00:00 CDT No Longer Active 08/31/2017 [facility] glimepiride Notes: Non-Formula ry (Same as: Amaryl) Inactive 08/31/2017 [facility] Tums Notes: (Same As: Tums) Ca lcium Carbonate 500 mg = 200 mg elemental calcium Dose = mg calcium carbonate ( mg elemental calcium) Inactive 08/31/2017 [facility] Benzocaine 15 MG / Menthol 3.6 MG Lozeng e [Cepacol Sore Throat Pain Relief 15/3.6] Notes: Cepacol lozenges Dispense 1 box = 16 lozenges (Same As: Cepacol Lozenges) No Longer Active 08/31/2017 [facility] Simvastatin Notes: (Same as: Z ocor) No Longer Active 08/31/2017 [facility] Dexamethasone Notes: Concentra tion: 4mg/ml No Longer Active 08/31/2017 [facility] Hydralazine Hydrochloride 50 MG Oral Tablet Notes: (Same as: Apresoline) May interfere w/enteral feedings Take With Food. No Longer Active 08/30/2017 [facility] gabapentin 600 MG Oral Tablet Notes: (Same as: Neurontin) No Longer Active 08/30/2017 [facility] Pepcid Notes: (Same as: Pepcid) Inactive 08/30/2017 [facility] Docusate Sodium 100 MG Oral Capsule Notes: (Same as: Colace) (Do Not Crush) No Longer Active 08/30/2017 [facility] Protonix Notes: Tablet should not be chewed or crushed. (Same as: Protonix) No Longer Active 08/30/2017 [facility] Cefazolin Notes: Same as: Ancef No Longer Active 08/30/2017 [facility] Dilaudid Notes: Same as Dilaud id No Longer Active 08/30/2017 [facility] Robaxin Notes: (Same as:Robaxi n) Inactive 08/30/2017 [facility] Labetalol 10 mg, 2 mL, Route: IV, Drug form: INJ, ONCE, Dosing Weight 102.528, kg, Start date: 08/30/17 13:21:00 CUSTOMER SERVICE REPRESENTATIVE TELLER, Stop date: 08/30/17 13:21:00 CUSTOMER SERVICE REPRESENTATIVE TELLER Inactive 08/30/2017 [facility] Naloxone Notes: Same as Narcan No Longer Active 08/30/2017 [facility] Hydromorphone Notes: (Same as: Dilaudid) conc = 0.5 mg/ml Hydromorphone RN PROCEDURES Dose: ;Delay: ;Basal: No Longer Active 08/30/2017 [facility] Saline Flush 0.9% Notes: Same as: BD Posiflush Sterile No Longer Active 08/30/2017 [facility] NS + KCL 20mEq/L 1000ml (Premix) 1,000 mL Notes: PREMIX IV - Do Not Alter WASTE: F/P - Sink; E - Municipal Trash Bin No Longer Active 08/30/2017 [facility] Acetaminophen 325 MG / Hydrocodone Nemo trate 10 MG Oral Tablet Notes: Do not exceed 4gm/day of acetamin ophen. (Same as: [place] 325/10) No Longer Active 08/30/2017 [facility] Morphine Notes: (Same as:MORPh ine Sulfate) No Longer Active 08/30/2017 [facility] Diphenhydramine Notes: (Same a s: Benadryl) No Longer Active 08/30/2017 [facility] Ondansetron Notes: (Same as: Zoila moody) MEDICATION WASTE Product Size: 4 mg Product Wasted: ___ mg No Longer Active 08/30/2017 [facility] Acetaminophen Notes: Do not ex ceed 4 gm/day. (Same as: Tylenol) No Longer Active 08/30/2017 [facility] Trazodone Notes: (Same As: Carlos yrel) No Longer Active 08/30/2017 [facility] Insulin Lispro Notes: (Same as : Humalog ) Roll in palms of hands gently; Do not shake `vigorously. "Single Patient Use Only " WASTE: F/P - Black; E - Municipal Trash Bin Stable for 28 days at room temp erature. Expires in days from Date No Longer Active 08/30/2017 [facility] Glucagon 1 mg, Route: IM, Drug form: PDR/INJ, PRN, Dosing Weight 102.528, kg, PRN Blood Glucose Results, Start date: 08/30/17 11:52:00 CUSTOMER SERVICE REPRESENTATIVE TELLER, Duration: 30 day, Stop date: 09/29/17 12:51:00 CDT No Longer Active 08/30/2017 [facility] Dextrose 50% Syringe 25 gm, 50 mL, Route: IVP, Drug Form: INJ, Dosing Weight 102.528, kg, PRN, PRN Blood Glucose Results, Start date: 08/30/17 11:52:00 CUSTOMER SERVICE REPRESENTATIVE TELLER, Duration: 30 day, Stop date: 09/29/17 12:51:00 CDT No Longer Active 08/30/2017 [facility] Hydromorphone Notes: Same as D ilaudid Inactive 08/30/2017 [facility] Morphine Notes: (Same as:MORPh ine Sulfate) Inactive 08/30/2017 [facility] Flumazenil Notes: (Same as: Ro mazicon) Inactive 08/30/2017 [facility] Naloxone Notes: Same as Narcan Inactive 08/30/2017 [facility] Ondansetron Notes: (Same as: Zoila moody) MEDICATION WASTE Product Size: 4 mg Product Wasted: ___ mg Inactive 08/30/2017 [facility] Meperidine Notes: (Same as: [place]) "Use Precaution in Elderly, Seizure disorders, and Renal impairment" Inactive 08/30/2017 [facility] Ancef Notes: Same as: Ancef Inactive 08/30/2017 [facility] gabapentin 600 MG Oral Tablet 600 mg = 1 tab, PO, BID, 0 Refill(s) Active 08/26/2017 [facility] Vitamin D3 1000 intl units oral capsule 1,000 IntlUnit = 1 cap, PO, Daily, # 75 cap, 0 Refill(s) No Longer Active 08/26/2017 [facility] Hydrochlorothiazide 12.5 MG / Losartan P otassium 100 MG Oral Tablet 1 tab, PO, Daily, HOLD AM DOS, # 90 tab, 0 Refill(s) Active 08/26/2017 [facility] Hydralazine Hydrochloride 50 MG Oral Tablet 50 mg = 1 tab, PO, BID, TAKE AM DOS, 0 Refill(s) Active 08/26/2017 [facility] Vitamin B12 1000 mcg oral tablet 1,000 microgram = 1 tab, PO, Daily, # 100 tab, 0 Refill(s) No Longer Active 08/26/2017 [facility] sitagliptin 100 MG Oral Tablet [Januvia] 100 mg = 1 tab, PO, Daily, # 90 tab, 1 Refill(s) Active 08/26/2017 [facility] [place]-3 Acid Ethyl Esters (HALFWAY) 1000 MG Oral Capsule [Lovaza] 4,000 mg = 4 cap, PO, Daily, 0 Refill(s) No Longer Active 08/26/2017 [facility] glimepiride 1 mg oral tablet 1 mg = 1 tab, PO, Breakfast, # 90 tab, 0 Refill(s) Active 08/26/2017 [facility] omeprazole 40 mg oral delayed release capsule 40 mg = 1 cap, PO, Daily, TAKE AM DOS, # 90 cap, 0 Refill(s) Active 08/26/2017 [facility] Voltaren 1 % Transdermal Gel ; Start Date: 10/09/2013; End Date: (Active) Active 10/09/2013 [facility] Januvia 100 MG Oral Tablet ; S tart Date: 08/27/2013 (Active) Active 08/27/2013 [facility] Livalo 2 MG Oral Tablet ; Star t Date: 08/27/2013 (Active) Active 08/27/2013 [facility] Embrace Blood Glucose Test In Vitro Strip ; Start Date: 02/06/2013 (Active) Active 02/06/2013 [facility] Fish Oil 1000 MG Oral Capsule ; Start Date: 02/06/2013 (Active) Active 02/06/2013 [facility] Eddi Lancets Miscellaneous ; Start Date: 07/05/2012 (Active) Active 07/05/2012 [facility] MetFORMIN HCl ER 750 MG Oral Tablet Exte nded Release 24 Hour ; Start Date: 07/05/2012 (Active) Active 07/05/2012 [facility] FreeStyle Lite Test In Vitro Strip ; Start Date: 07/05/2012 (Active) Active 07/05/2012 [facility] Glimepiride 4 MG Oral Tablet ; Start Date: 07/02/2012 (Active) Active 07/02/2012 [facility] Gabapentin 600 MG Oral Tablet ; Start Date: 07/02/2012 (Active) Active 07/02/2012 [facility] Aspirin 81 MG Oral Tablet Delayed Release ; Start Date: 07/02/2012 (Active) Active 07/02/2012 [facility] Simvastatin 20 MG Oral Tablet ; Start Date: 07/02/2012 (Active) Active 07/02/2012 [facility] Vitamin D 1000 UNIT Oral Capsule ; Start Date: 07/02/2012 (Active) Active 07/02/2012 [facility] Vitamin B-12 500 MCG Oral Tablet ; Start Date: 07/02/2012 (Active) Active 07/02/2012 [facility] Testosterone Cypionate 200 MG/ML Intramuscular Oil ; Start Date: 07/02/2012 (Active) Active 07/02/2012 [facility] Pantoprazole Sodium 40 MG Oral Tablet Delayed Release ; Start Date: 07/02/2012 (Active) Active 07/02/2012 [facility] Centrum Silver Ultra Mens Oral Tablet ; Start Date: 07/02/2012 (Active) Active 07/02/2012 [facility] Avodart 0.5 MG Oral Capsule ; Start Date: 07/02/2012 (Active) Active 07/02/2012 [facility] Losartan Potassium-HCTZ 100-12.5 MG Oral Tablet ; Start Date: 07/02/2012 (Active) Active 07/02/2012 [facility] Simvastatin 10 MG Oral Tablet ; Start Date: 07/02/2012 (Active) Active 07/02/2012 [facility] Lovaza 1 GM Oral Capsule ; Sta rt Date: 07/02/2012 (Active) Active 07/02/2012 [facility] Omeprazole 40 MG Oral Capsule Delayed Release (Active) Active [facility] Allergies, Adverse Reactions, Alerts Substance Category Reaction Severity Reaction type Status Date Reported Comments Source Margie Assertion HIVES Drug allergy Active [facility] [place] TB24 drug allergy drug allergy Active [facility] Immunizations Immunization Date Given Site Status Last Updated Comments Source Hx tetanus toxoid vaccine<sup>1</sup> 08/26/2017 completed [facility] Admin Note: STATES REC'D A TETANUS VACCI NE WITHIN THE LAST 10YRS. [facility] [place],[facility], MARYAM Small Hx pneumococcal vaccine<sup>2</sup> 08/26/2017 completed [facility] Admin Note: STATES REC'D A PNEUMONIA VAC CINE WITHIN THE LAST 5YRS. [facility], [facility]AM Ma,[facility], [facility] [place] Hx influenza vaccine-unspecified 06/25/2017 completed [facility] [place],[facility], [facility] [place] Results Order Name Results Value Reference Range Date Interpretation Comments Source ELECTROLYTES AGAP 13.1 10.0 - 20.0 08/31/2017 [facility] ELECTROLYTES eGFR 63 08/31/2017 Result Comment: The eGFR is calculated [...] BMI. [facility] ELECTROLYTES Creatinine Lvl 1.1 6 0.50 - 1.40 08/31/2017 [facility] ELECTROLYTES Sodium Lvl 137 135 - 145 08/31/2017 [facility] ELECTROLYTES Potassium Lvl 4.1 3.5 - 5.1 08/31/2017 [facility] ELECTROLYTES Calcium Lvl 7.7 8.5 - 10.5 08/31/2017 [facility] ELECTROLYTES Glucose Lvl 165 70 - 99 08/31/2017 [facility] ELECTROLYTES BUN 17 7 - 22 08/31/2017 [facility] ELECTROLYTES CO2 26 24 - 32 08/31/2017 [facility] ELECTROLYTES Chloride Lvl 102 95 - 109 08/31/2017 [facility] HEMATOLOGY Monocytes # 0.5 0.0 - 0.8 08/31/2017 [facility] HEMATOLOGY Lymphocytes # 0.7 1.0 - 5.5 08/31/2017 [facility] HEMATOLOGY Segs-Bands # 10.0 1.5 - 8.1 08/31/2017 [facility] HEMATOLOGY Basophils 0.1 0.0 - 1.0 08/31/2017 [facility] HEMATOLOGY Monocytes 4.1 2.0 - 12.0 08/31/2017 [facility] HEMATOLOGY Lymphocytes 6.3 20.0 - 40.0 08/31/2017 [facility] HEMATOLOGY Segs 89.5 45.0 - 75.0 08/31/2017 [facility] HEMATOLOGY MCHC 32.9 32.0 - 36.0 08/31/2017 [facility] HEMATOLOGY MPV 9.3 7.4 - 10.4 08/31/2017 [facility] HEMATOLOGY Platelet 138 133 - 450 08/31/2017 [facility] HEMATOLOGY RDW 14.9 11.5 - 14.5 08/31/2017 [facility] HEMATOLOGY MCH 26.0 27.0 - 31.0 08/31/2017 [facility] HEMATOLOGY RBC 5.09 4.70 - 6.10 08/31/2017 [facility] HEMATOLOGY MCV 79.1 80.0 - 94.0 08/31/2017 [facility] HEMATOLOGY Hct 40.3 42.0 - 54.0 08/31/2017 [facility] HEMATOLOGY Hgb 13.3 14.0 - 18.0 08/31/2017 [facility] HEMATOLOGY WBC 11.2 3.7 - 10.4 08/31/2017 [facility] URINE AND STOOL UA Blood Trace *ABN* (08/28/17 9:30 AM) Negative 08/28/2017 [facility] URINE AND STOOL UA Urobilinogen 0.2 0.1 - 1.0 08/28/2017 [facility] URINE AND STOOL UA Nitrite Negative (08/28/17 9:30 AM) Negative 08/28/2017 [facility] URINE AND STOOL UA Ketones Negative *NA* (08/28/17 9:30 AM) Negative 08/28/2017 [facility] URINE AND STOOL UA Bili Negative *NA* (08/28/17 9:30 AM) Negative 08/28/2017 [facility] URINE AND STOOL UA Bacteria Occasional /HPF None Seen /HPF 08/28/2017 [facility] URINE AND STOOL UA RBC 0-2 [...] 08/28/2017 [facility] ELECTROLYTES AGAP 12.8 10.0 - 20.0 08/28/2017 [facility] ELECTROLYTES eGFR 64 08/28/2017 Result Comment: The eGFR is calculated [...] [facility] ELECTROLYTES Calcium Lvl 8.4 8.5 - 10.5 08/28/2017 [facility] ELECTROLYTES BUN 18 7 - 22 08/28/2017 [facility] ELECTROLYTES Creatinine Lvl 1.1 4 0.50 - 1.40 08/28/2017 [facility] ELECTROLYTES Glucose Lvl 118 70 - 99 08/28/2017 [facility] ELECTROLYTES CO2 29 24 - 32 08/28/2017 [facility] ELECTROLYTES Chloride Lvl 101 95 - 109 08/28/2017 [facility] ELECTROLYTES Sodium Lvl 139 135 - 145 08/28/2017 [facility] ELECTROLYTES Potassium Lvl 3.8 3.5 - 5.1 08/28/2017 [facility] HEMATOLOGY PROTIME 13.1 12.0 - 14.7 08/28/2017 [facility] HEMATOLOGY aPTT 27.2 22.9 - 35.8 08/28/2017 [facility] HEMATOLOGY INR 0.99 0.85 - 1.17 08/28/2017 [facility] HEMATOLOGY RBC 5.75 4.70 - 6.10 08/28/2017 [facility] HEMATOLOGY Hgb 15.2 14.0 - 18.0 08/28/2017 [facility] HEMATOLOGY MCH 26.4 27.0 - 31.0 08/28/2017 [facility] HEMATOLOGY MCV 79.7 80.0 - 94.0 08/28/2017 [facility] HEMATOLOGY MCHC 33.1 32.0 - 36.0 08/28/2017 [facility] HEMATOLOGY Hct 45.8 42.0 - 54.0 08/28/2017 [facility] HEMATOLOGY Platelet 145 133 - 450 08/28/2017 [facility] HEMATOLOGY RDW 14.8 11.5 - 14.5 08/28/2017 [facility] HEMATOLOGY MPV 9.6 7.4 - 10.4 08/28/2017 [facility] HEMATOLOGY WBC 6.5 3.7 - 10.4 08/28/2017 [facility] HEMATOLOGY Monocytes 8.0 2.0 - 12.0 08/28/2017 [facility] HEMATOLOGY Segs-Bands # 4.0 1.5 - 8.1 08/28/2017 [facility] HEMATOLOGY Eosinophils 3.1 0.0 - 4.0 08/28/2017 [facility] HEMATOLOGY Lymphocytes 26.9 20.0 - 40.0 08/28/2017 [facility] HEMATOLOGY Eosinophils # 0.2 0.0 - 0.5 08/28/2017 [facility] HEMATOLOGY Lymphocytes # 1.7 1.0 - 5.5 08/28/2017 [facility] HEMATOLOGY Basophils # 0.1 0.0 - 0.2 08/28/2017 [facility] HEMATOLOGY Basophils 0.9 0.0 - 1.0 08/28/2017 [facility] HEMATOLOGY Monocytes # 0.5 0.0 - 0.8 08/28/2017 [facility] HEMATOLOGY Segs 61.1 45.0 - 75.0 08/28/2017 [facility] SPECIAL CHEMISTRY Hgb A1C 6.3 <=5.6 % 08/28/2017 [facility] Pathology Reports No Data Provided for This Section Diagnostic Reports Report Value Date Source Hand 3 views DX EXAM: XR HAND 3 VIEWS DATE: 07/04/2019 11:40 CUSTOMER SERVICE REPRESENTATIVE TELLER INDICATION: - arthritis COMPARISON: Bilateral hand radiographs 10/17/2013 TECHNIQUE: PA, lateral and oblique radiographs of the hand Laterality: Right FINDINGS: No acute fracture or malalignment is identified. Joint space narrowing and osteophytes of the first CMC joint. No soft tissue abnormality is identified. IMPRESSION: Moderate osteoarthrosis of the first CMC joint. 07/04/2019 [facility] Abdomen complete US Patient Na me: DESIRE REYES : 1945; Age: 72 years Male MR: [id number] Study: Abdomen complete US 06/04/2018 7:00 AM CUSTOMER SERVICE REPRESENTATIVE TELLER Clinical Indication: - abnormal liver enzymes. COMPARISON: [...] ascites. IMPRESSION: 1. Hepatocellular disease most likely d ue to fatty infiltration. 2. Bilateral renal cysts and complex cy sts. SL: [id number] 06/04/2018 [facility] 4+ views unilateral DX Ex am: Right Knee 4+ views unilateral DX Clinical [...] IMPRESSION: 1. Mild degenerative arthritis of the ri ght knee. SL: [id number] 12/28/2017 M[facility] [place] [facility] cervical 2 or 3 view DX EXAM: XR CERVICAL SPINE 2 VIEWS DATE: 08/31/2017 8:00 AM CUSTOMER SERVICE REPRESENTATIVE TELLER INDICATION: - POST OP COMPARISON: Radiograph dated [...] through C7 good alignment without complications. 08/31/2017 [facility] Spine lumbar 2 or 3 views Exam : Lumbar Spine X-ray, 3 views Reason for Exam: Polyarthropathy Comparison Exam: None Discussion: 5 non rib-bearing lumbar vertebral adams s are seen. Vertebral body heights are maintained. [...] seen within the lower lumbar spine. 10/17/2013 [facility] [place] Sp[facility] cervical 2 or 3 views Ex am: Cervical spine x-ray, 2 views Reason for [...] unremarkable. Impression: 1. Degenerative disc disease seen withi n the lower cervical spine. Mild grade 1 retrolisthesis is seen of C5 on C6. 10/17/2013 [facility] [place] Knee 1-2 Views Bilateral Exam: Right and left knee x- rays, 2 views each Reason for Exam: Polyarthropathy Comparison Exam: None Discussion: Right: No acute bony abnormalities. Joint spaces are preserved. No suspicious osteoblastic or osteolytic lesions. Left: No acute bony abnormalities. Mild joint space narrowing seen within the medial compartment. No suspicious osteoblastic or osteolytic lesions. Impression: 1. Mild joint space narrowing seen with in the medial compartment of the left knee. 10/17/2013 [facility] [place] Hand AP lateral oblique Bilateral Exam: Right [...] of the right and left hands. 10/17/2013 [facility] [place] Foot 3 views Bilateral Exam: R ight and left foot x-rays, 3 views each Reason for Exam: Polyarthropathy Comparison Exam: None Discussion: Right: No acute bony abnormalities. Joint spaces are preserved. No suspicious osteoblastic or osteolytic lesions. Left: No acute bony abnormalities. Joint spaces are preserved. No suspicious osteoblastic or osteolytic lesions. Impression: 1. Unremarkable x-rays of the right and left feet. 10/17/2013 M[facility] Consultation Notes No Data Provided for This Section Discharge Summaries No Data Provided for This Section History and Physicals No Data Provided for This Section Vital Signs Vital Sign Value Date Comments Source Respitory Rate 18 04/10/2019 [facility] Systolic (mm Hg) 110 04/10/2019 [facility] Diastolic (mm Hg) 55 04/10/2019 [facility] Respitory Rate 17 04/10/2019 [facility] Systolic (mm Hg) 100 04/10/2019 [facility] Diastolic (mm Hg) 49 04/10/2019 [facility] Respitory Rate 17 04/10/2019 [facility] Systolic (mm Hg) 102 04/10/2019 [facility] Diastolic (mm Hg) 50 04/10/2019 [facility] Height 177.8 cm 04/08/2019 [facility] Weight 93.182 04/08/2019 [facility] BMI Calculated 29.48 04/08/2019 [facility] Temperature Oral (F) 98.6 F 08/31/2017 Orth[facility] [...] [facility] Height 177.8 cm 08/25/2017 [facility] Encounters Location Location Details Encounter Type Encounter Number Reason For Visit Attending Provider ADM Date DC Date Status Source AUDIT [id number] 07/10/2012 07/10/2012 [facility] E30, Provi vicki: DAVIDBEA, Status: Pen, Time: 8:00 AM [id number] 10/06/19 13 07/10/2012 [facility] AUDIT [id number] 11/07/2012 11/07/2012 [facility] E30, Provi vicki: DAVIDBEA, Status: Pen, Time: 8:00 AM [id number] 02/07/20 13 11/07/2012 [facility] AUDIT [id number] 02/06/2013 02/06/2013 [facility] AUDIT [id number] 02/08/2013 02/08/2013 [facility] E30, Provi vicki: DAVID,BEA, Status: Pen, Time: 8:30 AM [id number] 05/14/20 13 02/08/2013 [facility] AUDIT [id number] 08/26/2013 08/26/2013 [facility] AUDIT [id number] 08/28/2013 08/28/2013 [facility] AUDIT [id number] 10/09/2013 10/09/2013 [facility] [place] [facility] [id number] _[id number] Sarahi Gonzalez 10/17/2013 10/18/2013 [facility] [place] AUDIT [id number] 11/04/2013 11/04/2013 [facility] E30, Provi vicki: DAVIDBEA, Status: Pen, Time: 9:45 AM [id number] 11/06/19 14 10/09/2013 [facility] AUDIT [id number] 11/06/2013 11/06/2013 [facility] E30, Provi vicki: DAVID,BEA, Status: Pen, Time: 10:15 AM [id number] 01/30/20 14 11/06/2013 [facility] Inpatient [id number] Ruiz Edward 08/30/2017 09/01/2017 [facility] [place] [facility] [id number] Elmo Montoya 12/28/2017 12/29/2017 [facility] Outpatient [id number] Ellis Ortega 06/04/2018 06/05/2018 [facility] Recurring [id number] Ellissylwia Ortega 07/23/2018 08/22/2018 [facility] Day Surgery [id number] Ruiz Edward 04/10/2019 04/11/2019 [facility] - [place] [facility] [id number] Nadja Valle 07/04/2019 07/05/2019 [facility] Procedures Procedure Code Date Perfomer Comments Source Fusion of joint of cervical spine with i nternal fixation by anterior approach<sup>1</sup> [id number] 08/30/2017 C5-6, C6-7 [facility] Cholecystectomy [id number] 07/17/2015 [facility], [facility] Eye repair [id number] 07/17/2013 [facility], [facility] Ma,[facility] Excision of cyst [id number] 07/17/2005 [facility] CTR - Carpal tunnel release [id number] 07/17/1989 [facility] Varicose vein operation [id number] 07/17/1979 [facility] Assessment and Plan Assessment and Plan Date Source Extracted from:Title: Progress Note Author: Abhijit Lowry MD Date: 08/31/17 1.Cervical spinal stenosis Postop day #1status postC5 through C6, and [id number] general anesthesia Management as per primary team [...] is consult. If any questions, please call [phone] Extracted from:Title: Consult Note Author: Bozena Chew DO Date: 08/28/17 1.Preop examination -Type of surgery:C5-6, C6-7 and possible C4-5anterior cervical discectomy and fusion, intermediate risk -Surgery specific medical issues:Diabete s mellitustype 2, hypertension -Physical exam concerns:Heart murmur -Patient is able to complete greater valdo n 4 METs without cardiovascular symptoms(stairs) -Baseline EKG reveals sinus rhythm with first-degree AV block, no ST or T-wave abnormalities and no Q waves were noted -Outpatient inventory specialist:Dr. Terrance Ortega -Revised cardiac index score is 0 thus p utting the patient on a 0.4% risk of major perioperative cardiac event -Patient is considered a low perioperati ve cardiovascular risk for this intermediate risk procedure and may proceed with no further preoperative workup -The risks and benefitsof surgery were d iscussed with the patient 2.Cervical spinal stenosis Patient [...] pressure is controlled continue with hydralazine and hydrochlorothiazidelosartan, hold the hydrochlorothiazidelosartan on the morning of surgery 7.Hyperlipidemia Continue [...] dizziness, this should be monitored by his inventory specialist as an outpatient [facility] hospitalist is a python consultant, please call [phone] with questions or concerns. 09/01/2017 [facility] Plan of Care No Data Provided for This Section Social History Social History Date Source Social History TypeResponse Substance Abuse Use: None. Exercise Exercise frequency: 1-2 times/week. Exercise type: Walking, ALSO DOES YARDWORK. Alcohol Past Smoking Status Current some day smoker; Type: Cigars; Exposure to Tobacco Smoke None; Cigarette Smoking Last 365 Days No; Reg Smoking Cessation Counseling No; Number of years: 52; Other Tobacco Frequency STATES SMOKES 1-2 CIGARS/QWK; entered on: 08/30/17 [facility] [place] Social History TypeResponse Alcohol Past Exercise Exercise frequency: 1-2 times/week. Exercise type: Walking, ALSO DOES YARDWORK. Substance Abuse Use: None. Smoking Status Current some day smoker; Type: Cigars; Exposure to Tobacco Smoke None; Cigarette Smoking Last 365 Days No; Reg Smoking Cessation Counseling No; Number of years: 52; Other Tobacco Frequency STATES SMOKES 1-2 CIGARS/QWK; entered on: 08/30/17 08/25/2017 [facility] Social History TypeResponse Alcohol Past Exercise Exercise frequency: 1-2 times/week. Exercise type: Walking, ALSO DOES YARDWORK. Substance Abuse Use: None. Smoking Status Former smoker; Type: Cigars; Exposure to Tobacco Smoke None; Cigarette Smoking Last 365 Days No; Reg Smoking Cessation Counseling No; Number of years: 52; entered on: 04/10/19 08/25/2017 [facility] Social History TypeResponse Alcohol Past Exercise Exercise frequency: 1-2 times/week. Exercise type: Walking, ALSO DOES YARDWORK. Substance Abuse Use: None. Smoking Status Former smoker; Type: Cigars; Exposure to Tobacco Smoke None; Cigarette Smoking Last 365 Days No; Reg Smoking Cessation Counseling No; Number of years: 52; entered on: 04/10/19 08/25/2017 [facility] [place] Marital History - Single (Active) Never Drank Alcohol (Active) Current Some Day Smoker (305.1); (Active) 11/06/2013 [facility] Family History Value Date S ource Family history of Diabetes Mellitus (V18 .0); (Active) No Family history of Coronary Artery Disease (Denied) No Family history of Cerebral Artery Occlusion (Denied) No Family history of Pancreatitis (Denied) 11/06/2013 [facility] Family history of Diabetes Mellitus (V18 .0); (Active) No Family history of Coronary Artery Disease (Denied) No Family history of Cerebral Artery Occlusion (Denied) No Family history of Pancreatitis (Denied) 11/04/2013 [facility] Family history of Diabetes Mellitus (V18 .0); (Active) No Family history of Coronary Artery Disease (Denied) No Family history of Cerebral Artery Occlusion (Denied) No Family history of Pancreatitis (Denied) 10/09/2013 [facility] Family history of Diabetes Mellitus (V18 .0); (Active) No Family history of Coronary Artery Disease (Denied) No Family history of Cerebral Artery Occlusion (Denied) No Family history of Pancreatitis (Denied) 08/28/2013 [facility] Family history of Diabetes Mellitus (V18 .0); (Active) No Family history of Coronary Artery Disease (Denied) No Family history of Cerebral Artery Occlusion (Denied) No Family history of Pancreatitis (Denied) 08/26/2013 [facility] Family history of Diabetes Mellitus (V18 .0); (Active) No Family history of Coronary Artery Disease (Denied) No Family history of Cerebral Artery Occlusion (Denied) No Family history of Pancreatitis (Denied) 02/08/2013 [facility] Family history of Diabetes Mellitus (V18 .0); (Active) No Family history of Coronary Artery Disease (Denied) No Family history of Cerebral Artery Occlusion (Denied) 02/06/2013 [facility] Family history of Diabetes Mellitus (V18 .0); (Active) No Family history of Coronary Artery Disease (Denied) No Family history of Cerebral Artery Occlusion (Denied) 11/07/2012 [facility] Family history of Diabetes Mellitus (V18 .0); (Active) No Family history of Coronary Artery Disease (Denied) No Family history of Cerebral Artery Occlusion (Denied) 07/10/2012 [facility] Advance Directives Order Name Results Value Date Source Advance Directives Advance Dir ectives No Advance Directives available. 11/06/2013 [facility] Advance Directives Advance Dir ectives No Advance Directives available. 11/04/2013 [facility] Advance Directives Advance Dir ectives No Advance Directives available. 10/09/2013 [facility] Advance Directives Advance Dir ectives No Advance Directives available. 08/28/2013 [facility] Advance Directives Advance Dir ectives No Advance Directives available. 08/26/2013 [facility] Advance Directives Advance Dir ectives No Advance Directives available. 02/08/2013 [facility] Advance Directives Advance Dir ectives No Advance Directives available. 02/06/2013 [facility] Advance Directives Advance Dir ectives No Advance Directives available. 11/07/2012 [facility] Advance Directives Advance Dir ectives No Advance Directives available. 07/10/2012 [facility] Functional Status No Data Provided for This Section
--- OUTSIDE RECORDS SUMMARY | 2020-02-24 12:08 | XMS REPORT | Continuity of Care Document ---
Author Author [facility] t Organization [facility] Address [address] [place] [address] Phone Unavailable Care Team Providers Care Dental Professional Name Role Phone MD Tonya WATT MD PCP Tonya CHAMPAGNEICA Attphys Unavailable Milla Valle Attphys Billy Edward MD Amir Attphys Billy Edwardr Attphys Tonya WATT Attphys Unavailable Courtney Scruggs Attphys ESPERANZA SCRUGGS Attphys Unavailable Grant Montoya Attphys Tonya Edward Amir Attphys Dunia Gonzalez Attphys Tonya WATT Admphys Unavailable Tonya Edward Admphys Payers Payer Name Policy Type Policy Number Effective Date Expiration Date Tonya Roberts Ppo [id number] 2018 00:00:00 [facility] Medicare A & B [id number] 2010 00:00:[address] [facility] MEDICAREMEDICARE PART A AND Bxxxxxxxxxxx2010-PresentQUINTON KNUTSON [facility] x[facility]xx 2010 00:00:00 [place] [employer] AETNAAETNA HMO,POS,EPO, MC/ECxxxxxxxxxx2018-PresentHMO xxxxxxxxxx 2018 00:00:00 [place] [facility] Problems Condition Name Condition Details Condition Category Status Onset Date Resolution Date Last Treatment Date Treating Clinician Comments Source SI DYSFUNCTION SI D YSFUNCTION Active 04/05/2019 [facility] Diagnosis Active 2019-04-05 00:00:00 2019-04-11 15:12:00 [facility] DX: R74.0=NONSPECIFIC ELEVATION OF LEVEL DX: R74.0=NONSPECIFIC ELEVATION OF LEVEL Active 05/28/2018 [facility] Active 2018-05-28 00:00:00 2018-06-04 06:57:00 [facility] PETERSON'S DISEASE EDWARD ETT'S DISEASE Active 05/23/2018 [facility] Diagnosis Active 2018-05-23 00:00:00 2018-08-03 15:02:00 [facility] CERVICAL SPONDYLOSIS, HNP, CERVICAL STEN CERVICAL SPONDYLOSIS, HNP, CERVICAL STEN Active 08/25/2017 [facility] Diagnosis Active 2017-08-25 00:00:00 2017-08-31 20:33:00 [facility] 715.90 - OSTEOARTHROS NO 715. 90 - OSTEOARTHROS NO Active 10/09/2013 [facility] [place] Diagnosis Active 2013-10-09 00:01:00 2013-10-17 07:15:00 [facility] Problem Condition Active [facility] Nonspecific elevation of levels of trans aminase and lactic acid dehydrogenase [LDH] Nonspecific elev ation of levels of transaminase and lactic acid dehydrogenase [LDH] 12/23/2018 [facility] Problem 2018-12-23 11:11:03 [facility] Fatty (change of) liver, not elsewhere classified Fatty (change of) liver, not elsewhere classified 12/23/2018 [facility] Problem 2018-12-23 11:11:03 [facility] Type 2 diabetes mellitus without complications Type 2 diabetes mellitus without complications 12/23/2018 [facility] Problem 2018-12-23 11:11:03 [facility] Essential (primary) hypertension Essential (primary) hypertension 12/23/2018 [facility] Problem 2018-12-23 11:11:03 [facility] Other specified diseases of liver Other specified diseases of liver 12/23/2018 [facility] Problem 2018-12-23 11:11:03 Angeline Jorge Cyst of kidney, acquired Cyst of kidney, acquired 12/23/2018 [facility] Problem 2018-12-23 11:11:03 Angeline Patel Liver disease, unspecified Prema er disease, unspecified 12/23/2018 [facility] Problem 2018-12-23 11:11:0 3 [facility] Dietary counseling and surveillance Dietary counseling and surveillance 12/23/2018 [facility] Problem 2018-12-23 11:11:03 Angeline Patel Family history of malignant neoplasm of digestive orga ns Family history of malignant neoplasm of digestive organs 12/23/2018 [facility] Problem 2018-12-23 11:11:03 Linda Patel Cervical disc disorder at C5-C6 level with myelopathy Cervical disc disorder at C5-C6 level with myelopathy 12/07/2017 [facility] 2017-12-07 12:51:51 Uday Patel Type 2 diabetes mellitus with diabetic neuropathy, uns pecified Type 2 diabetes mellitus with diabetic neuropathy, unspecified 12/07/2017 [facility] Problem 2017-12-07 12:51:51 [facility] Acute posthemorrhagic anemia A cute posthemorrhagic anemia 12/07/2017 [facility] Problem 2017-11-15 4 12:51:51 [facility] Spinal stenosis, cervical region Spinal stenosis, cervical region 12/07/2017 [facility] 2017-12-07 12:51:51 [facility] Hyperlipidemia, unspecified Hy perlipidemia, unspecified 12/07/2017 [facility] Problem 2017-12-07 1 2:51:51 [facility] Obstructive sleep apnea (adult) (pediatric) Obstructive sleep apnea (adult) (pediatric) 12/07/2017 [facility] 2017-12-07 12:51:51 [facility] 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 12/07/2017 [facility] Problem 2017-12-07 12:51:51 [facility] [place] Gastro-esophageal reflux disease without esophagitis Gastro-esophageal reflux disease without esophagitis 12/07/2017 [facility] Problem 2017-12-07 12:51:51 Uday Patel Elevated white blood cell count, unspecified Elevated white blood cell count, unspecified 12/07/2017 [facility] Problem 2017-12-07 12:51:51 [facility] Gastric ulcer (disorder) Susan liliana ulcer (disorder) Resolved Problem 07/07/2019 [facility] [place],[facility], [facility] [place] Problem Resolved 2019-07-07 00:17:36 [facility] Cervical spondylosis (disorder) Cervical spondylosis (disorder) Active Problem 07/07/2019 [facility], [facility] [place] Problem Active 2019-07-07 00:17:36 [facility] Degeneration of cervical intervertebral disc (disorder ) Degeneration of cervical intervertebral disc (disorder) Active Problem 07/07/2019 [facility] [place],[facility], [facility] [place] Problem Active 2019-07-07 00:17:36 [facility] Diabetes mellitus (disorder) D iabetes mellitus (disorder) Active Problem 07/07/2019 [facility] [place],[facility], [facility] [place] Problem Active 2019-07-07 00:17:36 [facility] Diabetic neuropathy (disorder) Diabetic neuropathy (disorder) Active Problem 07/07/2019 [facility], [facility] [place] Problem Active 2019-07-07 00:17:36 [facility] Diarrhea (finding) Diar giovanni (finding) Active Problem 07/07/2019 [facility] [place],[facility], [facility] [place] Problem Active 2019-07-07 00:17:36 [facility] Diverticular disease (disorder) Diverticular disease (disorder) Active Problem 07/07/2019 [facility] [place],[facility] [place] Problem Active 2019-07-07 00:17:36 [facility] Large prostate (finding) Larg e prostate (finding) Active Problem 07/07/2019 [facility] [place], [facility] [place],[facility], [facility] [place] Problem Active 2019-07-07 00:17:36 [facility] Gastroesophageal reflux disease (disorder) Gastroesophageal reflux disease (disorder) Active Problem 07/07/2019 [facility] [place], [facility] [place],[facility], [facility] [place] Problem Active 2019-07-07 00:17:36 Uday pepper [facility] Hearing loss (finding) Hear ing loss (finding) Active Problem 07/07/2019 BILATERAL [facility], [facility] [place],[facility], [facility] [place] Problem Active 2019-07-07 00:17:36 [facility] Herniation of nucleus pulposus (disorder) Herniation of nucleus pulposus (disorder) Active Problem 07/07/2019 [facility], [facility] [place] Problem Active 2019-07-07 00:17:36 [facility] Hypertensive disorder, systemic arterial (disorder) Hypertensive disorder, systemic arterial (disorder) Active Problem 07/07/2019 [facility] [place],[facility], [facility] [place] Problem Active 2019-07-07 00:17:36 [facility] Hyperlipidemia (disorder) Hype rlipidemia (disorder) Active Problem 07/07/2019 [facility] [place],[facility], [facility] [place] Problem Active 2019-07-07 00:17:36 [facility] Irritable colon (disorder) Irr itable colon (disorder) Active Problem 07/07/2019 [facility], [facility] [place] Problem Active 2019-07-07 00:17:36 [facility] Obstructive sleep apnea syndrome (disorder) Obstructive sleep apnea syndrome (disorder) Active Problem 07/07/2019 [facility] [place] Problem Active 2019-07-07 00:17:36 [facility] Osteoarthritis (disorder) Oste oarthritis (disorder) Active Problem 07/07/2019 [facility] [place],[facility] [place] Problem Active 2019-07-07 00:17:36 [facility] [place] Paresthesia (finding) Pare sthesia (finding) Active Problem 07/07/2019 BILATERAL FINGERS [facility], [facility] [place],[facility], [facility] [place] Problem Active 2019-07-07 00:17:36 [facility] Radiculitis (disorder) Radi culitis (disorder) Active Problem 07/07/2019 [facility], [facility] [place], [facility], [facility] [place] Problem Active 2019-07-07 00:17:36 Uday Patel Spinal stenosis in cervical region (disorder) Spinal stenosis in cervical region (disorder) Active Problem 07/07/2019 [facility] [place], [facility], [facility] [place] Problem Ac tive 2019-07-07 00:17:36 Angeline taylor 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 Problem 07/07/2019 LEFT EYE [facility], [facility] [place], [facility], [facility] [place] Problem Active 2019-07-07 00:17:36 Angeline Patel Vertigo (finding) Vert igo (finding) Active Problem 07/07/2019 [facility], [facility] [place], [facility], [facility] [place] Problem Active 2019-07-07 00:17:36 [facility] Diabetic Polyneuropathy Diab etic Polyneuropathy Active 11/06/2013 [facility] Problem Active 2013-11-06 17:03: 00 [facility] Diabetes With Neurological Complications Diabetes With Neurological Complications Active 11/06/2013 [facility] Problem Active 2013-11-06 17:03:00 [facility] Diabetes Mellitus Diab etes Mellitus Active 11/06/2013 [facility] Problem Active 2013-11-06 17:03:00 [facility] Hypertension Hype rtension Active 11/06/2013 [facility] Problem Active 2013-11-06 17:03:00 [facility] Mixed Hyperlipoproteinemia Mix ed Hyperlipoproteinemia Active 11/06/2013 [facility] Problem Active 2013-11-06 17:03: 00 [facility] Hypogonadism Hypo gonadism Active 11/06/2013 [facility] Problem Active 2013-11-06 17:03:00 Angeline Patel Fatty Liver Fatt y Liver Active 11/06/2013 [facility] Problem Active 2013-11-06 17:03:00 Uday Patel Fatigue Fati cinthya Active 11/06/2013 [facility] Problem Active 2013-11-06 17:03:00 Angeline Patel Osteoarthritis Oste oarthritis Active 11/06/2013 [facility] Problem Active 2013-11-06 17:03:00 Angeline Patel Datatype(DG1.4)- Data type(DG1.4)- Active [facility] Diagnosis Active 2018-06-04 06:57:00 [facility] IRRITABLE BOWEL SYNDROME WITHOUT DIARRHE IRRITABLE BOWEL SYNDROME WITHOUT DIARRHE Active [facility] Active 2018-08-03 15:02:00 [facility] Irritable bowel syndrome without diarrhea Irritable bowel syndrome without diarrhea 08/26/2018 03/11/2019 [facility] Problem 2018-08-26 03:56:48 2019-03-11 11:21:58 2019-03-11 11:21:58 Angeline Patel Abnormal levels of other serum enzymes Abnormal levels of other serum enzymes 06/09/2018 12/23/2018 [facility] Problem 2018-06-09 03:56:06 2018-12-23 11:11:03 2018-12-23 11:11:03 Linda Patel Other spondylosis with myelopathy, cervical region Other spondylosis with myelopathy, cervical region 09/15/2017 12/07/2017 [facility] Problem 2017-09-15 03:57:34 2017-12-07 12:51: 51 2017-12-07 12:51:51 [facility] History of Past Illness Condition Name Condition Details Condition Category Status Onset Date Resolution Date Last Treatment Date Treating Clinician Comments Source Concussion with less than 1 hour loss of consciousness (disorder) Concussion with less than 1 hour loss of consciousness (disorder) Resolved 07/17/2005 Problem 07/07/2019 [facility] [place], [facility] [place] Problem Resolved 2005-07-17 00:00:00 2019-07-07 00:17:36 2019-07-07 00:17:36 [facility] claudia Allergies, Adverse Reactions, Alerts Allergy Name Allergy Type Status Severity Reaction(s) Onset Date Inacti ve Date Treating Clinician Comments Source Cardizem Cardizem Active Memori reji Patel Cardizem [place] TB24 Cardizem LA TB24 Active [facility] Family History Family Member Diagnosis Comments Start Date Stop Date Source Unknown Family Member Family History 2012-07-10 08:03:13 2 08:03:13 Angeline Patel Social History Social Habit Start Date Stop Date Quantity Comments Source Sex Assigned At Andres Acharya Social History 2013-11-06 17:03:00 2013-11-06 17:03:00 [facility] Medications Ordered Medication Name Filled Medication Name Start Date Stop Da te Current Medication? Ordering Clinician Indication Dosage Frequency Signature (SIG) Comments Components Source Azithromycin (Z-Los) 250 Mg TABLET Azithromycin (Z-Los) 250 Mg TABLET 2020-01-20 11:58:00 Yes 1 As Directed [facility] Dexamethasone (Decadron) 6 Mg TABLET Dexamethasone (Decadron ) 6 Mg TABLET 2020-01-20 11:58:00 Yes 6 Daily [facility] Cefazolin 2019-04-10 18:18:00 No Notes: Leonardo contreras as: Ancef [facility] Lactated Ringers IV 1,000 mL 2019-04-10 18:18:00 No 1,000 mL, Rate: 40 ml/hr, Infuse over: 25 hr, Route: IV, Dosing Weight 93.182 kg, Total Volume: 1,000, Start date: 04/10/19 13:18:00 CDT, Duration: 30 day, Stop date: 05/10/19 13:17:00 CDT, 2.16, m2, 0 [facility] nn Vitamin B-50 oral tablet 2019-04-10 17:03:00 Yes 1, PO, Daily, 0 Refill(s) [facility] Diazepam 10 MG Oral Tablet [Valium] 2017-09-01 00:17:00 No 10 mg = 1 tab, PO, Bedtime, PRN Anxiety, X 7 day, # 30 tab, 0 Refill(s), given to patient [facility] tramadol hydrochloride 50 MG Oral Tablet 2017-09-01 00:17:00 No 50 mg = 1 tab, PO, Q8H, PRN Pain, X 14 day, # 50 tab, 0 Refill(s) [facility] Docusate Sodium 100 MG Oral Capsule 2017-08-31 23:40:00 Yes 100 mg = 1 cap, PO, BID, # 28 cap, 0 Refill(s), Pharmacy: [address] POLYETHYLENE GLYCOL [id number] 142 MG/ML Oral Solution [Miralax] 2017-08-31 23:40:00 No 17 gm, PO, Daily, X 15 day, # 255 gm, 0 Refill(s), Pharmacy: [address] Dexamethasone 2017-08-31 23:00:00 No Notes: Give with food. (Same As: Decadron) [facility] Cozaar 2017-08-31 15:00:00 No Notes: (Same as: Cozaar) [facility] Januvia 2017-08-31 15:00:00 No Notes: Same as Januvia [facility] hydrochlorothiazide 25 mg oral tablet 2017-08-31 15:00:00 N o Notes: (Same as: Hydrodiuril) With food. 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, Duration: 30 day, Stop date: 09/29/17 9:00:00 CDT [facility] glimepiride 2017-08-31 14:00:00 No Notes: Non-Formulary (Same as: Amaryl) [facility] Tums 2017-08-31 09:08:00 No Notes: (Same As: Tums) Calcium Carbonate 500 mg = 200 mg elemental calcium Dose = mg calcium carbonate ( mg elemental calcium) [facility] Benzocaine 15 MG / Menthol 3.6 MG Lozeng e [Cepacol Sore Throat Pain Relief 15/3.6] 2017-08-31 05:18:00 No Notes: Cepacol lozenges Dispense 1 box = 16 lozenges (Same As: Cepacol Lozenges) [facility] Simvastatin 2017-08-31 03:00:00 No Notes: ( Same as: Zocor) [facility] Dexamethasone 2017-08-31 00:00:00 No Notes: Concentration: 4mg/ml [facility] Hydralazine Hydrochloride 50 MG Oral Tablet 2017-08-30 23:00:00 No Notes: (Same as: Apresoline) May interfere w/enteral feedings Take With Food. Me morial Jorge gabapentin 600 MG Oral Tablet 2017-08-30 23:00:00 No Notes: (Same as: Neurontin) [facility] Pepcid 2017-08-30 23:00:00 No Notes: (Same as: Pepcid) Angeline Patel Docusate Sodium 100 MG Oral Capsule 2017-08-30 23:00:00 No Notes: (Same as: Colace) (Do Not Crush) Maria L Patel Protonix 2017-08-30 22:30:00 No Notes: Tablet should not be chewed or crushed. 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 DEVELOPER [facility] Her taylor Naloxone 2017-08-30 18:58:00 No Notes: Same as Narcan [facility] Hydromorphone 2017-08-30 18:58:00 No Notes: (Same as: Dilaudid) conc = 0.5 mg/ml Hydromorphone SUBSTATION OPERATOR HELPER GENERATION Dose: ;Delay: ;Basal: [facility] Saline Flush 0.9% 2017-08-30 18:58:00 No Notes: Same as: BD Posiflush Sterile [facility] NS + KCL 20mEq/L 1000ml (Premix) 1,000 mL 2017-08-30 18:58:00 No Notes: PREMIX IV - Do Not Alter WASTE: F/P - Sink; E - Municipal Trash Bin [facility] Acetaminophen 325 MG / Hydrocodone Bitartrate 10 MG Oral Tab let 2017-08-30 18:58:00 No Notes: Do not exceed 4gm/day of acetaminophen. (Same as: [place] 325/10) [facility] Morphine 2017-08-30 18:58:00 No Not es: (Same as:MORPhine Sulfate) [facility] Diphenhydramine 2017-08-30 18:58:00 No Notes: (Same as: Benadryl) [facility] Ondansetron 2017-08-30 18:58:00 No Notes: (Same as: Zofran) MEDICATION WASTE Product Size: 4 mg Product Wasted: ___ mg Angeline Patel Acetaminophen 2017-08-30 18:58:00 No Notes: Do not exceed 4 gm/day. (Same as: Tylenol) [facility] Trazodone 2017-08-30 18:58:00 No Notes: (Sa me As: Desyrel) [facility] Insulin Lispro 2017-08-30 17:52:00 No Notes: (Same as: Humalog ) Roll in palms of hands gently; Do not shake `vigorously. "Single Patient Use Only " WASTE: F/P - Black; E - Municipal Trash Bin Stable for 28 days at room temperature. 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, Duration: 30 day, Stop date: 09/29/17 12:51:00 CDT [facility] Dextrose 50% Syringe 2017-08-30 17:52:00 No 25 gm, 50 mL, Route: IVP, Drug Form: INJ, Dosing Weight 102.528, kg, PRN, PRN Blood Glucose Results, Start date: 08/30/17 11:52:00 WINDOWS MOBILE DEVELOPER, Duration: 30 day, Stop date: 09/29/17 12:51:00 CDT [facility] Hydromorphone 2017-08-30 13:48:00 No Notes: Same as Dilaudid [facility] Morphine 2017-08-30 13:48:00 No Not es: (Same as:MORPhine Sulfate) [facility] Flumazenil 2017-08-30 13:48:00 No Notes: (S gris as: Romazicon) [facility] Naloxone 2017-08-30 13:48:00 No Notes: Same as Narcan [facility] Ondansetron 2017-08-30 13:48:00 No Notes: (Same as: Zofran) MEDICATION WASTE Product Size: 4 mg Product Wasted: ___ mg Angeline Patel Meperidine 2017-08-30 13:48:00 No Notes: (Same as: Rhiannal) "Use Precaution in Elderly, Seizure disorders, and Renal impairment" [facility] Jorge Ancef 2017-08-30 12:28:00 No Notes: Same as : Maria D Marcus Jorge gabapentin 600 MG Oral Tablet 2017-08-26 00:20:00 Yes 600 mg = 1 tab, PO, BID, 0 Refill(s) Angeline Melissa nn Vitamin D3 1000 intl units oral capsule 2017-08-26 00:19:00 No 1,000 IntlUnit = 1 cap, PO, Daily, # 75 cap, 0 Refill(s) Angeline Patel Hydrochlorothiazide 12.5 MG / Losartan Potassium 100 MG Oral Tablet 2017-08-26 00:19:00 Yes 1 tab, PO, Daily, HOLD AM DOS , # 90 tab, 0 Refill(s) [facility] Jorge Hydralazine Hydrochloride 50 MG Oral Tablet 2017-08-26 00:19:00 Yes 50 mg = 1 tab, PO, BID, TAKE AM DOS, 0 Refill(s) Angeline Moodyann Vitamin B12 1000 mcg oral tablet 2017-08-26 00:18:00 No 1,000 microgram = 1 tab, PO, Daily, # 100 tab, 0 Refill(s) [facility] [place] sitagliptin 100 MG Oral Tablet [Januvia] 2017-08-26 00:18:00 Yes 100 mg = 1 tab, PO, Daily, # 90 tab, 1 Refill(s) Angeline Jorge [place]-3 Acid Ethyl Esters ([facility]) 1000 MG Oral Capsule [Lovaza ] 2017-08-26 00:18:00 No 4,000 mg = 4 cap, PO, Daily, 0 Refill(s) [facility] [place] glimepiride 1 mg oral tablet 2017-08-26 00:17:00 Yes 1 mg = 1 tab, PO, Breakfast, # 90 tab, 0 Refill(s) [facility] Jorge omeprazole 40 mg oral delayed release capsule 2017-08-26 00:16:0 0 Yes 40 mg = 1 cap, PO, Daily, TAKE AM DOS, # 90 cap, 0 Refill(s) Angeline Patel Omeprazole 40 MG Oral Capsule Delayed Release 2013-11-06 17:03:0 0 Yes (Active) Angeline Patel Voltaren 1 % Transdermal Gel 2013-10-09 05:00:00 Yes ; Start Date: 10/09/2013; End Date: (Active) Angeline Patel Januvia 100 MG Oral Tablet 2013-08-27 06:00:00 Yes ; Start Date: 08/27/2013 (Active) Angeline Patel Livalo 2 MG Oral Tablet 2013-08-27 06:00:00 Yes ; Start Date: 08/27/2013 (Active) Angeline Patel Embrace Blood Glucose Test In Vitro Strip 2013-02-06 05:00:00 Yes ; Start Date: 02/06/2013 (Active) Angeline Patel Fish Oil 1000 MG Oral Capsule 2013-02-06 05:00:00 Yes ; Start Date: 02/06/2013 (Active) Angeline IbarraStyle Lancets Miscellaneous 2012-07-05 06:00:00 Yes ; Start Date: 07/05/2012 (Active) Angeline valerio MetFORMIN HCl ER 750 MG Oral Tablet Extended Release 24 Hour 2012-07-05 06:00:00 Yes ; Start Date: 07/05/2012 (Act haritha) Angeline IbarraStyle Lite Test In Vitro Strip 2012-07-05 06:00:00 Yes ; Start Date: 07/05/2012 (Active) Angeline valerio Glimepiride 4 MG Oral Tablet 2012-07-02 06:00:00 Yes ; Start Date: 07/02/2012 (Active) Angeline Patel Gabapentin 600 MG Oral Tablet 2012-07-02 06:00:00 Yes ; Start Date: 07/02/2012 (Active) Angeline Patel Aspirin 81 MG Oral Tablet Delayed Release 2012-07-02 06:00:00 Yes ; Start Date: 07/02/2012 (Active) Angeline Patel Simvastatin 20 MG Oral Tablet 2012-07-02 06:00:00 Yes ; Start Date: 07/02/2012 (Active) Angeline Patel Vitamin D 1000 UNIT Oral Capsule 2012-07-02 06:00:00 Yes ; Start Date: 07/02/2012 (Active) Angeline valerio Vitamin B-12 500 MCG Oral Tablet 2012-07-02 06:00:00 Yes ; Start Date: 07/02/2012 (Active) [facility] Testosterone Cypionate 200 MG/ML Intramuscular Oil 2012-06 06:00:00 Yes ; Start Date: 07/02/2012 (Active) Angeline Patel Pantoprazole Sodium 40 MG Oral Tablet Delayed Release 2012-07-02 06:00:00 Yes ; Start Date: 07/02/2012 (Active) Angeline Patel Centrum Silver Ultra Mens Oral Tablet 2012-07-02 06:00:00 Y es ; Start Date: 07/02/2012 (Active) Angeline Patel Avodart 0.5 MG Oral Capsule 2012-07-02 06:00:00 Yes ; Start Date: 07/02/2012 (Active) Angeline Patel Losartan Potassium-HCTZ 100-12.5 MG Oral Tablet 2012-07-02 06:00 :00 Yes ; Start Date: 07/02/2012 (Active) Angeline Patel Simvastatin 10 MG Oral Tablet 2012-07-02 06:00:00 Yes ; Start Date: 07/02/2012 (Active) Angeline Patel Lovaza 1 GM Oral Capsule 2012-07-02 06:00:00 Yes ; Start Date: 07/02/2012 (Active) Angeline Patel Amoxicillin/Potassium Clav (Augmentin 875-125 Tablet) 1 Each TABLET Amoxicillin/Potassium Clav (Augmentin 875-125 Tablet) 1 Each TABLET Yes 875 Twice A Day [facility] Hydralazine Hcl Hydralazine Hcl Yes 50 Twice A Day [facility] Lactobac Cmb #3/Fos/Pantethine (Probiotic & Acidophilu s Cap) 1 Each CAPSULE Lactobac Cmb #3/Fos/Pantethine (Probiotic & Acidophilus Cap) 1 Each CAPSULE Yes Bedtime [facility] Losartan/Hydrochlorothiazide (Losartan-Hctz 50-12.5 Mg Tab) 1 Each TABLET Losartan/Hydrochlorothiazide (Losartan-Hctz 50-12.5 Mg Tab) 1 Each TABLET Yes [facility] Pantoprazole Sodium (Protonix) 40 Mg TABLET. Pantopr azole Sodium (Protonix) 40 Mg TABLET.DR Araujo [facility] Simvastatin Simvastatin Yes 20 Bedtime [facility] Vgitamin D Vgitamin D Yes 1000 Daily [facility] Vitamin B Vitamin B Yes 1000 Daily [facility] Dutasteride (Avodart) 0.5 Mg CAPSULE Dutasteride (Avodart) 0.5 M g CAPSULE 2019-02-01 00:00:00 [facility] Gabapentin Gabapentin 2019-02-01 00:00:00 [facility] Glimepiride (Amaryl) 4 Mg TABLET Glimepiride (Amaryl) 4 Mg TABLE T 2019-02-01 00:00:00 [facility] Inulin/Sorbitol (Fiber Choice Chewable Tablet) 1.5 Gm TAB.CHEW Inulin/Sorbitol (Fiber Choice Chewable Tablet) 1.5 Gm TAB.CHEW 2019-02-01 00:00:00 No Daily [facility] Metformin Hcl (Glucophage) 850 Mg TABLET Metformin Hcl (Glucophage) 850 Mg TABLET 2019-02-01 00:00:00 [facility] [place]-3 Acid Ethyl Esters (Lovaza) 1 Gm CAPSULE [place]- 3 Acid Ethyl Esters (Lovaza) 1 Gm CAPSULE 2019-02-01 00:00:00 [facility] Montelukast Sodium (Singulair) 10 Mg TABLET Montelukas t Sodium (Singulair) 10 Mg TABLET 2012-10-05 00:00:00 [facility] Aspirin (Aspir 81) 81 Mg TABLET. Aspirin (Aspir 81) 81 Mg ANDI ET 2012-10-04 00:00:00 [facility] Celecoxib (Celebrex) 200 Mg CAPSULE Celecoxib (Celebrex) 200 Mg CAPSULE 2012-10-04 00:00:00 [facility] Vital Signs Vital Name Observation Time Observation Value Comments Source Weight 2020-01-20 06:25:00 216 [lb_av] [facility] BMI (Body Mass Index) 2020-01-20 06:25:00 31.0 kg/m2 [facility] Respitory Rate 2019-04-10 19:20:00 Gisselle Rodriguez Systolic (mm Hg) 2019-04-10 19:20:00 Uday [facility] [place] Diastolic (mm Hg) 2019-04-10 19:20:00 Mem o[facility] [place] Respitory Rate 2019-04-10 19:05:00 Memori al [place] Systolic (mm Hg) 2019-04-10 19:05:00 Uday rial [place] Diastolic (mm Hg) 2019-04-10 19:05:00 Mem orial [place] Respitory Rate 2019-04-10 18:50:00 Memori al [facility] Systolic (mm Hg) 2019-04-10 18:50:00 Uday [facility] [place] Diastolic (mm Hg) 2019-04-10 18:50:00 [facility] [place] Height 2019-04-08 18:53:00 177.8 cm [facility] [place] Weight 2019-04-08 18:53:00 [facility] [place] BMI Calculated 2019-04-08 18:53:00 [facility] [place] Temperature Oral (F) 2017-08-31 21:30:00 98.6 F [facility] Heart Rate 2017-08-31 21:30:00 [facility] [place] Systolic (mm Hg) 2017-08-31 21:30:00 Uday rial [place] Diastolic (mm Hg) 2017-08-31 21:30:00 Mem orial [place] Respitory Rate 2017-08-31 21:30:00 Memori al [facility] Systolic (mm Hg) 2017-08-31 17:28:00 Uday [facility] [place] Diastolic (mm Hg) 2017-08-31 17:28:00 Mem orial [place] Respitory Rate 2017-08-31 17:28:00 [facility] Heart Rate 2017-08-31 17:28:00 [facility] [place] Temperature Oral (F) 2017-08-31 13:16:00 98.5 F [facility] Heart Rate 2017-08-31 13:16:00 [facility] [place] Respitory Rate 2017-08-31 13:16:00 [facility] [place] Systolic (mm Hg) 2017-08-31 13:16:00 Uday rial [place] Diastolic (mm Hg) 2017-08-31 13:16:00 Mem orial [facility] Temperature Oral (F) 2017-08-31 09:13:00 98.3 F [facility] BMI Calculated 2017-08-30 12:20:00 [facility] [place] Weight 2017-08-30 12:20:00 [facility] Height 2017-08-25 22:31:00 177.8 cm [facility] Procedures Procedure Date / Time Performed Performing Clinician Saturnino contreras Computed tomography of chest with contrast 2020-01-20 00:00:00 [facility] Fusion of joint of cervical spine with i nternal fixation by anterior approach<sup>1</sup> 2017-08-30 06:00:00 [facility] Jorge Cholecystectomy 2015-07-17 00:00:00 [facility] Her taylor Eye repair 2013-07-17 00:00:00 [facility] Her taylor Excision of cyst 2005-07[facility]17 [facility] 1989-07-17 00:00:00 [facility] Varicose vein operation 1979-07-17 00:00:00 Uday Patel Plan of Care Planned Activity Planned Date Details Comments Source Future Scheduled Test 2020-02-15 00:00:00 INFLUENZA VACCINE [code = INFLUENZA VACCINE] [facility] Scheduled Test 2010 00:00:00 65+ PNEUMOCOCCAL V ACCINE (1 of 2 - PCV13) [code = 65+ PNEUMOCOCCAL VACCINE (1 of 2 - PCV13)] [facility] Scheduled Test 1995 00:00:00 COLONOSCOPY SCREEN ING [code = COLONOSCOPY SCREENING] [facility] Scheduled Test 1995 00:00:00 SHINGLES VACCINES (#1) [code = SHINGLES VACCINES (#1)] [facility] Instructions COVID-19: 09/30/2019 [facility] Encounters Start Date/Time End Date/Time Encounter Type Admission Type [facility] Care Department Encounter ID Source 2020-01-20 06:30:00 2020-01-20 12:25:00 Departed Emergency Room 1 ANIA CHAMPAGNE [facility] [id number] [facility] 2019-07-04 11:28:00 2019-07-04 23:59:00 [facility] [id number] 2019-04-10 09:40:00 2019-04-10 23:59:00 Outpatient Hector Edward [facility] [id number] 2019-04-10 09:40:00 2019-04-10 09:40:00 Outpatient [id number] 2019-02-01 12:13:00 2019-02-11 10:44:00 Discharged Inpatient 3 [facility] [id number] [facility] 2019-01-28 15:02:00 2019-01-28 15:02:00 Registered Clinic 3 [facility] [id number] [facility] 2018-07-23 13:07:00 2018-08-21 23:59:00 Outpatient Esperanza Scruggs [facility] [id number] 2018-07-23 13:07:00 2018-08-21 23:59:00 Outpatient Esperanza Scruggs [facility] [id number] 2018-08-18 09:08:00 2018-08-18 09:39:00 Departed Emergency Room [facility] [id number] [facility] 2018-06-04 06:48:00 2018-06-04 23:59:00 Outpatient Esperanza Scruggs [facility] [id number] 2018-04-26 08:11:00 2018-04-26 08:11:00 Registered Clinic 3 SCRUGGSESPERANZA [facility] [id number] [facility] 2017-12-28 09:09:00 2017-12-28 23:59:00 Outpatient Rosy Montoya [id number] 2017-11-27 13:00:00 2017-11-27 13:00:00 Registered Clinic 3 [facility] [id number] [facility] 2017-08-30 06:16:00 2017-08-31 19:50:00 Outpatient Ruiz Edward [facility] [id number] 2013-11-06 12:03:00 2013-11-06 12:03:00 Outpatient [facility] IE [id number] 2013-11-04 18:00:58 2013-11-04 18:00:57 Outpatient [facility]IE [facility] [id number] 2013-10-17 07:01:00 2013-10-17 23:59:00 Outpatient Queta Gonzalez Dun[facility] [place] [id number] 2013-10-09 11:49:19 2013-10-09 11:49:19 Outpatient MHIE [facility] [id number] 2013-08-28 07:30:59 2013-08-28 07:30:59 Outpatient MHIE [facility] [id number] 2013-08-26 17:18:49 2013-08-26 17:18:48 Outpatient MHIE [facility] [id number] 2013-02-08 05:18:57 2013-02-08 05:18:37 Outpatient [facility] IE [id number] 2013-02-06 08:07:13 2013-02-06 08:06:52 Outpatient [facility] IE [id number] 2012-11-07 06:25:20 2012-11-07 06:25:02 Outpatient [facility] IE [id number] 2012-07-10 02:03:29 2012-07-10 02:03:13 Outpatient [facility] IE [id number] Results Test Description Test Time Test Comments Results Result Comments Source CT CHEST W 2020-01-20 10:57:00 [place] [address] Patient Name: DESIRE REYES MR #: [id number] : 1945 Age/Sex: 74/M Req #: [id number] Adm Physician: Ordered by: ANIA CHAMPAGNE DO Report #: [id number] Location: ER Room/Bed: Procedure: [id number] CT/CT CHEST W Exam Date: 01/20/20 Exam Time: 1040 REPORT STATUS: Signed EXAM: CT Chest WITH contrast- Pulmonary Embolism Protocol INDICATION: Shortness of breath, elevated d-dimer COMPARISON: None TECHNIQUE: Chest was scanned utilizing a multidetector helical scanner from the lung apex through the level of the diaphragm after administration of IV contrast. Thin section reconstructions were obtained with special concentration on the pulmonary arteries. Coronal and sagittal reformations were obtained. Pulmonary embolism protocol was performed. IV CONTRAST: 100 cc of Isovue 370 RADIATION DOSE: Total DLP: 494 mGy*cm Dose modulation, iterative reconstruction, and/or weight based adjustment of the mA/kV was utilized to reduce the radiation dose to as low as reasonably achievable. COMPLICATIONS: None FINDINGS: LINES/ TUBES: None. PULMONARY ARTERIES: No filling defect is identified within the pulmonary arteries to the segmental level. The subsegmental pulmonary arteries are not well opacified. Main pulmonary artery measures 2.7 cm in diameter. No right heart strain. LUNGS AND AIRWAYS: The central airways are patent. No focal consolidation. Mild ground glass opacities at the dependent lower lobes. PLEURA: The pleural spaces are clear. HEART AND MEDIASTINUM: The thyroid gland is normal. No mediastinal, hilar or axillary lymphadenopathy. The heart is normal in size.. There is no pericardial effusion. Minimal scattered atherosclerotic calcifications of the aorta and coronary arteries.. UPPER ABDOMEN: Small hypodensities in the right liver, likely cysts but too small to adequately characterize. BON ES: No acute osseous injury. SOFT TISSUES: Unremarkable. IMPRESSION: No pulmonary embolism. Mild groundglass opacities at the dependent lower lobes is nonspecific. Viral pneumonia should be clinically excluded. Signed by: Toya Hough MD on 01/20/2020 11:10 AM Dictated By: TOYA HOUGH MD 1110 Transcribed By: GLO on 01/20/20 1110 COPY TO: ANIA CHAMPAGNE DO CHEST SINGLE (PORTABLE) 2020-01-20 08:31:00 [place] [address] Patient Name: DESIRE REYES MR #: [id number] : 1945 Age/Sex: 74/M Req #: [id number] Adm Physician: Ordered by: YANIQUE NGUYEN DO Report #: [id number] Location: ER Room/Bed: Procedure: [id number] DX/CHEST SINGLE (PORTABLE) Exam Date: 01/20/20 Exam Time: 0700 REPORT STATUS: Signed EXAMINATION: CHEST SINGLE (PORTABLE) INDICATION: Chest pain COMPARISON: Chest radiograph 02/06/2019 FINDINGS: LINES/TUBES:EKG leads overlie the chest. LUNGS:The lungs are moderately inflated. No focal consolidation or pulmonary e george. PLEURA:No pleural effusion or pneumothorax. MEDIASTINUM:The cardiomediastinal silhouette appears normal in size and shape. Atherosclerotic calcifications of the thoracic aorta. BONES/SOFT TISSUES:No acute osseous injury. Partially visualized cervical spine fusion hardware. ABDOMEN:No free air under the diaphragm. IMPRESSION: No focal pneumonia or pulmonary edema. Signed by: Toya Hough MD on 01/20/2020 8:32 AM Dictated By: TOYA HOUGH MD 1 Transcribed By: GLO on 01/20/20831 COPY TO: YANIQUE NGUYEN DO Blood leukocytes automated count (number/volume) 2020-01-20 06:35:00 Test Item White Blood Count (test code = 6690-2) 7.38 4.8-10.8 [facility] automated count (number/volume)2020-01-20 06:35:00* Test Item Value Reference Range Interpretation Comments Red Blood Count (test code = 789-8) 4.49 4.3-5.7 [facility] hemoglobin measurement (moles/volume)2020-01-20 06:35:00* Test Item Value Reference Range Interpretation Comments Hemoglobin (test code = 16491-8) 12.4 14.0-18.0 [facility]ville[facility] blood hematocrit (volume fraction)2020-01-20 06:35:00* Test Item Value Reference Range Interpretation Comments Hematocrit (test code = 4544-3) 39.6 38.2-49.6 [facility]ville[facility] erythrocyte mean corpuscular [id number] 06:35:00* Test Item Value Reference Range Interpretation Comments Mean Corpuscular Volume (test code = 787-2) 88.2 81-99 [facility]ville[facility] erythrocyte mean corpuscular hemoglobin (mass per erythrocyte)2020-01-20 06:35:00* Test Item Value Reference Range Interpretation Comments Mean Corpuscular Hemoglobin (test code = 785-6) 27.6 28-32 [facility]villeAutom[facility] erythrocyte mean corpuscular hemoglobin concentration measurement (mass/volume)2020-01-20 06:35:00* Test Item Value Reference Range Interpretation Comments Mean Corpuscular Hemoglobin Concent (test code = 786-4) 31.3 31-35 [facility]villeRDW WurYo-[id number] 06:35:00* Test Item Value Reference Range Interpretation Comments Red Cell Distribution Width (test code = 02280-8) 13.5 11.7 -14.4 [facility]ville[facility] blood platelet count (count/volume)2020-01-20 06:35:00* Test Item Value Reference Range Interpretation Comments Platelet Count (test code = 777-3) 168 140-360 [facility] neutrophil count as percentage of total gyxjrpcrrm0710-07-33 06:35:00* Test Item Value Reference Range Interpretation Comments Neutrophils (%) (Auto) (test code = 76593-0) 53.7 38.7-80.0 [facility]villeAutformerly [facility] blood lymphocyte count as percentage ot total yxwveqfyoo8325-48-86 06:35:00* Test Item Value Reference Range Interpretation Comments Lymphocytes (%) (Auto) (test code = 736-9) 30.6 18.0-39.1 [facility]villeAutom[facility] blood monocyte count as percentage of total csghhqdeav2045-53-21 06:35:00* Test Item Value Reference Range Interpretation Comments Monocytes (%) (Auto) (test code = 5905-5) 10.6 4.4-11.3 [facility]ville[facility] blood eosinophil count as percentage of total nvzuuasawh1994-10-00 06:35:00* Test Item Value Reference Range Interpretation Comments Eosinophils (%) (Auto) (test code = 713-8) 3.7 0.0-6.0 [facility]villeAutom[facility] blood basophil count as percentage of total tfdhfipwgf7282-07-80 06:35:00* Test Item Value Reference Range Interpretation Comments Basophils (%) (Auto) (test code = 706-2) 1.1 0.0-1.0 [facility]villeFluoroscopic procedure less than one hour jbsrvvki0429-44-12 06:35:00* Test Item Value Reference Range Interpretation Comments IM GRANULOCYTES % (test code = IM GRANULOCYTES %) 0.3 0.0- 1.0 [facility]ville[facility] blood neutrophil count 2020-01-20 06:35:00* Test Item Value Reference Range Interpretation Comments Neutrophils # (Auto) (test code = 751-8) 4.0 2.1-6.9 [facility]ville[facility] lymphocytes count (number/volume) 2020-01-20 06:35:00* Test Item Value Reference Range Interpretation Comments Lymphocytes # (Auto) (test code = 80214-1) 2.3 1.0-3.2 [facility]villeBlood monocytes automated count (number/volume)2020-01-20 06:35:00* Test Item Value Reference Range Interpretation Comments Monocytes # (Auto) (test code = 742-7) 0.8 0.2-0.8 [facility]villeAutomated blood eosinophil count 2020-01-20 06:35:00* Test Item Value Reference Range Interpretation Comments Eosinophils # (Auto) (test code = 711-2) 0.3 0.0-0.4 [facility]villeAutomated blood basophil count (count/volume)2020-01-20 06:35:00* Test Item Value Reference Range Interpretation Comments Basophils # (Auto) (test code = 704-7) 0.1 0.0-0.1 [facility]villeFluoroscopic procedure less than one hour rgmzvwmu3326-18-14 06:35:00* Test Item Value Reference Range Interpretation Comments Absolute Immature Granulocyte (auto ([place]on[place] t code = Absolute Immature Granulocyte (auto) 0.02 0-0.1 [facility]villeFibrin D-dimer DDU measurement in platelet poor plasma (mass/volume)2020-01-20 06:35:00* Test Item Value Reference Range Interpretation Comments D-Dimer Quantitative (PE/DVT) (test code = 14363-4) 0.78 0. 00-0.45 [facility] or plasma sodium measurement (moles/volume)2020-01-20 06:35:00* Test Item Value Reference Range Interpretation Comments Sodium Level (test code = 2951-2) 143 136-145 [facility] Hospitalerum or plasma potassium measurement (moles/volume)2020-01-20 06:35:00* Test Item Value Reference Range Interpretation Comments Potassium Level (test code = 2823-3) 4.0 3.5-5.1 [facility] Hospitalerum or plasma chloride measurement (moles/volume)2020-01-20 06:35:00* Test Item Value Reference Range Interpretation Comments Chloride Level (test code = 2075-0) 107 98-107 [facility]erum or plasma carbon dioxide, total measurement (moles/volume)2020-01-20 06:35:00* Test Item Value Reference Range Interpretation Comments Carbon Dioxide Level (test code = 2028-9) 29 22-29 [facility] Hospitalerum or plasma anion kca8025-11-83 06:35:00* Test Item Value Reference Range Interpretation Comments Anion Gap (test code = 32987-4) 11.0 8-16 [facility] Hospitalerum or plasma urea nitrogen measurement (mass/volume)2020-01-20 06:35:00* Test Item Value Reference Range Interpretation Comments Blood Urea Nitrogen (test code = 3094-0) 24 7-26 [facility] Hospitalerum or plasma creatinine measurement (mass/volume)2020-01-20 06:35:00* Test Item Value Reference Range Interpretation Comments Creatinine (test code = 2160-0) 1.22 0.72-1.25 [facility] Hospitalerum or plasma urea nitrogen/creatinine mass uucwb8695-58-34 06:35:00* Test Item Value Reference Range Interpretation Comments BUN/Creatinine Ratio (test code = 3097-3) 20 6-25 [facility]villeEstimated glomerular filtration rate (GFR) kaeqnihgufhdf6559-66-09 06:35:00* Test Item Value Reference Range Interpretation Comments Estimat Glomerular Filtration Rate (test code = 576683199) 58 >60 Ranges were taken from the National Kidney Disease Education Program and the [facility] literature.Reference ranges:60 or greater: Iynuln35-68 ( for 3 consecutive months): Chronic kidney disease 15 or less: Kidney failureVal[facility] Center – BrownsvilleGlucose mslewglewcl6056-32-94 06:35:00* Test Item Value Reference Range Interpretation Comments Glucose Level (test code = BNX7248) 143 74-118 [facility] Hospitalerum or plasma calcium measurement (mass/volume)2020-01-20 06:35:00* Test Item Value Reference Range Interpretation Comments Calcium Level (test code = 38078-3) 9.0 8.4-10.2 [facility] Hospitalerum or plasma total bilirubin measurement (mass/volume)2020-01-20 06:35:00* Test Item Value Reference Range Interpretation Comments Total Bilirubin (test code = 1975-2) 0.4 0.2-1.2 [facility]villeFluoroscopic procedure less than one hour omqcjkwd9378-78-83 06:35:00* Test Item Value Reference Range Interpretation Comments Aspartate Amino Transf (AST/SGOT) (test code = Aspartate Amino Transf (AST/SGOT)) 27 5-34 [facility] Hospitalerum or plasma alanine aminotransferase measurement (enzymatic activity/volume)2020-01-20 06:35:00* Test Item Value Reference Range Interpretation Comments Alanine Aminotransferase (ALT/SGPT) (test code = 1742-6) 38 0-55 [facility] Hospitalerum or plasma protein measurement (mass/volume)2020-01-20 06:35:00* Test Item Value Reference Range Interpretation Comments Total Protein (test code = 2885-2) 7.4 6.5-8.1 [facility] Hospitalerum or plasma albumin measurement (mass/volume)2020-01-20 06:35:00* Test Item Value Reference Range Interpretation Comments Albumin (test code = 1751-7) 3.7 3.5-5.0 [facility]villePlasma globulin measurement (mass/volume) 2020-01-20 06:35:00* Test Item Value Reference Range Interpretation Comments Globulin (test code = 34683-7) 3.7 2.3-3.5 [facility] Hospitalerum or plasma albumin/globulin mass vqhqo5276-39-35 06:35:00* Test Item Value Reference Range Interpretation Comments Albumin/Globulin Ratio (test code = 1759-0) 1.0 0.8-2.0 [facility] Hospitalerum or plasma alkaline phosphatase measurement (enzymatic activity/volume)2020-01-20 06:35:00* Test Item Value Reference Range Interpretation Comments Alkaline Phosphatase (test code = 6768-6) 67 40-150 [facility]villeBNP Mfb-sUgf6059-58-06 06:35:00* Test Item Value Reference Range Interpretation Comments B-Type Natriuretic Peptide (test code = 72946-6) 29.5 0-100 [facility] Hospitalerum or plasma creatine kinase measurement (enzymatic activity/volume)2020-01-20 06:35:00* Test Item Value Reference Range Interpretation Comments Creatine Kinase (test code = 2157-6) 416 30-200 [facility] Hospitalerum or plasma creatine kinase MB measurement (mass/volume)2020-01-20 06:35:00* Test Item Value Reference Range Interpretation Comments Creatine Kinase MB (test code = 35846-5) 4.60 0-5.0 [facility]villeTroponin I measurement by highly sensitive enzyme sbubwseopcg2744-67-71 06:35:00* Test Item Value Reference Range Interpretation Comments Troponin I (test code = 06075-5) 0.003 0-0.300 [facility]villeBedside Hfqsgvg1218-04-64 08:22:00* Test Item Value Reference Range Interpretation Comments Bedside Glucose (test code = 58140-0) 199 70-120 H Meter ID: [id number] Baptist Medical Center – BrownsvilleDifferential Total Cells Oolqopz5350-59-43 07:37:00* Test Item Value Reference Range Interpretation Comments Differential Total Cells Counted (test code = Differmelissa tial Total Cells Counted) 100 [facility]villeNeutrophils % (Manual)2019-02-11 07:37:00 * Test Item Value Reference Range Interpretation Comments Neutrophils % (Manual) (test code = 84096-0) 66 40-74 [facility]villeLymphocytes % (Manual)2019-02-11 07:37:00 * Test Item Value Reference Range Interpretation Comments Lymphocytes % (Manual) (test code = 737-7) 21 19-48 [facility] [place]ocytes % (Manual)2019-02-11 07:37:00* Test Item Value Reference Range Interpretation Comments Monocytes % (Manual) (test code = 744-3) 13 3.4-9.0 H [facility] [place]villePlatelet Zafpfnhf7827-58-35 07:37:00* Test Item Value Reference Range Interpretation Comments Platelet Estimate (test code = 80317-7) ADEQUATE [facility] [place]villePlatelet Morphology Ubpigpo7103-20-69 07:37:00* Test Item Value Reference Range Interpretation Comments Platelet Morphology Comment (test code = 17528-9) NORMAL [facility] [place]villeRed Cell Morphology Pfuwrpl0868-08-41 07:37:00* Test Item Value Reference Range Interpretation Comments Red Cell Morphology Comment (test code = 6742-1) NORMAL [facility]odium Brhjy0434-64-66 06:29:00* Test Item Value Reference Range Interpretation Comments Sodium Level (test code = 2951-2) 138 136-145 [facility] [place]villePotassium Yuble7510-37-78 06:29:00* Test Item Value Reference Range Interpretation Comments Potassium Level (test code = 2823-3) 3.4 3.5-5.1 L [facility] [place]villeChloride Zcmrx5803-17-71 06:29:00* Test Item Value Reference Range Interpretation Comments Chloride Level (test code = 2075-0) 101 98-107 [facility] [place]villeCarbon Dioxide Wjlpj6526-67-27 06:29:00* Test Item Value Reference Range Interpretation Comments Carbon Dioxide Level (test code = 2028-9) 27 22-29 [facility] [place]villeAnion Dtb6743-92-81 06:29:00* Test Item Value Reference Range Interpretation Comments Anion Gap (test code = 55295-4) 13.4 8-16 [facility] [place]villeBlood Urea Vsplaouo0257-66-87 06:29:00* Test Item Value Reference Range Interpretation Comments Blood Urea Nitrogen (test code = 3094-0) 18 7-26 [facility] [place]villeCreatinine2019-07-29 06:29:00* Test Item Value Reference Range Interpretation Comments Creatinine (test code = 2160-0) 0.96 0.72-1.25 [facility] [place]villeBUN/Creatinine Pteqn3529-02-67 06:29:00* Test Item Value Reference Range Interpretation Comments BUN/Creatinine Ratio (test code = 3097-3) 19 6-25 [facility] [place]villeEstimat Glomerular Filtration Rate 2019-02-11 06:29:00* Test Item Value Reference Range Interpretation Comments Estimat Glomerular Filtration Rate (test code = 168885794) > 60 >60 Ranges were taken from the National Kidney Disease Education Program and the [facility] literature.Reference ranges:60 or greater: Dcjdmu18-42 ( for 3 consecutive months): Chronic kidney disease 15 or less: Kidney failureVal[facility] – [place]villeGlucose Odqsf6039-63-61 06:29:00* Test Item Value Reference Range Interpretation Comments Glucose Level (test code = HKA9655) 110 74-118 [facility] [place]villeCalcium Isgfg9690-10-19 06:29:00* Test Item Value Reference Range Interpretation Comments Calcium Level (test code = 06106-8) 8.6 8.4-10.2 [facility] [place]villeTotal Hysyjbvdd5418-01-49 06:29:00* Test Item Value Reference Range Interpretation Comments Total Bilirubin (test code = 1975-2) 0.5 0.2-1.2 [facility] BrownsvilleAspartate Amino Transf (AST/SGOT) 2019-02-11 06:29:00* Test Item Value Reference Range Interpretation Comments Aspartate Amino Transf (AST/SGOT) (test code = Aspartate Amino Transf (AST/SGOT)) 14 5-34 [facility] [place]villeAlanine Aminotransferase (ALT/SGPT) 2019-02-11 06:29:00* Test Item Value Reference Range Interpretation Comments Alanine Aminotransferase (ALT/SGPT) (test code = 1742-6) 32 0-55 [facility] [place]villeTotal Iocgjpq6896-40-50 06:29:00* Test Item Value Reference Range Interpretation Comments Total Protein (test code = 2885-2) 6.6 6.5-8.1 [facility] [place]villeAlbumin2019-07-29 06:29:00* Test Item Value Reference Range Interpretation Comments Albumin (test code = 1751-7) 2.9 3.5-5.0 L [facility] [place]villeGlobulin2019-07-29 06:29:00* Test Item Value Reference Range Interpretation Comments Globulin (test code = 37241-6) 3.7 2.3-3.5 H [facility] [place]villeAlbumin/Globulin Idxby6293-74-81 06:29:00 * Test Item Value Reference Range Interpretation Comments Albumin/Globulin Ratio (test code = 1759-0) 0.8 0.8-2.0 [facility] [place]villeAlkaline Clsfeztummt0230-50-69 06:29:00* Test Item Value Reference Range Interpretation Comments Alkaline Phosphatase (test code = 6768-6) 47 40-150 [facility] [place]villeWhite Blood Hokdv9697-06-06 06:07:00* Test Item Value Reference Range Interpretation Comments White Blood Count (test code = 6690-2) 10.33 4.8-10.8 [facility] [place]villeRed Blood Nyzpb3174-78-63 06:07:00* Test Item Value Reference Range Interpretation Comments Red Blood Count (test code = 789-8) 4.38 4.3-5.7 [facility] [place]villeHemoglobin2019-07-29 06:07:00* Test Item Value Reference Range Interpretation Comments Hemoglobin (test code = 16751-9) 12.4 14.0-18.0 L [facility] [place]villeHematocrit2019-07-29 06:07:00* Test Item Value Reference Range Interpretation Comments Hematocrit (test code = 4544-3) 37.6 38.2-49.6 L [facility] [place]villeMean Corpuscular Hcosgs8079-17-41 06:07:00* Test Item Value Reference Range Interpretation Comments Mean Corpuscular Volume (test code = 787-2) 85.8 81-99 [facility] [place]villeMean Corpuscular Xrkgisksrd5728-81-37 06:07:00* Test Item Value Reference Range Interpretation Comments Mean Corpuscular Hemoglobin (test code = 785-6) 28.3 28-32 [facility] Corpuscular Hemoglobin Concent 2019-02-11 06:07:00* Test Item Value Reference Range Interpretation Comments Mean Corpuscular Hemoglobin Concent (test code = 786-4) 33.0 31-35 [facility] [place]villeRed Cell Distribution Yuqpu5323-64-62 06:07:00* Test Item Value Reference Range Interpretation Comments Red Cell Distribution Width (test code = 48816-7) 14.6 11.7 -14.4 H [facility] [place]villePlatelet Mbtnt3209-36-91 06:07:00* Test Item Value Reference Range Interpretation Comments Platelet Count (test code = 777-3) 190 140-360 [facility] [place]villeNeutrophils (%) (Auto)2019-02-11 06:07:00 * Test Item Value Reference Range Interpretation Comments Neutrophils (%) (Auto) (test code = 36642-9) 60.1 38.7-80.0 [facility] BrownsvilleLymphocytes (%) (Auto)2019-02-11 06:07:00 * Test Item Value Reference Range Interpretation Comments Lymphocytes (%) (Auto) (test code = 736-9) 26.5 18.0-39.1 [facility] [place]villeMonocytes (%) (Auto)2019-02-11 06:07:00* Test Item Value Reference Range Interpretation Comments Monocytes (%) (Auto) (test code = 5905-5) 8.7 4.4-11.3 [facility] [place]villeEosinophils (%) (Auto)2019-02-11 06:07:00 * Test Item Value Reference Range Interpretation Comments Eosinophils (%) (Auto) (test code = 713-8) 1.7 0.0-6.0 [facility] [place]villeBasophils (%) (Auto)2019-02-11 06:07:00* Test Item Value Reference Range Interpretation Comments Basophils (%) (Auto) (test code = 706-2) 0.3 0.0-1.0 [facility] BrownsvilleIM GRANULOCYTES %2019-02-11 06:07:00* Test Item Value Reference Range Interpretation Comments IM GRANULOCYTES % (test code = IM GRANULOCYTES %) 2.7 0.0- 1.0 H [facility] [place]villeNeutrophils # (Auto)2019-02-11 06:07:00* Test Item Value Reference Range Interpretation Comments Neutrophils # (Auto) (test code = 751-8) 6.2 2.1-6.9 [facility] BrownsvilleLymphocytes # (Auto)2019-02-11 06:07:00* Test Item Value Reference Range Interpretation Comments Lymphocytes # (Auto) (test code = 73436-9) 2.7 1.0-3.2 [facility] [place]villeMonocytes # (Auto)2019-02-11 06:07:00* Test Item Value Reference Range Interpretation Comments Monocytes # (Auto) (test code = 742-7) 0.9 0.2-0.8 H [facility] [place]villeEosinophils # (Auto)2019-02-11 06:07:00* Test Item Value Reference Range Interpretation Comments Eosinophils # (Auto) (test code = 711-2) 0.2 0.0-0.4 [facility] [place]villeBasophils # (Auto)2019-02-11 06:07:00* Test Item Value Reference Range Interpretation Comments Basophils # (Auto) (test code = 704-7) 0.0 0.0-0.1 [facility] BrownsvilleAbsolute Immature Granulocyte (auto 2019-02-11 06:07:00* Test Item Value Reference Range Interpretation Comments Absolute Immature Granulocyte (auto (maldon[place] t code = Absolute Immature Granulocyte (auto) 0.28 0-0.1 H [facility] BrownsvilleBand Neutrophils %2019-02-09 08:09:00* Test Item Value Reference Range Interpretation Comments Band Neutrophils % (test code = 764-1) 1 [facility] [place]villeEosinophils % (Manual)2019-02-09 08:09:00 * Test Item Value Reference Range Interpretation Comments Eosinophils % (Manual) (test code = 714-6) 3 0-7 [facility] [place]villeMyelocytes %2019-02-09 08:09:00* Test Item Value Reference Range Interpretation Comments Myelocytes % (test code = 749-2) 1 0-0 H [facility] [place]villeVitamin B12 Xpvvc5196-52-40 07:43:00* Test Item Value Reference Range Interpretation Comments Vitamin B12 Level (test code = 89615-8) 1813 213-816 H [facility] BrownsvilleFolate2019-07-25 07:43:00* Test Item Value Reference Range Interpretation Comments Folate (test code = 2284-8) 15.2 7.0-15.4 [facility] BrownsvilleFerritin2019-07-25 06:55:00* Test Item Value Reference Range Interpretation Comments Ferritin (test code = 2276-4) 130.02 21.81-274.66 [facility] BrownsvilleIron Vznni6893-52-43 06:41:00* Test Item Value Reference Range Interpretation Comments Iron Level (test code = 2498-4) 90 65-175 [facility] [place]villeTotal Iron Binding Spvkllke0472-68-75 06:41:00* Test Item Value Reference Range Interpretation Comments Total Iron Binding Capacity (test code = 2500-7) 209 261-4 78 L [facility] [place]villePercent Iron Mezhsqioie9455-54-22 06:41:00* Test Item Value Reference Range Interpretation Comments Percent Iron Saturation (test code = 2502-3) 43 15-50 [facility] [place]villeTransferrin2019-07-25 06:41:00* Test Item Value Reference Range Interpretation Comments Transferrin (test code = 3034-6) 149 174-364 L [facility] BrownsvillePercent Reticulocyte Adquk9589-06-02 06:26:00* Test Item Value Reference Range Interpretation Comments Percent Reticulocyte Count (test code = 43608-9) 1.5 0.8-2 .2 [facility] [place]villeCHEST 2 AGRZH9976-25-91 18:57:00 [place] [address] Patient Name: DESIRE REYES MR #: [id number] : 1945 Age/Sex: 73/M Req #: [id number] [facility] Physician: ARTHUR WATT MD Ordered by: ARTHUR WATT MD Report #: [id number] Location: [place] [address] [place] [facility] [facility] [place] Procedure: [id number] D X/CHEST 2 VIEWS Exam Date: 02/06/19 Exam Time: 1830 REPORT STATUS: Signed EXAMINATIO N: CHEST 2 VIEWS INDICATION: PNEUMONIA [id number] Y COMPARISON: CT chest 01/28/2019 FINDINGS: PA and lateral views TUBES and LINES: None. LUNGS: Lungs are well inflated. Bilate ral lower lobes, left greater than right reticular nodular consolidation have decreased since 01/28/2019. No new consolidations. PLEURA: No pleural e ffusion or pneumothorax. HEART AND MEDIASTINUM: The cardiomediastinal silh ouette is unremarkable. Mild atherosclerotic calcifications of the aortic arch . BONES AND SOFT TISSUES: Anterior fusion of the cervical spine. No acute o sseous lesion. Soft tissues are unremarkable. UPPER ABDOMEN: No free air under the diaphragm. IMPRESSION: Resolving bilateral lower lobe pneumo justina. Continue to follow-up. Signed by: Dr. Shante Gaffney M.D. on 02/06/2019 6:58 PM Dictated By: SHANTE GAFFNEY MD Electronic ally Signed By: SHANTE GAFFNEY MD on 02/06/191857 Transcribed By: ABISAI NGUYEN on 02/06/191857 COPY TO: ARTHUR WATT MD MODIFIED BA. XUCSDJZ7894-49-56 15:09:00 [place] [address] Patient Name: DESIRE REYES MR #: [id number] : 1945 Age/Sex: 73/M Req #: [id number] [facility] Physician: ARTHUR WATT MD Ordered by: ARTHUR WATT MD Report #: [id number] Location: MED/SURG3 Room/Bed: [facility] [place] [facility] [place] Procedure: [id number] D X/MODIFIED BA. SWALLOW Exam Date: 02/06/19 Exam Time : 1030 REPORT STATUS: Signed PRO CEDURE: X-RAY MODIFIED BARIUM SWALLOW COMPARISON: None. INDICATION: A spiration Radiation Details: Fluoroscopy time: 0.9 minutes Cumulative d ose: 1.81 mGy, 0.589 Gy.cm2 DISCUSSION: Fluoroscopic examination was perfor med in conjunction with speech pathology during swallowing a variety of thin a nd thick liquid consistencies. Provided images demonstrate no laryngeal penetr ation or aspiration. CONCLUSION: Modified barium swallow demonstrating no laryngeal penetration or aspiration. Please refer to the speech pathology r eport for further details. Signed by: Toya Hough MD on 02/06/2019 3:10 PM Dictated By: TOYA HOUGH MD 09 COPY TO: TONJA WATT AM, MD Blood Cxljvat4056-80-99 13:45:00* Test Item Value Reference Range Interpretation Comments Blood Culture (test code = 76583508) NO GROWTH AFTER 5 DAYS, FINAL REPORT [facility] BrownsvilleCT CHEST R6633-39-54 16:32:00 [place] [address] Patient Name: DESIRE REYES MR #: [id number] : 1945 Age/Sex: 73/M Req #: [id number] Adm Physician: Ordered by: ARTHUR WATT MD Report #: [id number] Location: CT Room/Bed: Procedure: [id number] CT/ CT CHEST W Exam Date: 01/28/19 Exam Time: 1600 REPORT STATUS: Signed EXAM: CT Chest WITH intravenous contrast 01/28/2019 3:12 PM INDICATION: Shortness of breath COMPARISON: None TECHNIQUE: Chest was scanned utilizing a multidetector [facility] scanner from the lung apex through the level of the adrenal glands follow ing administration of IV contrast. Coronal and sagittal reformations were obta ined. Routine protocol was performed. IV CONTRAST: 100mL Isovue 370 RAD IATION DOSE: Total DLP: 575.63 mGy*cm. Dose modulation, iterative reconstructi on, and/or weight based adjustment of the mA/kV was utilized to reduce the rad iation dose to as low as reasonably achievable. COMPLICATIONS: None FIND INGS: LINES/ TUBES: None. LUNGS AND AIRWAYS: The central airways are patent. At the bilateral dependent lower lobes, there are multifocal areas of consolidative and groundglass opacity and peripheral tree-in-bud nodularity. N o pulmonary edema. PLEURA: No pleural effusion. No pneumothorax. HEART AND MEDIASTINUM: The thyroid gland is normal. No mediastinal, hilar or axill loni lymphadenopathy. The heart is normal in size.. There is no pericardial ef fusion. Atherosclerotic calcifications involve the coronary arteries and thor acic aorta. UPPER ABDOMEN: Limited images of the upper abdomen demonstrate multiple hepatic simple cysts, the largest of which measures up to 2.4 cm (ser ies 2 image 104). No abnormality of the partially visualized spleen, pancreas, or adrenal glands. Bilateral renal cysts, subcentimeter on the left and measu ring up to 1.4 cm on the right. Replaced right hepatic artery from the superio r mesenteric artery. BONES: No acute fracture. Degenerative changes of the visualized spine. Partially visualized anterior cervical fusion hardware. SOFT TISSUES: Unremarkable. IMPRESSION: Bilateral dependent lower lobe multifocal consolidative and groundglass opacities and tree-in-bud nodularity most likely representing aspiration pneumonia. Coronary artery atheroscle rosis. Signed by: Toya Hough MD on 01/28/2019 4:41 PM Dictated By: Janes HOUGH MD 40 Transcri bed By: GLO on 01/28/191640 COPY TO: ARTHUR WATT MD GASTRIC YRCXVJMG0621-78-95 19:55:00 [place] [address] Patient Name: DESIRE REYES MR #: [id number] : 1945 Age/Sex: 72/M Req #: [id number] [facility] Physician: Ordered by: ESPERANZA SCRUGGS MD Report #: [id number] Location: [place] Room/Bed: Procedure: [id number] NM/GASTRIC EMPTYING Exam Date: 04/26/18 Exam Time: 0831 REPORT STATUS: Signed Solid-phase gastric emptying study Reason for examination: Peterson's eso phagus; dyspepsia. Food was found in stomach during EGD with 12 hours fasting . The protocol used for this study is based on the Consensus Recommendation s for Gastric Scintigraphy by the [place] [employer]gastro[employer] Society and the Society of Nuclear Medicine. Clinical information: The richard hernandez is diabetic; blood glucose this morning is 96 mg/dL. The patient has no t had prior gastrointestinal surgery other than cholecystectomy in 2015. The patient is not on any medications expected to affect gastric motility. The richard hernandez has been fasting for at least 6 hours prior to this exam. Radiophar maceutical: Tc-99m sulfur colloid 1 mCi Report: The radiopharmaceutical wa s added to 1/2 cup egg whites that were then prepared and served with 2 pieces of white bread toasted, 30 grams of jam and 4 ounces of water. The patient to ok the meal orally without difficulty. Images were obtained of the abdomen in the anterior and posterior projections at 10 minutes post the meal and at 1, 2, 3, and 4 hours. Uptake was determined from the geometric mean of the anter ior and posterior counts and the counts were corrected for decay of the radiol damaris. The percent gastric retention of the labeled meal at: 1 hour was 76% (normal 30-90%) 2 hours was 36% (normal <60%) 3 hours was 17% (normal < 30%) 4 hours was 4% (normal <10%) Impression: Normal gastric emptying pattern. The findings do not support the clinical diagnosis of gastroparesis. Signed by: Dr. Alexander Brasher M.D. on 04/26/2018 7:57 PM Dictated By: ALEXANDER BRASHER MD 56 Transcribed By: GLO on 04/26/181956 COPY TO: ESPERANZA SCRUGGS MD HMKWEOCJNVUZ6063-48-29 10:38:0013.1[facility] NTSDSLBFQPWQ4298-91-45 10:38:0063[facility] XvhlgvyHLXTMOTCWGNM1602-97-51 10:38:00 1.16[facility] YxmykswQQYAWINOANNI6008-64-55 10:38:43881Akohfkpb Jorge QYCWJXKBBOQE8907-23-38 10:38:004.1[facility] QqrzrpxXMBRIVOHGUPH9797-50-48 10:38:007.7[facility] CbrvtznCWCKLHKMNOIY1575-81-18 10:38:23001Preqhuve Jorge TDAXONSQKRGR9749-52-75 10:38:0017[facility] RpxidxmKLIJWEIBGFOJ3518-46-88 10:38:00 26[facility] LjstmjwOQGSQHQNAOWC9536-74-30 10:38:93672Vhnynftw HermannHEMATOLOGY 2017-08-31 10:38:000.5[facility] IbwdkpeMKCBQBDTSX9567-83-36 10:38:000.7[facility] HxwnadiERQHJVZIRX9240-05-01 10:38:0010.0[facility] VrduqdbNMBUSUEYSO2347-30-93 10:38:000.1[facility] PffvwvpXMZTCWWWPP2605-50-37 10:38:004.1[facility] VVPTYMPNNV3709-14-13 10:38:006.3[facility] PqiefthVQCUFEXYEI1114-51-55 10:38:00 89.5[facility] XcplttuPYKCYWBXSG3947-05-14 10:38:0032.9[facility]annHEMATOLOGY 2017-08-31 10:38:009.3[facility] KumnljlBRYMKWBQNV4864-91-45 10:38:32447Oweoqyvd BeeqnidPCUHOOOHXH2451-57-38 10:38:0014.9[facility] TxxvojgKADOYVBAKL9509-62-11 10:38:00* Test Item Value Reference Range Interpretation Comments MCH (test code = MCH) 26.0 pg 27.0-31.0 [facility] QysxmtrDHRRQQTAKL6752-86-31 10:38:005.09[facility]annHEMATOLOGY 2017-08-31 10:38:0079.1[facility] QxrwvdnDDXKDAUDEO7454-27-31 10:38:0040.3[facility] DkptfdfUOJRWSGIZB1174-09-71 10:38:0013.3[facility] LguoofmWIMZHAQZEE1085-47-90 10:38:0011.2[facility]annURINE AND AEAZU3456-55-11 15:30:00Trace *ABN*(08/28/17 9:30 AM)[facility] IFLTE2965-73-70 15:30:000.2 [facility] OKUTA6520-85-41 15:30:00Negative (08/28/17 9:30 AM) [facility] RFHYY3546-01-94 15:30:00Negative *NA*(08/28/17 9:30 AM) [facility] VJBAP6371-46-62 15:30:00Negative *NA*(08/28/17 9:30 AM) [facility] QXZOR3088-20-25 15:30:00Negative (08/28/17 9:30 AM) [facility] ZXMFE2855-79-30 15:30:00Negative (08/28/17 9:30 AM) [facility] KXVDV3799-75-59 15:30:00Negative (08/28/17 9:30 AM) [facility] YRJFM2659-43-04 15:30:00<=1.005 *NA*(08/28/17 9:30 AM) [facility] ZLCID7203-97-02 15:30:00* Test Item Value Reference Range Interpretation Comments UA pH (test code = UA pH) 6.5 1 5.0-8.0 [facility] AQFJC1896-41-15 15:30:00Clear (08/28/17 9:30 AM) [facility] NKQVP0137-18-29 15:30:00Yellow *NA*(08/28/17 9:30 AM) [facility] QLEJZHJ0119-62-84 15:10:00Negative (08/28/17 9:10 AM) [facility] ReqarlgHSNCLLNZIOMU0169-12-17 15:10:0012.8[facility] HermannELECTROLYTES 2017-08-28 15:10:0064[facility] NhgnpevCCPFFGBXZELM1489-06-56 15:10:008.4[facility] UhheihjBXXTLTZLCIXX9483-83-65 15:10:0018[facility] AqwzemtYWNOFZZCZIKY1383-97-13 15:10:001.14[facility] PzmdynyIURQUEYTYOXY5999-36-66 15:10:92459[place] AXHWWHHWZBND7523-42-82 15:10:0029[facility] TyoqaxnTJXYQKKNLYWZ3467-55-71 15:10:00 101[facility] MtvslinOKRJQSRGVXCP5586-46-31 15:10:98161Uijryrrv [place] RKBPLXFXBYMZ5911-08-11 15:10:003.8[facility] SqgpaniAUSHHXGMIU2684-32-00 15:10:00 * Test Item Value Reference Range Interpretation Comments PROTIME (test code = PROTIME) 13.1 s 12.0-14.7 [facility] OduaxupCVUTAKGIIQ1599-35-07 15:10:00* Test Item Value Reference Range Interpretation Comments aPTT (test code = aPTT) 27.2 s 22.9-35.8 [facility] MpkxnjfWURYRJYHVN0045-92-89 15:10:00* Test Item Value Reference Range Interpretation Comments INR (test code = INR) 0.99 1 0.85-1.17 [facility] DmhspqrAIHTVLQBQW3803-49-64 15:10:005.75[facility]annHEMATOLOGY 2017-08-28 15:10:0015.2[facility] BpqpnnaIEBLQOBLKY9819-42-28 15:10:00* Test Item Value Reference Range Interpretation Comments MCH (test code = MCH) 26.4 pg 27.0-31.0 [facility] FwyvwavIXQOBNTRMA3336-92-22 15:10:0079.7[facility] HermannHEMATOLOGY 2017-08-28 15:10:0033.1[facility] RanywmdKJBNJUMTJD8505-08-26 15:10:0045.8[facility] YbunmhiJBBHGGYXVG2711-09-82 15:10:93538Trzaggtx KzmwhrcUIATYWPDFT0854-69-34 15:10:0014.8[facility] ImwefspOBQQAEFJRM0664-95-80 15:10:009.6[facility] NNABDSBTKT5286-69-61 15:10:006.5[facility] VsjipzxXNHJMQFUSI6877-72-55 15:10:008.0 [facility] ZosuczgFPOLLFYJFW7862-45-51 15:10:004.0[facility] HermannHEMATOLOGY 2017-08-28 15:10:003.1[facility] FuapyahOIWCJQXKCO0429-77-94 15:10:0026.9[facility] HlqummkFPKOEZESKC6394-74-94 15:10:000.2[facility] UlnuhdaVVNYXEFDHC6915-29-02 15:10:001.7[facility] XwqcoxuNFARULQESV8282-18-16 15:10:000.1[facility] RQNMAKYFCJ6287-07-76 15:10:000.9[facility] EihegooGYEEUXGTRT9976-01-23 15:10:000.5 [facility] BzaqqaeJZOYQRKFXU0789-49-42 15:10:0061.1[facility] HermannSPECIAL QTKMCDWOI8766-06-54 15:10:006.3Memorial HermannKNEE RIGHT 1-2 VIEWS [place] [address] Patient Name: DESIRE REYES MR #: [id number] : 1945 Age/Sex: 72/M Req #: [id number] Adm Physician: Ordered by: ARTHUR WATT MD Report #: [id number] Location: [facility] Room/Bed: Procedure: [id number] DX/KNEE RIGHT 1-2 VIEWS Exam Date: 11/27/17 Exam Time: 1320 REPORT STATUS: Signed PROCEDURE: X-RAY RIGHT KNEE, ONE OR TWO VIEWS COMPARISON: No ne. INDICATIONS: RIGHT KNEE PAIN FOR A FEW DAYS FINDINGS: The bones are well-mineralized. There are no fractures, subluxations, lytic or b lastic lesions. There is prominence of the tibial spines and a tiny osteo phytic spur arising from the lateral tibial plateau. There is mild narrowing of the patellofemoral compartment. Small joint effusion is present. CON CLUSION: Mild degenerative changes of the knee with small joint effusion. Dictated by: Joni Reddy M.D. on 11/27/2017 at 13:46 [facility] approved by: Joni Reddy M.D. on 11/27/2017 at 13:46 Dictated By: JONI REDDY MD 1346 Transcribed By: SHANTELL on 11/27/17 1346 COPY TO: ARTHUR THOMPSON MD
--- NOTE | 2020-02-24 12:34 | Operative Report ---
DATE OF PROCEDURE: 02/24/2020 SURGEON: Saleem Galvez MD MEDICAL AUDITOR: Alistair Cordova, certified PA. PREOPERATIVE DIAGNOSIS: Osteoarthritis, left knee. POSTOPERATIVE DIAGNOSIS: Osteoarthritis, left knee. PROCEDURE: Left total knee arthroplasty. INDICATIONS: The patient is a 74-year-old gentleman with advanced osteoarthritis of the left knee. He has failed conservative management and would like to proceed with a left total knee replacement. The risks and benefits of the procedure have been thoroughly explained. All of his questions have been answered. He states he understands and wishes to proceed. PROCEDURE IN DETAIL: The patient was brought to the operating room and placed under general anesthetic. He received prophylactic antibiotics, a regional block and tranexamic acid in the holding area. His left lower extremity was prepped and draped in a sterile manner. A preoperative time-out was performed. The extremity was exsanguinated and a proximal tourniquet was inflated to 300 mmHg. An anterior approach with a medial parapatellar arthrotomy was performed. Clear synovial fluid was removed from the joint. Soft tissue releases were performed to bring the knee up into flexion with the patella everted. Meniscal remnants, marginal osteophytes and the cruciate ligaments were removed. A Rene/Biomet Persona medial congruent knee system was used throughout the case. The proximal tibia was resected using an extramedullary cutting guide. The cut was referenced off the most affected medial compartment. The tibial base plate was sized at F component. The central fin punch was drilled and impacted. Attention was directed towards the distal femur. An intramedullary cutting guide was used to resect the distal femur in 6 degrees of valgus and rotation referencing off a combination of landmarks including Whitesides line, the epicondylar axis, and the posterior condyles. The femoral component was a size 9. The anterior and posterior cuts were made. A trial reduction was performed. A 10 mm medial congruent tibial insert provided appropriate soft tissue balancing in full extension and 90 degrees of flexion. The patella was resurfaced with a 32 mm patellar button. The thickness was checked before and after resurfacing and was right at 24 mm. Patellar tracking was noted to be concentric. The trial implants were removed. A 100 mL premixed pericapsular KRISTINE injection was then placed into the surrounding soft tissue. The knee was thoroughly irrigated with a shower tip pulsatile lavage. All bone cuts had been irrigated with a spray mixture of diluted polymyxin and vancomycin spray. The components were cemented into place using a single mix of high viscosity Biomet cement preloaded with antibiotics. Care was taken to remove extravasated cement. The wound was further irrigated while the cement cured. The arthrotomy was then closed after sprinkling 500 mg of vancomycin powder into the wound. The knee was put through flexion and extension to ensure a secure closure of the arthrotomy. The skin was closed with subcuticular Vicryl and mel. A sterile Aquacel bandage was applied. The patient was extubated and transported to the recovery room in stable condition. Blood loss was minimal. All needle and sponge counts were correct. Saleem Galvez MD DR/JOSE /[id number]
--- NOTE | 2020-02-24 13:26 | Diagnostic Imaging Report ---
Exam: Left knee radiographs-2 views History: Postoperative Comparison: None. Findings/Impression: Status post left total knee arthroplasty and patellar resurfacing with intact hardware. Alignment is unremarkable. No evidence of fracture. Overlying soft tissue edema, air, and skin mel, compatible with recent surgery. Mild deformity of the fibular head may reflect sequela of remote trauma. Scattered atherosclerotic vascular calcifications in the distal superficial femoral artery. Signed by: Dr. Janelle Perez MD on 02/24/2020 1:23 PM
[2020-02-24] MEDS ORDERED: HYDROCODONE/APAP 5MG-325MG TAB ONE (14:05)
[2020-02-24] MEDS ORDERED: BUPIVACAINE HCL 0.5% INJ 30 ML VIAL INJ ONE (14:42)
[2020-02-24] MEDS ORDERED: EPINEPHRINE HCL 1:1000 1ML 1 MG/ML AMP ONE (14:42)
--- NOTE | 2020-02-24 15:03 | NUR ---
Pt received from PACU at this time. Pt had a left total knee done by Dr. Galvez. Pt aox3 and able to verbalize needs. Pt states pain is 4 to left knee. Dressing to left knee id dry and intact.
[2020-02-24] MEDS ORDERED: ACETAMINOPHEN 1000 MG/100 ML IV PRN (16:00)
[2020-02-24 16:01] VITALS: BP 114/56
[2020-02-24] MEDS ORDERED: SODIUM CHLORIDE 0.9% 250ML 250 ML ONE (16:25)
[2020-02-24 16:56] VITALS: BP 120/70
[2020-02-24] MEDS: ASPIRIN 325 MG TAB PO SCH (17:02)
[2020-02-24] MEDS: CEFAZOLIN SOD 1 GM/NS 50ML 50 ML IV SCH (17:02)
[2020-02-24] MEDS: CELECOXIB 100 MG CAP PO SCH (17:02)
[2020-02-24] MEDS ORDERED: DEXTROSE 50% SYRINGE 50 ML IV PRN (17:45)
[2020-02-24] MEDS: INSULIN REGULAR, HUMAN 100 UNIT/1 ML 3ML VIAL SQ SCH ×2 (17:50→21:11)
--- NOTE | 2020-02-24 19:15 | NUR ---
RECEIVED REPORT FROM PREVIOUS NURSE. CALL LIGHT WITHIN REACH. PATIENT IN BED.
[2020-02-24 20:00] VITALS: BP 120/70
[2020-02-24 20:30] VITALS: BP 120/70
[2020-02-24] MEDS ORDERED: ZOLPIDEM TARTRATE 5 MG TAB PO PRN (21:00)
[2020-02-24] MEDS ORDERED: INSULIN REGULAR, HUMAN 100 UNIT/1 ML 3ML VIAL SQ SCH (21:00)
[2020-02-25] VITALS: BP 117/58
[2020-02-25] MEDS: CEFAZOLIN SOD 1 GM/NS 50ML 50 ML IV SCH ×2 (02:10→08:58)
[2020-02-25 04:00] VITALS: BP 115/52
[2020-02-25 05:16] LABS: HEMATOCRIT 35.9 % (38.2-49.6); HEMOGLOBIN 11.4 g/dL (14.0-18.0)
--- NOTE | 2020-02-25 07:16 | NUR ---
GAVE BEDSIDE SHIFT REPORT TO ONCOMING NURSE. CALL LIGHT WITHIN REACH. PATIENT IN BED. HOURLY ROUNDING PERFORMED.
[2020-02-25 07:32] VITALS: BP 120/96
[2020-02-25] MEDS: INSULIN REGULAR, HUMAN 100 UNIT/1 ML 3ML VIAL SQ SCH ×2 (08:00→12:00)
[2020-02-25 08:03] VITALS: BP 120/96
--- NOTE | 2020-02-25 08:17 | NUR ---
DR TALAMANTES OFFICE PREARRANGED FOLLOWING DISCHARGE PLAN OF:HOME TO [address] [address] [facility] WITH [facility] CONFIRMED WITH [facility] [phone] DME 3 IN ONE COMMODE, CPM AND ROLLING WALKER WITH WHEELS. PROVIDED BY [employer] [phone] HEATHER SIGNED AND ON CHART COPY LEFT WITH PATIENT GAVE CARD FOR QUESTIONS AND OR CONCERNS.
[2020-02-25] MEDS: CELECOXIB 100 MG CAP PO SCH (08:58)
[2020-02-25] MEDS: ASPIRIN 325 MG TAB PO SCH (08:58)
[2020-02-25 11:29] VITALS: BP 112/48
--- NOTE | 2020-02-25 12:33 | Consultation ---
DATE OF CONSULTATION: HISTORY: A 74-year-old patient comes in with left knee osteoarthritis, status post surgery, total knee replacement by Dr. Galvez. Doing well. No complaints. The patient is progressing well and is on the CPM machine at this time. PAST MEDICAL HISTORY: History of hypertension, history of hyperlipidemia, history of diabetes mellitus, history of obesity, history of sleep apnea, history of generalized osteoarthritis. The patient also has history of vertigo. MEDICATIONS: Vitamin B12 once a day, furosemide 40 mg daily, gabapentin 100 mg twice a day, hydralazine 50 mg twice a day, lactobacillus once a day, losartan/hydrochlorothiazide 50/12.5, omeprazole 40 mg, pantoprazole 40 mg, simvastatin 10 mg at nighttime. SOCIAL HISTORY: No EtOH. No IV drug abuse. No history of smoking either. REVIEW OF SYSTEMS: Negative for chest pain. No shortness of breath. No nausea, vomiting, or diarrhea. No constipation. No rectal bleeding. No hematochezia. No hematemesis. No diplopia. No blurry vision. No headache. Positive for pain, which is controlled with narcotics at this time. PHYSICAL EXAMINATION: VITAL SIGNS: Temperature is 97.9, pulse of 61, respirations of 18, blood pressure is 115/52. HEENT: Normocephalic, atraumatic. Pupils are reactive. CVS: S1 and S2 normal. Regular rate and rhythm. ABDOMEN: Soft, nontender, nondistended. EXTREMITIES: No clubbing, no cyanosis, no edema. Left lower extremity in the CPM machine and also no streaking. Bandage is clean and no signs of fluid discharge. LABORATORY VALUES: Hemoglobin and hematocrit post surgery are 11.5 and 35.9. ASSESSMENT: Mr. Shaw with left knee osteoarthritis, status post left total replacement. PLAN: Continue with postsurgical medications. Currently, the patient has one dose of cefazolin, insulin sliding scale was instituted. The patient is on Celebrex 200 mg twice a day, 325 mg twice a day of aspirin and also the patient is running ketorolac as needed. Zolpidem was given. The patient's blood pressure is well controlled. We will not give the patient at this time. We will restart EVANS inhibitor in about a week's time if needed. Continue to monitor the patient. Further recommendation per clinical course and depending on surgery, patient can be discharged today, medically cleared to be discharged today, to be followed up in clinic in about a week's time. MD OSCAR Madrigal/MODL /[id number]
--- NOTE | 2020-02-25 13:23 | NUR ---
Pt discharged home at this time. Home health set up prior to discharge. Pt verbalized understanding of all discharge instructions and follow up appointments. Pt was discharged with bedside commode, walker and CPM.
[2020-02-25] MEDS ORDERED: ONDANSETRON HCL INJ 2MG/ML 2ML 2 MG/ML VIAL IV ONE (13:26)
[2020-02-25] MEDS ORDERED: SEVOFLURANE INHAL SOLN 250 ML PEN BTL INH ONE (13:26)
[2020-02-25] MEDS ORDERED: PROPOFOL IV EMULSION 10 MG/ML 20 ML VIAL IV ONE (13:26)
[2020-02-25] MEDS ORDERED: LIDOCAINE HCL 2% LOCAL INJ 5 ML SDV VIAL INJ ONE (13:26)
[2020-02-25] MEDS ORDERED: ONDANSETRON HCL 4 MG ORAL DISINTEGRATING TAB PO PRN (13:30)
== END 2020-02-25 13:27 | disposition home health service (06) ==
LOC: OR 07:33 → PACU V 11:11 → MED/SURG 15:26
PROVIDERS: ADMIT Specialist; ATTEND Specialist
DX: M17.12 Unilateral primary osteoarthritis, left knee (principal); I10 Essential (primary) hypertension; Z11.59 Encounter for screening for other viral diseases; Z01.812 Encounter for preprocedural laboratory examination
CPT/HCPCS: 27447; 36415 ×2; 73560; 82948 ×2; 85014; 85018; 86850; 86900; 86920; 97110; 97116 ×2; 97161; C1713; C1776 ×4; G0378 ×2; J0171; J0690 ×2; J1100; J1170; J1817; J1885; J2001; J2405; J2704; J2795; J3010; J3370; J7040; J7050; U0002

== ENCOUNTER → 2020-03-04 | Outpatient (CLI) | payer MEDICARE, OTHER ==
[~2020-03-04] MED LIST changes: -BACITRACIN 50,000 UNIT VIAL ONE; -SODIUM CHLORIDE 0.9% 500ML 500 ML ONE; -TRANEXAMIC ACID 1,000 MG/10 ML ML ONE; -VANCOMYCIN HCL 1,000 MG ONE
== END ==
LOC: RAD 15:51
PROVIDERS: ATTEND Specialist
DX: R22.42 Localized swelling, mass and lump, left lower limb (principal)
CPT/HCPCS: 93971

== ENCOUNTER 2020-03-19 16:38 | Emergency (ER) | payer MEDICARE, OTHER ==
[~2020-03-19] VITALS: Ht 177.8 cm; Wt 104.3 kg
[2020-03-19] MEDS ORDERED: AUGMENTIN 875-1 EACH PO (17:09)
--- NOTE | 2020-03-19 17:10 | Emergency Department Note ---
History of Present Illnes History of Present Illness Chief Complaint: rgt ear pain History of Present Illness This is a 74 year old male. was doing well prior to this Historian: Patient Arrival Mode: Car History limited by: condition of the patient (normal) Onset (how long ago): week(s) (1) Location: rgt ear Quality: sharp Radiation: Reports non-radiation Severity: moderate Onset quality: gradual Duration (how long): week(s) (1) Timing of current episode: constant Progression: unchanged Context: Denies recent illness, Denies recent surgery, Denies recent immobilization, Denies recent travel, Denies trauma/injury, Denies new medications, Denies hx of DVT/PE, Denies non-compliance w/ medications Relieving factors: none Exacerbating factors: none Associated symptoms: Reports denies other symptoms Treatments prior to arrival: none Past Medical/Family History Physician Review I have reviewed the patient's past medical and family history. Any updates have been documented here. Past Medical History Recent Fever: No Clinical Suspicion of Infectio: No New/Unexplained Change in Ment: No Past Medical History: Hypertension, Diabetes, GERD, Hyperlipedemia Other Medical History: BPH, chronic rgt tm perforation diverticulitits neuropathy Past Surgical History: Cholecysctectomy, Knee Replacement Other Surgery: Carpal tunnel release varicose vein stripping left knee torn miniscus repair deviated septum repair cholecystectomy Social History Smoking Cessation: Former smoker Counseling Performed: No Alcohol Use: None Any Illegal Drug Use: No Other Last Tetanus: UTD Any Pre-Existing Lines (PICC,: No Review of Systems Review of Systems Constitutional: Reports no symptoms EENTM: Reports as per HPI Cardiovascular: Reports no symptoms Respiratory: Reports no symptoms Gastrointestinal: Reports no symptoms Genitourinary: Reports no symptoms Musculoskeletal: Reports no symptoms Integumentary: Reports no symptoms Neurological: Reports no symptoms Psychological: Reports no symptoms Endocrine: Reports no symptoms Hematological/Lymphatic: Reports no symptoms Review of other systems: All other systems negative Physical Exam Related Data Allergies: Coded Allergies: diltiazem (Verified Allergy, Unknown, 08/04/09) Triage Vital Signs Vital Signs Date Time Temp Pulse Resp B/P (MAP) Pulse Ox O2 Delivery O2 Flow Rate FiO2 03/19/20 16:43 99.3 80 15 140/64 97 Room Air Vital signs reviewed: Yes Physical Exam CONSTITUTIONAL Constitutional: Present well-developed, Present well-nourished HENT HENT: Present normocephalic, Present atraumatic, Present oropharynx clear/moist, Present nose normal HENT L/R: Present left ext ear normal, Present right ext ear normal, Present right bulging TM, Present other (rgt tm erythema) EYES Eyes: Reports PERRL, Reports conjunctivae normal NECK Neck: Present ROM normal PULMONARY Pulmonary: Present effort normal, Present breath sounds normal CARDIOVASCULAR Cardiovascular: Present regular rhythm, Present heart sounds normal, Present capillary refill normal, Present normal rate GASTROINTESTINAL Abdominal: Present soft, Present nontender, Present bowel sounds normal GENITOURINARY Genitourinary: Present exam deferred SKIN Skin: Present warm, Present dry MUSCULOSKELETAL Musculoskeletal: Present ROM normal NEUROLOGICAL Neurological: Present alert, Present oriented x 3, Present no gross motor or sensory deficits PSYCHOLOGICAL Psychological: Present mood/affect normal, Present judgement normal Assessment & Plan Medical Decision Making MDM see below Assessment & Plan Final Impression: (1) Otitis media Depart Disposition: HOME, SELF-CARE Last Vital Signs Date Time Temp Pulse Resp B/P (MAP) Pulse Ox O2 Delivery O2 Flow Rate FiO2 03/19/20 16:43 99.3 80 15 140/64 97 Room Air Home Meds Active Scripts Ibuprofen (MOTRIN) 800 Mg Tab, 800 MG PO Q6H PRN for MODERATE PAIN (4-6), #20 TAB Prov:ARACELI SRIVASTAVA 03/19/20 Amoxicillin/Potassium Clav (AUGMENTIN 875-125 TABLET) 1 Each Tablet, 875 MG PO Q12H, #20 TAB Prov:ARACELI SRIVASTAVA 03/19/20 Reported Medications Furosemide (FUROSEMIDE) 40 Mg Tablet, PO DAILY, #30 TAB 02/18/20 Gabapentin (GABAPENTIN) 100 Mg Capsule, PO BID 02/18/20 Stem-3 Fatty Acids/Fish Oil (OMEGA 3 1,000 MG SOFTGEL) 1 Each Capsule, 1 TAB PO DAILY 02/18/20 Omeprazole (OMEPRAZOLE) 40 Mg Capsule.dr, 40 MG PO DAILY 02/18/20 [Vitamin D] No Conflict Check, PO DAILY 02/18/20 Cyanocobalamin (Vitamin B-12) (VITAMIN B-12) 1,000 Mcg Tab.subl, 1000 MCG PO RODRIGO LY 02/18/20 Lactobac Cmb #3/Fos/Pantethine (PROBIOTIC & ACIDOPHILUS CAP) 1 Each Capsule, TAB PO HS 02/01/19 Hydralazine Hcl (HYDRALAZINE HCL) 25 Mg Tab, 50 MG PO BID, TAB 02/01/19 Simvastatin (Simvastatin) 10 Mg Tablet, 20 MG PO HS 01/09/11 Pantoprazole Sodium (Protonix) 40 Mg Tablet.dr, 10 PO DAILY 01/09/11 Losartan/Hydrochlorothiazide (Losartan-Hctz 50-12.5 Mg Tab) 1 Each Tablet, MG PO DAILY 01/09/11 ARACELI SRIVASTAVA Mar 19, 2020 17:09
[2020-03-19] MEDS ORDERED: MOTRIN800 MG PO (17:13)
--- OUTSIDE RECORDS SUMMARY | 2020-03-19 17:33 | XMS REPORT | Clinical Summary ---
Author Author [facility] Organization [facility] Address Unknown Phone Unavailable Care Team Providers Care Finished Goods Inspector Name Role Phone PCP Unavailable Allergies Not on File Medications Not on file Active Problems Not on file Encounters Care Team Description Date Type Specialty Ruiz Edward MD Lumbar pain (Primary Dx) 04/30/2019 Transcribe Physical Therapy Orders after 03/19/2019 Social History Date Tobacco Use Types Packs/Day [...] (1 of 2 - PCV13) INFLUENZA VACCINE 04/16/2020 Results Not on fileafter 03/19/2019 Insurance Type Payer Benefit Subscriber ID Effective Phone Address Plan / Dates Group Medicare MEDICARE MEDICARE xxxxxxxxxxx 2010-P PRICE, PART A AND resent [place] B HMO AETNA AETNA xxxxxxxxxx 2018-P HMO,POS,EP resent [place], [place]/[employer] [address] [place] ([place]) [place] [id number] Advance Directives For more information, please contact: [phone] 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
--- OUTSIDE RECORDS SUMMARY | 2020-03-19 17:34 | XMS REPORT | Continuity of Care Document ---
Author Author [facility] t Organization [facility] Address [address] [place] [address] Phone Unavailable Care Team Providers Care Vice President Fixed Income Name Role Phone MD Tonya WATT MD PCP DAYAMI MANZANO Attphys Unavailable Tonya CHAMPAGNE Attphys Unavailable Milla Valle Attphys Billy Edward MDr Attphys Billy Edward Amir Attphys Tonya WATT Attphys Unavailable Courtney Scruggs Attphys ESPERANZA SCRUGGS Attphys Unavailable Grant Montoya Attphys Tonya Edward Attphys Dunia Gonzalez Attphys DAYAMI MANZANO Admphys Unavailable Tonya WATT Admphys Unavailable Tonya Edward Admphys Payers Payer Name Policy Type Policy Number Effective Date Expiration Date Tonya Roberts Ppo [id number] 2018 00:00:00 [facility] Medicare A & B [id number] 2010 00:00:00 [facility] Cdc Review Covid19 [id number] [facility] MEDICAREMEDICARE PART A AND Bxxxxxxxxxxx2010-[place] 2010 00:00:00 Idnra Acharya AETNAAETNA HMO,POS,EPO, MC/ECxxxxxxxxxx2018-PresentHMO xxxxxxxxxx 2018 00:00:00 Indra Jenkinsist Problems Condition Name Condition Details Condition Category Status Onset Date Resolution Date Last Treatment Date Treating Clinician Comments Source SI DYSFUNCTION SI D YSFUNCTION Active 04/05/2019 [facility] Diagnosis Active 2019-04-05 00:00:00 2019-04-11 15:12:00 [facility] DX: R74.0=NONSPECIFIC ELEVATION OF LEVEL DX: R74.0=NONSPECIFIC ELEVATION OF LEVEL Active 05/28/2018 [facility] Diagnosis Active 2018-05-28 00:00:00 2018-06-04 06:57:00 [facility] PETERSON'S DISEASE EDWARD ETT'S DISEASE Active 05/23/2018 [facility] Diagnosis Active 2018-05-23 00:00:00 2018-08-03 15:02:00 [facility] CERVICAL SPONDYLOSIS, HNP, CERVICAL STEN CERVICAL SPONDYLOSIS, HNP, CERVICAL STEN Active 08/25/2017 [facility] Diagnosis Active 2017-08-25 00:00:00 2017-08-31 20:33:00 [facility] 715.90 - OSTEOARTHROS NO 715. 90 - OSTEOARTHROS NO Active 10/09/2013 [facility] [place] Diagnosis Active 2013-10-09 00:01:00 2013-10-17 07:15:00 [facility] Infection due to severe acute respiratory syndrome coronavir us 2 (SARS-CoV-2) Problem Active [facility] Nonspecific elevation of levels of trans aminase and lactic acid dehydrogenase [LDH] Nonspecific elev ation of levels of transaminase and lactic acid dehydrogenase [LDH] 12/23/2018 [facility] Problem 2018-12-23 11:11:03 [facility] Fatty (change of) liver, not elsewhere classified Fatty (change of) liver, not elsewhere classified 12/23/2018 [facility] Problem 2018-12-23 11:11:03 [facility] Type 2 diabetes mellitus without complications Type 2 diabetes mellitus without complications 12/23/2018 [facility] Problem 2018-12-23 11:11:03 Angeline Patel Essential (primary) hypertension Essential (primary) hypertension 12/23/2018 [facility] Problem 2018-12-23 11:11:03 Angeline Patel Other specified diseases of liver Other specified diseases of liver 12/23/2018 [facility] Problem 2018-12-23 11:11:03 Angeline Patel Cyst of kidney, acquired Cyst of kidney, acquired 12/23/2018 [facility] 2018-12-23 11:11:03 Angeline Patel Liver disease, unspecified Prema er disease, unspecified 12/23/2018 [facility] Problem 2018-12-23 11:11:0 3 Angeline Patel Dietary counseling and surveillance Dietary counseling and surveillance 12/23/2018 [facility] 2018-12-23 11:11:03 Angeline Patel Family history of malignant neoplasm of digestive orga ns Family history of malignant neoplasm of digestive organs 12/23/2018 [facility] 2018-12-23 11:11:03 Linda Patel Cervical disc disorder at C5-C6 level with myelopathy Cervical disc disorder at C5-C6 level with myelopathy 12/07/2017 [facility] 2017-12-07 12:51:51 Uday Patel Type 2 diabetes mellitus with diabetic neuropathy, uns pecified Type 2 diabetes mellitus with diabetic neuropathy, unspecified 12/07/2017 [facility] 2017-12-07 12:51:51 Angeline [place] Acute posthemorrhagic anemia A cute posthemorrhagic anemia 12/07/2017 [facility] Problem 2017-11-15 4 12:51:51 Angeline Jorge Spinal stenosis, cervical region Spinal stenosis, cervical region 12/07/2017 [facility] 2017-12-07 12:51:51 [facility] Hyperlipidemia, unspecified Hy perlipidemia, unspecified 12/07/2017 [facility] Problem 2017-12-07 1 2:51:51 Angeline Madison Obstructive sleep apnea (adult) (pediatric) Obstructive sleep apnea (adult) (pediatric) 12/07/2017 [facility] 2017-12-07 12:51:51 Angeline 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 12/07/2017 [facility] 2017-12-07 12:51:51 Angeline Jorge Gastro-esophageal reflux disease without esophagitis Gastro-esophageal reflux disease without esophagitis 12/07/2017 [facility] 2017-12-07 12:51:51 Uday Patel Elevated white blood cell count, unspecified Elevated white blood cell count, unspecified 12/07/2017 [facility] 2017-12-07 12:51:51 Angeline taylor Gastric ulcer (disorder) Susan liliana ulcer (disorder) Resolved Problem 07/07/2019 [facility], [facility] [place], [facility] [place] Problem Resolved 2019-07-07 00:17:36 [facility] Cervical spondylosis (disorder) Cervical spondylosis (disorder) Active Problem 07/07/2019 [facility] [place], [facility] [place] Problem Active 2019-07-07 00:17:36 [facility] Degeneration of cervical intervertebral disc (disorder ) Degeneration of cervical intervertebral disc (disorder) Active Problem 07/07/2019 [facility] [place], [facility] [place] Problem Active 2019-07-07 00:17:36 [facility] Diabetes mellitus (disorder) D iabetes mellitus (disorder) Active Problem 07/07/2019 [facility] [place], [facility] [place],[facility], [facility] [place] Problem Active 2019-07-07 00:17:36 [facility] Diabetic neuropathy (disorder) Diabetic neuropathy (disorder) Active Problem 07/07/2019 [facility] [place], [facility] [place] Problem Active 2019-07-07 00:17:36 [facility] Diarrhea (finding) Diar giovanni (finding) Active Problem 07/07/2019 [facility] [place], [facility] [place],[facility], [facility] [place] Problem Active 2019-07-07 00:17:36 [facility] Diverticular disease (disorder) Diverticular disease (disorder) Active Problem 07/07/2019 [facility] [place], [facility] [place] Problem Active 2019-07-07 00:17:36 [facility] Large prostate (finding) Larg e prostate (finding) Active Problem 07/07/2019 [facility] [place], [facility] [place],[facility], [facility] [place] Problem Active 2019-07-07 00:17:36 [facility] Gastroesophageal reflux disease (disorder) Gastroesophageal reflux disease (disorder) Active Problem 07/07/2019 [facility] [place] [place] [place] Problem Active 2019-07-07 00:17:36 Uday rial Jorge Hearing loss (finding) Hear ing loss (finding) Active Problem 07/07/2019 [facility]AL [facility] [place], [facility] [place] Problem Active 2019-07-07 00:17:36 [facility] Herniation of nucleus pulposus (disorder) Herniation of nucleus pulposus (disorder) Active Problem 07/07/2019 [facility] [place], [facility] [place] Problem Active 2019-07-07 00:17:36 [facility] Hypertensive disorder, systemic arterial (disorder) Hypertensive disorder, systemic arterial (disorder) Active Problem 07/07/2019 [facility] [place] [place] [place] Problem Active 2019-07-07 00:17:36 [facility] Hyperlipidemia (disorder) Hype rlipidemia (disorder) Active Problem 07/07/2019 [facility] [place] [place], [facility] [place] Problem Active 2019-07-07 00:17:36 [facility] Irritable colon (disorder) Irr itable colon (disorder) Active Problem 07/07/2019 [facility] [place], [facility] [place] Problem Active 2019-07-07 00:17:36 [facility] Obstructive sleep apnea syndrome (disorder) Obstructive sleep apnea syndrome (disorder) Active Problem 07/07/2019 [facility] [place], [facility] [place] Problem Active 2019-07-07 00:17:36 [facility] Osteoarthritis (disorder) Oste oarthritis (disorder) Active Problem 07/07/2019 [facility] [place], [facility] [place] Problem Active 2019-07-07 00:17:36 [facility] Paresthesia (finding) Pare sthesia (finding) Active Problem 07/07/2019 BILATERAL FINGERS [facility], [facility] [place] [place], [facility] [place] Problem Active 2019-07-07 00:17:36 Angeline Patel Radiculitis (disorder) Radi culitis (disorder) Active Problem 07/07/2019 [facility] [place] [place], [facility] [place] Problem Active 2019-07-07 00:17:36 Uday Patel Spinal stenosis in cervical region (disorder) Spinal stenosis in cervical region (disorder) Active Problem 07/07/2019 [facility] [place] [place], [facility] [place] Problem Ac tive 2019-07-07 00:17:36 [facility] Her taylor 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 Problem 07/07/2019 LEFT EYE [facility] [place] [place], [facility] [place] Problem Active 2019-07-07 00:17:36 [facility] Vertigo (finding) Vert igo (finding) Active Problem 07/07/2019 [facility], [facility] [place] [place], [facility] [place] Problem Active 2019-07-07 00:17:36 [facility] Diabetic Polyneuropathy Diab etic Polyneuropathy Active 11/06/2013 [facility] Problem Active 2013-11-06 17:03: 00 [facility] Diabetes With Neurological Complications Diabetes With Neurological Complications Active 11/06/2013 [facility] Problem Active 2013-11-06 17:03:00 [facility] Diabetes Mellitus Diab etes Mellitus Active 11/06/2013 [facility] Problem Active 2013-11-06 17:03:00 [facility] Hypertension Hype rtension Active 11/06/2013 [facility] Problem Active 2013-11-06 17:03:00 [facility] Mixed Hyperlipoproteinemia Mix ed Hyperlipoproteinemia Active 11/06/2013 [facility] Problem Active 2013-11-06 17:03: 00 Angeline Patel Hypogonadism Hypo gonadism Active 11/06/2013 [facility] Problem Active 2013-11-06 17:03:00 Angeline Patel Fatty Liver Fatt y Liver Active 11/06/2013 [facility] Problem Active 2013-11-06 17:03:00 Uday Patel Fatigue Fati cinthya Active 11/06/2013 [facility] Problem Active 2013-11-06 17:03:00 Angeline Patel Osteoarthritis Oste oarthritis Active 11/06/2013 [facility] Problem Active 2013-11-06 17:03:00 Angeline Patel Datatype(DG1.4)- Data type(DG1.4)- Active [facility] Diagnosis Active 2018-06-04 06:57:00 Angeline Patel IRRITABLE BOWEL SYNDROME WITHOUT DIARRHE IRRITABLE BOWEL SYNDROME WITHOUT DIARRHE Active [facility] Diagnosis Active 2018-08-03 15:02:00 Angeline Patel Irritable bowel syndrome without diarrhea Irritable bowel syndrome without diarrhea 08/26/2018 03/11/2019 [facility] [place] Problem 2018-08-26 03:56:48 2019-03-11 11:21:58 2019-03-11 11:21:58 Angeline Patel Abnormal levels of other serum enzymes Abnormal levels of other serum enzymes 06/09/2018 12/23/2018 [facility] Problem 2018-06-09 03:56:06 2018-12-23 11:11:03 2018-12-23 11:11:03 Linda Patel Other spondylosis with myelopathy, cervical region Other spondylosis with myelopathy, cervical region 09/15/2017 12/07/2017 [facility] 2017-09-15 03:57:34 2017-12-07 12:51: 51 2017-12-07 12:51:51 Angeline Patel History of Past Illness Condition Name Condition Details Condition Category Status Onset Date Resolution Date Last Treatment Date Treating Clinician Comments Source Concussion with less than 1 hour loss of consciousness (disorder) Concussion with less than 1 hour loss of consciousness (disorder) Resolved 07/17/2005 Problem 07/07/2019 [facility] [place], [facility] [place] Problem Resolved 2005-07-17 00:00:00 2019-07-07 00:17:36 2019-07-07 00:17:36 Angeline taylor Allergies, Adverse Reactions, Alerts Allergy Name Allergy Type Status Severity Reaction(s) Onset Date Inacti ve Date Treating Clinician Comments Source Cardizem Cardizem Active [facility] Cardizem [place] TB24 Cardizem [place] TB24 Active [facility] Family History Family Member Diagnosis Comments Start Date Stop Date Source Unknown Family Member Family History 2012-07-10 08:03:13 2 08:03:13 [facility] Social History Social Habit Start Date Stop Date Quantity Comments Source Sex Assigned At Andres Acharya Social History 2013-11-06 17:03:00 2013-11-06 17:03:00 [facility] Medications Ordered Medication Name Filled Medication Name Start Date Stop Da te Current Medication? Ordering Clinician Indication Dosage Frequency Signature (SIG) Comments Components Source Azithromycin (Z-Los) 250 Mg TABLET Azithromycin (Z-Los) 250 Mg TABLET 2020-01-20 11:58:00 2020-02-18 00:00:[address] [facility] Dexamethasone (Decadron) 6 Mg TABLET Dexamethasone (Decadron ) 6 Mg TABLET 2020-01-20 11:58:00 2020-02-18 00:00:[address] [facility] Cefazolin 2019-04-10 18:18:00 No Notes: Leonardo contreras as: Ancef Angeline Patel Lactated Ringers IV 1,000 mL 2019-04-10 18:18:00 No 1,000 mL, Rate: 40 ml/hr, Infuse over: 25 hr, Route: IV, Dosing Weight 93.182 kg, Total Volume: 1,000, Start date: 04/10/19 13:18:00 CDT, Duration: 30 day, Stop date: 05/10/19 13:17:00 CDT, 2.16, m2, 0 Angeline Torres nn Vitamin B-50 oral tablet 2019-04-10 17:03:00 Yes 1, PO, Daily, 0 Refill(s) Angeline Patel Diazepam 10 MG Oral Tablet [Valium] 2017-09-01 00:17:00 No 10 mg = 1 tab, PO, Bedtime, PRN Anxiety, X 7 day, # 30 tab, 0 Refill(s), given to patient Angeline Patel tramadol hydrochloride 50 MG Oral Tablet 2017-09-01 00:17:00 No 50 mg = 1 tab, PO, Q8H, PRN Pain, X 14 day, # 50 tab, 0 Refill(s) Angeline Patel Docusate Sodium 100 MG Oral Capsule 2017-08-31 23:40:00 Yes 100 mg = 1 cap, PO, BID, # 28 cap, 0 Refill(s), Pharmacy: [address] POLYETHYLENE GLYCOL [id number] 142 MG/ML Oral Solution [Miralax] 2017-08-31 23:40:00 No 17 gm, PO, Daily, X 15 day, # 255 gm, 0 Refill(s), Pharmacy: [address] Dexamethasone 2017-08-31 23:00:00 No Notes: Give with food. (Same As: Decadron) [facility] Cozaar 2017-08-31 15:00:00 No Notes: (Same as: Cozaar) [facility] Januvia 2017-08-31 15:00:00 No Notes: Same as Ramona [facility] hydrochlorothiazide 25 mg oral tablet 2017-08-31 15:00:00 N o Notes: (Same as: Hydrodiuril) With food. Pippa nath [place] Hydrochlorothiazide 12.5 MG / Losartan Potassium 100 MG Oral Tablet 2017-08-31 15:00:00 No 1 tab, Rou te: PO, Drug Form: TAB, Dosing Weight 102.528, kg, Daily, Start date: 08/31/17 9:00:00 MOLD PARTER, Duration: 30 day, Stop date: 09/29/17 9:00:00 CDT [facility] glimepiride 2017-08-31 14:00:00 No Notes: Non-Formulary (Same as: Amaryl) [facility] Tums 2017-08-31 09:08:00 No Notes: (Same As: Tums) Calcium Carbonate 500 mg = 200 mg elemental calcium Dose = mg calcium carbonate ( mg elemental calcium) [facility] Benzocaine 15 MG / Menthol 3.6 MG Lozeng e [Cepacol Sore Throat Pain Relief 15/3.6] 2017-08-31 05:18:00 No Notes: Cepacol lozenges Dispense 1 box = 16 lozenges (Same As: Cepacol Lozenges) [facility] Simvastatin 2017-08-31 03:00:00 No Notes: ( Same as: Zocor) [facility] Dexamethasone 2017-08-31 00:00:00 No Notes: Concentration: 4mg/ml [facility] Hydralazine Hydrochloride 50 MG Oral Tablet 2017-08-30 23:00:00 No Notes: (Same as: Apresoline) May interfere w/enteral feedings Take With Food. Me estiven Patel gabapentin 600 MG Oral Tablet 2017-08-30 23:00:00 No Notes: (Same as: Neurontin) Angeline Patel Pepcid 2017-08-30 23:00:00 No Notes: (Same as: Pepcid) Angeline Patel Docusate Sodium 100 MG Oral Capsule 2017-08-30 23:00:00 No Notes: (Same as: Colace) (Do Not Crush) Maria L Patel Protonix 2017-08-30 22:30:00 No Notes: Tablet should not be chewed or crushed. (Same as: Protonix) Angeline Patel Cefazolin 2017-08-30 22:00:00 No Notes: Leonardo e as: Ancef Angeline Patel Dilaudid 2017-08-30 20:08:00 No Notes: Same as Dilaudid [facility] Robaxin 2017-08-30 19:56:00 No Notes: (Same as:Robaxin) [facility] Labetalol 2017-08-30 19:21:00 No 10 mg, 2 mL, Route: IV, Drug form: INJ, ONCE, Dosing Weight 102.528, kg, Start date: 08/30/17 13:21:00 MOLD PARTER, Stop date: 08/30/17 13:21:00 MOLD PARTER [facility] Her taylor Naloxone 2017-08-30 18:58:00 No Notes: Same as Narcan [facility] Hydromorphone 2017-08-30 18:58:00 No Notes: (Same as: Dilaudid) conc = 0.5 mg/ml Hydromorphone 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 (Same as: [place] 325/10) [facility] Morphine 2017-08-30 18:58:00 No Not es: (Same as:MORPhine Sulfate) [facility] Diphenhydramine 2017-08-30 18:58:00 No Notes: (Same as: Benadryl) [facility] Ondansetron 2017-08-30 18:58:00 No Notes: (Same as: Zofran) MEDICATION WASTE Product Size: 4 mg Product Wasted: ___ mg [facility] Acetaminophen 2017-08-30 18:58:00 No Notes: Do not exceed 4 gm/day. (Same as: Tylenol) [facility] Trazodone 2017-08-30 18:58:00 No Notes: (Sa me As: Desyrel) [facility] Insulin Lispro 2017-08-30 17:52:00 No Notes: (Same as: Humalog ) Roll in palms of hands gently; Do not shake `vigorously. "Single Patient Use Only " WASTE: F/P - Black; E - Municipal Trash Bin Stable for 28 days at room temperature. Expires in days from Date [facility] Glucagon 2017-08-30 17:52:00 No 1 mg, Route: IM, Drug form: PDR/INJ, PRN, Dosing Weight 102.528, kg, PRN Blood Glucose Results, Start date: 08/30/17 11:52:00 MOLD PARTER, Duration: 30 day, Stop date: 09/29/17 12:51:00 CDT [facility] Dextrose 50% Syringe 2017-08-30 17:52:00 No 25 gm, 50 mL, Route: IVP, Drug Form: INJ, Dosing Weight 102.528, kg, PRN, PRN Blood Glucose Results, Start date: 08/30/17 11:52:00 MOLD PARTER, Duration: 30 day, Stop date: 09/29/17 12:51:00 CDT [facility] Hydromorphone 2017-08-30 13:48:00 No Notes: Same as Dilaudid [facility] Morphine 2017-08-30 13:48:00 No Not es: (Same as:MORPhine Sulfate) [facility] Flumazenil 2017-08-30 13:48:00 No Notes: (S gris as: Romazicon) Angeline Patel Naloxone 2017-08-30 13:48:00 No Notes: Same as Narcan [facility] Ondansetron 2017-08-30 13:48:00 No Notes: (Same as: Zofran) MEDICATION WASTE Product Size: 4 mg Product Wasted: ___ mg [facility] Meperidine 2017-08-30 13:48:00 No Notes: (Same as: Demerol) "Use Precaution in Elderly, Seizure disorders, and Renal impairment" Angeline Patel Ancef 2017-08-30 12:28:00 No Notes: Same as : Maria D Patel gabapentin 600 MG Oral Tablet 2017-08-26 00:20:00 Yes 600 mg = 1 tab, PO, BID, 0 Refill(s) Angeline Torres nn Vitamin D3 1000 intl units oral capsule 2017-08-26 00:19:00 No 1,000 IntlUnit = 1 cap, PO, Daily, # 75 cap, 0 Refill(s) Angeline Patel Hydrochlorothiazide 12.5 MG / Losartan Potassium 100 MG Oral Tablet 2017-08-26 00:19:00 Yes 1 tab, PO, Daily, HOLD AM DOS , # 90 tab, 0 Refill(s) Angeline Patel Hydralazine Hydrochloride 50 MG Oral Tablet 2017-08-26 00:19:00 Yes 50 mg = 1 tab, PO, BID, TAKE AM DOS, 0 Refill(s) Angeline Madison Vitamin B12 1000 mcg oral tablet 2017-08-26 00:18:00 No 1,000 microgram = 1 tab, PO, Daily, # 100 tab, 0 Refill(s) Angeline Madison sitagliptin 100 MG Oral Tablet [Januvia] 2017-08-26 00:18:00 Yes 100 mg = 1 tab, PO, Daily, # 90 tab, 1 Refill(s) Angeline Patel [place]-3 Acid Ethyl Esters (PRISON) 1000 MG Oral Capsule [Lovaza ] 2017-08-26 00:18:00 No 4,000 mg = 4 cap, PO, Daily, 0 Refill(s) Angeline Madison glimepiride 1 mg oral tablet 2017-08-26 00:17:00 Yes 1 mg = 1 tab, PO, Breakfast, # 90 tab, 0 Refill(s) Osvaldo Moodyann omeprazole 40 mg oral delayed release capsule 2017-08-26 00:16:0 0 Yes 40 mg = 1 cap, PO, Daily, TAKE AM DOS, # 90 cap, 0 Refill(s) Angeline Jorge Omeprazole 40 MG Oral Capsule Delayed Release [...] 05:00:00 Yes ; Start Date: 02/06/2013 (Active) Angeilne IbarraStyle Lancets Miscellaneous 2012-07-05 06:00:00 Yes ; Start Date: 07/05/2012 (Active) Angeline valerio MetFORMIN HCl ER 750 MG Oral Tablet Extended Release 24 Hour 2012-07-05 06:00:00 Yes ; Start Date: 07/05/2012 (Act haritha) Angeline Trianayle Lite Test In Vitro Strip 2012-07-05 06:00:00 [...] Yes ; Start Date: 07/02/2012 (Active) Angeline Moodymeghan valerio Vitamin B-12 500 MCG Oral Tablet 2012-07-02 06:00:00 Yes ; Start Date: 07/02/2012 (Active) Angeline Melissa iman Testosterone Cypionate 200 MG/ML Intramuscular Oil 2012-06 [...] ; Start Date: 07/02/2012 (Active) Angeline Patel Cyanocobalamin (Vitamin B-12) (Vitamin B-12) 1,000 Mcg TAB.SUBL Cyanocobalamin (Vitamin B-12) (Vitamin B-12) 1,000 Mcg TAB.SUBL Yes [address] [facility] Furosemide Furosemide Yes Daily [facility] Gabapentin Gabapentin Yes Twice A Day [facility] Hydralazine Hcl Hydralazine Hcl Yes [address] [facility] Lactobac Cmb #3/Fos/Pantethine (Probiotic & Acidophilu s Cap) 1 Each CAPSULE Lactobac Cmb #3/Fos/Pantethine (Probiotic & Acidophilus Cap) [address] Yes Bedtime [facility] Losartan/Hydrochlorothiazide (Losartan-Hctz 50-12.5 Mg Tab) 1 Each TABLET Losartan/Hydrochlorothiazide (Losartan-Hctz 50-12.5 Mg Tab) [address] [facility] [place]-3 Fatty Acids/Fish Oil ([place] 3 1,000 Mg Softgel ) 1 Each CAPSULE [place]-3 Fatty Acids/Fish Oil ([place] 3 1,000 Mg Softgel) 1 Each CAPSULE Y es 1 Daily [facility] Omeprazole Omeprazole Yes 40 Daily [facility] Pantoprazole Sodium (Protonix) 40 Mg TABLET. Pantopr azole Sodium (Protonix) 40 Mg TABLET. Yes 10 Daily [facility] Simvastatin Simvastatin Yes [address] [facility] Vitamin D Vitamin D Yes Daily [facility] Amoxicillin/Potassium Clav (Augmentin 875-125 Tablet) 1 Each TABLET Amoxicillin/Potassium Clav (Augmentin 875-125 Tablet) 1 Each TABLET 2020-02-18 00:00:00 No 875 Twice A Day [facility] Vgitamin D Vgitamin D 2020-02-18 00:00:[address] [facility] Vitamin B Vitamin B 2020-02-18 00:00:[address] [facility] Dutasteride (Avodart) 0.5 Mg CAPSULE Dutasteride (Avodart) 0.5 M g CAPSULE 2019-02-01 00:00:00 [facility] Gabapentin Gabapentin 2019-02-01 00:00:00 [facility] Glimepiride (Amaryl) 4 Mg TABLET Glimepiride (Amaryl) 4 Mg TABLE T 2019-02-01 00:00:00 [facility] Inulin/Sorbitol (Fiber Choice Chewable Tablet) 1.5 Gm TAB.CHEW Inulin/Sorbitol (Fiber Choice Chewable Tablet) 1.5 Gm TAB.CHEW 2019-02-01 00:00:00 No Daily [facility] Metformin Hcl (Glucophage) 850 Mg TABLET Metformin Hcl (Glucophage) 850 Mg TABLET 2019-02-01 00:00:00 [facility] [place]-3 Acid Ethyl Esters (Lovaza) 1 Gm CAPSULE [place]- 3 Acid Ethyl Esters (Lovaza) 1 Gm CAPSULE 2019-02-01 00:00:00 [facility] Montelukast Sodium (Singulair) 10 Mg TABLET Montelukas t Sodium (Singulair) 10 Mg TABLET 2012-10-05 00:00:00 [facility] Aspirin (Aspir 81) 81 Mg TABLET. Aspirin (Aspir 81) 81 Mg ANDI CHAMPION 2012-10-04 00:00:00 [facility] Celecoxib (Celebrex) 200 Mg CAPSULE Celecoxib (Celebrex) 200 Mg CAPSULE 2012-10-04 00:00:00 [facility] Vital Signs Vital Name Observation Time Observation Value Comments Source Body Temperature 2020-02-25 11:29:00 98.1 [degF] [facility] Weight 2020-02-24 15:03:00 230 [lb_av] [facility] BMI (Body Mass Index) 2020-02-24 15:03:00 33.0 kg/m2 [facility] Weight 2020-01-20 06:25:00 216 [lb_av] [facility] BMI (Body Mass Index) 2020-01-20 06:25:00 31.0 kg/m2 [facility] Respitory Rate 2019-04-10 19:20:00 [facility] Systolic (mm Hg) 2019-04-10 19:20:00 Uday rial Jorge Diastolic (mm Hg) 2019-04-10 19:20:00 [facility] Respitory Rate 2019-04-10 19:05:00 [facility] Systolic (mm Hg) 2019-04-10 19:05:00 Uday rial [facility] Diastolic (mm Hg) 2019-04-10 19:05:00 [facility] Respitory Rate 2019-04-10 18:50:00 [facility] Systolic (mm Hg) 2019-04-10 18:50:00 [facility] Diastolic (mm Hg) 2019-04-10 18:50:00 [facility] Height 2019-04-08 18:53:00 177.8 cm [facility] Weight 2019-04-08 18:53:00 [facility] BMI Calculated 2019-04-08 18:53:00 [facility] Temperature Oral (F) 2017-08-31 21:30:00 98.6 F [facility] Heart Rate 2017-08-31 21:30:00 [facility] Systolic (mm Hg) 2017-08-31 21:30:00 Uday rial [facility] Diastolic (mm Hg) 2017-08-31 21:30:00 [facility] Respitory Rate 2017-08-31 21:30:00 [facility] Systolic (mm Hg) 2017-08-31 17:28:00 Uday [facility] Diastolic (mm Hg) 2017-08-31 17:28:00 [facility] Respitory Rate 2017-08-31 17:28:00 [facility] Heart Rate 2017-08-31 17:28:00 [facility] Temperature Oral (F) 2017-08-31 13:16:00 98.5 F [facility] Heart Rate 2017-08-31 13:16:00 [facility] Respitory Rate 2017-08-31 13:16:00 [facility] Systolic (mm Hg) 2017-08-31 13:16:00 Uday [facility] Diastolic (mm Hg) 2017-08-31 13:16:00 [facility] Temperature Oral (F) 2017-08-31 09:13:00 98.3 F [facility] BMI Calculated 2017-08-30 12:20:00 [facility] Weight 2017-08-30 12:20:00 [facility] Height 2017-08-25 22:31:00 177.8 cm [facility] Procedures Procedure Date / Time Performed Performing Clinician [facility] e Computed tomography of chest with contrast 2020-01-20 00:00:00 [facility] Fusion of joint of cervical spine with i nternal fixation by anterior approach<sup>1</sup> 2017-08-30 06:00:00 [facility] Cholecystectomy 2015-07-17 00:00:00 [facility] Eye repair 2013-07-17 00:00:00 [facility] Excision of cyst 2005-07-17 [facility] 1989-07-17 [facility] 1979-07-17 00:00:00 Udya Patel Plan of Care Planned Activity Planned Date Details Comments Source Future Scheduled Test 2020-04-16 00:00:00 INFLUENZA VACCINE [code = INFLUENZA VACCINE] [facility] Future Scheduled Test 2010 00:00:00 65+ PNEUMOCOCCAL V ACCINE (1 of 2 - PCV13) [code = 65+ PNEUMOCOCCAL VACCINE (1 of 2 - PCV13)] [facility] Future Scheduled Test 1995 00:00:00 COLONOSCOPY SCREEN ING [code = COLONOSCOPY SCREENING] [facility] Future Scheduled Test 1995 00:00:00 SHINGLES VACCINES (#1) [code = SHINGLES VACCINES (#1)] [facility] Instructions Post Operative Pain [facility] Encounters Start Date/Time End Date/Time Encounter Type Admission Type Att[facility] Care Department Encounter ID Source 2020-01-20 06:30:00 2020-01-20 12:25:00 Departed Emergency Room 1 IHSAN EVONNEONEL [facility] [id number] I [facility] 2019-07-04 11:28:00 2019-07-04 23:59:00 [facility] [id number] 2019-04-10 09:40:00 2019-04-10 23:59:00 Outpatient Hector Edward [facility] [id number] 2019-04-10 09:40:00 2019-04-10 09:40:00 Outpatient [id number] 2019-02-01 12:13:00 2019-02-11 10:44:00 Discharged Inpatient 3 SHUKRI NEOSHO [facility] [id number] [facility] 2019-01-28 15:02:00 2019-01-28 15:02:00 Registered Clinic 3 SHUKRI NEOSHO [facility] [id number] [facility] 2018-07-23 13:07:00 2018-08-21 23:59:00 Outpatient Esperanza Scruggs [facility] [id number] 2018-07-23 13:07:00 2018-08-21 23:59:00 Outpatient Esperanza Scruggs [facility] [id number] 2018-08-18 09:08:00 2018-08-18 09:39:00 Departed Emergency Room [facility] [id number] [facility] 2018-06-04 06:48:00 2018-06-04 23:59:00 Outpatient Esperanza Scruggs [facility] [id number] 2018-04-26 08:11:00 2018-04-26 08:11:00 Registered Clinic 3 ESPERANZA SCRUGGS [facility] [id number] [facility] 2017-12-28 09:09:00 2017-12-28 23:59:00 Outpatient Rosy Montoya [id number] 2017-11-27 13:00:00 2017-11-27 13:00:00 Registered Clinic 3 ARTHUR WATT [facility] [id number] [facility] 2017-08-30 06:16:00 2017-08-31 19:50:00 Outpatient Ruiz Edward [facility] [id number] 2013-11-06 12:03:00 2013-11-06 12:03:00 Outpatient [facility]IE [facility] [id number] 2013-11-04 18:00:58 2013-11-04 18:00:57 Outpatient MHIE [facility] [id number] 2013-10-17 07:01:00 2013-10-17 23:59:00 Outpatient Queta Gonzalez [facility] [id number] 2013-10-09 11:49:19 2013-10-09 11:49:19 Outpatient MHIE [facility]IE [id number] 2013-08-28 07:30:59 2013-08-28 07:30:59 Outpatient AME AME [id number] 2013-08-26 17:18:49 2013-08-26 17:18:48 Outpatient AME AME [id number] 2013-02-08 05:18:57 2013-02-08 05:18:37 Outpatient LUANN KONG [id number] 2013-02-06 08:07:13 2013-02-06 08:06:52 Outpatient LUANN KONG [id number] 2012-11-07 06:25:20 2012-11-07 06:25:02 Outpatient LUANN KONG [id number] 2012-07-10 02:03:29 2012-07-10 02:03:13 Outpatient AME AME [id number] Results Test Description Test Time Test Comments Results Result Comments Source Blood hemoglobin measurement (moles/volume) 2020-02-25 04:55 :00 Test Item Hemoglobin (test code = 55292-1) 11.4 14.0-18.0 [facility] hematocrit (volume fraction)2020-02-25 04:55:00* Test Item Value Reference Range Interpretation Comments Hematocrit (test code = 4544-3) 35.9 38.2-49.6 [facility] 1-2 [id number] 13:21:00 [place] [address] Patient Name: DESIRE REYES MR #: [id number] : 1945 Age/Sex: 74/M Req #: [id number] [facility] Physician: DAYAMI MANZANO MD Ordered by: DAYAMI MANZANO MD Report #: [id number] Location: MED/SURG Room[facility]Bed: [facility] Procedure: [id number] DX/KNEE LEFT 1- 2 VIEWS Exam Date: 02/24/20 Exam Time: 1300 REPORT STATUS: Signed Exam: Left knee ra diographs-2 views History: Postoperative Comparison: None. 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 Alignment is unremarkable. No evidence of fracture. O verlying soft tissue edema, air, and skin mel, compatible with recent surg jordyn. Mild deformity of the fibular head may reflect sequela of remote trau ma. Scattered atherosclerotic vascular calcifications in the distal superfi cial femoral artery. Signed by: Dr. Robert Flores MD on 02/24/2020 1:23 PM Dictated By: ROBERT FLORES MD 1323 COPY TO: REGINA MANZANO MD Capillary blood glucose measurement by glucometer (mass/volume) 2020-02-24 07:47:00* Test Item Value Reference Range Interpretation Comments Bedside Glucose (test code = 14665-2) 139 70-120 Meter ID: [id number] [facility] less than one hour [id number] 11:01:00* Test Item Value Reference Range Interpretation Comments Coronavirus (PCR) (test code = Coronavirus (PCR)) NOT DETECTED NOTD ETECTED [employer] Aptima SARS-CoV-2 assay is a nucleic amplification test intended for the qualitative detection of RNA from SARS-CoV-2 from nasopharyngeal (RECONCILIATION SPECIALIST) specimens. It is used under Emergency Use Authorization (EUA) by FDA.A positive result is indicative of the presence of SARS-CoV-2 RNA. Clinical correlation with patient history and other diagnostic information is necessary to determine patient infe ction status.A negative (Not Detected) result does not preclude SARS-CoV-2 infec tion. Clinical Correlation with patient history and other diagnostic information should be used in patient management decisions.Invalid: Unable to generate a va lid result on this specimen. Please submit a new specimen for reprat testing oc clinically indicated.Tesing performed by:[facility] [address] [place] [address] [id number], Min Vargas MD, PhD [facility] [id number] 10:57:00 [facility] [address] [place] [address] Patient Name: DESIRE REYES MR #: [id number] : 1945 Age/Sex: 74/M Req #: [id number] Adm Physician: Ordered by: ANIA CHAMPAGNE DO Report #: [id number] Location: ER Room/Bed: Procedure: [id number] CT/CT CHEST W Exam Date: 01/20/20 Exam Time: 1040 REPORT STATUS: Signed EXAM: CT Chest WITH cont rast- Pulmonary Embolism Protocol INDICATION: Shortness of breath, elevated d-dimer COMPARISON: None TECHNIQUE: Chest was scanned utilizing a multidetector helical scanner from the lung apex through the level of the diap hragm after administration of IV contrast. Thin section reconstructions were o btained with special concentration on the pulmonary arteries. Coronal and sagi ttal reformations were obtained. Pulmonary embolism protocol was performed. IV CONTRAST: 100 cc of Isovue 370 RADIATION DOSE: Total DLP: 494 mGy*cm Dose modulation, iterative reconstruction, and/ or weight based adjustment of the mA/kV was utilized to reduce the radiation d ose to as low as reasonably achievable. COMPLICATIONS: None FINDINGS: LINES/ TUBES: None. PULMONARY ARTERIES: No filling defect is identified within the pulmonary arteries to the segmental level. The subs egmental pulmonary arteries are not well opacified. Main pulmonary artery gonzalo ures 2.7 cm in diameter. No right heart strain. LUNGS AND AIRWAYS: The ce ntral airways are patent. No focal consolidation. Mild ground glass opacities at the dependent lower lobes. PLEURA: The pleural spaces are clear. HE ART AND MEDIASTINUM: The thyroid gland is normal. No mediastinal, hilar or ax illary lymphadenopathy. The heart is normal in size.. There is no pericardial effusion. Minimal scattered atherosclerotic calcifications of the aorta and c oronary arteries.. UPPER ABDOMEN: Small hypodensities in the right liver, likely cysts but too small to adequately characterize. BONES: No acute o sseous injury. SOFT TISSUES: Unremarkable. IMPRESSION: No pulmonary embolism. Mild groundglass opacities at the dependent lower lobes is nonsp ecific. Viral pneumonia should be clinically excluded. Signed by: Toya Hough MD on 01/20/2020 11:10 AM Dictated By: TOYA HOUGH MD Electronically S igned By: TOYA HOUGH MD on 01/20/20 1110 Transcribed By: GLO on 01/20/20 11 10 COPY TO: ANIA CHAMPAGNE DO CHEST SINGLE (PORTABLE) 2020-01-20 08:31:00 [place] [address] Patient Name: DESIRE REYES MR #: [id number] : 1945 Age/Sex: 74/M Req #: [id number] Adm Physician: Ordered by: YANIQUE NGUYEN DO Report #: [id number] Location: ER Room/Bed: Procedure: [id number] DX/CHEST SINGLE (PORTABLE) Exam Date: 01/20/20 Exam Time: 0700 REPORT STATUS: Signed EXAMINATION: C HEST SINGLE (PORTABLE) INDICATION: Chest pain COMPARISON: Chest ra diograph 02/06/2019 FINDINGS: LINES/TUBES:EKG leads overlie the ch est. LUNGS:The lungs are moderately inflated. No focal consolidation or pul monary edema. PLEURA:No pleural effusion or pneumothorax. MEDIASTINU M:The cardiomediastinal silhouette appears normal in size and shape. Atheroscl erotic calcifications of the thoracic aorta. BONES/SOFT TISSUES:No acute os seous injury. Partially visualized cervical spine fusion hardware. ABDOME N:No free air under the diaphragm. IMPRESSION: No focal pneumonia or pulmonary edema. Signed by: Toya Hough MD on 01/20/2020 8:32 AM Dicta iram By: TOYA HOUGH MD 1 Transcribed By: GLO on 01/20/20831 COPY TO: YANIQUE NGUYEN DO Blood leukocytes automated count (number/volume)2020-01-20 06:35:00* Test Item Value Reference Range Interpretation Comments White Blood Count (test code = 6690-2) 7.38 4.8-10.8 [facility] erythrocytes automated count (number/volume)2020-01-20 06:35:00* Test Item Value Reference Range Interpretation Comments Red Blood Count (test code = 789-8) 4.49 4.3-5.7 [facility] hemoglobin measurement (moles/volume)2020-01-20 06:35:00* Test Item Value Reference Range Interpretation Comments Hemoglobin (test code = 14296-5) 12.4 14.0-18.0 [facility] HospitalAutomated blood hematocrit (volume fraction)2020-01-20 06:35:00* Test Item Value Reference Range Interpretation Comments Hematocrit (test code = 4544-3) 39.6 38.2-49.6 [facility] HospitalAutomated erythrocyte mean corpuscular [id number] 06:35:00* Test Item Value Reference Range Interpretation Comments Mean Corpuscular Volume (test code = 787-2) 88.2 81-99 [facility] HospitalAutomated erythrocyte mean corpuscular hemoglobin (mass per erythrocyte)2020-01-20 06:35:00* Test Item Value Reference Range Interpretation Comments Mean Corpuscular Hemoglobin (test code = 785-6) 27.6 28-32 [facility] HospitalAutomated erythrocyte mean corpuscular hemoglobin concentration measurement (mass/volume)2020-01-20 06:35:00* Test Item Value Reference Range Interpretation Comments Mean Corpuscular Hemoglobin Concent (test code = 786-4) 31.3 31-35 [facility] HospitalRDW [id number]-[id number] 06:35:00* Test Item Value Reference Range Interpretation Comments Red Cell Distribution Width (test code = 94875-6) 13.5 11.7 -14.4 [facility] HospitalAutomated blood platelet count (count/volume)2020-01-20 06:35:00* Test Item Value Reference Range Interpretation Comments Platelet Count (test code = 777-3) 168 140-360 [facility] HospitalAutomated blood segmented neutrophil count as percentage of total kodsqmlfuc0936-87-20 06:35:00* Test Item Value Reference Range Interpretation Comments Neutrophils (%) (Auto) (test code = 57405-3) 53.7 38.7-80.0 [facility] HospitalAutomated blood lymphocyte count as percentage ot total [id number] 06:35:00* Test Item Value Reference Range Interpretation Comments Lymphocytes (%) (Auto) (test code = 736-9) 30.6 18.0-39.1 [facility] HospitalAutomated blood monocyte count as percentage of total zyjoqqsoqe7311-90-14 06:35:00* Test Item Value Reference Range Interpretation Comments Monocytes (%) (Auto) (test code = 5905-5) 10.6 4.4-11.3 [facility] HospitalAutomated blood eosinophil count as percentage of total wvjkofwgbj0863-24-99 06:35:00* Test Item Value Reference Range Interpretation Comments Eosinophils (%) (Auto) (test code = 713-8) 3.7 0.0-6.0 [facility] HospitalAutomated blood basophil count as percentage of total hhgstvyvaj0306-57-24 06:35:00* Test Item Value Reference Range Interpretation Comments Basophils (%) (Auto) (test code = 706-2) 1.1 0.0-1.0 [facility] HospitalFluoroscopic procedure less than one hour bjcygxhm5829-55-21 06:35:00* Test Item Value Reference Range Interpretation Comments IM GRANULOCYTES % (test code = IM GRANULOCYTES %) 0.3 0.0- 1.0 [facility] HospitalAutom[facility] blood neutrophil count 2020-01-20 06:35:00* Test Item Value Reference Range Interpretation Comments Neutrophils # (Auto) (test code = 751-8) 4.0 2.1-6.9 [facility]Blood lymphocytes count (number/volume) 2020-01-20 06:35:00* Test Item Value Reference Range Interpretation Comments Lymphocytes # (Auto) (test code = 55604-9) 2.3 1.0-3.2 [facility] HospitalBlood monocytes automated count (number/volume)2020-01-20 06:35:00* Test Item Value Reference Range Interpretation Comments Monocytes # (Auto) (test code = 742-7) 0.8 0.2-0.8 [facility] HospitalAutomated blood eosinophil count 2020-01-20 06:35:00* Test Item Value Reference Range Interpretation Comments Eosinophils # (Auto) (test code = 711-2) 0.3 0.0-0.4 [facility] HospitalAutomated blood basophil count (count/volume)2020-01-20 06:35:00* Test Item Value Reference Range Interpretation Comments Basophils # (Auto) (test code = 704-7) 0.1 0.0-0.1 [facility] HospitalFluoroscopic procedure less than one hour [id number] 06:35:00* Test Item Value Reference Range Interpretation Comments Absolute Immature Granulocyte (auto (maldonado t code = Absolute Immature Granulocyte (auto) 0.02 0-0.1 [facility] HospitalFibrin D-dimer DDU measurement in platelet poor plasma (mass/volume)2020-01-20 06:35:00* Test Item Value Reference Range Interpretation Comments D-Dimer Quantitative (PE/DVT) (test code = 30583-8) 0.78 0. 00-0.45 [facility] sodium measurement (moles/volume)2020-01-20 06:35:00* Test Item Value Reference Range Interpretation Comments Sodium Level (test code = 2951-2) 143 136-145 [facility] potassium measurement (moles/volume)2020-01-20 06:35:00* Test Item Value Reference Range Interpretation Comments Potassium Level (test code = 2823-3) 4.0 3.5-5.1 [facility] chloride measurement (moles/volume)2020-01-20 06:35:00* Test Item Value Reference Range Interpretation Comments Chloride Level (test code = 2075-0) 107 98-107 [facility] plasma carbon dioxide, total measurement (moles/volume)2020-01-20 06:35:00* Test Item Value Reference Range Interpretation Comments Carbon Dioxide Level (test code = 2028-9) 29 22-29 [facility] or plasma anion [id number] 06:35:00* Test Item Value Reference Range Interpretation Comments Anion Gap (test code = 56024-1) 11.0 8-16 [facility] urea nitrogen measurement (mass/volume)2020-01-20 06:35:00* Test Item Value Reference Range Interpretation Comments Blood Urea Nitrogen (test code = 3094-0) 24 7-26 [facility] plasma creatinine measurement (mass/volume)2020-01-20 06:35:00* Test Item Value Reference Range Interpretation Comments Creatinine (test code = 2160-0) 1.22 0.72-1.25 [facility] plasma urea nitrogen/creatinine mass [id number] 06:35:00* Test Item Value Reference Range Interpretation Comments BUN/Creatinine Ratio (test code = 3097-3) 20 6-25 [facility] HospitalEstimated glomerular filtration rate (GFR) vclihumhopylt7090-56-19 06:35:00* Test Item Value Reference Range Interpretation Comments Estimat Glomerular Filtration Rate (test code = 547016989) 58 >60 Ranges were taken from the National Kidney Disease Education Program and the [facility] Kidney Foundation literature.Reference ranges:60 or greater: Xaxgvp21-80 ( for 3 consecutive months): Chronic kidney disease 15 or less: Kidney failureSt. Luke's Health – The Woodlands HospitalGlucose nhlncjhdvkt9452-12-59 06:35:00* Test Item Value Reference Range Interpretation Comments Glucose Level (test code = NFW8445) 143 74-118 [facility] plasma calcium measurement (mass/volume)2020-01-20 06:35:00* Test Item Value Reference Range Interpretation Comments Calcium Level (test code = 46632-6) 9.0 8.4-10.2 [facility] plasma total bilirubin measurement (mass/volume)2020-01-20 06:35:00* Test Item Value Reference Range Interpretation Comments Total Bilirubin (test code = 1975-2) 0.4 0.2-1.2 [facility] HospitalFluoroscopic procedure less than one hour krglfjte1193-05-09 06:35:00* Test Item Value Reference Range Interpretation Comments Aspartate Amino Transf (AST/SGOT) (test code = Aspartate Amino Transf (AST/SGOT)) 27 5-34 [facility] or plasma alanine aminotransferase measurement (enzymatic activity/volume)2020-01-20 06:35:00* Test Item Value Reference Range Interpretation Comments Alanine Aminotransferase (ALT/SGPT) (test code = 1742-6) 38 0-55 [facility] plasma protein measurement (mass/volume)2020-01-20 06:35:00* Test Item Value Reference Range Interpretation Comments Total Protein (test code = 2885-2) 7.4 6.5-8.1 [facility] or plasma albumin measurement (mass/volume)2020-01-20 06:35:00* Test Item Value Reference Range Interpretation Comments Albumin (test code = 1751-7) 3.7 3.5-5.0 [facility] HospitalPlasma globulin measurement (mass/volume) 2020-01-20 06:35:00* Test Item Value Reference Range Interpretation Comments Globulin (test code = 69589-2) 3.7 2.3-3.5 [facility] plasma albumin/globulin mass ftzyb1906-97-20 06:35:00* Test Item Value Reference Range Interpretation Comments Albumin/Globulin Ratio (test code = 1759-0) 1.0 0.8-2.0 [facility] or plasma alkaline phosphatase measurement (enzymatic activity/volume)2020-01-20 06:35:00* Test Item Value Reference Range Interpretation Comments Alkaline Phosphatase (test code = 6768-6) 67 40-150 [facility] HospitalBNP Mxn-wAuk0443-18-06 06:35:00* Test Item Value Reference Range Interpretation Comments B-Type Natriuretic Peptide (test code = 72132-2) 29.5 0-100 [facility] or plasma creatine kinase measurement (enzymatic activity/volume)2020-01-20 06:35:00* Test Item Value Reference Range Interpretation Comments Creatine Kinase (test code = 2157-6) 416 30-200 [facility]rum or plasma creatine kinase MB measurement (mass/volume)2020-01-20 06:35:00* Test Item Value Reference Range Interpretation Comments Creatine Kinase MB (test code = 90652-2) 4.60 0-5.0 [facility] HospitalTroponin I measurement by highly sensitive enzyme gegztbkdjwi8786-53-36 06:35:00* Test Item Value Reference Range Interpretation Comments Troponin I (test code = 65829-6) 0.003 0-0.300 [facility] HospitalBlood leukocytes automated count (number/volume)2020-01-20 06:35:00* Test Item Value Reference Range Interpretation Comments White Blood Count (test code = 6690-2) 7.38 4.8-10.8 [facility] HospitalBlood erythrocytes automated count (number/volume)2020-01-20 06:35:00* Test Item Value Reference Range Interpretation Comments Red Blood Count (test code = 789-8) 4.49 4.3-5.7 [facility] HospitalAutomated erythrocyte mean corpuscular mkcfmj9693-68-49 06:35:00* Test Item Value Reference Range Interpretation Comments Mean Corpuscular Volume (test code = 787-2) 88.2 81-99 [facility] HospitalAutomated erythrocyte mean corpuscular hemoglobin (mass per erythrocyte)2020-01-20 06:35:00* Test Item Value Reference Range Interpretation Comments Mean Corpuscular Hemoglobin (test code = 785-6) 27.6 28-32 [facility] HospitalAutomated erythrocyte mean corpuscular hemoglobin concentration measurement (mass/volume)2020-01-20 06:35:00* Test Item Value Reference Range Interpretation Comments Mean Corpuscular Hemoglobin Concent (test code = 786-4) 31.3 31-35 [facility] HospitalRDW QcnXv-Snu1296-29-06 06:35:00* Test Item Value Reference Range Interpretation Comments Red Cell Distribution Width (test code = 16545-1) 13.5 11.7 -14.4 [facility] HospitalAutomated blood platelet count (count/volume)2020-01-20 06:35:00* Test Item Value Reference Range Interpretation Comments Platelet Count (test code = 777-3) 168 140-360 [facility] HospitalAutomated blood segmented neutrophil count as percentage of total ohcihoojht0190-95-65 06:35:00* Test Item Value Reference Range Interpretation Comments Neutrophils (%) (Auto) (test code = 65651-0) 53.7 38.7-80.0 [facility] HospitalAutiredell memorial hospitaled blood lymphocyte count as percentage ot total yaiwqffexg5630-10-55 06:35:00* Test Item Value Reference Range Interpretation Comments Lymphocytes (%) (Auto) (test code = 736-9) 30.6 18.0-39.1 [facility] HospitalAutomated blood monocyte count as percentage of total zvhyyucpdp9861-29-70 06:35:00* Test Item Value Reference Range Interpretation Comments Monocytes (%) (Auto) (test code = 5905-5) 10.6 4.4-11.3 [facility] HospitalAutomated blood eosinophil count as percentage of total ipotlllkpd0073-94-98 06:35:00* Test Item Value Reference Range Interpretation Comments Eosinophils (%) (Auto) (test code = 713-8) 3.7 0.0-6.0 [facility] HospitalAutomated blood basophil count as percentage of total ehmfwgnfhj7740-20-41 06:35:00* Test Item Value Reference Range Interpretation Comments Basophils (%) (Auto) (test code = 706-2) 1.1 0.0-1.0 [facility] HospitalFluoroscopic procedure less than one hour jfbkuvob9820-75-03 06:35:00* Test Item Value Reference Range Interpretation Comments IM GRANULOCYTES % (test code = IM GRANULOCYTES %) 0.3 0.0- 1.0 [facility] HospitalAutomated blood neutrophil count 2020-01-20 06:35:00* Test Item Value Reference Range Interpretation Comments Neutrophils # (Auto) (test code = 751-8) 4.0 2.1-6.9 [facility] HospitalBlood lymphocytes count (number/volume) 2020-01-20 06:35:00* Test Item Value Reference Range Interpretation Comments Lymphocytes # (Auto) (test code = 20406-8) 2.3 1.0-3.2 [facility] HospitalBlood monocytes automated count (number/volume)2020-01-20 06:35:00* Test Item Value Reference Range Interpretation Comments Monocytes # (Auto) (test code = 742-7) 0.8 0.2-0.8 [facility] HospitalAutomated blood eosinophil count 2020-01-20 06:35:00* Test Item Value Reference Range Interpretation Comments Eosinophils # (Auto) (test code = 711-2) 0.3 0.0-0.4 [facility] HospitalAutomated blood basophil count (count/volume)2020-01-20 06:35:00* Test Item Value Reference Range Interpretation Comments Basophils # (Auto) (test code = 704-7) 0.1 0.0-0.1 [facility] HospitalFluoroscopic procedure less than one hour zrsbfvgn0491-31-65 06:35:00* Test Item Value Reference Range Interpretation Comments Absolute Immature Granulocyte (auto (maldonado t code = Absolute Immature Granulocyte (auto) 0.02 0-0.1 [facility] HospitalFibrin D-dimer DDU measurement in platelet poor plasma (mass/volume)2020-01-20 06:35:00* Test Item Value Reference Range Interpretation Comments D-Dimer Quantitative (PE/DVT) (test code = 97113-7) 0.78 0. 00-0.45 [facility] plasma sodium measurement (moles/volume)2020-01-20 06:35:00* Test Item Value Reference Range Interpretation Comments Sodium Level (test code = 2951-2) 143 136-145 [facility]ererum or plasma potassium measurement (moles/volume)2020-01-20 06:35:00* Test Item Value Reference Range Interpretation Comments Potassium Level (test code = 2823-3) 4.0 3.5-5.1 [facility]ererum or plasma chloride measurement (moles/volume)2020-01-20 06:35:00* Test Item Value Reference Range Interpretation Comments Chloride Level (test code = 2075-0) 107 98-107 [facility]ererum or plasma carbon dioxide, total measurement (moles/volume)2020-01-20 06:35:00* Test Item Value Reference Range Interpretation Comments Carbon Dioxide Level (test code = 2028-9) 29 22-29 [facility]ererum or plasma anion ted2382-62-32 06:35:00* Test Item Value Reference Range Interpretation Comments Anion Gap (test code = 54931-5) 11.0 8-16 [facility]ererum or plasma urea nitrogen measurement (mass/volume)2020-01-20 06:35:00* Test Item Value Reference Range Interpretation Comments Blood Urea Nitrogen (test code = 3094-0) 24 7-26 [facility]ererum or plasma creatinine measurement (mass/volume)2020-01-20 06:35:00* Test Item Value Reference Range Interpretation Comments Creatinine (test code = 2160-0) 1.22 0.72-1.25 [facility]ererum or plasma urea nitrogen/creatinine mass gmiut1297-23-06 06:35:00* Test Item Value Reference Range Interpretation Comments BUN/Creatinine Ratio (test code = 3097-3) 20 6-25 [facility] HospitalEstimated glomerular filtration rate (GFR) yaevdrnkklxdt7714-69-10 06:35:00* Test Item Value Reference Range Interpretation Comments Estimat Glomerular Filtration Rate (test code = 420916912) 58 >60 Ranges were taken from the National Kidney Disease Education Program and the [facility] literature.Reference ranges:60 or greater: Zjydzw45-00 ( for 3 consecutive months): Chronic kidney disease 15 or less: Kidney failureSt. Luke's Health – The Woodlands HospitalGlucose ojxmeccyfht2744-15-49 06:35:00* Test Item Value Reference Range Interpretation Comments Glucose Level (test code = OGF3708) 143 74-118 [facility]ererum or plasma calcium measurement (mass/volume)2020-01-20 06:35:00* Test Item Value Reference Range Interpretation Comments Calcium Level (test code = 83458-5) 9.0 8.4-10.2 [facility] Centererum or plasma total bilirubin measurement (mass/volume)2020-01-20 06:35:00* Test Item Value Reference Range Interpretation Comments Total Bilirubin (test code = 1975-2) 0.4 0.2-1.2 [facility] HospitalFluoroscopic procedure less than one hour payubydt9943-79-97 06:35:00* Test Item Value Reference Range Interpretation Comments Aspartate Amino Transf (AST/SGOT) (test code = Aspartate Amino Transf (AST/SGOT)) 27 5-34 [facility]ererum or plasma alanine aminotransferase measurement (enzymatic activity/volume)2020-01-20 06:35:00* Test Item Value Reference Range Interpretation Comments Alanine Aminotransferase (ALT/SGPT) (test code = 1742-6) 38 0-55 [facility]ererum or plasma protein measurement (mass/volume)2020-01-20 06:35:00* Test Item Value Reference Range Interpretation Comments Total Protein (test code = 2885-2) 7.4 6.5-8.1 [facility]ererum or plasma albumin measurement (mass/volume)2020-01-20 06:35:00* Test Item Value Reference Range Interpretation Comments Albumin (test code = 1751-7) 3.7 3.5-5.0 [facility] HospitalPlasma globulin measurement (mass/volume) 2020-01-20 06:35:00* Test Item Value Reference Range Interpretation Comments Globulin (test code = 10919-8) 3.7 2.3-3.5 [facility]ererum or plasma albumin/globulin mass xjelh4528-63-89 06:35:00* Test Item Value Reference Range Interpretation Comments Albumin/Globulin Ratio (test code = 1759-0) 1.0 0.8-2.0 [facility] Centererum or plasma alkaline phosphatase measurement (enzymatic activity/volume)2020-01-20 06:35:00* Test Item Value Reference Range Interpretation Comments Alkaline Phosphatase (test code = 6768-6) 67 40-150 [facility] HospitalBNP Qmv-oFkz8803-70-06 06:35:00* Test Item Value Reference Range Interpretation Comments B-Type Natriuretic Peptide (test code = 59528-8) 29.5 0-100 [facility]ererum or plasma creatine kinase measurement (enzymatic activity/volume)2020-01-20 06:35:00* Test Item Value Reference Range Interpretation Comments Creatine Kinase (test code = 2157-6) 416 30-200 [facility] Centererum or plasma creatine kinase MB measurement (mass/volume)2020-01-20 06:35:00* Test Item Value Reference Range Interpretation Comments Creatine Kinase MB (test code = 75450-4) 4.60 0-5.0 [facility] HospitalTroponin I measurement by highly sensitive enzyme ybxycznvwnq2881-79-46 06:35:00* Test Item Value Reference Range Interpretation Comments Troponin I (test code = 01714-6) 0.003 0-0.300 [facility] HospitalBedside Tjngyyy6197-64-88 08:22:00* Test Item Value Reference Range Interpretation Comments Bedside Glucose (test code = 06956-5) 199 70-120 H Meter ID: [id number]. Luke's Health – [facility] HospitalDifferential Total Cells Dshbfke9516-70-25 07:37:00* Test Item Value Reference Range Interpretation Comments Differential Total Cells Counted (test code = Differen tial Total Cells Counted) 100 [facility] HospitalNeutrophils % (Manual)2019-02-11 07:37:00 * Test Item Value Reference Range Interpretation Comments Neutrophils % (Manual) (test code = 84105-7) 66 40-74 [facility] HospitalLymphocytes % (Manual)2019-02-11 07:37:00 * Test Item Value Reference Range Interpretation Comments Lymphocytes % (Manual) (test code = 737-7) 21 19-48 [facility] HospitalMonocytes % (Manual)2019-02-11 07:37:00* Test Item Value Reference Range Interpretation Comments Monocytes % (Manual) (test code = 744-3) 13 3.4-9.[address] [facility] HospitalPlatelet Wvejwduy4976-62-26 07:37:00* Test Item Value Reference Range Interpretation Comments Platelet Estimate (test code = 51436-2) ADEQUATE [facility] HospitalPlatelet Morphology Hojcuka2374-81-65 07:37:00* Test Item Value Reference Range Interpretation Comments Platelet Morphology Comment (test code = 80188-6) NORMAL [facility] HospitalRed Cell Morphology Nixswfg8219-66-25 07:37:00* Test Item Value Reference Range Interpretation Comments Red Cell Morphology Comment (test code = 6742-1) NORMAL [facility] Centerodium Gcgbu5164-79-12 06:29:00* Test Item Value Reference Range Interpretation Comments Sodium Level (test code = 2951-2) 138 136-145 [facility] HospitalPotassium Ilceo6628-61-64 06:29:00* Test Item Value Reference Range Interpretation Comments Potassium Level (test code = 2823-3) 3.4 3.5-5.[address] [facility] HospitalChloride Oibtk3091-32-57 06:29:00* Test Item Value Reference Range Interpretation Comments Chloride Level (test code = 2075-0) 101 98-107 [facility] HospitalCarbon Dioxide Itrse9417-24-27 06:29:00* Test Item Value Reference Range Interpretation Comments Carbon Dioxide Level (test code = 2028-9) 27 22-29 [facility] HospitalAnion Xsq0292-65-65 06:29:00* Test Item Value Reference Range Interpretation Comments Anion Gap (test code = 71655-0) 13.4 8-16 [facility] HospitalBlood Urea Fdnerxek9818-37-33 06:29:00* Test Item Value Reference Range Interpretation Comments Blood Urea Nitrogen (test code = 3094-0) 18 7-26 [facility] HospitalCreatinine2019-07-29 06:29:00* Test Item Value Reference Range Interpretation Comments Creatinine (test code = 2160-0) 0.96 0.72-1.25 [facility] HospitalBUN/Creatinine Wgpjy2096-65-77 06:29:00* Test Item Value Reference Range Interpretation Comments BUN/Creatinine Ratio (test code = 3097-3) 19 6- [facility] HospitalEstimat Glomerular Filtration Rate 2019-02-11 06:29:00* Test Item Value Reference Range Interpretation Comments Estimat Glomerular Filtration Rate (test code = 153196587) > 60 >60 Ranges were taken from the National Kidney Disease Education Program and the [facility] Foundation literature.Reference ranges:60 or greater: Sjkdqr62-75 ( for 3 consecutive months): Chronic kidney disease 15 or less: Kidney failureSt. Luke's Health – The Woodlands HospitalGlucose Vzobe2609-85-31 06:29:00* Test Item Value Reference Range Interpretation Comments Glucose Level (test code = EDN8654) 110 74-118 [facility] HospitalCalcium Luztv4674-36-87 06:29:00* Test Item Value Reference Range Interpretation Comments Calcium Level (test code = 34471-0) 8.6 8.4-10.2 [facility] HospitalTotal Cocawcofw6684-06-49 06:29:00* Test Item Value Reference Range Interpretation Comments Total Bilirubin (test code = 1975-2) 0.5 0.2-1.2 [facility] HospitalAspartate Amino Transf (AST/SGOT) 2019-02-11 06:29:00* Test Item Value Reference Range Interpretation Comments Aspartate Amino Transf (AST/SGOT) (test code = Aspartate Amino Transf (AST/SGOT)) 14 5-34 [facility] HospitalAlanine Aminotransferase (ALT/SGPT) 2019-02-11 06:29:00* Test Item Value Reference Range Interpretation Comments Alanine Aminotransferase (ALT/SGPT) (test code = 1742-6) 32 0-55 [facility] HospitalTotal Mtlqnhf9556-86-88 06:29:00* Test Item Value Reference Range Interpretation Comments Total Protein (test code = 2885-2) 6.6 6.5-8.1 [facility] HospitalAlbumin2019-07-29 06:29:00* Test Item Value Reference Range Interpretation Comments Albumin (test code = 1751-7) 2.9 3.5-5.[address] [facility] HospitalGlobulin2019-07-29 06:29:00* Test Item Value Reference Range Interpretation Comments Globulin (test code = 24392-2) 3.7 2.3-3.[address] [facility] HospitalAlbumin/Globulin Cpouq3306-56-25 06:29:00 * Test Item Value Reference Range Interpretation Comments Albumin/Globulin Ratio (test code = 1759-0) 0.8 0.8-2.0 [facility] HospitalAlkaline Oggqbvdhffe1292-30-02 06:29:00* Test Item Value Reference Range Interpretation Comments Alkaline Phosphatase (test code = 6768-6) 47 40-150 [facility] HospitalWhite Blood Mpjib3008-15-79 06:07:00* Test Item Value Reference Range Interpretation Comments White Blood Count (test code = 6690-2) 10.33 4.8-10.8 [facility] HospitalRed Blood Auzwm5374-18-74 06:07:00* Test Item Value Reference Range Interpretation Comments Red Blood Count (test code = 789-8) 4.38 4.3-5.7 [facility] HospitalHemoglobin2019-07-29 06:07:00* Test Item Value Reference Range Interpretation Comments Hemoglobin (test code = 57526-9) 12.4 14.0-18.[address] [facility] HospitalHematocrit2019-07-29 06:07:00* Test Item Value Reference Range Interpretation Comments Hematocrit (test code = 4544-3) 37.6 38.2-49.[address] [facility] HospitalMean Corpuscular Xpwluq1444-08-14 06:07:00* Test Item Value Reference Range Interpretation Comments Mean Corpuscular Volume (test code = 787-2) 85.8 81-99 [facility] HospitalMean Corpuscular Phrwzhpkfm5312-54-96 06:07:00* Test Item Value Reference Range Interpretation Comments Mean Corpuscular Hemoglobin (test code = 785-6) 28.3 28-32 [facility] HospitalMean Corpuscular Hemoglobin Concent 2019-02-11 06:07:00* Test Item Value Reference Range Interpretation Comments Mean Corpuscular Hemoglobin Concent (test code = 786-4) 33.0 31-35 [facility] HospitalRed Cell Distribution Etblp9217-74-39 06:07:00* Test Item Value Reference Range Interpretation Comments Red Cell Distribution Width (test code = 60253-1) 14.6 11.7 -14.[address] [facility] HospitalPlatelet Jgspl4534-18-51 06:07:00* Test Item Value Reference Range Interpretation Comments Platelet Count (test code = 777-3) 190 140-360 [facility] HospitalNeutrophils (%) (Auto)2019-02-11 06:07:00 * Test Item Value Reference Range Interpretation Comments Neutrophils (%) (Auto) (test code = 88319-7) 60.1 38.7-80.0 [facility] HospitalLymphocytes (%) (Auto)2019-02-11 06:07:00 * Test Item Value Reference Range Interpretation Comments Lymphocytes (%) (Auto) (test code = 736-9) 26.5 18.0-39.1 [facility] HospitalMonocytes (%) (Auto)2019-02-11 06:07:00* Test Item Value Reference Range Interpretation Comments Monocytes (%) (Auto) (test code = 5905-5) 8.7 4.4-11.3 [facility] HospitalEosinophils (%) (Auto)2019-02-11 06:07:00 * Test Item Value Reference Range Interpretation Comments Eosinophils (%) (Auto) (test code = 713-8) 1.7 0.0-6.0 [facility] HospitalBasophils (%) (Auto)2019-02-11 06:07:00* Test Item Value Reference Range Interpretation Comments Basophils (%) (Auto) (test code = 706-2) 0.3 0.0-1.0 [facility] HospitalIM GRANULOCYTES %2019-02-11 06:07:00* Test Item Value Reference Range Interpretation Comments IM GRANULOCYTES % (test code = IM GRANULOCYTES %) 2.7 0.0- 1.[address] [facility] HospitalNeutrophils # (Auto)2019-02-11 06:07:00* Test Item Value Reference Range Interpretation Comments Neutrophils # (Auto) (test code = 751-8) 6.2 2.1-6.9 [facility] HospitalLymphocytes # (Auto)2019-02-11 06:07:00* Test Item Value Reference Range Interpretation Comments Lymphocytes # (Auto) (test code = 32462-1) 2.7 1.0-3.2 [facility] HospitalMonocytes # (Auto)2019-02-11 06:07:00* Test Item Value Reference Range Interpretation Comments Monocytes # (Auto) (test code = 742-7) 0.9 0.2-0.[address] [facility] HospitalEosinophils # (Auto)2019-02-11 06:07:00* Test Item Value Reference Range Interpretation Comments Eosinophils # (Auto) (test code = 711-2) 0.2 0.0-0.4 [facility] HospitalBasophils # (Auto)2019-02-11 06:07:00* Test Item Value Reference Range Interpretation Comments Basophils # (Auto) (test code = 704-7) 0.0 0.0-0.1 [facility] HospitalAbsolute Immature Granulocyte (auto 2019-02-11 06:07:00* Test Item Value Reference Range Interpretation Comments Absolute Immature Granulocyte (auto (maldonado t code = Absolute Immature Granulocyte (auto) 0.28 0-0.[address] [facility] HospitalBand Neutrophils %2019-02-09 08:09:00* Test Item Value Reference Range Interpretation Comments Band Neutrophils % (test code = 764-1) 1 [facility] HospitalEosinophils % (Manual)2019-02-09 08:09:00 * Test Item Value Reference Range Interpretation Comments Eosinophils % (Manual) (test code = 714-6) 3 0-7 [facility] HospitalMyelocytes %2019-02-09 08:09:00* Test Item Value Reference Range Interpretation Comments Myelocytes % (test code = 749-2) 1 0-[address] [facility] HospitalVitamin B12 Fzyox0655-31-25 07:43:00* Test Item Value Reference Range Interpretation Comments Vitamin B12 Level (test code = 92728-1) 1813 213-[address] [facility] HospitalFolate2019-07-25 07:43:00* Test Item Value Reference Range Interpretation Comments Folate (test code = 2284-8) 15.2 7.0-15.4 [facility] HospitalFerritin2019-07-25 06:55:00* Test Item Value Reference Range Interpretation Comments Ferritin (test code = 2276-4) 130.02 21.81-274.66 [facility] HospitalIron Whxjn7306-64-00 06:41:00* Test Item Value Reference Range Interpretation Comments Iron Level (test code = 2498-4) 90 65-175 [facility] HospitalTotal Iron Binding Nqzlqjzz9638-03-51 06:41:00* Test Item Value Reference Range Interpretation Comments Total Iron Binding Capacity (test code = 2500-7) 209 261-[address] [facility] HospitalPercent Iron Zjbkibpvix6026-74-76 06:41:00* Test Item Value Reference Range Interpretation Comments Percent Iron Saturation (test code = 2502-3) 43 15-50 [facility] HospitalTransferrin2019-07-25 06:41:00* Test Item Value Reference Range Interpretation Comments Transferrin (test code = 3034-6) 149 174-[address] [facility] HospitalPercent Reticulocyte Etouy3382-21-85 06:26:00* Test Item Value Reference Range Interpretation Comments Percent Reticulocyte Count (test code = 67008-3) 1.5 0.8-2 .2 [facility]CH[facility] JHZIL5766-26-34 18:57:00 [facility] [address] [address] Patient Name: DESIRE REYES MR #: [id number] : 1945 Age/Sex: 73/M Req #: [id number] Adm Physician: ARTHUR WATT MD Ordered by: ARTHUR WATT MD Report #: [id number] Location: MED/SURG3 Room/Bed: [facility] Procedure: [id number] D X/CHEST 2 VIEWS Exam Date: 02/06/19 Exam Time: 1829 REPORT STATUS: Signed EXAMINATIO N: CHEST 2 [...] COPY TO: ARTHUR WATT MD MODIFIED BA. UFUZYMN4705-97-77 15:09:00 [address] [address] Patient Name: DESIRE REYES MR #: [id number] : 1945 Age/Sex: 73/M Req #: [id number] Adm Physician: ARTHUR WATT MD Ordered by: ARTHUR WATT MD Report #: [id number] Location: MED/SURG3 Room/Bed: [facility] Procedure: [id number] D X/MODIFIED BA. SWALLOW Exam Date: 02/06/19 [...] COPY TO: TONJA WATT AM, MD Blood Xletoma0199-40-64 13:45:00* Test Item Value Reference Range Interpretation Comments Blood Culture (test code = 69129205) NO GROWTH AFTER 5 DAYS, FINAL REPORT [facility] HospitalCT CHEST K7541-07-12 16:32:00 [facility] [address] [address] Patient Name: DESIRE REYES MR #: [id number] : 1945 Age/Sex: 73/M Req #: [id number] Adm Physician: Ordered by: ARTHUR WATT MD Report #: [id number] Location: CT Room/Bed: Procedure: [id number] CT/ CT CHEST W Exam Date: 01/28/19 Exam Time: 1600 REPORT STATUS: Signed EXAM: CT Chest WITH intravenous contrast 01/28/2019 3:12 PM INDICATION: Shortness of breath COMPARISON: None TECHNIQUE: Chest was scanned utilizing a multidetector [facility] region scanner from the lung apex through the [...] 01/28/191640 COPY TO: ARTHUR WATT MD GASTRIC ZPBPXHYI2874-06-61 19:55:00 [place] [address] Patient Name: DESIRE REYES MR #: [id number] : 1945 Age/Sex: 72/M Req #: [id number] Adm Physician: Ordered by: ESPERANZA SCRUGGS MD Report #: [id number] Location: [place] Room/Bed: Procedure: [id number] NM/GASTRIC EMPTYING Exam Date: 04/26/18 Exam Time: 0831 REPORT STATUS: Signed Solid-phase gastric emptying study Reason for examination: Peterson's eso phagus; dyspepsia. Food was found in stomach during EGD with 12 hours fasting . The protocol used for this study is based on the Consensus Recommendation s for Gastric Scintigraphy by the [place] [employer] and the Society [...] on 04/26/181956 COPY TO: ESPERANZA SCRUGGS MD VPFVDVGOVKYB4020-28-73 10:38:0013.1[facility] DKPHPKJBNYPH0167-37-80 10:38:0063[facility] WxirhjhMEYDOJYYEBUV5265-37-68 10:38:00 1.16[facility] SwwiwfhTUQMSMAIYHKF3688-99-03 10:38:93403Hiuquvkd Jorge VHQZTCOLIKLN5990-87-21 10:38:004.1[facility] ZqeruvcUVTKNZYZYNJT9643-91-36 10:38:007.7[facility] RilofgjZURFUZXAWCDW4814-94-16 10:38:21611Avjmagmo Jorge XUGWLUSKSGPK3509-83-65 10:38:0017[facility] EzokevfIUEKQSMLCBMS8102-90-26 10:38:00 26[facility] IyddvroJPRFCWKDSHPT8612-69-10 10:38:17426Jnqormav HermannHEMATOLOGY 2017-08-31 10:38:000.5[facility] ChvimwfNSPFKOGTCZ1557-44-50 10:38:000.7[facility] UfpacyxGQSOWHQQDL1625-62-93 10:38:0010.0[facility] ZyxficdNJMWPCGIJW6993-61-80 10:38:000.1[facility] MgzojwrDNQGADDNJB7087-39-67 10:38:004.1[facility] PJZYPCPJWA5607-82-11 10:38:006.3[facility] WjtlchcVQOGLJSVYU5351-57-49 10:38:00 89.5[facility] ReibmiiMVKKICPJVK5725-64-39 10:38:0032.9[facility] HermannHEMATOLOGY 2017-08-31 10:38:009.3[facility] RfhvrhdGBWOHNHGDA6519-76-95 10:38:37333Rqnfhehu HrgtvuqPIOJGTBSQJ2349-80-09 10:38:0014.9[facility] ZcnqctuRJZVXDWKVU5688-15-11 10:38:00* Test Item Value Reference Range Interpretation Comments MCH (test code = MCH) 26.0 pg 27.0-31.0 [facility] KodqwhjBVSVONVVFA2724-58-87 10:38:005.09[facility] HermannHEMATOLOGY 2017-08-31 10:38:0079.1[facility] BksfooxPEBZGBGAHZ1208-43-00 10:38:0040.3[facility] VfbdiubCDRHHEEQOF6182-63-27 10:38:0013.3[facility] RmbfciyJAKQCRSJNB3246-24-07 10:38:0011.2[facility]annURINE AND YAZKT6294-77-98 15:30:00Trace *ABN*(08/28/17 9:30 AM)[facility] PIVXZ4806-82-48 15:30:000.2 [facility] ABJSW1206-76-19 15:30:00Negative (08/28/17 9:30 AM) [facility] AQVSN1039-62-12 15:30:00Negative *NA*(08/28/17 9:30 AM) [facility] SQEAJ0209-14-18 15:30:00Negative *NA*(08/28/17 9:30 AM) [facility] SEZWW3576-02-21 15:30:00Negative (08/28/17 9:30 AM) [facility] XIYZV4040-14-04 15:30:00Negative (08/28/17 9:30 AM) [facility] UFLIK4063-34-44 15:30:00Negative (08/28/17 9:30 AM) [facility] HSVUG5429-59-53 15:30:00<=1.005 *NA*(08/28/17 9:30 AM) [facility] HZLDH5471-48-87 15:30:00* Test Item Value Reference Range Interpretation Comments UA pH (test code = UA pH) 6.5 1 5.0-8.0 [facility] EAXPF1968-90-39 15:30:00Clear (08/28/17 9:30 AM) [facility] XSHBS4457-62-59 15:30:00Yellow *NA*(08/28/17 9:30 AM) [facility] BANK HXSWWBC5546-14-29 15:10:00Negative (08/28/17 9:10 AM) [facility] PxvyzjkJPKWDPEBLFQM4979-80-79 15:10:0012.8[facility] HermannELECTROLYTES 2017-08-28 15:10:0064[facility] JxtmcyiTCNVNIIZSXSC5722-40-01 15:10:008.4[facility] YtczmbzQCHIRMBRARGW3132-91-26 15:10:0018[facility] UvotzjcWBATYSSRHBVL7513-98-92 15:10:001.14[facility] NyquiacMCIGOULZPLNL4924-63-81 15:10:06433Xbpldzhv Jorge LOLWLXHOJHMS8933-28-69 15:10:0029[facility] NabzlwrUDLNEGOYRBWZ4641-04-41 15:10:00 101[facility] GhgrblxGVKCIXXWCTWD8509-82-55 15:10:72528Qkawwzgu Jorge BQVKOGFSYMQB1246-36-84 15:10:003.8[facility] PnqpituQIMWRAOYQQ7675-26-46 15:10:00 * Test Item Value Reference Range Interpretation Comments PROTIME (test code = PROTIME) 13.1 s 12.0-14.7 [facility] AnayxeeMEGMZLXJJK6519-57-66 15:10:00* Test Item Value Reference Range Interpretation Comments aPTT (test code = aPTT) 27.2 s 22.9-35.8 [facility] GwdfjbaZBPZUNJCJU2043-74-41 15:10:00* Test Item Value Reference Range Interpretation Comments INR (test code = INR) 0.99 1 0.85-1.17 [facility] OqumjgyNZFQZGOGEP1855-90-74 15:10:005.75[facility] HermannHEMATOLOGY 2017-08-28 15:10:0015.2[facility] QfkqfncANHTVGQXAV7683-09-56 15:10:00* Test Item Value Reference Range Interpretation Comments MCH (test code = MCH) 26.4 pg 27.0-31.0 [facility] TalwntwTVIWDYAPEW9120-01-23 15:10:0079.7[facility] HermannHEMATOLOGY 2017-08-28 15:10:0033.1[facility] XsbmrqsJRLLJTENYV9970-67-87 15:10:0045.8[facility] WxuwnkvUSIEGKLOQI9360-13-29 15:10:32992Zencleng XmlqopoDYYEKWWDQY1275-44-02 15:10:0014.8[facility] IrtofxpMOQYPPMLGX0731-07-52 15:10:009.6[facility] VNKNSBCLUD5402-46-94 15:10:006.5[facility] ZllwlsoBPMCYFNSYZ1525-86-18 15:10:008.0 [facility] WmpdvmaMYOLHJQCXO7900-56-96 15:10:004.0[facility] HermannHEMATOLOGY 2017-08-28 15:10:003.1[facility] MuclrwqZKYQSYWZLG9234-03-51 15:10:0026.9[facility] JgrrbxjAKWNERFMXP7779-35-52 15:10:000.2[facility] ZrzibpuYYUFAMQEWM8874-36-15 15:10:001.7[facility] ChoplyrXUYOAMFWXO7209-15-86 15:10:000.1[facility] IMELMAMLQO8462-49-48 15:10:000.9[facility] EyvwenxINOOHDZBLE5533-56-31 15:10:000.5 [facility] DjpquktTJNFEMVZDO2096-84-70 15:10:0061.1[facility] HermannSPECIAL SNVBKTIAL5642-26-07 15:10:006.3[facility] HermannKNEE RIGHT 1-2 VIEWS [place] [address] Patient Name: DESIRE REYES MR #: [id number] : 1945 Age/Sex: 72/M Req #: [id number] Adm Physician: Ordered by: ARTHUR WATT MD Report #: [id number] Location: [facility] Room/Bed: Procedure: [id number] DX/KNEE RIGHT 1-2 VIEWS Exam Date: 11/27/17 [...] knee with small joint effusion. Dictated by: Yousif Reddy M.D. on 11/27/2017 at 13:46 Jasoni rick approved by: Yousif Reddy M.D. on 11/27/2017 at 13:46 Dictated By: YOSUIF REDDY MD [id number] Transcribed By: SHANTELL on 11/27/17 1346 COPY TO: ARTHUR THOMPSON MD
--- OUTSIDE RECORDS SUMMARY | 2020-03-19 17:34 | XMS REPORT | Continuity of Care Document ---
Author Author [employer] Corporation[employer]ISTINODESIRE H Organization [employer] Address Unknown Phone Unavailable Care Team Providers Care Plastic And Reconstructive Surgeon Name Role Phone StockRadar Information AxioMx Unavailable Un available Problems Problem Status Onset Date Classification Date Reported Comments Source SI DYSFUNCTION Active 04/05/2019 [facility] Irritable bowel syndrome without diarrhea 08/26/2018 03/11/2019 [facility] [place] Abnormal levels of other serum enzymes 06/09/2018 12/23/2018 [facility] DX: R74.0=NONSPECIFIC ELEVATION OF LEVEL Active 05/28/2018 [facility] CHOU'S DISEASE Active 05/23/2018 [facility] Other spondylosis with myelopathy, cervical region 09/15/2017 12/07/2017 [facility] CERVICAL SPONDYLOSIS, HNP, CERVICAL STEN Active 08/25/2017 [facility] Resistant Bedding 715.90 - OSTEOARTHROS NO Active 10/09/2013 MARYAM [place] Concussion with less than 1 hour loss of consciousness (disorder) Resolved 07/17/2005 Problem 07/07/2019 [facility], [facility], MARYAM Small Nonspecific elevation of levels of trans aminase and lactic acid dehydrogenase [LDH] 12/23/2018 [facility] Fatty (change of) liver, not elsewhere classified 12/23/2018 [facility] Type 2 diabetes mellitus without complications 12/23/2018 [facility] Essential (primary) hypertension 12/23/2018 [facility] [place] [facility] Other specified diseases of liver 12/23/2018 [facility] Cyst of kidney, acquired 12/23/2018 [facility] Liver disease, unspecified 12/23/2018 [facility] Dietary counseling and surveillance 12/23/2018 [facility] Family history of malignant neoplasm of digestive organs 12/23/2018 [facility] Cervical disc disorder at C5-C6 level with myelopathy 12/07/2017 [facility] Type 2 diabetes mellitus with diabetic n europathy, unspecified 12/07/2017 [facility] Acute posthemorrhagic anemia 12/07/2017 [facility] Spinal stenosis, cervical region 12/07/2017 [facility] Hyperlipidemia, unspecified 12/07/2017 [facility] Obstructive sleep apnea (adult) (pediatric) 12/07/2017 [facility] medical terminologist (current) use of oral hypoglycemic drugs 12/07/2017 [facility] Gastro-esophageal reflux disease without esophagitis 12/07/2017 [facility] Elevated white blood cell count, unspecified 12/07/2017 [facility] Cervical spondylosis (disorder) Active Problem [facility], [facility] [place],[facility], [facility] [place] Degeneration of cervical intervertebral disc (disorder ) Active Problem 07/07/2019 [facility], [facility] [place],[facility], [facility] [place] Diabetes mellitus (disorder) A ctive Problem [facility], [facility] [place], [facility] [place],[facility], [facility] [place] Diabetic neuropathy (disorder) Active Problem [facility], [facility] [place],[facility], [facility] [place] Diarrhea (finding) Active Problem 07/07/2019 [facility], [facility] [place], [facility] [place],[facility], [facility] [place] Diverticular disease (disorder) Active Problem [facility], [facility] [place],[facility], [facility] [place] Large prostate (finding) Active Problem 07/07/2019 [facility], [facility] [place], [facility] [place],[facility], [facility] [place] Gastric ulcer (disorder) Resol noelle Problem [facility], [facility] [place],[facility], [facility] [place] Gastroesophageal reflux disease (disorder) Active Problem 07/07/2019 [facility], [facility] [place], [facility] [place],[facility], [facility] [place] Hearing loss (finding) Active Problem 07/07/2019 [facility] [place],[facility], [facility] [place] Herniation of nucleus pulposus (disorder) Active Problem 07/07/2019 [facility], [facility] [place],[facility], [facility] [place] Hypertensive disorder, systemic arterial (disorder) Active Problem 07/07/2019 [facility], [facility] [place], [facility] [place], [place], [facility] [place] Hyperlipidemia (disorder) Acti ve Problem [facility] [place], [facility] [place], [place], [facility] [place] Irritable colon (disorder) Act haritha Problem [facility], [facility] [place] [place], [facility] [place] Obstructive sleep apnea syndrome (disorder) Active Problem 07/07/2019 [facility], [facility] [place], [place], [facility] [place] Osteoarthritis (disorder) Acti ve Problem [facility], [facility] [place] [place], [facility] [place] Paresthesia (finding) Active Problem 07/07/2019 [facility], [facility] [place], [place], [facility] [place] Radiculitis (disorder) Active Problem 07/07/2019 [facility], [facility] [place], [facility] [place] Spinal stenosis in cervical region (disorder) Active Problem 07/07/2019 [facility], [facility] [place],[facility], [facility] [place] Traumatic iritis (disorder) Ac tive Problem LEFT EYE [facility], [facility] [place],[facility], [facility] [place] Vertigo (finding) Active Problem 07/07/2019 [facility], [facility] [place], [facility] [place] Diabetic Polyneuropathy Active 11/06/2013 [facility] Diabetes With Neurological Complications Active 11/06/2013 [facility] Diabetes Mellitus Active 11/06/2013 [facility] Hypertension Active 11/06/2013 [facility] Mixed Hyperlipoproteinemia Act haritha 11/06/2013 [facility] Hypogonadism Active 11/06/2013 [facility] Fatty Liver Active 11/06/2013 [facility] Fatigue Active 11/06/2013 [facility] Osteoarthritis Active 11/06/2013 [facility] Datatype(DG1.4)- Active [facility] IRRITABLE BOWEL SYNDROME WITHOUT DIARRHE Active [facility] Medications Medication Details Route Status Patient [...] BID, # 28 cap, 0 Refill(s), Pharmacy: [place] [id number] Active 08/31/2017 [facility] POLYETHYLENE GLYCOL 3350 142 MG/ML Oral Solution [Miralax] 17 gm, PO, Daily, X 15 day, # 255 gm, 0 Refill(s), Pharmacy: [place] [id number] No Longer Active 08/31/2017 [facility] [...] 102.528, kg, Daily, Start date: 08/31/17 9:00:00 DOCUMENT EXAMINER, Duration: 30 day, Stop date: 09/29/17 9:00:00 [...] Weight 102.528, kg, Start date: 08/30/17 13:21:00 DOCUMENT EXAMINER, Stop date: 08/30/17 13:21:00 DOCUMENT EXAMINER Inactive 08/30/2017 [facility] Naloxone Notes: Same as Narcan No Longer Active 08/30/2017 [facility] Hydromorphone Notes: (Same as: Dilaudid) conc = 0.5 mg/ml Hydromorphone BODY PAINTER Dose: ;Delay: ;Basal: No Longer Active 08/30/2017 [...] exceed 4gm/day of acetamin ophen. (Same as: [place] 325/10) No Longer Active 08/30/2017 [facility] [...] Blood Glucose Results, Start date: 08/30/17 11:52:00 DOCUMENT EXAMINER, Duration: 30 day, Stop date: 09/29/17 12:51:00 CDT No Longer Active 08/30/2017 [facility] Dextrose 50% Syringe 25 gm, 50 mL, Route: IVP, Drug Form: INJ, Dosing Weight 102.528, kg, PRN, PRN Blood Glucose Results, Start date: 08/30/17 11:52:00 DOCUMENT EXAMINER, Duration: 30 day, Stop date: 09/29/17 12:51:00 [...] 1 Refill(s) Active 08/26/2017 [facility] [place]-3 Acid Ethyl Esters (INTERMEDIATE) 1000 MG Oral Capsule [Lovaza] 4,000 mg [...] Date: 10/09/2013; End Date: (Active) Active 10/09/2013 [facility] Januvia 100 MG Oral Tablet ; [...] ; Start Date: 07/02/2012 (Active) Active 07/02/2012 [facility] Vitamin D 1000 UNIT Oral Capsule ; Start Date: 07/02/2012 (Active) Active 07/02/2012 [facility] Vitamin B-12 500 MCG Oral Tablet ; Start Date: 07/02/2012 (Active) Active 07/02/2012 [facility] Testosterone Cypionate 200 MG/ML Intramuscular Oil ; Start Date: 07/02/2012 (Active) Active 07/02/2012 [facility] Pantoprazole Sodium 40 MG Oral Tablet Delayed Release ; Start Date: 07/02/2012 (Active) Active 07/02/2012 [facility] Centrum Silver Ultra Mens Oral Tablet ; Start Date: 07/02/2012 (Active) Active 07/02/2012 [facility] Avodart 0.5 MG Oral Capsule ; Start Date: 07/02/2012 (Active) Active 07/02/2012 [facility] Losartan Potassium-HCTZ 100-12.5 MG Oral Tablet ; Start Date: 07/02/2012 (Active) Active 07/02/2012 [facility] Simvastatin 10 MG Oral Tablet ; Start Date: 07/02/2012 (Active) Active 07/02/2012 [facility] Lovaza 1 GM Oral Capsule ; Sta rt Date: 07/02/2012 (Active) Active 07/02/2012 [facility] Omeprazole 40 MG Oral Capsule Delayed Release (Active) Active [facility] Allergies, Adverse Reactions, Alerts Substance Category Reaction Severity Reaction type Status Date Reported Comments Source Margie Assertion HIVES Drug allergy Active M[facility] [place] TB24 drug allergy drug allergy Active [facility] Immunizations Immunization Date Given Site Status Last Updated Comments Source Hx tetanus toxoid vaccine<sup>1</sup> 08/26/2017 completed [place] Admin Note: STATES REC'D A TETANUS VACCI NE WITHIN THE LAST 10YRS. [facility], [facility] [place],[facility], [facility] Small Hx pneumococcal vaccine<sup>2</sup> 08/26/2017 completed [facility] Admin Note: STATES REC'D A PNEUMONIA VAC CINE WITHIN THE LAST 5YRS. [facility], [place] Ma,[facility], [facility] [place] Hx influenza vaccine-unspecified 06/25/2017 completed [facility], [facility] [place],[facility], [facility] [place] Results Order Name Results Value Reference Range [...] XR HAND 3 VIEWS DATE: 07/04/2019 11:40 DOCUMENT EXAMINER INDICATION: - arthritis COMPARISON: Bilateral hand radiographs 10/17/2013 TECHNIQUE: PA, lateral and oblique radiographs of the hand Laterality: Right FINDINGS: No acute fracture or malalignment is identified. Joint space narrowing and osteophytes of the first CMC joint. No soft tissue abnormality is identified. IMPRESSION: Moderate osteoarthrosis of the first CMC joint. 07/04/2019 [facility] Abdomen complete US Patient Na me: DESIRE REYES : 1945; Age: 72 years Male MR: [id number] Study: Abdomen complete US 06/04/2018 7:00 AM DOCUMENT EXAMINER Clinical Indication: - abnormal liver enzymes. COMPARISON: [...] renal cysts and complex cy sts. SL: [id number] 06/04/2018 [place] [facility] 4+ views unilateral DX [...] arthritis of the ri ght knee. SL: [id number] 12/28/2017 [facility] [place] Spine cervical 2 or 3 view DX EXAM: XR CERVICAL SPINE 2 VIEWS DATE: 08/31/2017 8:00 AM DOCUMENT EXAMINER INDICATION: - POST OP COMPARISON: Radiograph dated [...] good alignment without complications. 08/31/2017 [facility] Spine lumbar 2 or 3 views Exam [...] within the lower lumbar spine. 10/17/2013 [facility] [place] Spine cervical 2 or 3 views Ex [...] seen of C5 on C6. 10/17/2013 [facility] [place] Knee 1-2 Views Bilateral Exam: Right and [...] compartment of the left knee. 10/17/2013 [facility] [place] Hand AP lateral oblique Bilateral Exam: Right [...] the right and left hands. 10/17/2013 [facility] [place] Foot 3 views Bilateral Exam: R ight [...] ADM Date DC Date Status Source AUDIT [id number] 07/10/2012 07/10/2012 [facility] E30, Provi vicki: DAVIDBEA, Status: Pen, Time: 8:00 AM [id number] 10/06/19 13 07/10/2012 [facility] AUDIT [id number] 11/07/2012 11/07/2012 [facility] E30, Provi vicki: DAVIDBEA, Status: Pen, Time: 8:00 AM [id number] 02/07/20 13 11/07/2012 [facility] AUDIT [id number] 02/06/2013 02/06/2013 [facility] AUDIT [id number] 02/08/2013 02/08/2013 [facility] E30, Provi vicki: DAVID,BEA, Status: Pen, Time: 8:30 AM [id number] 05/14/20 13 02/08/2013 [facility] AUDIT [id number] 08/26/2013 08/26/2013 [facility] AUDIT [id number] 08/28/2013 08/28/2013 [facility] AUDIT [id number] 10/09/2013 10/09/2013 [facility] Out[facility] - [place] [facility] [id number] _[id number] Sarahi Gonzalez 10/17/2013 10/18/2013 [facility] [place] AUDIT [id number] 11/04/2013 11/04/2013 [facility] E30, Provi vicki: DAVIDBEA, Status: Pen, Time: 9:45 AM [id number] 11/06/19 14 10/09/2013 [facility] AUDIT [id number] 11/06/2013 11/06/2013 [facility] E30, Provi vicki: DAVID,BEA, Status: Pen, Time: 10:15 AM [id number] 01/30/20 14 11/06/2013 [facility] Inpatient [id number] Ruiz Edward 08/30/2017 09/01/2017 [facility] Outpatient Imaging [place] [facility] [id number] Elmo Montoya 12/28/2017 12/29/2017 [facility] Outpatient [id number] Ellis Ortega 06/04/2018 06/05/2018 [facility] Recurring [id number] Ellissylwia Ortega 07/23/2018 08/22/2018 [facility] Day Surgery [id number] Ruiz Edward 04/10/2019 04/11/2019 [facility] Outpatient [facility] - [place] Out[facility] Di[facility] Services [id number] 03 Nadja Valle 07/04/2019 07/05/2019 [facility] Procedures Procedure Code Date Perfomer Comments Source Fusion of joint of cervical spine with i nternal fixation by anterior approach<sup>1</sup> [id number] 08/30/2017 C5-6, C6-7 [facility] Cholecystectomy [id number] 07/17/2015 [facility], [facility] Ma,[facility] Eye repair [id number] 07/17/2013 [facility], [facility] Ma,[facility] Excision of cyst [id number] 07/17/2005 [facility] CTR - Carpal tunnel release [id number] 07/17/1989 [facility] Varicose vein operation [id number] 07/17/1979 [facility] Assessment and Plan Assessment and Plan Date Source Extracted from:Title: Progress Note Author: Abhijit Lowry MD Date: 08/31/17 1.Cervical spinal stenosis Postop day #1status postC5 through C6, and C6-X6RWCYlonbx general anesthesia Management as per primary team [...] is consult. If any questions, please call [phone] Extracted from:Title: Consult Note Author: Bozena Chew [...] and no Q waves were noted -Outpatient brusher and shearer:Dr. Terrance Ortega -Revised cardiac index score is [...] dizziness, this should be monitored by his brusher and shearer as an outpatient [facility] hospitalist is a supervisor home energy consultant, please call [phone] with questions or concerns. 09/01/2017 [facility] [...] SMOKES 1-2 CIGARS/QWK; entered on: 08/30/17 08/25/2017 [facility] [place] Social History TypeResponse Alcohol Past Exercise Exercise frequency: 1-2 times/week. Exercise type: Walking, ALSO DOES YARDWORK. Substance Abuse Use: None. Smoking Status Current some day smoker; Type: Cigars; Exposure to Tobacco Smoke None; Cigarette Smoking Last 365 Days No; Reg Smoking Cessation Counseling No; Number of years: 52; Other Tobacco Frequency STATES SMOKES 1-2 CIGARS/QWK; entered on: 08/30/17 08/25/2017 [facility] Social History TypeResponse Alcohol Past Exercise [...] years: 52; entered on: 04/10/19 08/25/2017 [facility] [place] Marital History - Single (Active) Never Drank Alcohol (Active) Current Some Day Smoker (305.1); (Active) 11/06/2013 [facility] Family History Value Date S ource [...] No Family history of Pancreatitis (Denied) 11/04/2013 [facility] Family history of Diabetes Mellitus (V18 .0); (Active) No Family history of Coronary Artery Disease (Denied) No Family history of Cerebral Artery Occlusion (Denied) No Family history of Pancreatitis (Denied) 10/09/2013 [facility] Family history of Diabetes Mellitus (V18 [...] No Family history of Pancreatitis (Denied) 08/26/2013 [facility] Family history of Diabetes Mellitus (V18 .0); (Active) No Family history of Coronary Artery Disease (Denied) No Family history of Cerebral Artery Occlusion (Denied) No Family history of Pancreatitis (Denied) 02/08/2013 [facility] Family history of Diabetes Mellitus (V18 .0); (Active) No Family history of Coronary Artery Disease (Denied) No Family history of Cerebral Artery Occlusion (Denied) 02/06/2013 [facility] Family history of Diabetes Mellitus (V18 .0); (Active) No Family history of Coronary Artery Disease (Denied) No Family history of Cerebral Artery Occlusion (Denied) 11/07/2012 [facility] Family history of Diabetes Mellitus (V18 .0); (Active) No Family history of Coronary Artery Disease (Denied) No Family history of Cerebral Artery Occlusion (Denied) 07/10/2012 [facility] Advance Directives Order Name Results Value Date Source Advance Directives Advance Dir ectives No Advance Directives available. 11/06/2013 [facility] Advance Directives Advance Dir ectives No Advance Directives available. 11/04/2013 [facility] Advance Directives Advance Dir ectives No Advance Directives available. 10/09/2013 [facility] Advance Directives Advance Dir ectives No Advance Directives available. 08/28/2013 [facility] Advance Directives Advance Dir ectives No Advance Directives available. 08/26/2013 [facility] Advance Directives Advance Dir ectives No Advance Directives available. 02/08/2013 [facility] Advance Directives Advance Dir ectives No Advance Directives available. 02/06/2013 [facility] Advance Directives Advance Dir ectives No Advance Directives available. 11/07/2012 [facility] Advance Directives Advance Dir ectives No Advance Directives available. 07/10/2012 [facility] Functional Status No Data Provided for This Section
== END 2020-03-19 17:20 | disposition home or self-care (01) ==
LOC: FSED 17:05
DX: H66.91 Otitis media, unspecified, right ear (principal); R50.9 Fever, unspecified
CPT/HCPCS: 99282

== ENCOUNTER 2020-06-11 19:33 | Observation (INO) | payer MEDICARE, OTHER ==
[~2020-06-11] VITALS: Ht 177.8 cm; Wt 105.2 kg
[~2020-06-11 19:33] MED LIST changes: +MOTRIN800 MG PO
[2020-06-11] MEDS ORDERED: ASPIRIN 81 MG CHEW TAB PO ONE (19:45)
[2020-06-11 20:08] LABS: BASOPHILS # (AUTO) 0.1 (0.0-0.1); BASOPHILS % 0.8 % (0.0-1.0); EOSINOPHILS # (AUTO) 0.2 (0.0-0.4); EOSINOPHILS % 3.8 % (0.0-6.0); HEMATOCRIT 41.2 % (38.2-49.6); HEMOGLOBIN 13.1 g/dL (14.0-18.0); LYMPHOCYTES # (AUTO) 1.8 (1.0-3.2); LYMPHOCYTES % 29.7 % (18.0-39.1); MEAN CORPUSCULAR HEMOGLOBIN 26.2 pg (28-32); MEAN CORPUSCULAR HGB CONC 31.8 g/dL (31-35); MEAN CORPUSCULAR VOLUME 82.4 fL (81-99); MONOCYTES # (AUTO) 0.6 (0.2-0.8); MONOCYTES % 10.3 % (4.4-11.3); NEUTROPHILS # (AUTO) 3.3 (2.1-6.9); NEUTROPHILS % 55.1 % (38.7-80.0); PLATELET COUNT 188 x10e3/uL (140-360); RED CELL DISTRIBUTION WIDTH 13.8 % (11.7-14.4)
[2020-06-11 20:22] LABS: INR 0.81; PROTHROMBIN TIME 11.6 seconds (11.9-14.5)
[2020-06-11 20:23] LABS: PARTIAL THROMBOPLASTIN TIME 24.9 seconds (23.8-35.5)
[2020-06-11 20:30] LABS: BILIRUBIN,URINE NEGATIVE (NEGATIVE); CLARITY,URINE CLEAR (CLEAR); COLOR,URINE YELLOW (YELLOW); KETONES,URINE NEGATIVE (NEGATIVE); LEUKOCYTE ESTERASE ,URINE NEGATIVE (NEGATIVE); NITRITE,URINE NEGATIVE (NEGATIVE); PROTEIN,URINE DIPSTICK NEGATIVE (NEGATIVE); URINE UROBILINOGEN 0.2 mg/dL (0.2 - 1)
[2020-06-11 20:32] LABS: ALANINE AMINOTRANSFERASE 58 IU/L (0-55); ALBUMIN 3.6 g/dL (3.5-5.0); ALBUMIN/GLOBULIN RATIO 0.9 (0.8-2.0); ALKALINE PHOSPHATASE 88 IU/L (40-150); ANION GAP 13.7 mmol/L (8-16); BLOOD UREA NITROGEN 21 mg/dL (7-26); BUN/CREATININE RATIO 17 (6-25); CALCIUM 8.5 mg/dL (8.4-10.2); CARBON DIOXIDE 25 mmol/L (22-29); CHLORIDE 104 mmol/L (98-107); CREATINE KINASE 206 IU/L (30-200); CREATININE, SERUM 1.26 mg/dL (0.72-1.25); EST GLOMERULAR FILTRATION RATE 56 ML/MIN (60-); GLUCOSE 227 mg/dL (74-118); POTASSIUM 3.7 mmol/L (3.5-5.1); SODIUM 139 mmol/L (136-145)
[2020-06-11 20:35] LABS: BACTERIA,URINE RARE /HPF; WBC,URINE (MAN) 0-5 /HPF (0-5)
[2020-06-11] MEDS ORDERED: ONDANSETRON HCL INJ 2MG/ML 2ML 2 MG/ML VIAL IV PRN (21:00)
[2020-06-11] MEDS ORDERED: DEXTROSE 50% SYRINGE 50 ML IV PRN (21:00)
[2020-06-11] MEDS ORDERED: MORPHINE SULFATE 2 MG/ML SYR 1ML IV PRN (21:00)
[2020-06-11] MEDS: INSULIN REGULAR, HUMAN 100 UNIT/1 ML 3ML VIAL SQ SCH (21:29)
[2020-06-11] MEDS ORDERED: LOSARTAN-HCTZ1 EAC2 PO (21:31)
[2020-06-11] MEDS ORDERED: GABAPENTIN300 MG PO (21:31)
[2020-06-11] MEDS ORDERED: GLIMEPIRIDE2 MG PO (21:31)
[2020-06-11 22:25] VITALS: BP 125/71
[2020-06-11 22:40] VITALS: BP 125/71
[2020-06-11] MEDS ORDERED: PROBIOTIC & AC1 EACH PO (23:16)
[2020-06-11] MEDS ORDERED: VITAMIN D3-ALO1 EACH PO (23:16)
[2020-06-12 03:45] LABS: BASOPHILS # (AUTO) 0.1 (0.0-0.1); BASOPHILS % 0.8 % (0.0-1.0); EOSINOPHILS # (AUTO) 0.3 (0.0-0.4); EOSINOPHILS % 4.1 % (0.0-6.0); HEMATOCRIT 37.7 % (38.2-49.6); HEMOGLOBIN 12.3 g/dL (14.0-18.0); LYMPHOCYTES # (AUTO) 1.7 (1.0-3.2); LYMPHOCYTES % 27.4 % (18.0-39.1); MEAN CORPUSCULAR HEMOGLOBIN 27.1 pg (28-32); MEAN CORPUSCULAR HGB CONC 32.6 g/dL (31-35); MONOCYTES # (AUTO) 0.6 (0.2-0.8); MONOCYTES % 10.2 % (4.4-11.3); NEUTROPHILS # (AUTO) 3.4 (2.1-6.9); PLATELET COUNT 170 x10e3/uL (140-360); RED BLOOD COUNT 4.54 x10e6/uL (4.3-5.7); RED CELL DISTRIBUTION WIDTH 13.6 % (11.7-14.4)
[2020-06-12 04:00] VITALS: BP 116/58
[2020-06-12 04:01] LABS: ANION GAP 11.6 mmol/L (8-16); BLOOD UREA NITROGEN 18 mg/dL (7-26); BUN/CREATININE RATIO 18 (6-25); CALCIUM 7.7 mg/dL (8.4-10.2); CARBON DIOXIDE 25 mmol/L (22-29); CHLORIDE 108 mmol/L (98-107); CHOL/HDL RATIO 3.2 (3.9-4.7); CHOLESTEROL 126 MD/DL (0-199); CREATININE, SERUM 1.01 mg/dL (0.72-1.25); EST GLOMERULAR FILTRATION RATE > 60 ML/MIN (60-); GLUCOSE 110 mg/dL (74-118); HDL CHOLESTEROL 39 MG/DL (40-60); LDL CHOLESTEROL 65 MG/DL (60-130); POTASSIUM 3.6 mmol/L (3.5-5.1); SODIUM 141 mmol/L (136-145); TRIGLYCERIDES 108 MG/DL (0-149)
[2020-06-12 04:08] LABS: CREATINE KINASE MB 3.3 ng/mL (0-5.0)
[2020-06-12] MEDS ORDERED: GLIMEPIRIDE 2 MG TAB PO PRN (07:30)
[2020-06-12] MEDS: INSULIN REGULAR, HUMAN 100 UNIT/1 ML 3ML VIAL SQ SCH ×4 (07:30→21:00)
[2020-06-12 08:30] VITALS: BP 129/64
[2020-06-12] MEDS ORDERED: SODIUM CHLORIDE 0.9% 50ML 50 ML ONE (08:33)
[2020-06-12] MEDS ORDERED: IOPAMIDOL 370 MG/ML 200 ML INFUS..BTL INJ ONE (08:34)
[2020-06-12] MEDS: PANTOPRAZOLE SOD 40 MG TABEC PO SCH (08:59)
[2020-06-12] MEDS: ASPIRIN 81 MG ENTERIC COATED PO SCH (09:00)
[2020-06-12] MEDS: GABAPENTIN 300 MG CAP PO SCH ×2 (09:00→17:10)
[2020-06-12] MEDS: HYDRALAZINE HCL 25 MG TAB PO SCH ×2 (09:00→17:10)
[2020-06-12 09:38] VITALS: BP 129/64
[2020-06-12] MEDS ORDERED: ASPIRIN 81 MG ENTERIC COATED PO SCH (09:45)
[2020-06-12] MEDS ORDERED: CLOPIDOGREL BISULFATE 75 MG TAB PO ONE (10:30)
[2020-06-12 12:15] VITALS: BP 123/55
[2020-06-12 12:59] LABS: CREATINE KINASE 193 IU/L (30-200)
[2020-06-12 16:30] VITALS: BP 132/75
[2020-06-12] MEDS ORDERED: METOPROLOL TARTRATE 25 MG TAB PO SCH (17:00)
[2020-06-12] MEDS ORDERED: ONDANSETRON HCL 4 MG ORAL DISINTEGRATING TAB PO PRN (18:15)
[2020-06-12 20:00] VITALS: BP 126/60
[2020-06-12] MEDS ORDERED: SIMVASTATIN 20 MG TAB PO SCH (21:00)
[2020-06-12] MEDS ORDERED: CYANOCOBALAMIN 1,000 MCG TAB PO SCH (21:00)
[2020-06-13] VITALS: BP 127/56
[2020-06-13 04:00] VITALS: BP 121/65
[2020-06-13] MEDS ORDERED: CLOPIDOGREL75 MG PO (07:06)
[2020-06-13] MEDS ORDERED: PROVENTIL HFA6.7 GM INH (07:06)
[2020-06-13 07:40] LABS: ANION GAP 10.8 mmol/L (8-16); BLOOD UREA NITROGEN 20 mg/dL (7-26); BUN/CREATININE RATIO 18 (6-25); CALCIUM 8.4 mg/dL (8.4-10.2); CARBON DIOXIDE 25 mmol/L (22-29); CHLORIDE 107 mmol/L (98-107); CREATININE, SERUM 1.09 mg/dL (0.72-1.25); EST GLOMERULAR FILTRATION RATE > 60 ML/MIN (60-); GLUCOSE 128 mg/dL (74-118); POTASSIUM 3.8 mmol/L (3.5-5.1); SODIUM 139 mmol/L (136-145)
[2020-06-13] MEDS: HYDRALAZINE HCL 25 MG TAB PO SCH (08:01)
[2020-06-13] MEDS: PANTOPRAZOLE SOD 40 MG TABEC PO SCH (08:01)
[2020-06-13] MEDS: GABAPENTIN 300 MG CAP PO SCH (08:01)
[2020-06-13] MEDS: ASPIRIN 81 MG ENTERIC COATED PO SCH (08:01)
[2020-06-13] MEDS ORDERED: CLOPIDOGREL BISULFATE 75 MG TAB PO SCH (09:00)
== END 2020-06-13 08:02 | disposition home or self-care (01) ==
LOC: ER 19:41 → ERHOLD 20:53 → MED/SURG 22:05
PROVIDERS: ADMIT Family Medicine; ATTEND Family Medicine
DX: R07.9 Chest pain, unspecified (principal); I10 Essential (primary) hypertension; K21.9 Gastro-esophageal reflux disease without esophagitis; E78.5 Hyperlipidemia, unspecified; E11.42 Type 2 diabetes mellitus with diabetic polyneuropathy; Z87.891 Personal history of nicotine dependence; Z88.8 Allergy status to other drugs, medicaments and biological substances; Z86.19 Personal history of other infectious and parasitic diseases; E66.9 Obesity, unspecified; G47.30 Sleep apnea, unspecified; M19.90 Unspecified osteoarthritis, unspecified site; Z68.33 Body mass index [BMI] 33.0-33.9, adult
CPT/HCPCS: 36415 ×3; 71045; 71260; 80048 ×2; 80053; 80061; 81001; 82550 ×2; 82553 ×2; 83880; 84443; 84484 ×2; 85025 ×2; 85610; 85730; 93005; 93306; 99284; G0378 ×3; J1817; Q9967; S0164 ×2; U0002

== ENCOUNTER 2020-09-18 16:19 | Emergency (ER) | payer MEDICARE, OTHER ==
[~2020-09-18] VITALS: Ht 177.8 cm; Wt 102.1 kg
[~2020-09-18 16:19] MED LIST changes: +CLOPIDOGREL75 MG PO; +GABAPENTIN300 MG PO; +GLIMEPIRIDE2 MG PO; +LOSARTAN-HCTZ1 EAC2 PO; +PROVENTIL HFA6.7 GM INH; +VITAMIN D3-ALO1 EACH PO
[2020-09-18] MEDS ORDERED: PIPERACILLIN/TAZO 4.5 GM 100 ML IV STA (16:45)
[2020-09-18] MEDS ORDERED: ASPIRIN 81 MG CHEW TAB PO ONE (16:45)
[2020-09-18 17:09] LABS: BASOPHILS # (AUTO) 0.1 (0.0-0.1); EOSINOPHILS # (AUTO) 0.3 (0.0-0.4); EOSINOPHILS % 4.1 % (0.0-6.0); HEMATOCRIT 38.9 % (38.2-49.6); LYMPHOCYTES # (AUTO) 1.5 (1.0-3.2); LYMPHOCYTES % 19.7 % (18.0-39.1); MEAN CORPUSCULAR HEMOGLOBIN 25.8 pg (28-32); MEAN CORPUSCULAR HGB CONC 30.8 g/dL (31-35); MEAN CORPUSCULAR VOLUME 83.5 fL (81-99); MONOCYTES # (AUTO) 0.7 (0.2-0.8); MONOCYTES % 9.9 % (4.4-11.3); NEUTROPHILS # (AUTO) 4.8 (2.1-6.9); NEUTROPHILS % 64.9 % (38.7-80.0); PLATELET COUNT 197 x10e3/uL (140-360); RED BLOOD COUNT 4.66 x10e6/uL (4.3-5.7); RED CELL DISTRIBUTION WIDTH 14.6 % (11.7-14.4)
[2020-09-18 17:27] LABS: ALANINE AMINOTRANSFERASE 55 IU/L (0-55); ALBUMIN 3.5 g/dL (3.5-5.0); ALBUMIN/GLOBULIN RATIO 0.9 (0.8-2.0); ALKALINE PHOSPHATASE 60 IU/L (40-150); ANION GAP 14.3 mmol/L (8-16); BLOOD UREA NITROGEN 20 mg/dL (7-26); BUN/CREATININE RATIO 18 (6-25); CALCIUM 8.8 mg/dL (8.4-10.2); CARBON DIOXIDE 26 mmol/L (22-29); CHLORIDE 105 mmol/L (98-107); CREATINE KINASE 720 IU/L (30-200); EST GLOMERULAR FILTRATION RATE > 60 ML/MIN (60-); GLUCOSE 146 mg/dL (74-118); POTASSIUM 4.3 mmol/L (3.5-5.1); SODIUM 141 mmol/L (136-145)
[2020-09-18 17:35] LABS: B-TYPE NATRIURETIC PEPTIDE2 57.9 pg/mL (0-100)
[2020-09-18] MEDS ORDERED: SODIUM CHLORIDE 0.9% 50ML 50 ML ONE (19:58)
[2020-09-18] MEDS ORDERED: IOPAMIDOL 370 MG/ML 200 ML INFUS..BTL INJ ONE (19:58)
[2020-09-18] MEDS ORDERED: DECADRON4 M1 PO (20:28)
[2020-09-18] MEDS ORDERED: GUAIFENESI100 MG/5 M PO (20:28)
[2020-09-18 20:41] VITALS: BP 135/85
== END 2020-09-18 20:44 | disposition home or self-care (01) ==
LOC: ER 16:30
DX: R06.00 Dyspnea, unspecified (principal); R05 Cough; E11.65 Type 2 diabetes mellitus with hyperglycemia; I10 Essential (primary) hypertension; Z20.822 Contact with and (suspected) exposure to COVID-19
CPT/HCPCS: 36415; 71260; 80053; 82550; 82553; 83605; 83880; 84484; 85025; 87040; 93005; 99284; J2543; Q9967; U0002

== ENCOUNTER → 2020-10-12 | Outpatient (CLI) | payer MEDICARE, OTHER ==
[~2020-10-12] MED LIST changes: +DECADRON4 M1 PO; +GUAIFENESI100 MG/5 M PO
== END ==
LOC: MRI 09-21 09:56
PROVIDERS: ATTEND Family Medicine
DX: M51.16 Intervertebral disc disorders with radiculopathy, lumbar region (principal)
CPT/HCPCS: 72148

== ENCOUNTER → 2021-03-11 | Day surgery (SDC) | payer MEDICARE, OTHER ==
[2021-03-09 15:50] LABS: BASOPHILS % 0.6 % (0.0-1.0); EOSINOPHILS # (AUTO) 0.1 (0.0-0.4); EOSINOPHILS % 1.7 % (0.0-6.0); HEMATOCRIT 41.1 % (38.2-49.6); HEMOGLOBIN 12.8 g/dL (14.0-18.0); LYMPHOCYTES # (AUTO) 1.7 (1.0-3.2); LYMPHOCYTES % 27.1 % (18.0-39.1); MEAN CORPUSCULAR HEMOGLOBIN 24.9 pg (28-32); MEAN CORPUSCULAR HGB CONC 31.1 g/dL (31-35); MEAN CORPUSCULAR VOLUME 79.8 fL (81-99); MONOCYTES # (AUTO) 0.6 (0.2-0.8); MONOCYTES % 9.7 % (4.4-11.3); NEUTROPHILS # (AUTO) 3.9 (2.1-6.9); NEUTROPHILS % 60.6 % (38.7-80.0); PLATELET COUNT 190 x10e3/uL (140-360); RED BLOOD COUNT 5.15 x10e6/uL (4.3-5.7); RED CELL DISTRIBUTION WIDTH 16.2 % (11.7-14.4)
[~2021-03-11] MED LIST changes: +DEXTROSE 5% 250ML 250 ML IV ONE; +FARXIGA10 MG PO; +HYOSCYAMINE SULFATE 0.5 MG/ML INJ ONE
[2021-03-11 13:35] VITALS: BP 116/64
== END | disposition home or self-care (01) ==
LOC: OR 10:03
PROVIDERS: ATTEND Internal Medicine Gastroenterology
DX: K29.50 Unspecified chronic gastritis without bleeding (principal); K62.1 Rectal polyp; K29.80 Duodenitis without bleeding; K21.9 Gastro-esophageal reflux disease without esophagitis; K57.30 Diverticulosis of large intestine without perforation or abscess without bleeding; K64.8 Other hemorrhoids; G47.33 Obstructive sleep apnea (adult) (pediatric); I25.10 Atherosclerotic heart disease of native coronary artery without angina pectoris; I25.2 Old myocardial infarction; I44.0 Atrioventricular block, first degree; R00.1 Bradycardia, unspecified; I10 Essential (primary) hypertension; E11.9 Type 2 diabetes mellitus without complications; E78.00 Pure hypercholesterolemia, unspecified; Z88.8 Allergy status to other drugs, medicaments and biological substances; Z01.810 Encounter for preprocedural cardiovascular examination; Z01.812 Encounter for preprocedural laboratory examination; Z20.822 Contact with and (suspected) exposure to COVID-19; Z79.02 Long term (current) use of antithrombotics/antiplatelets; Z79.82 Long term (current) use of aspirin; Z79.84 Long term (current) use of oral hypoglycemic drugs; Z68.32 Body mass index [BMI] 32.0-32.9, adult; Z95.5 Presence of coronary angioplasty implant and graft
CPT/HCPCS: 36415 ×2; 43239; 45380; 82948; 85025; 88305; 88312; 93005; J1980; J7070; U0002; 45378; 45384

== ENCOUNTER 2021-08-29 09:53 | Emergency (ER) | payer MEDICARE, OTHER ==
[~2021-08-29] VITALS: Ht 177.8 cm; Wt 102.1 kg
[~2021-08-29 09:53] MED LIST changes: -DEXTROSE 5% 250ML 250 ML IV ONE; -HYOSCYAMINE SULFATE 0.5 MG/ML INJ ONE
[2021-08-29 10:34] LABS: BASOPHILS # (AUTO) 0.1 (0.0-0.1); BASOPHILS % 0.4 % (0.0-1.0); EOSINOPHILS % 0.2 % (0.0-6.0); HEMATOCRIT 47.3 % (38.2-49.6); HEMOGLOBIN 14.6 g/dL (14.0-18.0); LYMPHOCYTES # (AUTO) 1.1 (1.0-3.2); LYMPHOCYTES % 9.1 % (18.0-39.1); MEAN CORPUSCULAR HEMOGLOBIN 26.3 pg (28-32); MEAN CORPUSCULAR HGB CONC 30.9 g/dL (31-35); MEAN CORPUSCULAR VOLUME 85.2 fL (81-99); MONOCYTES # (AUTO) 0.5 (0.2-0.8); MONOCYTES % 4.1 % (4.4-11.3); NEUTROPHILS # (AUTO) 10.5 (2.1-6.9); NEUTROPHILS % 84.1 % (38.7-80.0); PLATELET COUNT 192 x10e3/uL (140-360); RED BLOOD COUNT 5.55 x10e6/uL (4.3-5.7); RED CELL DISTRIBUTION WIDTH 17.9 % (11.7-14.4)
[2021-08-29 10:52] LABS: ALBUMIN 3.5 g/dL (3.5-5.0); ALBUMIN/GLOBULIN RATIO 0.9 (0.8-2.0); ANION GAP 15.9 mmol/L (8-16); CALCIUM 9.2 mg/dL (8.4-10.2); CREATININE, SERUM 1.2 mg/dL (0.72-1.25); POTASSIUM 3.9 mmol/L (3.5-5.1)
[2021-08-29 10:58] LABS: CREATINE KINASE MB 5.3 ng/mL (0-5.0)
[2021-08-29 13:29] VITALS: BP 130/73
== END 2021-08-29 13:31 | disposition home or self-care (01) ==
LOC: ER 10:03
DX: U07.1 COVID-19 (principal); R05.9 Cough, unspecified; R53.81 Other malaise; E11.65 Type 2 diabetes mellitus with hyperglycemia; I10 Essential (primary) hypertension; E78.5 Hyperlipidemia, unspecified
CPT/HCPCS: 36415; 71045; 80053; 82550; 82553; 83735; 84484; 85025; 93005; 99283; U0002

== ENCOUNTER → 2021-11-23 | Outpatient (CLI) | payer MEDICARE, OTHER ==
[~2021-11-23] MED LIST changes: +SODIUM CHLORIDE 0.9% 1000ML 1,000 ML ONE; +VERAPAMIL HCL 2.5 MG/ML 2 ML VIAL ONE
== END ==
LOC: MRI 08:31
PROVIDERS: ATTEND Nurse Practitioner Adult Health
DX: M51.16 Intervertebral disc disorders with radiculopathy, lumbar region (principal)
CPT/HCPCS: 72148; J7030

== ENCOUNTER → 2022-02-16 | Outpatient (CLI) | payer MEDICARE, OTHER ==
[~2022-02-16] MED LIST changes: +IOPAMIDOL 370 MG/ML 100 ML INFUS..BTL INJ ONE; -SODIUM CHLORIDE 0.9% 1000ML 1,000 ML ONE; -VERAPAMIL HCL 2.5 MG/ML 2 ML VIAL ONE
[2022-02-16 10:58] LABS: CREATININE, SERUM 0.97 mg/dL (0.72-1.25)
== END ==
LOC: CT 09:50
PROVIDERS: ATTEND Internal Medicine Gastroenterology
DX: R10.84 Generalized abdominal pain (principal)
CPT/HCPCS: 36415; 74177; 82565; 84520; Q9967

== ENCOUNTER → 2024-02-02 | Day surgery (SDC) | payer MEDICARE, OTHER ==
[2024-01-29 12:37] LABS: BASOPHILS # (AUTO) 0.1 (0.0-0.1); BASOPHILS % 0.8 % (0.0-1.0); EOSINOPHILS # (AUTO) 0.2 (0.0-0.4); EOSINOPHILS % 2.8 % (0.0-6.0); HEMATOCRIT 46.8 % (38.2-49.6); HEMOGLOBIN 15.3 g/dL (14.0-18.0); LYMPHOCYTES # (AUTO) 1.2 (1.0-3.2); LYMPHOCYTES % 17.8 % (18.0-39.1); MEAN CORPUSCULAR HEMOGLOBIN 28.2 pg (28-32); MEAN CORPUSCULAR HGB CONC 32.7 g/dL (31-35); MEAN CORPUSCULAR VOLUME 86.2 fL (81-99); MONOCYTES # (AUTO) 0.6 (0.2-0.8); MONOCYTES % 9.5 % (4.4-11.3); NEUTROPHILS # (AUTO) 4.5 (2.1-6.9); NEUTROPHILS % 68.8 % (38.7-80.0); PLATELET COUNT 152 x10e3/uL (140-360); RED BLOOD COUNT 5.43 x10e6/uL (4.3-5.7); WHITE BLOOD COUNT 6.51 x10e3/uL (4.8-10.8)
[~2024-02-02] MED LIST changes: +ASPIRIN EC81 MG PO; +BENZONATATE200 MG PO; +CEFDINIR300 MG PO; +FENTANYL CITRATE/PF 100MCG/2 ML INJ ONE; +FEROSUL325 MG PO; +HYOSCYAMINE SULFATE 0.5 MG/ML INJ ONE; -IOPAMIDOL 370 MG/ML 100 ML INFUS..BTL INJ ONE; +IPRAT-ALBUT 0.5-3 ML NEB; +LIDOCAINE HCL 2% LOCAL INJ 5 ML SDV VIAL INJ ONE; +LOSARTAN POTAS100 MG PO; +MAGNESIUM OXID400 MG PO; +METFORMIN HCL500 MG PO; +MIDAZOLAM HCL 2 MG/2 ML VIAL ONE; +OZEMPIC0.25 MG/02 SC; +PANTOPRAZOLE SO40 MG PO; +PROPOFOL IV EMULSION 10 MG/ML 50 ML VIAL IV ONE; +STOOL SOFTENER50 MG PO; +TESTOSTERO200 MG/1 M INJ; +TURMERIC 450-51 EACH PO
[2024-02-02] MEDS: LACTATED RINGER'S 1,000 ML ONE (08:21)
== END | disposition home or self-care (01) ==
LOC: OR 07:22
PROVIDERS: ATTEND Internal Medicine Gastroenterology
DX: K21.00 Gastro-esophageal reflux disease with esophagitis, without bleeding (principal); K29.50 Unspecified chronic gastritis without bleeding; K31.A0 Gastric intestinal metaplasia, unspecified; K31.89 Other diseases of stomach and duodenum; D12.0 Benign neoplasm of cecum; D12.3 Benign neoplasm of transverse colon; D12.8 Benign neoplasm of rectum; K57.30 Diverticulosis of large intestine without perforation or abscess without bleeding; K64.8 Other hemorrhoids; I10 Essential (primary) hypertension; E78.5 Hyperlipidemia, unspecified; I25.10 Atherosclerotic heart disease of native coronary artery without angina pectoris; Z95.5 Presence of coronary angioplasty implant and graft; J44.9 Chronic obstructive pulmonary disease, unspecified; G47.33 Obstructive sleep apnea (adult) (pediatric); E11.9 Type 2 diabetes mellitus without complications; Z79.84 Long term (current) use of oral hypoglycemic drugs; I44.0 Atrioventricular block, first degree; I45.10 Unspecified right bundle-branch block; M06.9 Rheumatoid arthritis, unspecified; M19.91 Primary osteoarthritis, unspecified site; Z01.810 Encounter for preprocedural cardiovascular examination; Z01.812 Encounter for preprocedural laboratory examination; Z79.899 Other long term (current) drug therapy; Z79.02 Long term (current) use of antithrombotics/antiplatelets; Z79.82 Long term (current) use of aspirin; Z97.4 Presence of external hearing-aid
CPT/HCPCS: 36415; 43239; 45380; 45385; 85025; 88305; 88342; 93005; J1980; J2001; J2250; J2470; J2704; J3010; J7121; 45378; 88312

== ENCOUNTER → 2024-11-07 | Outpatient (REF) | payer MEDICARE, OTHER ==
[~2024-11-07] MED LIST changes: -FENTANYL CITRATE/PF 100MCG/2 ML INJ ONE; -HYOSCYAMINE SULFATE 0.5 MG/ML INJ ONE; -LIDOCAINE HCL 2% LOCAL INJ 5 ML SDV VIAL INJ ONE; -MIDAZOLAM HCL 2 MG/2 ML VIAL ONE; -PROPOFOL IV EMULSION 10 MG/ML 50 ML VIAL IV ONE
== END ==
LOC: CARD 10:39
PROVIDERS: ATTEND Family Medicine
DX: I73.9 Peripheral vascular disease, unspecified (principal)
CPT/HCPCS: 93925

== ENCOUNTER 2025-02-14 12:19 | Emergency (ER) | payer MEDICARE, OTHER ==
[~2025-02-14] VITALS: Ht 177.8 cm; Wt 95.3 kg
[2025-02-14] MEDS: ACETAMINOPHEN 325 MG TAB PO ONE (13:43)
[2025-02-14] MEDS ORDERED: BENZONATATE200 MG PO (15:12)
[2025-02-14 15:30] VITALS: PULSE 68; RESP 16; TEMP 98.3; O2SAT 98
== END 2025-02-14 15:33 | disposition home or self-care (01) ==
LOC: FSED 13:15
DX: R05.9 Cough, unspecified (principal); J06.9 Acute upper respiratory infection, unspecified; I10 Essential (primary) hypertension; E11.9 Type 2 diabetes mellitus without complications; I25.10 Atherosclerotic heart disease of native coronary artery without angina pectoris; E78.5 Hyperlipidemia, unspecified; M54.9 Dorsalgia, unspecified; G89.29 Other chronic pain; Z87.19 Personal history of other diseases of the digestive system; Z95.5 Presence of coronary angioplasty implant and graft
CPT/HCPCS: 71046; 99283